=== PATIENT | female | born 1995 | race Caucasian/White ===

== ENCOUNTER 2018-10-31 14:40 | Outpatient (CLI) | payer BC, SELFPAY ==
[2018-10-31 14:18] VITALS: BMI 39.1
[2018-10-31 15:03] VITALS: BMI 39.8
--- NOTE | 2018-10-31 21:53 | OB.TRI.NOTE ---
- Problem List (1) Threatened labor Status: Acute History of Present Illness Date of Service: 10/31/18 Was patient seen by the physician?: Yes Reason For Visit: R/ PRE TERM LABOR Date of Service: 10/31/18 History of Present Illness: co ctx and small amount vb Allergies No Known Allergies Allergy (Verified 10/31/18 14:17) - Pertinent Past Medical History Surgical History: Past Surgical History (Last Reviewed 10/31/18 @ 14:18 by Sonia De La Rosa) History of appendectomy History of tonsillectomy NST - FHR Rate Baby A Baseline: 140 Variability:: Moderate Accelerations:: 15 x 15 Decelerations:: None NST Reactive:: Yes FHR Category:: Category I Uterine Activity:: q3-5 irritabiltiy Impression/Plan threatened PTL, no cervicla change dc home labor preacutions. has MFM ultrasound tomorrow
== END 2018-10-31 16:35 | disposition home or self-care (01) ==
LOC: WPOUT 14:44 → OBT 14:45
PROVIDERS: Referring Provider Obstetrics & Gynecology; Visit Provider Obstetrics & Gynecology
DX: O60.00 Preterm labor without delivery, unspecified trimester (principal); Z3A.00 Weeks of gestation of pregnancy not specified
CPT/HCPCS: 59025; 59050; 99218; G0378

== ENCOUNTER 2018-11-07 14:10 | Outpatient (CLI) | payer BC, SELFPAY ==
[2018-11-07 14:29] VITALS: BMI 39.3
[2018-11-07] MEDS: Betamethasone/Betamethasone 30 MG/5 ML Vial 12 MG IM (15:33)
--- NOTE | 2018-11-11 12:05 | OB.TRI.PN ---
Progress Notes Date of Service: 11/07/18 Progress Note: Patient at 28 weeks complaining of small amount of vaginal bleeding and irregular contractions. Patient examined in labor and delivery and noted to be still 1 cm no loss of fluid good movement, patient had ultrasound by maternal medicine that showed a normal exam and several days ago. heart tones 140s moderate variability 10 x 10 accelerations reactive gestational age appropriate no decelerations [place]: No regular contractions Assessment and plan 28-week vaginal bleeding no labor suspected but since this is the second evaluation within the last week recommend getting prophylactic steroids. First dose given today
--- NOTE | 2018-11-11 12:12 | OB.TRI.PN_ITS ---
Progress Notes Date of Service: 11/07/18 Progress Note: Patient at 28 weeks complaining of small amount of vaginal bleeding and irregular contractions. Patient examined in labor and delivery and noted to be still 1 cm no loss of fluid good movement, patient had ultrasound by maternal medicine that showed a normal exam and several days ago. heart tones 140s moderate variability 10 x 10 accelerations reactive gestational age appropriate no decelerations [place]: No regular contractions Assessment and plan 28-week vaginal bleeding no labor suspected but since this is the second evaluation within the last week recommend getting prophylactic steroids. First dose given today
--- NOTE | 2018-11-11 12:13 | OB.TRI.PN ---
Progress Notes Date of Service: 11/08/18 Progress Note: [place] shot
== END 2018-11-07 16:00 | disposition home or self-care (01) ==
LOC: WPOUT 14:12 → WP 15:34
PROVIDERS: Referring Provider Obstetrics & Gynecology; Visit Provider Obstetrics & Gynecology
DX: O46.93 Antepartum hemorrhage, unspecified, third trimester (principal); Z3A.28 28 weeks gestation of pregnancy
CPT/HCPCS: 59025; 59050; 96372; 99218; G0378; J0702

== ENCOUNTER 2018-11-08 15:05 | Outpatient (CLI) | payer BC, SELFPAY ==
[2018-11-08 13:49] VITALS: BMI 39.3
[2018-11-08 15:13] VITALS: BMI 39.8
[2018-11-08] MEDS: Betamethasone/Betamethasone 30 MG/5 ML Vial 12 MG IM (15:31)
[2018-11-08 16:15] LABS: Absolute Lymphocyte Count 1.19 X10^3/ul (0.83-4.51); Absolute Neutrophil Count 10.3 X10^3/uL (2.0-7.7); Basophil# 0.02 X10^3/uL; Basophil% 0.2 % (0-1); Eosinophil# 0.02 X10^3/uL; Eosinophils% 0.2 % (0-5); Hemoglobin 11.6 g/dl (12.0-15.0); Lymphocyte # 1.19 X10^3/ul (4.0); Lymphocyte % 9.7 % (19-41); Mean Corp Hgb Conc 34.1 g/gl (32-36); Mean Corpuscular Hgb 31.5 pg (27.0-32.0); Mean Corpuscular Volume 92.4 fL (81-99); Mean Platelet Vol. 9.9 fl (6.2-12.0); Monocyte# 0.57 X10^3/uL; Monocyte% 4.7 % (0-10); Neutrophil # 10.31 X10^3/uL (2.7-7.7); Neutrophil % 84.3 % (47-70); Platelet Count 202 K/mm3 (150-450); RBC Distribution Width CV 13.9 % (11.6-14.6); RBC Distribution Width SD 45.3 fl (35.1-43.9); Red Blood Count 3.68 M/mm3 (4.2-5.4); White Blood Count 12.2 K/mm3 (4.4-11.0)
[2018-11-08 16:16] LABS: POSITIVE COUNT NO; POSITIVE DIFFERENTIAL NO; POSITIVE MORPHOLOGY NO
[2018-11-08 16:35] LABS: Glucose Challenge Gest 1H 50g 142 mg/dL (70-140)
--- NOTE | 2018-11-16 04:12 | OB.TRI.PN_ITS ---
Progress Notes Date of Service: 11/08/18 Progress Note: [place] shot Laboratory Studies: Laboratory Tests 11/08/18 11/08/18 Range/Units 15:00 15:00 WBC 12.2 H (4.4-11.0) K/mm3 RBC 3.68 L (4.2-5.4) M/mm3 Hgb 11.6 L (12.0-15.0) g/dl Hct 34.0 L (37-47) % MCV 92.4 (81-99) fL MCH 31.5 (27.0-32.0) pg MCHC 34.1 (32-36) g/gl RDW 13.9 (11.6-14.6) % RDW Differential 45.3 H (35.1-43.9) fl Plt Count 202 (150-450) K/mm3 MPV 9.9 (6.2-12.0) fl Immature Gran % (Auto) 0.900 (0.0-0.9) % Neut % (Auto) 84.3 H (47-70) % Lymph % (Auto) 9.7 L (19-41) % Stokes % (Auto) 4.7 (0-10) % Eos % (Auto) 0.2 (0-5) % Baso % (Auto) 0.2 (0-1) % Absolute Neuts (auto) 10.3 H (2.0-7.7) X10^3/uL Absolute Lymphs (auto) 1.19 (0.83-4.51) X10^3/ul Total Counted Not Reportable Glucose 1 Hr 50 gm 142 H (70-140) mg/dL
== END 2018-11-08 15:45 | disposition home or self-care (01) ==
LOC: LAB 15:08 → WPOUT 15:09 → WP 15:10
PROVIDERS: Referring Provider Obstetrics & Gynecology; Visit Provider Obstetrics & Gynecology
DX: O60.00 Preterm labor without delivery, unspecified trimester (principal); Z3A.00 Weeks of gestation of pregnancy not specified
CPT/HCPCS: 36415; 82950; 85025; 96372; 99218; G0378; J0702

== ENCOUNTER → 2018-11-27 06:56 | Outpatient (CLI) | payer BC, SELFPAY ==
[2018-11-08 15:13] VITALS: BMI 39.8
[2018-11-23 13:18] VITALS: BMI 39.8
[2018-11-27 08:41] LABS: Glucose GTT-Gestational 1 Hr 141 mg/dL (<190)
[2018-11-27 08:46] LABS: Glucose GTT-Gestation. Fasting 78 mg/dL (<105)
[2018-11-27 10:35] LABS: Glucose GTT-Gestational 2 Hr 129 mg/dL (<165)
[2018-11-27 11:27] LABS: Glucose GTT-Gestational 3 Hr 95 L (<145)
== END ==
PROVIDERS: Family Provider Family Medicine; PCP Family Medicine; Referring Provider Obstetrics & Gynecology; Visit Provider Obstetrics & Gynecology
DX: R73.09 Other abnormal glucose (principal)
CPT/HCPCS: 36415; 82951; 82952

== ENCOUNTER → 2019-01-04 17:54 | Outpatient (CLI) | payer BC, SELFPAY ==
[2019-01-04 10:23] VITALS: BMI 39.8
== END ==
PROVIDERS: Family Provider Family Medicine; PCP Family Medicine; Referring Provider Obstetrics & Gynecology; Visit Provider Obstetrics & Gynecology
DX: Z34.83 Encounter for supervision of other normal pregnancy, third trimester (principal)
CPT/HCPCS: 87081

== ENCOUNTER 2019-01-15 16:50 | Inpatient (IN) | payer BC, SELFPAY ==
[2019-01-15 08:51] VITALS: BMI 39.8
[2019-01-15 17:57] LABS: Absolute Lymphocyte Count 1.54 X10^3/ul (0.83-4.51); Absolute Neutrophil Count 11.5 X10^3/uL (2.0-7.7); Basophil# 0.02 X10^3/uL; Basophil% 0.1 % (0-1); Eosinophil# 0.05 X10^3/uL; Eosinophils% 0.4 % (0-5); Hematocrit 32.8 % (37-47); Hemoglobin 11.3 g/dl (12.0-15.0); Lymphocyte # 1.54 X10^3/ul (4.0); Mean Corp Hgb Conc 34.5 g/gl (32-36); Mean Corpuscular Hgb 30.5 pg (27.0-32.0); Mean Corpuscular Volume 88.6 fL (81-99); Mean Platelet Vol. 9.9 fl (6.2-12.0); Monocyte# 0.88 X10^3/uL; Monocyte% 6.3 % (0-10); Neutrophil % 81.8 % (47-70); POSITIVE COUNT NO; POSITIVE DIFFERENTIAL NO; POSITIVE MORPHOLOGY NO; Platelet Count 175 K/mm3 (150-450); RBC Distribution Width CV 14.8 % (11.6-14.6); RBC Distribution Width SD 47.5 fl (35.1-43.9); White Blood Count 14.1 K/mm3 (4.4-11.0)
[2019-01-15 18:23] VITALS: BMI 40.4
--- NOTE | 2019-01-15 20:14 | HP.PCM_ITS ---
- Problem List (1) Active labor at term Status: Acute (2) Supervision of normal Status: Acute Qualifiers: Comment: PRR ANNABELLA 01/31/19 Boy. PC [place]. Ata (3) Status: Acute Qualifiers: Comment: nl NIPT. transvag cervical length - risk for labor was performed and appeared normal. NEEDS RPR AND RUBELLA (4) Infertility Status: Acute Comment: Conceived with letrozole and metformin (5) Rh negative status during Status: Acute Qualifiers: Comment: given at 28 weeks History Date of Admission: 01/15/19 Final ANNABELLA: 01/31/19 Gestational age: 37 Weeks and 5 Days History of this : This is a 23 year-old, at 37 weeks gestational age presents in active labor 6 cm dilated. Patient has been having contractions for the last several hours. Patient denies any loss of fluid but admits some bloody show. Patient has had a comp gated by contractions. Surgical History: Surgical History (Last Updated 01/15/19 @ 18:09 by Ness Ramirez) History of appendectomy (Acute) Z90.49 History of tonsillectomy (Acute) Z90.89 Allergies No Known Allergies Allergy (Verified 01/15/19 18:26) Home Medications: Home Medications vitamin#30 30 mg iron-10 mg iron-folic acid 1 mg-omg3 capsule 1 cap PO DAILY cap 09/14/18 Smoking Status: Never smoker Alcohol: None Number of Fetus(es): 1 Heart Tracins moderate variability reactive no decelerations category 1 tracing [place]: Q. 5 to 7 minutes History Past Pregnancies: Past Pregnancies Previous term vaginal delivery with labor contractions Labs: Mom's Labs & Results 01/15/19 01/15/19 17:30 17:30 WBC 14.1 H RBC 3.70 L Hgb 11.3 L Hct 32.8 L MCV 88.6 MCH 30.5 MCHC 34.5 RDW 14.8 H RDW Differential 47.5 H Plt Count 175 MPV 9.9 Immature Gran % (Auto) 0.400 Neut % (Auto) 81.8 H Lymph % (Auto) 11.0 L Door % (Auto) 6.3 Eos % (Auto) 0.4 Baso % (Auto) 0.1 Absolute Neuts (auto) 11.5 H Absolute Lymphs (auto) 1.54 Total Counted Not Reportable Blood Type A NEGATIVE Antibody Screen NEGATIVE Course Did the patient receive Yes care? Labs Blood Type: A RH: NEGATIVE HbSAg Negative Date Done: 08/16/18 Chlamydia Negative Gonorrhea Negative HIV/AIDS Non-Reactive Group B Strep: Negative Other Lab Procedures/Results/ did not see RPR and Rubella. Comments: Nichelle's notes state pt needs RPR and Rubella Current Obstetrical History Gestational Diabetes No Incompetent Cervix No Infertility No IUGR No Macrosomia No Hypertension/Pre-eclampsia No Placenta Previa/Abruption No PTL/PROM No Uterine anomaly No Oligohydramnios No Polyhydramnios No Multiple gestation No Past Medical History Asthma No Diabetes No Hypertension No Heart disease No Mitral valve prolapse No Neurologic/Seizure disorder/ No Migraines Kidney disease No Liver disease No Varicosities No Clotting disorders/Hx of DVT No Thyroid Dysfunction No Other medical diseases No Psychiatric disorders No Major trauma No Abnormal PAP smear No Sleep apnea No Mammogram in the last 2 years No Enter DETAILS of medical PCOS history Social History Marital Status: Alleged father ata Hx Smoking No Smoking Status Never smoker What date/time did you last never used above use any of the above? Expected Delivery Method: Spontaneous Vaginal Review of Systems Constitutional: Denies: Fever, Malaise Eyes: Denies: Blurred vision, Vision Change HEENT: Denies: Head Aches, Visual Changes Cardiovascular: Denies: Chest Pain, Palpitations Respiratory: Denies: Cough, Shortness of Breath, Wheezing Gastrointestinal: Denies: Abdominal Pain, Diarrhea, Nausea, Vomiting Genitourinary: Denies: Dysuria, Hematuria Musculoskeletal: Denies: Joint Pain, Muscle pain Skin: Denies: Lesions, Rash Neurological: Denies: Blurred vision, Focal weakness, Headaches Psychiatric: Denies: Anxiety, Depression Endocrine: Denies: Heat/ Cold Intolerance Hematologic/ Lymphatic: Denies: Easy Bruising, Easy Bleeding Physical Exam General: Alert, Cooperative, No apparent distress HEENT: Atraumatic, Normocephalic. Negative for: Thyromegaly, Lymphadenopathy Cardiovascular: Regular rate Lungs: Normal air movement Abdomen: Soft, Non Tender, Gravid Neurological: Deep Tendon Reflexes 2+/4 and Symmetrical, Neuro grossly intact. Negative for: Clonus SEWER AND CUTTER FINGER BUFF MATERIAL: Normal external genitalia. Negative for: Vulvar lesions Estimated gestational size: Appropriate for gestational size Presentation: Cephalic Cervix Dilation (cm): 6 Station: -1 Effacement (%): 70 Assessment/Plan All Active Problems (Last Reviewed 01/15/19 @ 08:05 by Corinna Prado) Supervision of normal (Acute) (Acute) Infertility (Acute) Rh negative status during (Acute) Active labor at term (Acute) History of appendectomy (Acute) History of tonsillectomy (Acute) Normal glucose level (Resolved) Threatened labor (Resolved) This is a 23 year-old, G 2P1, at 37 weeks gestational age presents IAL Patient presents IAL, plan expectant management for , pitocin/AROM PRN if needed. Pain management: Prefers minimal intervention. GBS negative. Management of any complications: None I have reviewed the [facility] and made any clinically relevant updates.
[2019-01-15] MEDS: Lactated Ringers 1,000 ML 50 ML IV ×2 (22:26→23:07)
[2019-01-15] MEDS: fentaNYL-bupivacaine (epidural) 100 ML BAG EPIDURAL (23:24)
[2019-01-16] MEDS: Oxytocin 30 units/NS 500 ml 30 UNITS/500 ML IV.SOLN 334 UNITS IV (01:48)
--- NOTE | 2019-01-16 01:59 | PCM.OPRPT ---
Problem List (1) Active labor at term Status: Acute (2) Supervision of normal Status: Acute Qualifiers: Comment: PRR ANNABELLA 01/31/19 Boy. PC [place]. Ata (3) Status: Acute Qualifiers: Comment: nl NIPT. transvag cervical length - risk for labor was performed and appeared normal. NEEDS RPR AND RUBELLA (4) Infertility Status: Acute Comment: Conceived with letrozole and metformin (5) Rh negative status during Status: Acute Qualifiers: Comment: given at 28 weeks Vaginal Delivery Maternal Presentation: Active Labor ial Amniotic Membrane Rupture Type: Artificial Amniotic Fluid Description: Clear Final ANNABELLA: 01/31/19 Gestational age: 37 Weeks and 6 Days Date of Procedure: 01/16/19 Pre-Operative Diagnosis: ial Post-Operative Diagnosis: same Surgery/ Procedure Performed: Spontaneous Vaginal Delivery Type of Anesthesia: Epidural Description of Procedure: Patient began pushing and delivered the head in the VAUGHN presentation. The head was delivered atraumatically . The anterior and posterior shoulders delivered without complication followed by the rest of the infant and the infant was placed on the maternal abdomen. Delayed cord clamping was employed for approximately 60 seconds. Cord was clamped and cut and gentle traction was applied to the cord and the placenta delivered spontaneously immediately following it was noted to be intact with three-vessel cord. The perineum and vagina were inspected and noted to have no laceration. EBL was 300 cc. Patient and infant tolerated delivery well. Presentation: VAUGHN Placental Delivery Description: Spontaneous Placenta Disposition: [facility] Cord Vessel Description: 3 Vessels Cord Entanglement: None Estimated Blood Loss: 300 A gender: Male Episiotomy Description: None Laceration: None Medications given after delivery: IV Pitocin Complications: None
[2019-01-16] MEDS: Oxytocin 30 units/NS 500 ml 30 UNITS/500 ML IV.SOLN 167 UNITS IV (02:18)
[2019-01-16 08:00] VITALS: BP 128/69; PULSE 94; RESP 15; TEMP 36.7
[2019-01-16 11:47] VITALS: BP 118/58; PULSE 101; RESP 14; TEMP 37
[2019-01-16 16:02] VITALS: BP 120/69; PULSE 99; RESP 16; TEMP 36.2; O2SAT 99
[2019-01-16 20:36] VITALS: BP 131/70; PULSE 93; RESP 18; TEMP 36.8
[2019-01-17] MEDS: Naproxen 250 MG Tablet 500 MG PO (02:57)
[2019-01-17 03:01] VITALS: BP 112/70; PULSE 81; RESP 18; TEMP 36.5
--- NOTE | 2019-01-17 07:35 | PCM.PN.OB ---
Patient Problems: Active and Suspected Problems (Last Reviewed 01/15/19 @ 08:05 by Corinna Prado) Active labor at term (Acute) Subjective: doing well no complaints pain controlled no CP SOB N V ambulating well tolerating po lochia moderate, going well - Physical Exam General: Alert, Oriented x3 Abdomen: Soft, Non Tender, Non-Distended, - - FF at U-bladder full. Minimal lochia Vital Signs Temp Pulse Resp BP Pulse Ox 97.7 F L 81 18 112/70 99 01/17/19 03:01 01/17/19 03:01 01/17/19 03:01 01/17/19 03:01 01/16/19 16:02 Oxygen Delivery Method Room Air Weight: 235 lb 10.786 oz Body Mass Index (BMI) 40.4 Intake and Output for Last 24 Hours 01/15/19 01/16/19 01/17/19 23:59 23:59 23:59 Intake Total 1890 / 1890 Output Total 500 / 500 Balance 1390 / 1390 Medical Necessity - Tobacco Use Smoking Status: Never smoker Assessment/Plan All Active Problems (Last Reviewed 01/15/19 @ 08:05 by Corinna Prado) Supervision of normal (Acute) (Acute) Infertility (Acute) Rh negative status during (Acute) Active labor at term (Acute) History of appendectomy (Acute) History of tonsillectomy (Acute) Normal glucose level (Resolved) Threatened labor (Resolved) s/p PPD # 1 1. routine post delivery care 2. breast feeding- support given 3. rh negative 4. rubella immune 5. home today
--- NOTE | 2019-01-17 07:37 | DCINST_ITS ---
Additional Instructions: If you experience any of the following, contact your healthcare provider. * Bleeding that soaks a pad every hour for 2 hours * Fever 100.4 or higher * Unrelieved incision or abdominal pain * Swelling, redness, discharge or bleeding from your incision or episiotomy site * Your incision begins to separate * Problems urinating (including inability to urinate or burning while urinating). * Visual changes * Severe headache * Flu-like symptoms * Pain or redness in one of both of your breasts * Pain, warmth, tenderness or swelling in your legs, especially the calf area * Frequent nausea and vomiting * Symptoms of depression or anxiety If you experience any of the following, call 911 or go to the nearest Emergency Room. * Chest pain * Problems breathing * Seizure activity * Partial or complete paralysis of a body part, slurred speech, weakness or drooping of the face, or a sudden inability to walk or hold your balance Allergies/Adverse Reactions: Allergies No Known Allergies Allergy (Verified 01/15/19 18:26) Medications to take at Discharge vitamin#30 30 mg iron-10 mg iron-folic acid 1 mg-omg3 capsule 1 cap PO DAILY cap 09/14/18 Primary Care Physician: Care Physician,No Primary [Primary Care Provider] - Test Results: Test results from this visit will be discussed in further detail at your follow- up appointment, if applicable.
--- NOTE | 2019-01-17 07:37 | PCM.DCVAG ---
Additional Instructions: If you experience any of the following, contact your healthcare provider. Bleeding that soaks a pad every hour for 2 hours Fever 100.4 or higher Unrelieved incision or abdominal pain Swelling, redness, discharge or bleeding from your incision or episiotomy site Your incision begins to separate Problems urinating (including inability to urinate or burning while urinating). Visual changes Severe headache Flu-like symptoms Pain or redness in one of both of your breasts Pain, warmth, tenderness or swelling in your legs, especially the calf area Frequent nausea and vomiting Symptoms of depression or anxiety If you experience any of the following, call 911 or go to the nearest Emergency Room. Chest pain Problems breathing Seizure activity Partial or complete paralysis of a body part, slurred speech, weakness or drooping of the face, or a sudden inability to walk or hold your balance Allergies/Adverse Reactions: Allergies No Known Allergies Allergy (Verified 01/15/19 18:26) Medications to take at Discharge vitamin#30 30 mg iron-10 mg iron-folic acid 1 mg-omg3 capsule 1 cap PO DAILY cap 09/14/18 Primary Care Physician: Care Physician,No Primary [Primary Care Provider] - Test Results: Test results from this visit will be discussed in further detail at your follow-up appointment, if applicable.
[2019-01-17 09:50] VITALS: BP 118/60; PULSE 85; RESP 20; TEMP 36.6; O2SAT 98
== END 2019-01-17 14:55 | disposition home or self-care (01) | DRG 807 ==
PROVIDERS: Admitting Provider Obstetrics & Gynecology; Referring Provider Obstetrics & Gynecology; Visit Provider Obstetrics & Gynecology
DX: O99.214 Obesity complicating childbirth (principal); E66.01 Morbid (severe) obesity due to excess calories; Z67.91 Unspecified blood type, Rh negative; Z3A.37 37 weeks gestation of pregnancy; Z37.0 Single live birth
CPT/HCPCS: 59025; 59050; 85025; 85461; 86850; 86900; 90384; 99218; J7120; G0378; J2790

== ENCOUNTER → 2019-11-28 09:29 | Outpatient (CLI) | payer BC, SELFPAY ==
[2019-09-09 14:39] VITALS: BMI 37.3
[2019-11-28 09:49] LABS: Absolute Lymphocyte Count 1.94 X10^3/uL (0.83-4.51); Absolute Neutrophil Count 4.1 X10^3/uL (2.0-7.7); Basophil# 0.08 X10^3/uL; Basophil% 1.2 % (0-1); Eosinophil# 0.13 X10^3/uL; Eosinophils% 1.9 % (0-5); Hematocrit 38.7 % (37-47); Hemoglobin 13.4 g/dL (12.0-15.0); Lymphocyte # 1.94 X10^3/ul (4.0); Mean Corp Hgb Conc 34.6 g/dL (32-36); Mean Corpuscular Hgb 30.9 pg (27.0-32.0); Mean Corpuscular Volume 89.4 fL (81-99); Mean Platelet Vol. 9.1 fl (6.2-12.0); Monocyte# 0.44 X10^3/uL; Monocyte% 6.6 % (0-10); NRBC Flagged by Analyzer 0 % (0-5); Neutrophil # 4.09 X10^3/uL (2.7-7.7); Neutrophil % 61.2 % (47-70); Platelet Count 252 K/mm3 (150-450); RBC Distribution Width CV 13.2 % (11.6-14.6); RBC Distribution Width SD 43.6 fl (35.1-43.9); Red Blood Count 4.33 M/mm3 (4.2-5.4); White Blood Count 6.7 K/mm3 (4.4-11.0)
[2019-11-28 10:19] LABS: hCG Titer Quant., Serum < 1 mIU/mL (1-3)
== END ==
PROVIDERS: PCP Family Medicine; Referring Provider Obstetrics & Gynecology; Visit Provider Obstetrics & Gynecology
DX: O20.0 Threatened abortion (principal); Z3A.00 Weeks of gestation of pregnancy not specified
CPT/HCPCS: 36415; 84702; 85025; 86850; 86900; 86901

== ENCOUNTER → 2020-05-12 | Outpatient (CLI) | payer BC, SELFPAY ==
[2020-05-12 09:36] VITALS: BMI 37.3
[2020-05-18 01:43] LABS: HPV Reflexed? NOT INDICATED
== END | disposition home or self-care (01) ==
LOC: LABSPEC 15:23
PROVIDERS: PCP Family Medicine; Referring Provider Nurse Practitioner Women's Health; Visit Provider Nurse Practitioner Women's Health
DX: Z12.4 Encounter for screening for malignant neoplasm of cervix (principal)
CPT/HCPCS: 88175; G0145

== ENCOUNTER → 2021-04-23 14:46 | Outpatient (CLI) | payer BC, SELFPAY | PROVIDERS: PCP Family Medicine; Referring Provider Obstetrics & Gynecology; Visit Provider Obstetrics & Gynecology | DX: Z32.01 Encounter for pregnancy test, result positive (principal) | CPT/HCPCS: 36415; 84702 ==

== ENCOUNTER → 2021-04-28 16:13 | Outpatient (CLI) | payer BC, SELFPAY ==
[2021-04-28 16:42] LABS: Absolute Lymphocyte Count 1.93 X10^3/uL (0.83-4.51); Absolute Neutrophil Count 6.1 X10^3/uL (2.0-7.7); Basophil# 0.05 X10^3/uL; Basophil% 0.6 % (0-1); Eosinophil# 0.08 X10^3/uL; Eosinophils% 0.9 % (0-5); Hemoglobin 13.1 g/dL (12.0-15.0); Lymphocyte # 1.93 X10^3/ul (0.83-4.51); Lymphocyte % 22.2 % (19-41); Mean Corp Hgb Conc 34.5 g/dL (32-36); Mean Corpuscular Hgb 29.9 pg (27.0-32.0); Mean Corpuscular Volume 86.8 fL (81-99); Mean Platelet Vol. 8.9 fl (6.2-12.0); Monocyte# 0.51 X10^3/uL; Monocyte% 5.9 % (0-10); NRBC Flagged by Analyzer 0 % (0-5); Neutrophil # 6.12 X10^3/uL (2.7-7.7); Neutrophil % 70.2 % (47-70); Platelet Count 250 K/mm3 (150-450); RBC Distribution Width CV 13.2 % (11.6-14.6); RBC Distribution Width SD 41.6 fl (35.1-43.9); Red Blood Count 4.38 M/mm3 (4.2-5.4); White Blood Count 8.7 K/mm3 (4.4-11.0)
[2021-04-29 11:31] LABS: HIV - WCH Non-Reactive (Nonreactive); Hepatitis B Surface Antigen Non-Reactive (Nonreactive); Hepatitis C Antibody Non-Reactive (Nonreactive); Rubella IgG Reactive (Nonreactive); Syphilis Antibodies Non-reactive
== END ==
PROVIDERS: Obstetrics & Gynecology; PCP Family Medicine; Visit Provider Obstetrics & Gynecology
DX: Z34.90 Encounter for supervision of normal pregnancy, unspecified, unspecified trimester (principal)
CPT/HCPCS: 36415; 84702; 85025; 86703; 86762; 86780; 86803; 86850; 86900; 86901; 87340

== ENCOUNTER → 2021-05-21 08:04 | Outpatient (CLI) | payer BC, SELFPAY ==
--- NOTE | 2021-05-21 08:12 | US_ITS ---
STUDY: FIRST TRIMESTER OBSTETRICAL ULTRASOUND REASON FOR EXAM: Female, 25 years old LMP: 02/02/2021 TECHNIQUE: Transabdominal and Transvaginal TECHNICAL QUALITY: Adequate. PRIOR ULTRASOUND: None. FINDINGS: There is visualization of a single gestational sac in a normal intrauterine position. The mean sac diameter (MSD) measures 5 cm, indicating an estimated gestational age (EGA) of 10 weeks, 4 days. The gestational sac shape is within normal limits. There is a visualized yolk sac. The yolk sac measures 5.3 mm. The placenta is non-visualized. There is visualization of a live embryo. The crown-rump length (CRL) measures 4.1 cm, indicating an estimated gestational age (EGA) of 10 weeks, 5 days. There is demonstrated cardiac activity with a heart rate of 157 bpm. The estimated gestation age (EGA) by LMP is 70 weeks, 3 days. The estimated date of delivery (ANNABELLA) by LMP is 10/26/2021. The estimated gestation age (EGA) by US is 10 weeks, 4 days. The estimated date of delivery (ANNABELLA) by US is 12/13/2021. The uterus measures 14.9 cm x 9.5 cm x 7.6 cm. There is no demonstrated uterine fibroid. The cervix is closed. The right ovary measures 3.3 cm x 3.5 cm x 1.8 cm. There is no right ovarian cyst. There is no visualized right adnexal mass or complex lesion. The left ovary measures 3.3 cm x 2.8 cm x 1.4 cm. There is no left ovarian cyst. There is no visualized left adnexal mass or complex lesion. There is no fluid in the cul de sac. US/Init OB < 14Wks US IMPRESSION: Single live intrauterine gestation with a mean gestational age of 10 weeks and 4 days. Electronically Signed: Chadwick Holder MD at 14:59 EDT , Service support ,
== END ==
PROVIDERS: PCP Family Medicine; Referring Provider Obstetrics & Gynecology; Visit Provider Obstetrics & Gynecology
DX: Z34.90 Encounter for supervision of normal pregnancy, unspecified, unspecified trimester (principal)
CPT/HCPCS: 76801

== ENCOUNTER → 2021-06-03 15:38 | Outpatient (CLI) | payer BC, SELFPAY ==
[2021-06-03 16:13] LABS: Absolute Lymphocyte Count 1.85 X10^3/uL (0.83-4.51); Absolute Neutrophil Count 4.8 X10^3/uL (2.0-7.7); Basophil# 0.04 X10^3/uL; Basophil% 0.6 % (0-1); Eosinophil# 0.12 X10^3/uL; Eosinophils% 1.7 % (0-5); Hematocrit 33.8 % (37-47); Hemoglobin 11.9 g/dL (12.0-15.0); Lymphocyte # 1.85 X10^3/ul (0.83-4.51); Lymphocyte % 25.4 % (19-41); Mean Corp Hgb Conc 35.2 g/dL (32-36); Mean Corpuscular Hgb 30.4 pg (27.0-32.0); Mean Corpuscular Volume 86.2 fL (81-99); Mean Platelet Vol. 9.2 fl (6.2-12.0); Monocyte# 0.42 X10^3/uL; Monocyte% 5.8 % (0-10); NRBC Flagged by Analyzer 0 % (0-5); Neutrophil # 4.81 X10^3/uL (2.7-7.7); Neutrophil % 66.1 % (47-70); Platelet Count 222 K/mm3 (150-450); RBC Distribution Width CV 13.7 % (11.6-14.6); RBC Distribution Width SD 42.1 fl (35.1-43.9); Red Blood Count 3.92 M/mm3 (4.2-5.4); White Blood Count 7.3 K/mm3 (4.4-11.0)
[2021-06-03 18:15] LABS: Amphetamine Urine VISTA NEGATIVE (<1000 ng/mL); Barbiturate Urine VISTA NEGATIVE (< 200 ng/mL); Benzodiazepine Urine VISTA NEGATIVE (< 200 ng/mL); Cocaine Urine VISTA NEGATIVE (< 300 ng/mL); Ecstacy Urine VISTA NEGATIVE (< 500 ng/mL); Methadone Urine VISTA NEGATIVE (< 300 ng/mL); PCP Urine VISTA NEGATIVE (< 25 ng/mL); THC Urine VISTA NEGATIVE (< 50 ng/mL); Vista UDS pH Range 5
[2021-06-04 08:11] LABS: HIV - WCH Non-Reactive (Nonreactive); Hepatitis B Surface Antigen Non-Reactive (Nonreactive); Hepatitis C Antibody Non-Reactive (Nonreactive); Rubella IgG Reactive (Nonreactive); Syphilis Antibodies Non-reactive
== END ==
PROVIDERS: PCP Family Medicine; Referring Provider Obstetrics & Gynecology; Visit Provider Obstetrics & Gynecology
DX: O09.219 Supervision of pregnancy with history of pre-term labor, unspecified trimester (principal); O36.0190 Maternal care for anti-D [Rh] antibodies, unspecified trimester, not applicable or unspecified; O99.280 Endocrine, nutritional and metabolic diseases complicating pregnancy, unspecified trimester; E28.2 Polycystic ovarian syndrome; Z3A.00 Weeks of gestation of pregnancy not specified
CPT/HCPCS: 36415; 80307; 85025; 86703; 86762; 86780; 86803; 86850; 86900; 86901; 87077; 87086; 87088; 87186; 87340; 87491; 87591

== ENCOUNTER → 2021-07-13 | Outpatient (CLI) | payer BC, SELFPAY | END | disposition home or self-care (01) | LOC: LABSPEC 14:43 | PROVIDERS: PCP Family Medicine; Visit Provider Obstetrics & Gynecology | DX: O26.899 Other specified pregnancy related conditions, unspecified trimester (principal); N89.8 Other specified noninflammatory disorders of vagina; Z3A.00 Weeks of gestation of pregnancy not specified | CPT/HCPCS: 87070; 87205 ==

== ENCOUNTER 2021-09-20 07:46 | Outpatient (CLI) | payer BC, SELFPAY ==
[2021-09-20 08:20] LABS: Absolute Lymphocyte Count 1.36 X10^3/uL (0.83-4.51); Absolute Neutrophil Count 7.8 X10^3/uL (2.0-7.7); Basophil# 0.04 X10^3/uL; Basophil% 0.4 % (0-1); Hematocrit 34.2 % (37-47); Hemoglobin 11.6 g/dL (12.0-15.0); Lymphocyte # 1.36 X10^3/ul (0.83-4.51); Lymphocyte % 13.8 % (19-41); Mean Corp Hgb Conc 33.9 g/dL (32-36); Mean Corpuscular Hgb 30.9 pg (27.0-32.0); Mean Corpuscular Volume 91.2 fL (81-99); Mean Platelet Vol. 9.5 fl (6.2-12.0); Monocyte# 0.44 X10^3/uL; Monocyte% 4.5 % (0-10); NRBC Flagged by Analyzer 0 % (0-5); Neutrophil # 7.83 X10^3/uL (2.7-7.7); Neutrophil % 79.7 % (47-70); Platelet Count 193 K/mm3 (150-450); RBC Distribution Width CV 14.1 % (11.6-14.6); RBC Distribution Width SD 46.9 fl (35.1-43.9); Red Blood Count 3.75 M/mm3 (4.2-5.4); White Blood Count 9.8 K/mm3 (4.4-11.0)
[2021-09-20 08:53] LABS: Glucose Challenge Gest 1H 50g 112 mg/dL (70-140)
== END 2021-09-20 23:59 | disposition short-term general hospital (02) ==
LOC: LAB 07:48
PROVIDERS: PCP Family Medicine; Referring Provider Nurse Practitioner Women's Health; Visit Provider Nurse Practitioner Women's Health
DX: Z34.83 Encounter for supervision of other normal pregnancy, third trimester (principal); Z3A.28 28 weeks gestation of pregnancy
CPT/HCPCS: 36415; 82950; 85025; 86850; 86900; 86901

== ENCOUNTER 2021-09-22 16:12 | Outpatient (CLI) | payer BC, SELFPAY | END 2021-09-22 23:59 | disposition short-term general hospital (02) | LOC: LABSPEC 16:12 | PROVIDERS: PCP Family Medicine; Visit Provider Obstetrics & Gynecology | DX: O26.899 Other specified pregnancy related conditions, unspecified trimester (principal); R10.2 Pelvic and perineal pain; Z3A.00 Weeks of gestation of pregnancy not specified | CPT/HCPCS: 87070; 87205 ==

== ENCOUNTER 2021-10-19 07:46 | Outpatient (CLI) | payer BC, SELFPAY ==
--- NOTE | 2021-10-19 07:48 | US_ITS ---
STUDY: SECOND AND THIRD TRIMESTER OBSTETRICAL ULTRASOUND REASON FOR EXAM: Female, 25 years old growth LMP: 03/08/2021. TECHNIQUE: Transabdominal TECHNICAL QUALITY: Adequate. PRIOR ULTRASOUND: Comparison is made with prior study dated 05/21/2021. FINDINGS: There is a single intrauterine fetus. The fetus is in a cephalic presentation. There is demonstrated cardiac activity with a heart rate of 129 bpm. There is a normal amniotic fluid volume. The largest amniotic fluid pocket measures 5.1 cm. The amniotic fluid index (JF) is 15.6 cm. The placenta is posterior in location and is not low lying. There are Grade 0 placental changes. The cervix measures 4.9 cm in length. The adnexal regions are not visualized. BIOMETRY: BPD: 8.33 cm: 33 weeks, 3 days HC: 30.8 cm: 34 weeks, 2 days AC: 30.3 cm: 34 weeks, 1 days FL: 6.3 cm: 32 weeks, 2 days CI: 81% FL/BPD: 75% FL/HC: FL/AC: 21% HC/AC: 1.01 age by current US: 33 weeks, 1 days. ANNABELLA by current US: 12/06/2021. Estimated weight: 2257 grams, +/- 339 grams, 85 %. age by prior US: 32 weeks, 1 days. ANNABELLA by prior US: 12/13/2021. Age by LMP: 32 weeks, 1 days. ANNABELLA by LMP: 12/13/2021. US/OB Limited With Biometrics IMPRESSION: Single live intrauterine gestation with a mean gestational age of 32 weeks and 1 day. The measurements obtained today fall within normal expected range. Electronically Signed: Chadwick Holder MD at 14:46 EST ,
== END 2021-10-19 23:59 | disposition home or self-care (01) ==
PROVIDERS: PCP Family Medicine; Referring Provider Nurse Practitioner Women's Health; Visit Provider Nurse Practitioner Women's Health
DX: O98.519 Other viral diseases complicating pregnancy, unspecified trimester (principal); U07.1 COVID-19
CPT/HCPCS: 76816

== ENCOUNTER 2021-11-15 08:02 | Outpatient (CLI) | payer BC, SELFPAY ==
--- NOTE | 2021-11-15 08:04 | US_ITS ---
STUDY: SECOND AND THIRD TRIMESTER OBSTETRICAL ULTRASOUND REASON FOR EXAM: Female, 25 years old growth LMP: 03/08/2021. TECHNIQUE: Transabdominal TECHNICAL QUALITY: Adequate. PRIOR ULTRASOUND: Comparison is made with prior study dated 10/19/2021. FINDINGS: There is a single intrauterine fetus. The fetus is in a cephalic presentation. There is demonstrated cardiac activity with a heart rate of 129 bpm. There is a normal amniotic fluid volume. The largest amniotic fluid pocket measures 5.1 cm. The amniotic fluid index (JF) is 12.1 cm. The placenta is posterior in location and is not low lying. There are Grade 2 placental changes. The precervical length was unable to be measured due to the head positioning. The adnexal regions are not visualized. BIOMETRY: BPD: 8.96 cm: 36 weeks, 1 days HC: 11.2 cm: 36 weeks, 3 days AC: 35.2 cm: 39 weeks, 0 days FL: 6.7 cm: 34 weeks, 3 days CI: 80% FL/BPD: 75% FL/HC: FL/AC: 19% HC/AC: 0.94 age by current US: 36 weeks, 5 days. ANNABELLA by current US: 12/08/2021. Estimated weight: 3257 grams, +/- 489 grams, 88 %. age by prior US: 37 weeks, 0 days. ANNABELLA by prior US: 12/07/2019. Age by LMP: 36 weeks, 0 days. ANNABELLA by LMP: 12/13/2021. US/OB Limited With Biometrics IMPRESSION: Single live uterine gestation with a mean gestational age of 37 weeks. The measurements obtained today fall within the normal expected range. Electronically Signed: Chadwick Holder MD at 8:22 EDT ,
== END 2021-11-15 23:59 | disposition home or self-care (01) ==
PROVIDERS: PCP Family Medicine; Referring Provider Nurse Practitioner Women's Health; Visit Provider Nurse Practitioner Women's Health
DX: O98.519 Other viral diseases complicating pregnancy, unspecified trimester (principal); U07.1 COVID-19
CPT/HCPCS: 76816

== ENCOUNTER 2021-11-16 23:00 | Observation (INO) | payer BC, SELFPAY ==
[2021-11-16 14:21] VITALS: BP 120/66; PULSE 115; TEMP 37.2
[2021-11-16 14:22] VITALS: PULSE 109; O2SAT 97
[2021-11-16 14:29] VITALS: BMI 42.3
--- NOTE | 2021-11-16 19:17 | OB.TRI.HP_ITS ---
HPI - General General Date of Admission: 11/16/21 HPI Narrative KRISTAN MCLEAN, is a 25 F who presents with painful contractions. She was found to b 4 cm dilated in the office and was found to be the same on arrival. She was admitted for observation. Maternal Data Information ANNABELLA Calculator Estimated Delivery Date Method Current WG Current Estimate 12/13/21 Ultrasound #1 36w 4d Other Estimates 11/25/21 LMP (Certain) 39w 1d PFSH PFS Medical History (Updated 11/19/21 @ 19:[address] Meliza Casillas, DO) Depression Infertility Home Medications multivitamin no.47-iron fum 27 mg-folate no.1 1 mg-dha 300 mg capsule 1 cap PO DAILY 05/28/21 [History Last Taken 11/16/21 07:30 1 tab] aspirin 81 mg tablet,delayed release 81 mg PO DAILY 08/23/21 [History Last Taken 11/16/21 07:30 1 tab] sertraline [Zoloft] 25 mg PO DAILY 11/16/21 [History Last Taken 11/16/21 07:30 25 mg] Allergy/AdvReac Type Severity Reaction Status Date / Time No Known Allergies Allergy Verified 11/16/21 23:06 Surgical History (Updated 11/16/21 @ 23:30 by Tamanna Montanez) History of appendectomy History of surgery Social History adopted: No household members: family housing: house number of children: 2 Smoking Status: Never smoker alcohol intake: never substance use type: does not use caffeine: Yes what type of physical activity do you participate in: walking seatbelt use: always do you feel safe at home: Yes additional 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 Date Name GA/Weeks Outcome Route Bth Weight Gen Labor Lgth Anesthesia Del Locatn Provider FOB 09/13/15 Parag 39 live - full term 8 pounds 3oz Mal e 10 hours epidural AOH Ashley Berumen 01/16/19 Thang 39 live - full term 7lbs 7oz Male 10 h ours epidural WC BRADLEY Ata Delivery Date: 09/13/15 No notes to display Delivery Date: 01/16/19 pre term labor at 26 weeks Mariya Lugo Visit Details Expected Delivery Route/Plan Labor Preferences- CB/BF classes: labor support person: Ata labor intervention preferences: [] pain management options preferred: epidural cut cord/dad catch: no : yes PP control planned: discussed-vasectomy planned discussed possible routes of delivery and associated risks: [] special requests: [] Plans Covid status: 1st moderna vaccine given 06/25/21 Flu vaccine: given Tdap vaccine: given Rhogam: given LARC form signed: yes movement and labor precautions reviewed. Problem list reviewed and updated with the most current plan of care details and appropriate orders placed. Relevant counseling for the gestational age provided. Continue routine care and follow up unless otherwise noted in visit notes/problem list details OB Flowsheet Initial Weight: 239 lb Date -?-?-?-?-?-?-?-?-?-?-?-?- EGA Weight BP Urine Prot -?-?-?-?-?-?-?-?-?-?-?-?- Glucose FHR FuHt Pres Dilation -?-?-?-?-?-?-?-?-?-?-?-?- Effaced St Visit Note 06/03/21 -?-?-?-?-?-?-?-?-?-?-?-?- 12w 3d 239 lb (+0 oz) 138/72 -?-?-?-?-?-?-?-?-?-?-?-?- 170 -?-?-?-?-?-?-?-?-?-?-?-?- SM- CRL cons wit h LMP SM- no vb cramping 07/02/21 -?-?-?-?-?-?-?-?-?-?-?-?- 16w 4d 239 lb (+0 oz) 138/88 Negative -?-?-?-?-?-?-?-?-?-?-?-?- Negative 148 -?-?-?-?-?-?-?-?-?-?-?-?- JV- pt complains of depression. starting zoloft. worried about baseline elevated bp and h/o early cervical dilation. will check 07/13/21 -?-?-?-?-?-?-?-?-?-?-?-?- 18w 1d 238 lb 6 oz (-10 oz) 134/86 Negative -?-?-?-?-?-?-?-?-?-?-?-?- Negative 150 -?-?-?-?-?-?-?-?-?-?-?-?- JV- still spotti ng. on exam there is a moderate amount of vaginal discharge (yellow/green) culture collected. treatment for yeast given. Ultrasound reassuring. 07/30/21 -?-?-?-?-?-?-?-?-?-?-?-?- 20w 4d 238 lb 2 oz (-14 oz) 122/64 Negative -?-?-?-?-?-?-?-?-?-?-?-?- Negative 158 -?-?-?-?-?-?-?-?-?-?-?-?- JV- no further s potting. zoloft 25 working great. normal anatomy scan. plan to rto in 1 month. 08/23/21 -?-?-?-?-?-?-?-?-?-?-?-?- 24w 0d 242 lb (+3 lb) 112/68 Negative -?-?-?-?-?-?-?-?-?-?-?-?- Negative 143 24 -?-?-?-?-?-?-?-?-?-?-?-?- MH-NO Vb, LOF. M ood stable with zoloft. Good FM. Had covid mid Dec/mild case. Start ASA and ordered growth US 32 and 34 wk 09/20/21 -?-?-?-?-?-?-?-?-?-?-?-?- 28w 0d 242 lb 4 oz (+3 lb 4 oz) 136/80 Negative -?-?-?-?-?-?-?-?-?-?-?-?- Negative 135 28 -?-?-?-?-?-?-?-?-?-?-?-?- SM- no vb lof go od fm no regular ctx tdap. discussed sterilization. cbc gct 09/22/21 -?-?-?-?-?-?-?-?-?-?-?-?- 28w 2d 241 lb 8 oz (+2 lb 8 oz) 130/78 Trace -?-?-?-?-?-?-?-?-?-?-?-?- Negative 141 0 -?-?-?-?-?-?-?-?-?-?-?-?- 0 -4 JV- pt pre sents with cramping and mucous discharge. She states that she feels crampy. pt has ketones and trace leukocytes in urine .vaginal culture collected. recommend increasing fluids and rest. 10/04/21 -?-?-?-?-?-?-?-?-?-?-?-?- 30w 0d 245 lb (+6 lb) 108/70 -?-?-?-?-?-?-?-?-?-?-?-?- 140 30 -?-?-?-?-?--?-?-?-?-?-?-?- SM- no vb lof go od fm no regular ctx 10/14/21 -?-?-?-?-?-?-?-?-?-?-?-?- 31w 3d 246 lb (+7 lb) 136/78 Negative -?-?-?-?-?-?-?-?-?-?-?-?- Negative 140 -?-?-?-?-?-?-?-?-?-?-?-?- MH-NST only due to dec FM:reactive 10/18/21 -?-?-?-?-?-?-?-?-?-?-?-?- 32w 0d 249 lb (+10 lb) 132/74 Negative -?-?-?-?-?-?-?-?-?-?-?-?- Negative 140 34 -?-?-?-?-?-?-?-?-?-?-?-?- SM- no vb lof go od fm no regular ctx 11/01/21 -?-?-?-?-?-?-?-?-?-?-?-?- 34w 0d 247 lb 8 oz (+8 lb 8 oz) 132/68 Negative -?-?-?-?-?-?-?-?-?-?-?-?- Negative 138 36 -?-?-?-?-?-?-?-?-?-?-?-?- -reviewed US marcella canales WNL. Has rpt scheduled. No VB,LOF. Good FM. 11/15/21 -?-?-?-?-?-?-?-?-?-?-?-?- 36w 0d 246 lb (+7 lb) 124/80 Negative -?-?-?-?-?-?-?-?-?-?-?-?- Negative 145 37 -?-?-?-?-?-?-?-?-?-?-?-?- SM- no vb lof go od fm irregular ctx 11/16/21 -?-?-?-?-?-?-?-?-?-?-?-?- 36w 1d 247 lb (+8 lb) 120/70 Negative -?-?-?-?-?-?-?-?-?-?-?-?- Negative 140 Cephalic 4 -?-?-?-?-?-?-?-?-?-?-?-?- 60 -1 JV- sendin g patient to L&D to rule out labor. 11/16/21 -?-?-?-?-?-?-?-?-?-?-?-?- 36w 2d 136/75 120/66 118/62 122/69 117/65 121/68 129/76 -?-?-?-?-?-?-?-?-?-?-?-?- -?-?-?-?-?-?-?-?-?-?-?-?- ROS Constitutional Constitutional: Reports systems reviewed and no addt'l complaints, except as documented Gastrointestinal Gastrointestinal: Denies bloating, constipation, cramping, diarrhea, nausea or vomiting Genitourinary Genitourinary: Reports other Details: Denies vaginal odor, vaginal bleeding, or vaginal discharge ; Denies difficulty urinating or flank pain Physical Exam HEENT normocephalic Resp normal respiratory effort and normal air movement no CVA tenderness Extremity normal to inspection General Extremity: edema bilateral (trace ) NST FHR Rate Baby A Baseline: 140 Variability:: Moderate Accelerations:: 15 x 15 Decelerations:: None NST Reactive:: Yes FHR Category:: Category I Assessment & Plan (1) False labor: COMMENT: prolonged monitoring 11/16 without change in cx PLAN: sending patient home with labor precautions. Charges/Coding Multi Select Codes Visit Charges Office Visit/Consults: 45626 OV L3 Est Urinary/Genital Urinary/Genital CPT Codes: 53029-63 non-stress test Interp
--- NOTE | 2021-11-16 19:17 | OB.TRI.NOTE ---
HPI - General General Date of Admission: 11/16/21 HPI Narrative KRISTAN MCLEAN, is a 25 F who presents with painful contractions. She was found to b 4 cm dilated in the office and was found to be the same on arrival. She was admitted for observation. Maternal Data Information ANNABELLA Calculator Estimated Delivery Date Method Current WG Current Estimate 12/13/21 Ultrasound #1 36w 4d Other Estimates 11/25/21 LMP (Certain) 39w 1d PFSH PFSH Medical History (Updated 11/19/21 @ 19:[address] Meliza Casillas, DO) Depression Infertility Home Medications multivitamin no.47-iron fum 27 mg-folate no.1 1 mg-dha 300 mg capsule 1 cap PO DAILY 05/28/21 [History Last Taken 11/16/21 07:30 1 tab] aspirin 81 mg tablet,delayed release 81 mg PO DAILY 08/23/21 [History Last Taken 11/16/21 07:30 1 tab] sertraline [Zoloft] 25 mg PO DAILY 11/16/21 [History Last Taken 11/16/21 07:30 25 mg] Allergy/AdvReac Type Severity Reaction Status Date / Time No Known Allergies Allergy Verified 11/16/21 23:06 Surgical History (Updated 11/16/21 @ 23:30 by Tamanna Montanez) History of appendectomy History of surgery Social History adopted: No household members: family housing: house number of children: 2 Smoking Status: Never smoker alcohol intake: never substance use type: does not use caffeine: Yes what type of physical activity do you participate in: walking seatbelt use: always do you feel safe at home: Yes additional social history: 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 Date Name GA/Weeks Outcome Route Bth Weight Gen Labor Lgth Anesthesia Del Locatn Provider FOB 09/13/15 Parag 39 live - full term 8 pounds 3oz Male 10 hours epidural AOH Ashley Berumen 01/16/19 Thang 39 live - full term 7lbs 7oz Male 10 hours epidural WC BRADLEY Ata Delivery Date: 09/13/15 No notes to display Delivery Date: 01/16/19 pre term labor at 26 weeks Mariya Lugo Visit Details Expected Delivery Route/Plan Labor Preferences- CB/BF classes: labor support person: Ata labor intervention preferences: [] pain management options preferred: epidural cut cord/dad catch: no : yes PP control planned: discussed-vasectomy planned discussed possible routes of delivery and associated risks: [] special requests: [] Plans Covid status: 1st moderna vaccine given 06/25/21 Flu vaccine: given Tdap vaccine: given Rhogam: given LARC form signed: yes movement and labor precautions reviewed. Problem list reviewed and updated with the most current plan of care details and appropriate orders placed. Relevant counseling for the gestational age provided. Continue routine care and follow up unless otherwise noted in visit notes/problem list details OB Flowsheet Initial Weight: 239 lb Date <del>?</del> EGA Weight BP Urine Prot <del>?</del> Glucose FHR FuHt Pres Dilation <del>?</del> Effaced St Visit Note 06/03/21 <del>?</del> 12w 3d 239 lb (+0 oz) 138/72 <del>?</del> 170 <del>?</del> SM- CRL cons with LMP SM- no vb cramping 07/02/21 <del>?</del> 16w 4d 239 lb (+0 oz) 138/88 Negative <del>?</del> Negative 148 <del>?</del> JV- pt complains of depression. starting zoloft. worried about baseline elevated bp and h/o early cervical dilation. will check 07/13/21 <del>?</del> 18w 1d 238 lb 6 oz (-10 oz) 134/86 Negative <del>?</del> Negative 150 <del>?</del> JV- still spotting. on exam there is a moderate amount of vaginal discharge (yellow/green) culture collected. treatment for yeast given. Ultrasound reassuring. 07/30/21 <del>?</del> 20w 4d 238 lb 2 oz (-14 oz) 122/64 Negative <del>?</del> Negative 158 <del>?</del> JV- no further spotting. zoloft 25 working great. normal anatomy scan. plan to rto in 1 month. 08/23/21 <del>?</del> 24w 0d 242 lb (+3 lb) 112/68 Negative <del>?</del> Negative 143 24 <del>?</del> MH-NO Vb, LOF. Mood stable with zoloft. Good FM. Had covid mid Dec/mild case. Start ASA and ordered growth US 32 and 34 wk 09/20/21 <del>?</del> 28w 0d 242 lb 4 oz (+3 lb 4 oz) 136/80 Negative <del>?</del> Negative 135 28 <del>?</del> SM- no vb lof good fm no regular ctx tdap. discussed sterilization. cbc gct 09/22/21 <del>?</del> 28w 2d 241 lb 8 oz (+2 lb 8 oz) 130/78 Trace <del>?</del> Negative 141 0 <del>?</del> 0 -4 JV- pt presents with cramping and mucous discharge. She states that she feels crampy. pt has ketones and trace leukocytes in urine .vaginal culture collected. recommend increasing fluids and rest. 10/04/21 <del>?</del> 30w 0d 245 lb (+6 lb) 108/70 <del>?</del> 140 30 <del>?</del> SM- no vb lof good fm no regular ctx 10/14/21 <del>?</del> 31w 3d 246 lb (+7 lb) 136/78 Negative <del>?</del> Negative 140 <del>?</del> MH-NST only due to dec FM:reactive 10/18/21 <del>?</del> 32w 0d 249 lb (+10 lb) 132/74 Negative <del>?</del> Negative 140 34 <del>?</del> SM- no vb lof good fm no regular ctx 11/01/21 <del>?</del> 34w 0d 247 lb 8 oz (+8 lb 8 oz) 132/68 Negative <del>?</del> Negative 138 36 <del>?</del> MH-reviewed US growth WNL. Has rpt scheduled. No VB,LOF. Good FM. 11/15/21 <del>?</del> 36w 0d 246 lb (+7 lb) 124/80 Negative <del>?</del> Negative 145 37 <del>?</del> SM- no vb lof good fm irregular ctx 11/16/21 <del>?</del> 36w 1d 247 lb (+8 lb) 120/70 Negative <del>?</del> Negative 140 Cephalic 4 <del>?</del> 60 -1 JV- sending patient to L&D to rule out labor. 11/16/21 <del>?</del> 36w 2d 136/75 120/66 118/62 122/69 117/65 121/68 129/76 <del>?</del> <del>?</del> ROS Constitutional Constitutional: Reports systems reviewed and no addt'l complaints, except as documented Gastrointestinal Gastrointestinal: Denies bloating, constipation, cramping, diarrhea, nausea or vomiting Genitourinary Genitourinary: Reports other Details: Denies vaginal odor, vaginal bleeding, or vaginal discharge ; Denies difficulty urinating or flank pain Physical Exam HEENT normocephalic Resp normal respiratory effort and normal air movement no CVA tenderness Extremity normal to inspection General Extremity: edema bilateral (trace ) NST FHR Rate Baby A Baseline: 140 Variability:: Moderate Accelerations:: 15 x 15 Decelerations:: None NST Reactive:: Yes FHR Category:: Category I Assessment & Plan (1) False labor: COMMENT: prolonged monitoring 11/16 without change in cx PLAN: sending patient home with labor precautions. Charges/Coding Multi Select Codes Visit Charges Office Visit/Consults: 71653 OV L3 Est Urinary/Genital Urinary/Genital CPT Codes: 62062-15 non-stress test Interp
[2021-11-16 22:50] VITALS: BP 136/75; PULSE 89; O2SAT 93
[2021-11-16] MEDS: Lactated Ringers 1,000 ML 50 ML IV (23:30)
[2021-11-16 23:53] LABS: Absolute Neutrophil Count 6.9 X10^3/uL (2.0-7.7); Basophil# 0.05 X10^3/uL; Basophil% 0.5 % (0-1); Hematocrit 32.9 % (37-47); Hemoglobin 11.6 g/dL (12.0-15.0); Mean Corp Hgb Conc 35.3 g/dL (32-36); Mean Corpuscular Hgb 31.5 pg (27.0-32.0); Mean Corpuscular Volume 89.4 fL (81-99); Mean Platelet Vol. 9.9 fl (6.2-12.0); Monocyte# 0.77 X10^3/uL; Monocyte% 7.7 % (0-10); NRBC Flagged by Analyzer 0 % (0-5); Neutrophil # 6.89 X10^3/uL (2.7-7.7); Platelet Count 177 K/mm3 (150-450); RBC Distribution Width CV 14.1 % (11.6-14.6); RBC Distribution Width SD 45.4 fl (35.1-43.9); Red Blood Count 3.68 M/mm3 (4.2-5.4)
[2021-11-17] VITALS (11 sets, daily range): BP systolic 117–129; BP diastolic 62–76; PULSE 70–95; TEMP 36.2–36.7; O2SAT 98–100
[2021-11-17] MEDS: Penicillin G 3,000,000 Units 50 ML 100 UNITS IV (03:32)
== END 2021-11-17 05:40 | disposition home or self-care (01) ==
LOC: WPOUT 23:02 → WP 11-17 05:32
PROVIDERS: Admitting Provider Obstetrics & Gynecology; PCP Family Medicine; Referring Provider Obstetrics & Gynecology; Visit Provider Obstetrics & Gynecology
DX: O47.9 False labor, unspecified (principal); Z79.82 Long term (current) use of aspirin; O99.343 Other mental disorders complicating pregnancy, third trimester; Z3A.36 36 weeks gestation of pregnancy; F32.A Depression, unspecified; Z79.899 Other long term (current) drug therapy
CPT/HCPCS: 96365; 96366; 59025; 59050; 85025; 86850; 86900; 86901; 87426; 99218; J7120; G0378

== ENCOUNTER 2021-12-10 07:03 | Inpatient (IN) | payer BC, SELFPAY ==
[2021-12-10] VITALS (18 sets, daily range): BP systolic 109–132; BP diastolic 58–76; PULSE 63–86; RESP 16; TEMP 36.4–37; O2SAT 82–100; BMI 43.9
--- NOTE | 2021-12-10 07:25 | HP.PCM.OB_ITS ---
HPI - General General Date of Admission: 12/10/21 HPI Narrative KRISTAN MCLEAN, is a 26 y/o @ 39 weeks 4 days who presents for elective induction of labor due to advanced cervical dilation. She is GBS positive the plan is to start Pitocin after she has completed her course of antibiotics. Patient is also requesting a tubal ligation we discussed that this may or may not be possible based on current staffing issues. Maternal Data Information ANNABELLA Calculator Estimated Delivery Date Method Current WG Current Estimate 12/13/21 Ultrasound #1 39w 4d Other Estimates 11/25/21 LMP (Certain) 42w 1d PFSH PFS Medical History Depression Infertility Home Medications multivitamin no.47-iron fum 27 mg-folate no.1 1 mg-dha 300 mg capsule 1 cap PO DAILY 05/28/21 [History Last Taken 11/16/21 07:30 1 tab] aspirin 81 mg tablet,delayed release 81 mg PO DAILY 08/23/21 [History Last Taken 11/16/21 07:30 1 tab] sertraline [Zoloft] 25 mg PO DAILY 11/16/21 [History Last Taken 11/16/21 07:30 25 mg] Allergy/AdvReac Type Severity Reaction Status Date / Time No Known Allergies Allergy Verified 12/08/21 15:43 Surgical History History of appendectomy History of surgery Social History adopted: No household members: family housing: house number of children: 2 Smoking Status: Never smoker alcohol intake: never substance use type: does not use caffeine: Yes what type of physical activity do you participate in: walking seatbelt use: always do you feel safe at home: Yes additional social history: 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 Date Name GA/Weeks Outcome Route Bth Weight Infant Gen Labor Lgth Anesthesia Del Locatn Provider FOB 09/13/15 [place] 39 live - full term 8 pounds 3oz Mal e 10 hours epidural [facility] Ashley Gotti Ata 01/16/19 Thang 39 live - full term 7lbs 7oz Male 10 h ours epidural [facility] Ata Delivery Date: 09/13/15 No notes to display Delivery Date: 01/16/19 pre term labor at 26 weeks Parish,Mariya Visit Details Expected Delivery Route/Plan Labor Preferences- CB/BF classes: labor support person: Ata labor intervention preferences: [] pain management options preferred: epidural cut cord/dad catch: no : yes PP control planned: discussed-vasectomy planned discussed possible routes of delivery and associated risks: [] special requests: [] Plans Covid status: 1st moderna vaccine given 06/25/21 Flu vaccine: given Tdap vaccine: given Rhogam: given LARC form signed: yes movement and labor precautions reviewed. Problem list reviewed and updated with the most current plan of care details and appropriate orders placed. Relevant counseling for the gestational age provided. Continue routine care and follow up unless otherwise noted in visit not es/problem list details OB Flowsheet Initial Weight: 239 lb Date -?-?-?-?-?-?-?-?-?-?-?-?- EGA Weight BP Urine Prot -?-?-?-?-?-?-?-?-?-?-?-?- Glucose FHR FuHt Pres Dilation -?-?-?-?-?-?-?-?-?-?-?-?- Effaced St Visit Note 06/03/21 -?-?-?-?-?-?-?-?-?-?-?-?- 12w 3d 239 lb (+0 oz) 138/72 -?-?-?-?-?--?-?-?-?-?-?-?- 170 -?-?-?-?-?-?-?-?-?-?-?-?- SM- CRL cons wit h LMP SM- no vb cramping 07/02/21 -?-?-?-?-?-?-?-?-?-?-?-?- 16w 4d 239 lb (+0 oz) 138/88 Negative -?-?-?-?-?-?-?-?-?-?-?-?- Negative 148 -?-?-?-?-?-?-?-?-?-?-?-?- JV- pt complains of depression. starting zoloft. worried about baseline elevated bp and h/o early cervical dilation. will check 07/13/21 -?-?-?-?-?-?-?-?-?-?-?-?- 18w 1d 238 lb 6 oz (-10 oz) 134/86 Negative -?-?-?-?-?-?-?-?-?-?-?-?- Negative 150 -?-?-?-?-?-?-?-?-?-?-?-?- JV- still spotti ng. on exam there is a moderate amount of vaginal discharge (yellow/green) culture collected. treatment for yeast given. Ultrasound reassuring. 07/30/21 -?-?-?-?-?-?-?-?-?-?-?-?- 20w 4d 238 lb 2 oz (-14 oz) 122/64 Negative -?-?-?-?-?-?-?-?-?-?-?-?- Negative 158 -?-?-?-?-?-?-?-?-?-?-?-?- JV- no further s potting. zoloft 25 working great. normal anatomy scan. plan to rto in 1 month. 08/23/21 -?-?-?-?-?-?-?-?-?-?-?-?- 24w 0d 242 lb (+3 lb) 112/68 Negative -?-?-?-?-?-?-?-?-?-?-?-?- Negative 143 24 -?-?-?-?-?-?-?-?-?-?-?-?- MH-NO Vb, LOF. M ood stable with zoloft. Good FM. Had covid mid Dec/mild case. Start ASA and ordered growth US 32 and 34 wk 09/20/21 -?-?-?-?-?-?-?-?-?-?-?-?- 28w 0d 242 lb 4 oz (+3 lb 4 oz) 136/80 Negative -?-?-?-?-?-?-?-?-?-?-?-?- Negative 135 28 -?-?-?-?-?-?-?-?-?-?-?-?- SM- no vb lof go od fm no regular ctx tdap. discussed sterilization. cbc gct 09/22/21 -?-?-?-?-?-?-?-?-?-?-?-?- 28w 2d 241 lb 8 oz (+2 lb 8 oz) 130/78 Trace -?-?-?-?-?-?-?-?-?-?-?-?- Negative 141 0 -?-?-?-?-?-?-?-?-?-?-?-?- 0 -4 JV- pt pre sents with cramping and mucous discharge. She states that she feels crampy. pt has ketones and trace leukocytes in urine .vaginal culture collected. recommend increasing fluids and rest. 10/04/21 -?-?-?-?-?-?-?-?-?-?-?-?- 30w 0d 245 lb (+6 lb) 108/70 -?-?-?-?-?-?-?-?-?-?-?-?- 140 30 -?-?-?-?-?-?-?-?-?-?-?-?- SM- no vb lof go od fm no regular ctx 10/14/21 -?-?-?-?-?-?-?-?-?-?-?-?- 31w 3d 246 lb (+7 lb) 136/78 Negative -?-?-?-?-?-?-?-?-?-?-?-?- Negative 140 -?-?-?-?-?-?-?-?-?-?-?-?- MH-NST only due to dec FM:reactive 10/18/21 -?-?-?-?-?-?-?-?-?-?-?-?- 32w 0d 249 lb (+10 lb) 132/74 Negative -?-?-?-?-?-?-?-?-?-?-?-?- Negative 140 34 -?-?-?-?-?-?-?-?-?-?-?-?- SM- no vb lof go od fm no regular ctx 11/01/21 -?-?-?-?-?-?-?-?-?-?-?-?- 34w 0d 247 lb 8 oz (+8 lb 8 oz) 132/68 Negative -?-?-?-?-?-?-?-?-?-?-?-?- Negative 138 36 -?-?-?-?-?-?-?-?-?-?-?-?- -reviewed US marcella canales WNL. Has rpt scheduled. No VB,LOF. Good FM. 11/15/21 -?-?-?-?-?-?-?-?-?-?-?-?- 36w 0d 246 lb (+7 lb) 124/80 Negative -?-?-?-?-?-?-?-?-?-?-?-?- Negative 145 37 -?-?-?-?-?-?-?-?-?-?-?-?- SM- no vb lof go od fm irregular ctx 11/16/21 -?-?-?-?-?-?-?-?-?-?-?-?- 36w 1d 247 lb (+8 lb) 120/70 Negative -?-?-?-?-?-?-?-?-?-?-?-?- Negative 140 Cephalic 4 -?-?-?-?-?-?-?-?-?-?-?-?- 60 -1 JV- sendin g patient to L&D to rule out labor. 11/16/21 -?-?-?-?-?-?-?-?-?-?-?-?- 36w 2d 136/75 120/66 118/62 122/69 117/65 121/68 129/76 -?-?-?-?-?-?-?-?-?-?-?-?- -?-?-?-?-?-?-?-?-?-?-?-?- 11/22/21 -?-?-?-?-?-?-?-?-?-?-?-?- 37w 0d 249 lb (+10 lb) 120/82 -?-?-?-?-?-?-?-?-?-?-?-?- 140 38 Cephalic 4 -?-?-?-?-?-?-?-?-?-?-?-?- 0 -2 SM- no vb lof good fm no regular ctx cervix posterior 12/01/21 -?-?-?-?-?-?-?-?-?-?-?-?- 38w 2d 252 lb 6 oz (+13 lb 6 oz) 118/80 Negative -?-?-?-?-?-?-?-?-?-?-?-?- Negative 145 38 Cephalic 4 -?-?-?-?-?-?-?-?-?-?-?-?- 70 -2 JV- pt sti ll 4-5 cm.labor precautions discussed. GBS in urine 12/08/21 -?-?-?-?-?-?-?-?-?-?-?-?- 39w 2d 250 lb (+11 lb) 128/82 Negative -?-?-?-?-?-?-?-?-?-?-?-?- Negative 160 39 Cephalic 5 -?-?-?-?-?-?-?-?-?-?-?-?- 80 -1 JV- iol to salmon at 7 am. no complaints. 12/10/21 -?-?-?-?-?-?-?-?-?-?-?-?- 39w 4d -?-?-?-?-?-?-?-?-?-?-?-?- -?-?-?-?-?-?-?-?-?-?-?-?- ROS Constitutional Constitutional: Denies change in weight, fatigue, fever(s), headache(s), poor appetite or weakness Eyes Eyes: Denies blurry vision, change in vision, seeing flashes or spots in vision ENT HEENT: Denies dizziness, headache(s), loss taste/smell or sore throat Cardiovascular Cardiovascular: Denies chest pain, dizziness, dyspnea, irregular heart rhythm, leg edema, palpitations, rapid heart rate or vomiting Respiratory/Chest Respiratory/Chest: Denies chest tightness, cough, dyspnea or breast pain Gastrointestinal Gastrointestinal: Denies abdominal pain, anorexia, constipation, cramping, diarrhea, hemorrhoids, vomiting or weight changes Genitourinary Genitourinary: Denies dysuria, flank pain, genital lesions, genital pain, urinary frequency or urinary urgency Musculoskeletal Musculoskeletal: Denies back pain, difficulty walking, joint pain, limited range of motion, muscle cramps or numbness Integumentary Integumentary: Denies lesions or unusual bruising Neurologic Neurologic: Denies abnormal movements, abnormal speech, dizziness, numbness, seizure-like activity or syncope Psychiatric Psychiatric: Denies anxiety, behavioral changes, change in appetite, change in libido, cognitive impairment, confusion, depression, difficulty concentrating, hallucinations or suicidal thoughts Endocrine Endocrinology: Denies excessive sweating, polydipsia or polyuria Hematologic/Lymphatic Hematologic/Lymphatic: Denies easy bleeding, easy bruising or lymphadenopathy Allergic/Immunologic Allergic/Immunologic: Denies itchy eyes, lip swelling, seasonal rhinorrhea, rhinitis, throat swelling, tongue swelling, eczemia, wheezing or asthma Physical Exam Const alert, oriented x3, no apparent distress and healthy appearing General Appearance: cooperative; Negative for anxious HEENT normocephalic Face and Sinus: normal facial exam Eyes EOMs intact bilaterally and no scleral icterus General Eye: normal appearance of both eyes Neck full ROM and supple Lymph Lymphatic: no lymphadenopathy noted Chest Chest: abnormal inspection of the chest Resp normal respiratory effort Effort and Inspection: able to speak in complete sentences Cardio regular rate GI soft to palpation and non-tender Inspection: gravid Palpation: soft; Negative for tender external exam normal Back/Spine no CVA tenderness Extremity normal to inspection, full ROM and no clubbing, cyanosis or edema General Extremity: Negative for calf tenderness or edema Skin Lesions: no lesions Rashes: no rashes Psych mental status grossly normal Labs Labs Labs: Blood Type A NEGATIVE Antibody Screen NEGATIVE Hct 32.9 % (37-47) L Hgb 11.6 g/dL (12.0-15.0) L Pap Smear Negative Obstetrics US Syphilis Total Ab Non-reactive Rubella IgG Antibody Reactive (Nonreactive) Hep Bs Antigen Non-Reactive (Nonreactive) Chlamydia DNA (DEB) Neisseria gonorrhoeae DNA (DEB) Not Reportable HIV 1&2 Antibody Non-Reactive (Nonreactive) Glucose 1 Hr 50 gm 112 mg/dL (70-140) Rhogam given: Yes Assessment & Plan (1) False labor: COMMENT: prolonged monitoring 11/16 without change in cx (2) Rh negative status during : QUALIFIERS: Trimester: third trimester Qualified Code(s): O26.893 - Other specified related conditions, third trimester; Z67.91 - Unspecified blood type, Rh negative COMMENT: Rhogam PRN & 28 weeks (3) Supervision of other normal : COMMENT: PRR ANNABELLA: 12/13/21 boy PC: Thang Tuttle Spouse: Ata (4) : QUALIFIERS: Weeks of gestation: 39 weeks Qualified Code(s): Z3A.39 - 39 weeks gestation of COMMENT: declines genetic, afp, and carrier; NL anatomy (5) Obesity affecting : QUALIFIERS: Trimester: third trimester Qualified Code(s): O99.213 - Obesity complicating , third trimester COMMENT: 1 tm GCT, encouraged healthy weight gain (6) GBS (group B streptococcus) UTI complicating : COMMENT: tx w/Macrobid; tx with PCN in labor (7) COVID-19 affecting , antepartum: COMMENT: start baby ASA, growth US at 32 and 36 wk, 10/19 nl growth per MH 11/16 adequate growth (8) Sterilization: COMMENT: plan PP if able PLAN: Patient presents IOL, plan management for with pitocin/AROM. Pain management: plans epidural. GBS positive- start pcn now . Management of any complications: none I have reviewed the [facility] and made any clinically relevant updates.
[2021-12-10] MEDS: Lactated Ringers 1,000 ML 50 ML IV (07:40)
[2021-12-10 07:58] LABS: Absolute Lymphocyte Count 1.71 X10^3/uL (0.83-4.51); Absolute Neutrophil Count 6.3 X10^3/uL (2.0-7.7); Basophil# 0.03 X10^3/uL; Basophil% 0.3 % (0-1); Eosinophil# 0.07 X10^3/uL; Eosinophils% 0.8 % (0-5); Hematocrit 34.7 % (37-47); Hemoglobin 12.1 g/dL (12.0-15.0); Lymphocyte # 1.71 X10^3/ul (0.83-4.51); Lymphocyte % 19.7 % (19-41); Mean Corp Hgb Conc 34.9 g/dL (32-36); Mean Corpuscular Hgb 31.2 pg (27.0-32.0); Mean Corpuscular Volume 89.4 fL (81-99); Mean Platelet Vol. 10.8 fl (6.2-12.0); Monocyte# 0.52 X10^3/uL; NRBC Flagged by Analyzer 0 % (0-5); Neutrophil # 6.28 X10^3/uL (2.7-7.7); Neutrophil % 72.4 % (47-70); Platelet Count 174 K/mm3 (150-450); RBC Distribution Width CV 14.5 % (11.6-14.6); RBC Distribution Width SD 46.1 fl (35.1-43.9); Red Blood Count 3.88 M/mm3 (4.2-5.4); White Blood Count 8.7 K/mm3 (4.4-11.0)
[2021-12-10] MEDS: Oxytocin 30 units/NS 500 ml 30 UNITS/500 ML IV.SOLN IV (11:34)
[2021-12-10] MEDS: Penicillin G 3,000,000 Units 50 ML 100 UNITS IV (12:31)
[2021-12-10] MEDS: Lactated Ringers 500 ML 999 ML IV (14:37)
[2021-12-10] MEDS: Oxytocin 30 units/NS 500 ml 30 UNITS/500 ML IV.SOLN 334 UNITS IV (15:05)
[2021-12-10] MEDS: Methylergonovine 0.2 MG/ML Ampul IM (15:07)
[2021-12-10] MEDS: Acetaminophen 500 MG Tablet PO (16:36)
--- NOTE | 2021-12-10 17:13 | EX.PCM.OBRPT ---
Maternal Data Information ANNABELLA Calculator Estimated Delivery Date Method Current Current Estimate 12/13/21 Ultrasound #1 39w 4d Other Estimates 11/25/21 LMP (Certain) 42w 1d Vaginal Delivery Maternal Presentation Maternal Presentation: Elective Induction Type of Induction: Pitocin and Amniotomy Operative Information Date of Procedure: 12/10/21 Pre-Operative Diagnosis: 39 weeks, advanced cervical dilation, GBS positive Post-Operative Diagnosis: 39 weeks, advanced cervical dilation, GBS positive Surgery / Procedure Performed: Spontaneous Vaginal Delivery Type of Anesthesia: None Estimated Blood Loss: 400cc Findings Description of Procedure: Patient began pushing and delivered the head in the VAUGHN presentation. The head was delivered atraumatically and a loose nuchal cord ?1 was identified and easily reduced over the infant's head, however after it was released over the baby's head it snaped spontaneously as the baby was delivering. The anterior and posterior shoulders delivered without complication followed by the rest of the and the was placed on the maternal abdomen. The rest of the cord was clamped and cut and gentle traction was applied to the cord and the placenta delivered spontaneously immediately following it was noted to be intact with three-vessel cord. The perineum and vagina were inspected and noted to have no laceration. EBL was 400cc. Patient and infant tolerated delivery well. Presentation: Vertex and VAUGHN Amniotic Fluid Description: Clear (with slight tinge of blood ) Placental Delivery Description: Spontaneous Placenta Disposition: [facility] Cord Vessel Description: 3 Vessels Cord Entanglement: Around neck x 1, loose Nuchal Cord Compression: Without compression A Gender: Female (1 minute): 8 (5 minute): 9 Delayed Cord Clamping: No Post Vaginal Delivery Medications Given After Delivery: IV Pitocin and IM Methergin Episiotomy Description: None Laceration: None Complication Complications: None Multi Select Codes Urinary/Genital Urinary/Genital CPT Codes: 23649 [facility]
[2021-12-10] MEDS: Ibuprofen 600 MG Tablet PO (20:23)
[2021-12-11] VITALS (7 sets, daily range): BP systolic 117–122; BP diastolic 57–72; PULSE 79–83; RESP 14–16; TEMP 36.2–36.8
[2021-12-11] MEDS: Ibuprofen 600 MG Tablet PO ×2 (08:08→15:58)
--- NOTE | 2021-12-11 09:16 | PCM.PN.OB ---
Subjective Subjective Patient doing well without complaints. Tolerating PO. Ambulating and voiding without difficulty. Feeding well. Denies chest pain, shortness of breath, calf pain/swelling, fevers, chills, lightheadedness. Objective Data Objective Data Vital Signs: Vital Signs Temp Pulse Resp BP Pulse Ox 97.1 F L 82 14 117/62 82 12/11/21 08:03 12/11/21 08:03 12/11/21 08:03 12/11/21 08:03 12/10/21 14:53 Oxygen Delivery Method Room Air Weight: 248 lb Body Mass Index (BMI) 43.9 Intake & Output: Intake and Output for Last 24 Hours 12/09/21 12/10/21 12/11/21 23:59 23:59 23:59 Intake Total 1325.23 / 1325.23 Output Total 300 / 300 Balance 1025.23 / 1025.23 Lab / Micro Data Result Diagrams: 12/10/21 07:40 Labs: Laboratory Results - last 24 hr 12/10/21 19:34: Screen NEGATIVE, Baby's Blood Type A POSITIVE, Baby's TOMMIE NEGATIVE Micro: Microbiology 12/10/21 08:10 Nasal Secretion SARS-CoV-2 Antigen (Rapid) - Final ROS Constitutional Constitutional: Denies chills, fatigue, fever(s), poor appetite or weakness Eyes Eyes: Denies blurry vision, change in vision, seeing flashes or spots in vision ENT HEENT: Denies dizziness, headache(s), loss taste/smell or sore throat Cardiovascular Cardiovascular: Denies chest pain, dizziness, dyspnea, irregular heart rhythm, palpitations or rapid heart rate Respiratory/Chest Respiratory/Chest: Denies chest tightness, cough, dyspnea or breast pain Gastrointestinal Gastrointestinal: Denies abdominal pain, constipation or vomiting Genitourinary Genitourinary: Denies dysuria or flank pain Musculoskeletal Musculoskeletal: Denies difficulty walking, joint pain, limited range of motion or numbness Neurologic Neurologic: Denies abnormal movements, abnormal speech, dizziness, numbness, seizure-like activity or syncope Psychiatric Psychiatric: Denies anxiety, behavioral changes, change in appetite, confusion, depression or suicidal thoughts Physical Exam Const alert, oriented x3 and no apparent distress General Appearance: cooperative and comfortable Resp normal respiratory effort Cardio regular rate GI normal to inspection, nondistended, normoactive bowel sounds GI Narrative: uterus is firm below umbilicus Palpation: soft Back/Spine no CVA tenderness and thoraco-lumbar ROM normal Extremity normal to inspection, no clubbing, cyanosis or edema, no calf tenderness and no pedal edema Psych mental status grossly normal, thought process normal, cooperative, affect normal, speech normal, activity/motor behavior normal, denies homicidal ideation and denies suicidal ideation Assessment & Plan (1) Vaginal delivery: COMMENT: baby sheila Motne 12/10/21- JV PLAN: s/p PPD # 1 1. routine post delivery care 2. breast feeding- support given 3. rh positive 4. rubella immune 5. plan for dc to home today
--- NOTE | 2021-12-11 09:18 | PCM.DC ---
Discharge Instructions Diet Discharge Diet: No restrictions Activity Discharge Activity: Return to Normal Activity, May Not Drive (while taking narcotic pain medications.) and May Shower May resume sexual activity in: 4-6 weeks Dressing / Incision Call your doctor if your incision/area has: Continuous Slow Oozing, Sudden Increased Bleeding, Increased Pain/ Swelling, Increased Redness and Foul Smelling Discharge Follow Up Care Please Follow Up With: Meliza Casillas DO When: Call [phone] to make an appointment with your doctor in 6 weeks. If you had elevated blood pressure or 4th degree laceration, you will need to be seen in 2 weeks. Test Results: Test results from this visit will be discussed in further detail at your follow-up appointment, if applicable. Discharge Plan Admission Admit Date/Time: 12/10/21 07:03 Primary Reason for Your Visit: vaginal delivery Attending Provider: Meliza Casillas Primary Care Provider: Isidro Siddiqui Discharge Orders/Prescriptions Prescriptions: New ibuprofen 600 mg tablet 600 mg PO Q6H PRN (Reason: pain) 7 Days Qty: 30 RF: 0 Continued PNV-DHA 27 mg iron-1 mg -300 mg capsule 1 cap PO DAILY RF: 0 sertraline [Zoloft] 25 mg tablet 25 mg PO DAILY RF: 0 Discontinued aspirin [Adult Aspirin Regimen] 81 mg tablet,delayed release (DR/EC) 81 mg PO DAILY RF: 0 Referrals / Follow Up: Isidro Siddiqui MD [Primary Care Provider] - Disposition Disposition (needs filled in before D/C Order can be placed): Home, Self Care
[2021-12-11] MEDS: Sertraline 50 MG Tablet 25 MG PO (11:41)
--- NOTE | 2021-12-11 15:32 | CASEMGMT ---
Social Work Brief Assessment - OB Post Patient Address:[address] [place] [address] Phone number:[phone] Date and Time of Referral: 12/11/21 at 14:00 Referred By: RN Date and time of intervention:12/11/21 at 14:30 Reason for Referral: History of Anxiety and Depression Informant: Medical record and mother of baby (MOB) SW met with patient, nb and fob in the WP room. NB was in bassinet and father held the nb briefly but then mother held the nb. Both parents appeared to be appropriately interacting and bonding with the nb. Patient gave this music writer written consent to speak to patient in the presence of the FOB. 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 MOB's other children: 6 year old boy and 2 year old boy MOB reports access to transportation MOB reports she has all the nb supplies including Carseat, bassinet, crib, diapers and clothing MOB's supports: . Patient said that she has people who will be a support but just doesn't like people in my house. FOB said that [facility] [address] and the mob's family reside in [place]. FOB said we have about 20 people that would help. Education Level: Patient graduated high school and had 1 year of college for her [employer]IVE [employer] degree. 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 No learning issues. Employment: Patient works at [employer] office in [place]. Patient said that she loves it when asked about her job. She has been at her current job for 1 year. Patient plans to take 12 weeks off. Agency Involvement: No JFS, WIC, HMG, Legal or CSB issues. Patient said that she and the FOB went for marriage counseling at [facility] approximately 1 year ago and both MOB and FOB indicated it was helpful for them to participate in counseling. FOB: Ata Time Together : 11 years in 2017 Employment: [employer] Patient is FOB is father to patient's 2 other children. FOB's MH/ AOD/ Domestic Violence: Denied Maternal MH Issues: Mother reports that anxiety and depression have never been an issue however after her youngest son, age 2, she had some Post Depression but it was never formally diagnosed. Patient said that when spring came she had felt better. Patient said that she had felt miserable during this and spoke to her MD about medication and began to take Zoloft 25mg. Patient said that she plans to continue to the medication as it is helpful. Patient denied any SI/HI. Patient reports she had previously been to marriage counseling with Yudelka at [facility] and found counseling helpful and would reengage with therapy if needed. FOB talked about how they thought they were ready to have another child and then did not have another child and then it was a surprise when they were with the nb but had somewhat accepted that there would be no more children and then there was. Patient reports no AOD use while . Patient reports that she drinks rarely when not . SW provided patient with PPD resources offering on line and phone support. Plan: Home with nb No further needs requested or indicated Gloria STRONG
--- NOTE | 2021-12-15 14:48 | NURSING ---
no answer on follow up phone call, left voice mail.
== END 2021-12-11 17:00 | disposition home or self-care (01) | DRG 807 ==
PROVIDERS: Admitting Provider Obstetrics & Gynecology; PCP Family Medicine; Visit Provider Obstetrics & Gynecology
DX: O69.81X0 Labor and delivery complicated by cord around neck, without compression, not applicable or unspecified (principal); Z37.0 Single live birth; O99.344 Other mental disorders complicating childbirth; F32.A Depression, unspecified; O99.824 Streptococcus B carrier state complicating childbirth; O99.213 Obesity complicating pregnancy, third trimester; Z79.82 Long term (current) use of aspirin; Z3A.39 39 weeks gestation of pregnancy; O26.893 Other specified pregnancy related conditions, third trimester; Z67.11 Type A blood, Rh negative; Z87.59 Personal history of other complications of pregnancy, childbirth and the puerperium; Z86.16 Personal history of COVID-19
CPT/HCPCS: 36415; 59025; 59050; 85025; 85461; 86850; 86900; 86901; 87426; 90384; 99218; J7120; G0378; J2790

== ENCOUNTER 2022-02-01 10:43 | Day surgery (SDC) | payer BC, SELFPAY ==
[2022-02-01] VITALS (7 sets, daily range): BP systolic 118–135; BP diastolic 74–85; PULSE 53–89; RESP 16; TEMP 36.3–36.7; O2SAT 96–100; BMI 38.4
--- NOTE | 2022-02-01 07:24 | HP.PCM_ITS ---
History and Physical Date of Admission: 02/01/22 MR#:[id number]:[id number]: KRISTAN MCLEAN #:[id number]:1995 Provider:Dr. Meliza Casillas, DOAge/Sex: 26/F [facility] Intake Vital Signs 01/18/22 09:46 Height 5 ft 3 in Weight: 226 lb 4 oz BMI 40.1 BP 118/90 H Intake Visit Reasons: 6 wk PP Long Term Care Administrator Required: No Is patient in pain?: No Allergies No Known Allergies Allergy (Verified 01/18/22 09:45) Medications multivitamin no.47-iron fum 27 mg-folate no.1 1 mg-dha 300 mg capsule 1 cap PO DAILY 05/28/21 [History Confirmed 01/18/22] sertraline [Zoloft] 25 mg PO DAILY 11/16/21 [History Confirmed 01/18/22] : Yes PFSH Medical History Depression Infertility Surgical History History of appendectomy History of surgery Social History (Updated 01/18/22 @ 09:46 by Corinna Prado) adopted: No household members: family housing: house number of children: 3 Smoking Status: Never smoker alcohol intake: never substance use type: does not use caffeine: Yes what type of physical activity do you participate in: walking seatbelt use: always do you feel safe at home: Yes additional social history: Ata- Speech And Drama Teacher 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 Date Name GA/Weeks Outcome Route Bth Weight Gen Labor Lgth Anesthesia Del Locatn Provider FOB 09/13/15 Parag 39 live - full term 8 pounds 3oz Male 10 hours epidural [facility] Ashley Berumen 01/16/19 Thang 39 live - full term 7lbs 7oz Male 10 hours epidural [facility] BRADLEY Berumen 12/10/21 39 live - full term Male [facility] Frederick Delivery Date: 09/13/15 No notes to display Delivery Date: 01/16/19 pre term labor at 26 weeks Mariya Lugo Delivery Date: 12/10/21 Corinna Anton Post HPI 6 wk PP: Details: KRISTAN MCLEAN is a 26 year old who presents for her post visit and pre-op bilateral salpingectomy scheduled for 02/01/22 Details: KRISTAN MCLEAN is a 26 year old who presents for her post visit. ROS Const Reports system reviewed and no additional complaints, except as documented GI Reports system reviewed and no additional complaints, except as documented, Denies bloating, Denies constipation, Denies nausea and Denies vomiting Reports system reviewed and no additional complaints, except as documented, Denies abnormal vaginal bleeding, Denies pelvic pain, Denies sexual dysfunction, Denies urinary incontinence, Denies urinary hesitancy, Denies urinary urgency and Denies vaginal discharge Skin/Breast Reports system reviewed and no additional complaints, except as documented and Reports as per HPI Psych Reports as per HPI Exam Const General: cooperative, healthy appearing, comfortable and no acute distress HENMT Head: normal to inspection Neck Neck: normal visual inspection and no lymphadenopathy Thyroid: thyroid normal Chest Breast inspection: normal inspection of the breasts and normal inspection of the axillae Breast palpation: normal palpation of the breasts and normal palpation of the axillae Resp Effort & Inspection: normal respiratory effort GI Inspection: normal to inspection Palpation: soft, no hepatosplenomegaly and nontender General: bladder normal to palpation External Female Exam: normal external appearance and normal appearance of the urethra Urethra: normal appearance of the urethra Speculum Exam - Vagina: normal appearance of the vagina and normal vaginal discharge Speculum Exam - Cervix: normal appearance of the cervix Bimanual Exam- Vagina & Uterus: normal bimanual exam, uterine size normal, bladder normal to palpation, uterine shape normal and non-tender Bimanual Exam- Adnexa, other: normal adnexae and normal Pelvic Support: normal Skin General: no rashes or lesions noted Coding Level of Care Code No Charge Diagnoses Vaginal delivery O80 Assessment and Plan Assessment and Plan (1) Vaginal delivery: Status: Acute Comment: baby boy Monte 12/10/21- JV Plan - Dr. Meliza Casillas, DO: After discussing the patient's diagnosis and treatment plan options, patient w ishes to proceed with surgical management. I have discussed with the patient the risks, benefits, and alternatives of the procedure which include but are not limited to risks of anesthesia, bleeding, infection, possible damage to bowel, bladder, or surrounding vasculature which could lead to additional surgery to evaluate any complications. Patient agrees to procedure and wishes to proceed. ACOG/uptodate references given for additional information regarding procedure. UPDATE- I have seen the patient and performed any clinically relevant updates to the history and physical exam. Meliza Casillas DO
[2022-02-01 11:18] LABS: Internal QC Validated? YES +Cl - CLEAR BKGD; Pregnancy, Urine Negative Negative
[2022-02-01] MEDS: Lactated Ringers 1,000 ML 15 ML IV (11:42)
[2022-02-01 11:51] LABS: Hematocrit 37.2 % (37-47); Hemoglobin 12.8 g/dL (12.0-15.0); Mean Corp Hgb Conc 34.4 g/dL (32-36); Mean Corpuscular Volume 87.1 fL (81-99); Mean Platelet Vol. 9.1 fl (6.2-12.0); Platelet Count 241 K/mm3 (150-450); RBC Distribution Width CV 12.9 % (11.6-14.6); RBC Distribution Width SD 40.7 fl (35.1-43.9); Red Blood Count 4.27 M/mm3 (4.2-5.4); White Blood Count 5.9 K/mm3 (4.4-11.0)
[2022-02-01] MEDS: Bupivacaine Mpf 0.5% 30 ML VIAL (11:55)
--- NOTE | 2022-02-01 12:12 | PCM.DC ---
Discharge Instructions Diet Discharge Diet: No restrictions Activity Discharge Activity: Return to Normal Activity, May Not Drive (for two weeks or while taking narcotic pain medications.), May Shower and May Take a Tub Bath (in 7 days) May resume sexual activity in: 1 week Weight Bearing Status: Full weight bearing Dressing / Incision Call your doctor if you observe: Using more than 1 pad per hour, Shortness of breath, Chest pain and Uncontrolled pain Suture Line Care: Avoid Pulling/Pushing and Avoid Pinching/Bending Remove Dressing in: 1 week (if present) Cleanse incision/area with: Soap & Water and Keep Dressing Clean & Dry Follow Up Care Please Follow Up With: Meliza Casillas DO When: Call to make an appointment with your doctor for a follow up incision check in 1-2 weeks. Test Results: Test results from this visit will be discussed in further detail at your follow-up appointment, if applicable. Discharge Plan Admission Primary Reason for Your Visit: laparoscopic bilateral salpingectomy Attending Provider: Meliza Casillas Primary Care Provider: Isidro Siddiqui Discharge Orders/Prescriptions Prescriptions: New ibuprofen 800 mg tablet 800 mg PO Q8H PRN (Reason: pain) 7 Days Qty: 30 RF: 0 oxycodone-acetaminophen [Percocet] 5-325 mg tablet 1 tab PO Q4H PRN (Reason: pain) 7 Days Qty: 20 RF: 0 Continued PNV-DHA 27 mg iron-1 mg -300 mg capsule 1 cap PO DAILY RF: 0 sertraline [Zoloft] 25 mg tablet 25 mg PO DAILY RF: 0 Referrals / Follow Up: Isidro Siddiqui MD [Primary Care Provider] - Disposition Disposition (needs filled in before D/C Order can be placed): Home, Self Care
--- NOTE | 2022-02-01 12:16 | PCM.OPRPT ---
Report of Operation Date of Procedure: 12/24/21 Pre-Operative Diagnosis: desires permanent sterilization Post-Operative Diagnosis: desires permanent sterilization Surgery/Procedure Performed:: laparoscopic bilateral salpingectomy Description of Surgical Findings:: normal uterus, fallopian tubes, and ovaries Surgeon: Meliza Casillas housing counselor: None (technical developer) Type of Anesthesia: General Anesthesiologist: Jovan Esteban Specimen's removed: bilateral fallopian tubes Drains: none Estimated Blood Loss (mL): 5cc Fluids Replaced: 500cc Description of Procedure: Patient was taken in the operating room and was placed under general anesthesia was prepped and draped in normal sterile fashion in the dorsal lithotomy position. Bladder was drained of clear urine and SCDs were on preoperatively. Uterus was sounded and a uterine manipulator was placed after dilating. Attention was then paid to the abdominal portion of the procedure. An umbilical incision was made with the scalpel after 0.5% sensorcaine was injected. A 5 mm laparoscope was inserted in the abdomen with a Visiport trocar. The Abdomen was insufflated with CO2 gas. A left lower quadrant 5 mm port and a minigrasper port suprapubically were placed under direct visualization. Uterus was well visualized and bilateral fallopian tubes identified and bilateral tubes were elevated and transecting across the mesosalpinx and the attachment to the uterine corpus bilaterally the tubes were removed without complication. Excellent hemostasis was noted. Fallopian tubes were removed through the lower port sites without complication. Liver and upper abdomen were visualized notably within normal limits and no other gross abnormalities were seen in the abdomen. All instruments removed from the abdomen after gas was desufflated. Port sites were closed with 3-0 Monocryl Steri's and op sites were applied. All instruments removed from the vagina and patient was awoken and taken recovery in stable condition. Complications none Admit VTE Documentation VTE Present on Admission: Yes VTE Mechan Device Prophylaxis: SCD's VTE Pharm Prophylaxis ordered?: No Reason prophylaxis not ordered:: Treatment Not Indicated Multi Select Codes Urinary/Genital Urinary/Genital CPT Codes: 31967 Laproscopic BS/O
--- NOTE | 2022-02-01 12:20 | FALS_PTH ---
PATIENT: KRISTAN MCLEAN LOC: [facility] [place] U#:[id number] AGE/SX: 26/F ROOM: RE02/01/[address]: Dr. Meliza Casillas DO : 1995 BED: DIS: 02/01/2022 SPEC #: [id number] RECD: 02/01/22 15:54 STATUS: MATT REGillian #: [id number] TAMARA: 02/01/22 12:[address]: Meliza Casillas DEPT: SURGICAL PATHOLOGY RECD BY: Ellie Hercules ENTERED: 02/02/22 11:24 SP TYPE: FALL TUBES OTHR DR: Dr. Isidro Siddiqui MD Tissues: Fallopian tube Procedures: Surgery Specimen Level II HEADER OPERATION: Bilateral laparoscopic salpingectomy PRE-OP DIAGNOSIS: Sterilization TISSUE SUBMITTED: Bilateral fallopian tubes MICROSCOPIC DIAGNOSIS Bilateral fallopian tubes, salpingectomy: Bilateral fallopian tubes, no pathologic diagnosis. SJ:luci 02/03/2022 MICROSCOPIC DESCRIPTION Slides are reviewed. GROSS DESCRIPTION Received in fixative is one container labeled with the patient's name and designated bilateral fallopian tubes. The specimen consists of two fallopian tubes with an average length of 4.5 cm and has an average diameter of 0.7 cm. Both fallopian tubes have normal fimbriated ends. No mass lesions are identified. One fallopian tube is inked in black ink. High Density Talc Coater Operator sections are submitted in one cassette. / AM:luci 02/02/2022 TC:4 CPT: 22673 x2
--- NOTE | 2022-02-01 13:37 | EKG12_ITS ---
Test Reason : CP Blood Pressure : / mmHG Vent. Rate : 050 BPM Atrial Rate : 050 BPM P-R Int : 136 ms QRS Dur : 094 ms QT Int : 496 ms P-R-T Axes : 040 033 037 degrees QTc Int : 452 ms Sinus bradycardia Otherwise normal ECG No previous ECGs available Confirmed by JEAN MARIE MOTA, RENU ([id number]), film and video editor MICHAEL SYED ([id number]) on 02/03/2022 12:52:23 PM Referred By: Meliza Casillas Confirmed By:RENU AJ MD
== END 2022-02-01 14:27 | disposition home or self-care (01) ==
LOC: SDC 10:44 → AC 10:45
PROVIDERS: PCP Family Medicine; Referring Provider Obstetrics & Gynecology; Visit Provider Obstetrics & Gynecology
PROC: (CPT 58661; principal; 2022-02-01 12:05)
DX: Z30.2 Encounter for sterilization (principal); F32.A Depression, unspecified; Z79.899 Other long term (current) drug therapy
CPT/HCPCS: 58661; 00840; 81025; 85027; 86850; 86870; 86900; 86901; 88302; 93005; J7120; J2405

== ENCOUNTER → 2022-10-25 | Outpatient (CLI) | payer BC, SELFPAY ==
--- NOTE | 2022-10-25 18:33 | US_ITS ---
EXAM: US PELVIS TRANSABDOMINAL AND TRANSVAGINAL, COMPLETE CLINICAL INDICATION: AUB TECHNIQUE: Transabdominal and transvaginal pelvic ultrasound was performed with grayscale and color Doppler imaging. Transvaginal imaging was used for better evaluation of the endometrium and adnexa. This report was created using [employer] report [employer] technology. COMPARISON: None. FINDINGS: UTERUS/CERVIX: Arcuate configuration. 11.2 cm x 5.1 cm x 5.4 cm. Multiple nabothian small cervical cysts. Anteverted. There is no uterine mass. Normal endometrial stripe thickness, 1.1 cm, it is mildly echogenic. 3 mm peripheral junction zone cyst near the lower uterine segment endometrium. RIGHT OVARY: Unremarkable. 3.6 cm x 2.8 cm x 1.6 cm. Non-enlarged, normal echogenicity. Blood flow is present in the right ovary. LEFT OVARY: Unremarkable. 3.4 cm x 2.3 cm x 2.5 cm. Non-enlarged, normal echogenicity. Blood flow is present in the left ovary. FREE FLUID: None. BLADDER: Unremarkable as visualized. Wall is normal thickness for degree of distention. US/Pelvic w/ Transvaginal IMPRESSION: Arcuate uterus. Small nabothian cysts and small junction zone myometrial cysts. No free fluid or suspicious adnexal findings. Electronically Signed: Chasity Booker MD at 11:14 EST ,
== END | disposition home or self-care (01) ==
LOC: US 18:33
PROVIDERS: PCP Family Medicine; Visit Provider Obstetrics & Gynecology
DX: N93.9 Abnormal uterine and vaginal bleeding, unspecified (principal)
CPT/HCPCS: 76830; 76856

== ENCOUNTER → 2022-11-16 | Outpatient (CLI) | payer BC, SELFPAY ==
--- NOTE | 2022-11-16 16:00 | EMB_PTH ---
PATIENT: KRISTAN MCLEAN LOC: [facility] U#:[id number] AGE/SX: 26/F ROOM: RE11/16/[address]: Dr. Meliza Casillas DO : 1995 BED: DIS: 11/16/2022 SPEC #: [id number] RECD: 11/16/22 18:15 STATUS: MATT DAWSON #: [id number] TAMARA: 11/16/22 16:[address]: Meliza Casillas DEPT: SURGICAL PATHOLOGY RECD BY: Ellie Hercules ENTERED: 11/17/22 10:43 SP TYPE: ENDOM BX/C BRADLY DR: Dr. Isidro Siddiqui MD Tissues: Endometrium, NOS Procedures: Surgery Specimen Level IV HEADER OPERATION: Endometrial biopsy PRE-OP DIAGNOSIS: Abnormal uterine bleeding TISSUE SUBMITTED: Endometrial lining MICROSCOPIC DIAGNOSIS Endometrial biopsy: Consistent with exogenous hormone effects. See comment. HERNANDEZ:luci 11/18/2022 COMMENT Clinical correlation and appropriate follow up are necessary. MICROSCOPIC DESCRIPTION Slides are reviewed. GROSS DESCRIPTION Received is one container labeled with the patient's name and not further designated. The specimen consists of multiple irregular fragments of weiss tissue that in aggregate measure 1.5 x 1.5 x 0.1 cm. The specimen is totally submitted in one cassette. / AM:luci 11/17/2022 TC:5 CPT: 54055
== END | disposition home or self-care (01) ==
PROVIDERS: PCP Family Medicine; Visit Provider Obstetrics & Gynecology
DX: N93.9 Abnormal uterine and vaginal bleeding, unspecified (principal)
CPT/HCPCS: 88305

== ENCOUNTER 2023-01-17 05:55 | Day surgery (SDC) | payer BC, SELFPAY ==
[2023-01-07 11:02] LABS: Magnesium 1.9 mg/dL (1.6-2.6)
[2023-01-07 11:14] LABS: Hematocrit 37.4 % (37-47); Hemoglobin 12.8 g/dL (12.0-15.0); Mean Corp Hgb Conc 34.2 g/dL (32-36); Mean Corpuscular Hgb 30.7 pg (27.0-32.0); Mean Corpuscular Volume 89.7 fL (81-99); Mean Platelet Vol. 9.4 fl (6.2-12.0); Platelet Count 274 K/mm3 (150-450); RBC Distribution Width CV 12.7 % (11.6-14.6); RBC Distribution Width SD 41.4 fl (35.1-43.9); Red Blood Count 4.17 M/mm3 (4.2-5.4); White Blood Count 6.6 K/mm3 (4.4-11.0)
[2023-01-17] VITALS (11 sets, daily range): BP systolic 96–117; BP diastolic 51–73; PULSE 84–96; RESP 16–18; TEMP 36.3–37.1; O2SAT 93–100; BMI 40.7
[2023-01-17 06:57] LABS: Bedside Glucose 68 mg/dL (74-106)
[2023-01-17] MEDS: Magnesium 2 GM for ERAS IV (07:05)
[2023-01-17] MEDS: Lactated Ringers 1,000 ML 40 ML IV (07:05)
[2023-01-17] MEDS: Phenazopyridine 95 MG Tablet 190 MG PO (07:27)
[2023-01-17] MEDS: Celecoxib 200 MG Capsule 400 MG PO (07:28)
[2023-01-17] MEDS: Gabapentin 600 MG Tablet PO (07:28)
[2023-01-17] MEDS: Acetaminophen 500 MG Tablet 1000 MG PO (07:28)
[2023-01-17] MEDS: dexAMETHasone 4 MG/ML Vial 8 MG IV (07:30)
--- NOTE | 2023-01-17 08:00 | HYST_PTH ---
PATIENT: KRISTAN MCLEAN [place]: [facility] [place] U#:[id number] AGE/SX: 27/F ROOM: RE01/17/[address]: Dr. Meliza Casillas DO : 1995 BED: DIS: 01/17/2023 SPEC #: [id number] RECD: 01/17/23 12:57 STATUS: MATT REGillian #: [id number] TAMARA: 01/17/23 08:[address]: Meliza Casillas DEPT: SURGICAL PATHOLOGY RECD BY: Ellie Hercules ENTERED: 01/17/23 13:09 SP TYPE: HYSTERECT OTHR DR: Dr. Isidro Siddiqui MD Tissues: Uterus, NOS Procedures: Surgery Specimen Level V HEADER OPERATION: ERAS, lap robotic hysterectomy, cysto PRE-OP DIAGNOSIS: Abnormal uterine bleeding TISSUE SUBMITTED: Uterus MICROSCOPIC DIAGNOSIS Uterus, hysterectomy: Cervix ? acute and chronic inflammation. Endometrium ? secretory endometrium. Myometrium ? a subserosal leiomyoma (0.3 cm in greatest dimension). SJ:rg 01/18/2023 COMMENT Please make reference to previous specimen ([id number]) endometrial biopsy with diagnosis of ?consistent with exogenous hormone effects.? MICROSCOPIC DESCRIPTION Slides are reviewed. GROSS DESCRIPTION Received in fixative is one container labeled with the patient's name and designated uterus. The specimen consists of a hysterectomy specimen consisting of uterus with cervix weighing 172 gm and measuring 12.0 x 8.0 x 5.5 cm. The serosal surface is weiss, glistening. The ectocervical mucosa is unremarkable. The external os is oval in contour. The endocervical canal measures 3.5 cm in length and the endocervical mucosa is weiss, glistening and unremarkable. The triangular endometrial cavity measures 5.5 cm in length and up to 3.0 cm in width. The endometrium is weiss, glistening without any mass lesion and measures 0.2 cm in thickness. Sections of the uterine wall reveal a small subserosal nodule measuring 0.3 cm in greatest dimension. The uterine wall measures up to 3.0 cm in width. Body Coverer sections are submitted in seven cassettes as follows: 1 - anterior cervix, 2 - posterior cervix, 3 & 4 - anterior uterine wall, 5 & 6 - posterior uterine wall, 7 - small subserosal nodule. / SJ:luci 01/17/2023 TC:1 CPT: 80375
--- NOTE | 2023-01-17 08:06 | PCM.HP.BLA ---
History and Physical Date of Admission: 01/17/23 Intake Vital Signs ? 11/16/2314:20 11/16/2314:23 Height 5 ft 4 in 5 ft 4 in Weight: ? 228 lb 4 oz BMI ? 39.2 BP ? 122/75 H Intake Visit Reasons:?FU enlarged uterus Manager Strategy & Account Required: No Is patient in pain?: No Allergies No Known Allergies Allergy (Verified 11/16/22 15:24) Medications multivitamin no.47-iron fum 27 mg-folate no.1? 1 mg-dha 300 mg capsule (PNV-DHA) 1 cap PO DAILY 05/28/21 [History Confirmed 11/16/22] sertraline 50 mg tablet 50 mg PO DAILY #90 tabs 10/10/22 [Rx Confirmed 11/16/22] mecobalamin (vitamin B12) 1,000 mcg chewable tablet 1,000 mcg PO DAILY 11/16/22 [History Confirmed 11/16/22] Post menopausal: No Patient : No : No PFSH Medical History? Alcohol use Depression Infertility Non-smoker Sterilization Vaginal delivery Surgical History? History of appendectomy History of surgery Status post laparoscopic procedure Social History? adopted:? No household members:? family housing:? house number of children:? 3 Smoking Status:? Never smoker alcohol intake:? never substance use type:? does not use caffeine:? Yes what type of physical activity do you participate in:? walking seatbelt use:? always do you feel safe at home:? Yes additional social history:? 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 ultrasound showed an 11 cm uterus, arcuate shape. We have gone over the risks, benefits, and alternatives to the procedure. She has tried other options without success. EMB was benign History ? ? ? 3 ? Elective abortions ? Hx Para ? ? ? 3 ? Spontaneous abortions ? Hx # Term Pregnancies ? Ectopic pregnancies ? Hx # Pregnancies ? Multiple births ? # of living children ? ? ? 3 Past Pregnancies Del. Date Name GA/Weeks Outcome Route Bth Weight Infant Gen Labor Lgth Anesthesia Del Locatn Provider FOB 09/13/15 [place] 39 live - full term 8 pounds 3oz Male 10 hours epidural [facility] Ashley Gotti Ata 01/16/19 Thang 39 live - full term 7lbs 7oz Male 10 hours epidural [facility] BRADLEY Ata 12/10/21 Monte 39 live - full term 8lbs 9oz Male ? ? [facility] Dr. Frederick Delivery Date: 01/16/19? Last Updated by: Mariya Lugo ? ? ? pre term labor at 26 weeks Delivery Date: 12/10/21? Last Updated by: Corinna Prado ? ? ? COVID ROS Const ROS Unobtainable: All systems reviewed & are unremarkable except as noted in H Resp Resp: Reports system reviewed and no additional complaints, except as documented; Denies cough GI GI: Reports as per HPI Psych Psych: Reports system reviewed and no additional complaints, except as documented Exam Const General: cooperative, healthy appearing, comfortable and no acute distress Resp Effort & Inspection: normal respiratory effort General: bimanual renal exam normal bilaterally External Female Exam: normal appearance of the urethra Urethra: normal appearance of the urethra Speculum Exam - Vagina: normal appearance of the vagina Speculum Exam - Cervix: normal appearance of the cervix Bimanual Exam- Adnexa, other: normal adnexae and normal Pelvic Support: normal Skin General: no rashes or lesions noted Psych Appearance: grossly normal Speech and Movement: speech and movement normal Office Procedures Endometrial Biopsy Endometrial Biopsy Test: Yes Negative and Yes declined Time out checklist: patient tenaculum used: Yes dilator used: No Details: Cervix prepped with betadine and pipelle inserted into uterus without complication. Specimen obtained and sent to lab for analysis. All instruments removed from vagina without complications. Excellent hemostasis noted. Coding Level of Care Code Off vis,est,level 4 Diagnoses Abnormal uterine bleeding? N93.9 CPT Codes Endometrial Biopsy (52643) Assessment and Plan Assessment and Plan (1) Abnormal uterine bleeding: ?Status:?Acute ?Comment: pelvic US ? ? ? Orders: Orders Endometrial Biopsy Today N93.9 - Abnormal uterine and vaginal bleeding, unspecified ? Plan will call with results and start low dose progesterone in the meantime. we discussed surgical options vs medication options including continuing progesterone vs TXA. She had scant blood on exam today and reports that there are days of the month she has spotting and days of the month she has gushes of blood. After discussing the patient's diagnosis and treatment plan options, patient wishes to proceed with surgical management. I have discussed with the patient the risks, benefits, and alternatives of the procedure which include but are not limited to risks of anesthesia, bleeding, infection, possible damage to bowel, bladder, or surrounding vasculature which could lead to additional surgery to evaluate any complications. Patient agrees to procedure and wishes to proceed. ACOG/uptodate references given for additional information regarding procedure. Plan for total robotic hysterectomy, bilateral salpingectomy, and cystoscopy
[2023-01-17] MEDS: Cefazolin 2 GM in 0.9% Normal Saline 100 ML IV (08:11)
[2023-01-17] MEDS: Ondansetron 4 MG/2 ML Vial IV (09:22)
[2023-01-17] MEDS: Bupivacaine 0.25% 30 ML Vial (09:45)
--- NOTE | 2023-01-17 09:56 | OP.PCM_ITS ---
Problems Associated Problem List Diagnoses (1) Abnormal uterine bleeding: Report of Operation Date of Procedure: 01/17/23 Pre-Operative Diagnosis: menorrhagia, enlarged uterus Post-Operative Diagnosis: menorrhagia, enlarged uterus Surgery/Procedure Performed:: total robotic hysterectomy, cystoscopy Description of Surgical Findings:: Anesthesia: General endotracheal intubation Estimated blood loss: 20cc Urine output:700cc Drains: None Implanted material: None Complications: None Findings: 12 cm size uterus, normal appearing ovaries and tubes. On exploration of the abdominal cavity the uterus, adnexa, bowel, and liver were found to be normal. Cystoscopy showed no evidence of leaking at approximately 250 cc of normal saline, positive ureteral orifices and jet flow are seen and no suture material was appreciated in the bladder. Specimens removed: Uterus and cervix Reason for surgery: This is a 27-year-old G4, P4 who presented to my office with history of heavy bleeding, failed hormonal treatment, and status post tubal ligation. She requested hysterectomy for definitive treatment for heavy bleeding. The planned procedure is for a robotic hysterectomy the risks julien efits and alternatives were discussed with the patient the patient had a clear understanding of the procedure and a consent form was signed. Surgeon: Meliza Casillas supervisor taping: Deepa Delacruz Type of Anesthesia: General Specimen's removed: uterus and cervix Estimated Blood Loss (mL): 20cc Description of Procedure: Procedure: The patient was placed in the dorsal low lithotomy position and prepped and draped in the normal sterile fashion both abdominally and in the perineum. Her legs were placed in stirrups a Ty catheter was inserted into the urethra without difficulty. A weighted speculum was placed in the vagina and a single- tooth tenaculum was used to grasp the anterior lip of the cervix. An advincula uterine manipulator was inserted through the cervix without complication. It was then tied into place at the 2 and 10:00 locations on the cervix. Gloves were changed and attention was turned towards the abdomen. Approximately 23 cm above the pubic symphysis in the midline, and after Marcaine injection, a 8 mm incision was made. An 8 mm trocar was inserted through the laparoscope, then inserted into the abdomen under direct visualization using the laparoscope. Good abdominal placement was noted and no complications were appreciated. An air seal device was utilized to create pneumoperitoneum. At 12 cm lateral to the midline on the left and right sides 8 mm accessory ports were placed. Next a left upper quadrant 8 mm assistant clinical nurse manager port site was placed. The patient was placed in steep Trendelenburg position. The robot was docked. The hysterectomy was initiated first by taking down the round ligament on each side using the vessel sealer device. The broad ligament was then and taken down using the vessel sealer device. Next the bladder flap was taken down without complication. This was done using monopolar cautery to the level of the cervical vaginal junction. After the bladder flap was created, uterine vessels were then isolated and cauterized using the vessel sealer device and EndoShears. At this point the uterine vessels were taken down further starting from the ascending branch, dissecting along the edges of the cervix to the level of the cervical vaginal junction with hemostasis appreciated. The cervical vaginal junction was then using monopolar cautery in a circumferential pattern across the superior aspect of the cervix. The specimen was delivered through the vagina and sent to pathology. The remaining vaginal cuff was then closed using a V lock suture. This was performed in a running technique. Excellent hemostasis was obtained and good closure was noted. Irrigation was then performed. All operative sites were noted to be hemostatic. A cystoscopy was performed with a 70 degree cystoscope through the urethra into the bladder without complication. The bladder was instilled with approximately 250 cc of normal saline. Intraoperative images were made. Ureteral orifices and jets were identified. No suture material was appreciated in the bladder. The bladder was then drained and cystoscope was removed. The abdominal cavity was again examined using the laparoscope after the robot was undocked. All operative sites were noted to be hemostatic. The trochars were removed under direct visualization without complication and pneumoperitoneum was reduced. At this point the skin was then closed using 4-0 Monocryl subcuticular stitch and sealed with surgical glue. The patient tolerated the procedure well sponge lap and needle counts were correct x2 the patient was taken to the recovery room in stable condition. Grafts/Implants Used: none Complications none Admit VTE Documentation VTE Present on Admission: No VTE Mechan Device Prophylaxis: SCD's VTE Pharm Prophylaxis ordered?: No Multi Select Codes Urinary/Genital Urinary/Genital CPT Codes: 19889 Cystoscopy and 93512 TLH >250gr uterus
[2023-01-17] MEDS: Lactated Ringers @ 70 MLS/HR 70 ML IV (10:01)
--- NOTE | 2023-01-17 10:01 | DCINST_ITS ---
Discharge Instructions Diet Discharge Diet: No restrictions Activity May resume sexual activity in: 6 weeks Weight Bearing Status: Full weight bearing Dressing / Incision Call your doctor if your incision/area has: Continuous Slow Oozing, Sudden Increased Bleeding, Increased Pain/ Swelling, Increased Redness and Foul Smelling Discharge Call your doctor if you observe: Fever of 101 or Higher, Using more than 1 pad per hour, Shortness of breath, Chest pain and Uncontrolled pain Suture Line Care: Avoid Pulling/Pushing and Avoid Pinching/Bending Remove Dressing in: 1 week (if present) Cleanse incision/area with: Soap & Water and Keep Dressing Clean & Dry Follow Up Care Please Follow Up With: Meliza Casillas DO When: Call to make an appointment with your doctor for a postop visit in 2 and 6 weeks Test Results: Test results from this visit will be discussed in further detail at your follow- up appointment, if applicable. Discharge Plan Admission Primary Reason for Your Visit: hysterectomy Attending Provider: Meliza Casillas Primary Care Provider: Isidro Siddiqui Discharge Orders/Prescriptions Prescriptions: New oxycodone-acetaminophen [Percocet] 5-325 mg tablet 1 tab PO Q4H PRN (Reason: pain) 7 Days Qty: 30 0RF Rx Instructions: 1-2 tabs q 4 hrs as needed for pain ibuprofen 800 mg tablet 800 mg PO Q8H PRN (Reason: pain) Qty: 30 0RF Continued PNV-DHA 27 mg iron-1 mg -300 mg capsule 1 cap PO DAILY sertraline 50 mg tablet 50 mg PO DAILY Qty: 90 1RF Discontinued norethindrone (contraceptive) [Ortho Micronor] 0.35 mg tablet 0.35 mg PO DAILY 90 Days Qty: 90 4RF medroxyprogesterone [Provera] 10 mg tablet 10 mg PO .COMPLEX Qty: 45 9RF Rx Instructions: 10 mg PO TID x 3 days then BID x 3 days then once daily for remainder Referrals / Follow Up: Isidro Siddiqui MD [Primary Care Provider] - Disposition Disposition (needs filled in before D/C Order can be placed): Home, Self Care
[2023-01-17] MEDS: Lactated Ringers 1,000 ML 100 ML IV (12:00)
== END 2023-01-17 15:20 | disposition home or self-care (01) ==
LOC: SDC 06:00 → AC 06:02
PROVIDERS: Anesthesiology; PCP Family Medicine; Referring Provider Obstetrics & Gynecology; Visit Provider Obstetrics & Gynecology
PROC: 0UT94ZZ Resection of Uterus, Percutaneous Endoscopic Approach (ICD-10-PCS; CPT 58570; principal; 2023-01-17 07:40)
DX: N93.9 Abnormal uterine and vaginal bleeding, unspecified (principal); D25.2 Subserosal leiomyoma of uterus; N85.2 Hypertrophy of uterus; F32.A Depression, unspecified; Z79.899 Other long term (current) drug therapy; Z86.16 Personal history of COVID-19
CPT/HCPCS: 58570; S2900; 00840; 82962; 83735; 85027; 86850; 86900; 86901; 88307; J7120; J2405

== ENCOUNTER 2023-01-23 16:02 | Emergency (ER) | payer BC, SELFPAY ==
[2023-01-23 16:03] VITALS: BP 137/95; PULSE 103; RESP 20; TEMP 37.2; O2SAT 98; BMI 40.4
[2023-01-23 16:27] LABS: Absolute Neutrophil Count 6.6 X10^3/uL (2.0-7.7); Basophil# 0.05 X10^3/uL; Basophil% 0.5 % (0-1); Eosinophil# 0.19 X10^3/uL; Eosinophils% 2.1 % (0-5); Hematocrit 38.7 % (37-47); Hemoglobin 13.5 g/dL (12.0-15.0); Lymphocyte % 18.5 % (19-41); Mean Corp Hgb Conc 34.9 g/dL (32-36); Mean Platelet Vol. 8.9 fl (6.2-12.0); Monocyte# 0.64 X10^3/uL; NRBC Flagged by Analyzer 0 % (0-5); Neutrophil # 6.58 X10^3/uL (2.7-7.7); Neutrophil % 71.6 % (47-70); Platelet Count 256 K/mm3 (150-450); Red Blood Count 4.35 M/mm3 (4.2-5.4); White Blood Count 9.2 K/mm3 (4.4-11.0)
--- NOTE | 2023-01-23 16:27 | EX.ED.DYSGE1 ---
HPI History of Present Illness Chief Complaint: Fever Informant: patient Narrative Narrative: Patient presents with fever about 1 week post hysterectomy. Patient states she had a hysterectomy on the . Went home same day. She has been taking 1 Percocet at night and then she will take Motrin during the day. She states the pain has more changed. It feels like there is a bowling ball stuck in her lower pelvis area. No contents visible. No notable discharge. No problems urinating at all. No pain or trouble starting or stopping urination. No issues with bowel habits. She has been a little tired and her appetite is down but she is able to eat and drink. Last night she had a temperature 100.3. Today it was 100.5. She called the office and they referred her into the emergency department. She has no other complaints of congestion cough or symptoms that would be likely to cause a fever. [facility] Medical History Alcohol use Depression History of steroid therapy Infertility Non-smoker Sterilization Vaginal delivery Wears glasses Home Medications multivitamin no.47-iron fum 27 mg-folate no.1 1 mg-dha 300 mg capsule (PNV-DHA) 1 cap PO DAILY 05/28/21 [History Last Taken 12/09/21] sertraline 50 mg tablet 50 mg PO DAILY #90 tabs 10/10/22 [Rx Last Taken 01/17/23] ibuprofen 800 mg tablet 800 mg PO Q8H PRN pain #30 tabs 01/17/23 [Rx Last Taken Unknown] oxycodone-acetaminophen 5 mg-325 mg tablet (Percocet) 1 tab PO Q4H PRN pain 7 days #30 tabs 01/17/23 [Rx Last Taken Unknown] norethindrone (contraceptive) 0.35 mg tablet (Jencycla) 0.35 mg PO DAILY 01/23/23 [History Last Taken Unknown] Allergy/AdvReac Type Severity Reaction Status Date / Time No Known Allergies Allergy Verified 01/23/23 16:03 Surgical History History of appendectomy (~06/2022) History of repair of ACL History of surgery Status post laparoscopic procedure Social History adopted: No household members: family housing: house number of children: 3 Smoking Status: Never smoker alcohol intake: never substance use type: does not use caffeine: Yes what type of physical activity do you participate in: walking seatbelt use: always do you feel safe at home: Yes additional social history: [employer]- [employer]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 Some specific details below. Constitutional: Fevers as in history of present illness but no chills. No real malaise. ENT: No difficulty swallowing. No swelling. No pain. No congestion or sore throat. CV: No chest pain or palpitations. Respiratory: No dyspnea. No hemoptysis. No difficulty taking breaths. GI: Mild decreased appetite but no nausea vomiting diarrhea or constipation. She is taking a stool softener. : No frequency dysuria or hematuria. See history of present illness also. Musculoskeletal: No recent trauma. No pains. Skin: No rash. Nondiaphoretic. Neuro: No weakness or numbness. Endocrine: No polyuria or polydipsia. EXAM Physical Exam Narrative Exam Narrative: CONSTITUTIONAL: Patient is nontoxic in appearance. The patient looks comfortable. HEENT: No notable trauma. Mucous membranes moist. EYES: No conjunctival injection. No proptosis. CARDIOVASCULAR: Regular rate. Regular rhythm. RESPIRATORY: No respiratory distress. Breathing is unlabored. No wheezes. GASTROINTESTINAL: Not distended. Bowel sounds are normal. No tenderness. No guarding. No rebound. No palpable mass. No bruit. All 4 of her port sites are healing well and are nontender and noninflamed. There is mild suprapubic pressure but no mass felt. GENITOURINARY: Mild tenderness over the region of the bladder. No CVA tenderness. MUSCULOSKELETAL: Atraumatic. No peripheral edema. No cord. No tenderness along the deep venous system. No asymmetry. NEUROLOGICAL: Patient is alert and appropriate. No focal deficit noted. SKIN: No noted rashes. No diaphoresis. PSYCHIATRIC: Patient is calm. Mood is appropriate. Const Vital Signs: 01/23/23 16:03 01/23/23 16:25 Temperature 99 F Temperature Source Temporal Pulse Rate 103 H Respiratory Rate 20 H Respiratory Effort Normal Respiratory Pattern Normal Blood Pressure 137/95 H Blood Pressure Mean 109 Pulse Ox 98 Oxygen Delivery Method Room Air MDM MDM MDM Narrative Medical decision making narrative: Independent interpretation the patient's CT of the abdomen of IV contrast shows no abnormalities. I see no fluid collection or abscess or significant stranding. Final reading shows no acute findings in the abdomen or pelvis. CBC is normal including white count. Electrolytes are normal. Urine is slightly cloudy. There are 5-10 white cells but negative nitrites. We will send this for culture but since she is not having dysuria we will not treat this acutely. I discussed the case with Dr. Steward who is on-call for the patient's surgeon. They will follow her up in the office. Lab Data Labs: Laboratory Results - last 24 hr 01/23/23 01/23/23 01/23/23 16:20 16:20 16:30 WBC 9.2 RBC 4.35 Hgb 13.5 Hct 38.7 MCV 89.0 MCH 31.0 MCHC 34.9 RDW Std Deviation 42.0 RDW Coeff of Leanna 13.0 Plt Count 256 MPV 8.9 Immature Gran % (Auto) 0.300 Neut % (Auto) 71.6 H Lymph % (Auto) 18.5 L [place] % (Auto) 7.0 Eos % (Auto) 2.1 Baso % (Auto) 0.5 Absolute Neuts (auto) 6.6 Absolute Lymphs (auto) 1.70 Nucleated RBC % 0 Sodium 140 Potassium 3.5 Chloride 107 Carbon Dioxide 26.0 Anion Gap 7 BUN 9 Creatinine 0.72 Estim Creat Clear Calc 100.45 Est GFR (MDRD) Af Amer 125 Est GFR (MDRD) Non-Af 103 BUN/Creatinine Ratio 12.6 Glucose 105 Calcium 9.1 Urine Color Yellow Urine Clarity Sl. Cloudy Urine pH 7.0 Ur Specific [place] 1.010 Urine Protein Negative Urine Glucose (UA) Normal Urine Ketones Negative Urine Occult Blood 50 H Urine Nitrite Negative Urine Bilirubin Negative Urine Urobilinogen Normal Ur Leukocyte Esterase 500 H Urine RBC 0 SEEN Urine WBC 5-10 SEEN Ur Squamous Epith Cells 0-5 SEEN Amorphous Sediment 1+ Urine Bacteria 1+ Urine Mucus 0 SEEN Radiography Diagnostic Testing: Clinical Impression(s) from Imaging Studies Abdomen/Pelvis CT 01/23/23 16:32 IMPRESSION: No acute findings in the abdomen or pelvis. Electronically Signed: Fred Rosenberg MD at 16:54 EDT , Management Discussion w/another healthcare provider: PCP Discharge Plan Triage Chief Complaint: Fever ED Provider: Vamsi Reyes Dx/Rx/DC Orders Clinical Impression: Status post hysterectomy, History of fever Instructions: ED FUO Adult Prescriptions: No Action PNV-DHA 27 mg iron-1 mg -300 mg capsule 1 cap PO DAILY oxycodone-acetaminophen [Percocet] 5-325 mg tablet 1 tab PO Q4H PRN (Reason: pain) 7 Days Qty: 30 0RF Rx Instructions: 1-2 tabs q 4 hrs as needed for pain ibuprofen 800 mg tablet 800 mg PO Q8H PRN (Reason: pain) Qty: 30 0RF norethindrone (contraceptive) [Jencycla] 0.35 mg tablet 0.35 mg PO DAILY Label Comments: take 1 tablet by mouth once daily sertraline 50 mg tablet 50 mg PO DAILY Qty: 90 1RF Primary Care Provider: Isidro Siddiqui Referrals: Isidro Siddiqui MD [Primary Care Provider] - Meliza Casillas DO [Med Staff - Active Staff] - Keep Elsa appointment Disposition Disposition: Home, Self Care
--- NOTE | 2023-01-23 16:32 | CT_ITS ---
EXAM: CT ABDOMEN AND PELVIS WITH INTRAVENOUS CONTRAST CLINICAL INDICATION: Postoperative pain-hysterectomy 1 week TECHNIQUE: Helically acquired images were obtained of the abdomen and pelvis with intravenous contrast. This CT exam was performed using one or more of the following dose reduction techniques: automated exposure control, adjustment of the mA and/or kV according to patient size, and/or use of iterative reconstruction technique. CONTRAST: IV 100mL [id number] COMPARISON: No relevant prior studies available. FINDINGS: LOWER THORAX: Unremarkable. Lung bases are clear. No cardiomegaly. No significant pericardial effusion. ABDOMEN: LIVER: Unremarkable. Homogeneous. No focal mass. GALLBLADDER AND BILE DUCTS: Unremarkable. No calcified gallstones. No gallbladder distention or wall edema. No intra- or extrahepatic biliary ductal dilation. PANCREAS: Unremarkable. No focal cystic or solid mass. SPLEEN: Unremarkable. Normal size without focal cystic or solid mass. ADRENALS: Unremarkable. No nodules. KIDNEYS AND URETERS: Unremarkable. Normal renal size and position. No hydronephrosis. STOMACH AND BOWEL: Unremarkable. No stomach or bowel distention. No focal inflammatory change. PELVIS: APPENDIX: No evidence of acute appendicitis. BLADDER: Unremarkable. REPRODUCTIVE: Patient status post hysterectomy. ABDOMEN and PELVIS: INTRAPERITONEAL SPACE: Unremarkable. No ascites or other fluid collection. No free air. BONES/JOINTS: Unremarkable. No suspicious lytic or blastic abnormality. SOFT TISSUES: Unremarkable. No discrete abdominal or pelvic wall hernia. VASCULATURE: Unremarkable. Abdominal aorta is non-dilated. LYMPH NODES: Unremarkable. No enlarged lymph nodes. CT/Abdomen/Pelvis W IV Cont ONLY IMPRESSION: No acute findings in the abdomen or pelvis. Electronically Signed: Fred Rosenberg MD at 16:54 EDT ,
[2023-01-23 16:36] LABS: Mucous, Urine 0 SEEN /hpf (<or=2+); Red Blood Cells-Urine 0 SEEN /hpf (0-5)
[2023-01-23 16:39] LABS: Anion Gap 7 (5-15); BUN 9 mg/dL (7-18); BUN/Creat Ratio 12.6 RATIO (10-20); Calcium,Total 9.1 mg/dL (8.5-10.1); Chloride 107 mmol/L (98-107); Creatinine, Serum 0.72 mg/dL (0.55-1.02); EST Glomerular Filtration Rate 103 mL/min (>60); Est Glom Filt Rate - Afr Amer 125 mL/min (>60); Estimated Creatinine Clearance 100.45 ml/min; Glucose 105 mg/dL (74-106); Potassium 3.5 mmol/L (3.5-5.1); Sodium Level 140 mmol/L (136-145)
[2023-01-23 16:50] LABS: Color, Urine Yellow (Yellow); Glucose, Dipstick Normal (Normal); Ketone-Dipstick Negative (Negative); Leukocyte Esterase-Dipstick 500 /ul (Negative); Nitrite-Dipstick Negative (Negative); Occult Blood-Urine 50 /ul (Negative); Protein-Dipstick Negative (Negative); Urine Bilirubin Dipstick Negative (Negative); Urine Clarity Sl. Cloudy (Clear); Urine Urobilinogen Normal (Normal)
[2023-01-23 17:12] LABS: Amorphous Sediment 1+; Bacteria 1+ /hpf (None Seen); Squamous Epithelial Cells - UA 0-5 SEEN /hpf (5-10); White Blood Cells 5-10 SEEN /hpf (0-5)
== END 2023-01-23 18:06 | disposition home or self-care (01) ==
PROVIDERS: Emergency Provider Emergency Medicine; PCP Family Medicine; Visit Provider Emergency Medicine
DX: R50.9 Fever, unspecified (principal); R82.89 Other abnormal findings on cytological and histological examination of urine; Z90.710 Acquired absence of both cervix and uterus
CPT/HCPCS: 74177; 80048; 81001; 85025; 87086; 87088; 96360; 99282; J7030; Q9967; A4216

== ENCOUNTER → 2024-12-27 | Outpatient (CLI) | payer BC, SELFPAY ==
[2024-12-27 12:10] LABS: Absolute Lymphocyte Count 2.13 X10^3/uL (0.83-4.51); Basophil# 0.07 X10^3/uL; Eosinophil# 0.16 X10^3/uL; Eosinophils% 2.4 % (0-5); Hematocrit 40.1 % (37-47); Lymphocyte # 2.13 X10^3/ul (0.83-4.51); Lymphocyte % 31.6 % (19-41); Mean Corp Hgb Conc 34.9 g/dL (32-36); Mean Corpuscular Volume 88.9 fL (81-99); Mean Platelet Vol. 9.4 fl (6.2-12.0); Monocyte# 0.37 X10^3/uL; Monocyte% 5.5 % (0-10); NRBC Flagged by Analyzer 0 % (0-5); Neutrophil # 3.99 X10^3/uL (2.7-7.7); Neutrophil % 59.4 % (47-70); Platelet Count 282 K/mm3 (150-450); RBC Distribution Width CV 12.4 % (11.6-14.6); RBC Distribution Width SD 40.2 fl (35.1-43.9); Red Blood Count 4.51 M/mm3 (4.2-5.4); White Blood Count 6.7 K/mm3 (4.4-11.0)
[2024-12-27 13:21] LABS: ALB/GLOB Ratio 1.4 RATIO (0.9-2.4); AST(SGOT) 23 U/L (<=31); Alanine Aminotransfer ALT/SGPT 24 U/L (<=34); Albumin, Serum 4.2 g/dL (3.5-5.0); Alkaline Phosphatase 90 U/L (35-104); Anion Gap 11 (5-15); BUN 11 mg/dL (4-19); BUN/Creat Ratio 14.8 RATIO (10-20); Calcium,Total 9.1 mg/dL (7.6-11.0); Carbon Dioxide 23.7 mmol/L (21.0-32.0); Chloride 104 mmol/L (98-108); Creatinine, Serum 0.74 mg/dL (0.70-1.20); EST Glomerular Filtration Rate 112 (>60); Globulin 3.1 g/dL (2.2-4.2); Glucose 92 mg/dL (70-99); Potassium 4.1 mmol/L (3.3-5.1); Protein, Total 7.3 g/dL (5.9-8.4); Sodium Level 138 mmol/L (133-145); Total Bilirubin 0.61 mg/dL (0.00-1.30); Vitamin D,25 Hydroxy 28.1 ng/mL (30-100)
[2024-12-30 14:24] LABS: Cholesterol 200 mg/dL (<=200); High Density Lipoprotein 41 mg/dL; Low Density Lipoprotein Calc. 141 mg/dL; Triglycerides 88 mg/dL; Very Low Density Lipoprotein 18 mg/dL (5-40); cholesterol:hdl ratio screen 4.87
[2024-12-31 12:08] LABS: PROLACTIN 6.2 ng/mL (4.8-33.4); Testosterone Free 1.5 pg/mL (0.0-4.2)
== END | disposition home or self-care (01) ==
PROVIDERS: Nurse Practitioner Family; PCP Family Medicine; Referring Provider Advanced Practice Midwife; Visit Provider Advanced Practice Midwife
DX: E28.2 Polycystic ovarian syndrome (principal); Z13.29 Encounter for screening for other suspected endocrine disorder
CPT/HCPCS: 36415; 80053; 80061; 82306; 82627; 84146; 84402; 84439; 84443; 85025; 82626

== ENCOUNTER → 2025-02-26 | Outpatient (CLI) | payer BC, SELFPAY ==
[2025-02-26 13:21] LABS: Cholesterol 192 mg/dL (<=200); Low Density Lipoprotein Calc. 117 mg/dL; Triglycerides 177 mg/dL; Very Low Density Lipoprotein 35 mg/dL (5-40); cholesterol:hdl ratio screen 4.81
[2025-02-26 13:22] LABS: AST(SGOT) 28 U/L (<=31); Alanine Aminotransfer ALT/SGPT 23 U/L (<=34); Albumin, Serum 4.1 g/dL (3.5-5.0); Alkaline Phosphatase 81 U/L (35-104); Anion Gap 10 (5-15); BUN 12 mg/dL (4-19); BUN/Creat Ratio 17.6 RATIO (10-20); Calcium,Total 9.0 mg/dL (7.6-11.0); Carbon Dioxide 23.8 mmol/L (21.0-32.0); Chloride 104 mmol/L (98-108); Globulin 3.0 g/dL (2.2-4.2); Glucose 98 mg/dL (70-99); Potassium 4.3 mmol/L (3.3-5.1)
== END | disposition home or self-care (01) ==
PROVIDERS: PCP Family Medicine; Referring Provider Nurse Practitioner Family; Visit Provider Nurse Practitioner Family
DX: Z01.419 Encounter for gynecological examination (general) (routine) without abnormal findings (principal); E28.2 Polycystic ovarian syndrome
CPT/HCPCS: 36415; 80053; 80061

== ENCOUNTER → 2025-05-07 | Outpatient (CLI) | payer BC, SELFPAY ==
[2025-05-07 16:40] LABS: Hematocrit 36.9 % (37-47); Hemoglobin 13.0 g/dL (12.0-15.0); Immature Granulocytes Count 0.020 X10^3/uL (0.0-0.0); Mean Corp Hgb Conc 35.2 g/dL (32-36); Mean Corpuscular Volume 87.4 fL (81-99); Mean Platelet Vol. 9.2 fl (6.2-12.0); NRBC Flagged by Analyzer 0 % (0-5); Platelet Count 291 K/mm3 (150-450); RBC Distribution Width CV 12.6 % (11.6-14.6); RBC Distribution Width SD 40.0 fl (35.1-43.9); Red Blood Count 4.22 M/mm3 (4.2-5.4); White Blood Count 9.5 K/mm3 (4.4-11.0)
[2025-05-07 17:13] LABS: AST(SGOT) 24 U/L (<=31); Alanine Aminotransfer ALT/SGPT 24 U/L (<=34); Albumin, Serum 4.2 g/dL (3.5-5.0); Alkaline Phosphatase 84 U/L (35-104); Anion Gap 12 (5-15); BUN 9 mg/dL (4-19); BUN/Creat Ratio 12.4 RATIO (10-20); Calcium,Total 9.6 mg/dL (7.6-11.0); Carbon Dioxide 24.4 mmol/L (21.0-32.0); Chloride 102 mmol/L (98-108); Globulin 2.8 g/dL (2.2-4.2); Glucose 95 mg/dL (70-99); Potassium 3.8 mmol/L (3.3-5.1)
== END | disposition home or self-care (01) ==
PROVIDERS: PCP Family Medicine; Referring Provider Obstetrics & Gynecology; Visit Provider Obstetrics & Gynecology
DX: E28.2 Polycystic ovarian syndrome (principal)
CPT/HCPCS: 36415; 80053; 85025

== ENCOUNTER → 2025-06-06 | Outpatient (CLI) | payer BC, SELFPAY ==
--- NOTE | 2025-06-06 09:06 | EKG12_ITS ---
Test Reason : PALP Blood Pressure : */* mmHG Vent. Rate : 71 BPM Atrial Rate : 71 BPM P-R Int : 138 ms QRS Dur : 86 ms QT Int : 386 ms P-R-T Axes : 41 32 28 degrees QTcB Int : 419 ms Normal sinus rhythm Normal ECG Confirmed by JEAN MARIE MOTA, RENU ([id number]), advertising editor JOSH CRUZ ([id number]) on 06/09/2025 6:58:20 AM Referred By: Alla Gordillo Confirmed By: RENU AJ MD
--- OUTSIDE RECORDS SUMMARY | 2025-06-06 09:26 | XMS RPT_ITS | CCD ---
Author Organization [facility] Team Providers Care Assembly Line Driver Name Role Phone Roro Sandoval Unavailable Unavailable Lyndon Webb MD Unavailable Unavailable Jeronimo Field Unavailable Unavailable Isidro Grimes Unavailable Unavailable Isidro Grimes Unavailable Unavailable TRUDY WARE Attending UnavailTRUDY Machuca Referring Unavailabl e NO PRIMARY CARE, Primary Care Unavailable BERTHA DENNEY Attending Unavailable TRUDY WARE Referring Unavailabl e NO PRIMARY CARE, Primary Care Unavailable Dr. Isidro Grimes Primary Care Provider Cornelio, Dr. Felix Referring Provider [phone] Meliza Casillas Attending Provider [phone] Viki MECHANIC FOREMANRADHA Attending Provider Dr. Trudy Ware Attending Provider [phone] Dr. Isidro Grimes Primary Care Provider Cornelio, Dr. Felix Referring Provider [phone] Meliza Casillas Attending Provider [phone] Dr. Meliza Casillas Admit Provider Dr. Meliza Casillas Other Provider Cornelio, Dr. Felix Primary Care Provider [phone] Cornelio, Dr. Felix Referring Provider [phone] Trudy Ware Attending Provider Viki MECHANIC FOREMAN, RAEGAN-C Nancy Attending Provider [phone] Dr. Meliza Casillas Attending Provider [phone] DR ISIDRO GRIMES MD Primary Care Physician ALYSSA CAMARA Attending Unavailable CORNELIO MOTA., DR. FELIX Primary Care Unavailable YOSVANY BENAVIDES MD Attending Unavailable CORNELIO MOTA., DR. FELIX Primary Care Unavailable Cornelio MOTA, Isidro Primary Care Provider ISIDRO GRIMES Primary Care Unavailable Cornelio, Dr. Felix Primary Care Provider [phone] Cornelio, Dr. Felix Referring Provider Dr. Meliza Casillas Attending Provider Brian Luque, Dr. Haider Referring Provider Brian Luque, Dr. Haider Other Provider Cornelio MOTA, Dr. Felix Primary Care Provider Dr. Isidro Grimes MD Referring Provider Alla Meeks Attending Provider Dede Domingo CNM Attending Provider Dede Domingo CNM Referring Provider Alla Meeks Referring Provider Dr. Lyndon Gruber DO Attending Provider Dr. Antwon Mayfield MD Attending Provider Dr. Isidro Grimes MD Primary Care Physician Dr. Isidro Grimes MD Referring Provider Alla Meeks Attending Physician [phone] Lyndon Gruber DO Attending Physician Dr. Antwon Mayfield MD Attending Physician Dr. Trudy Ware MD Attending Physician Dr. Trudy Ware MD Referring Provider Isidro Grimes Primary Care Unavailable Alla Gordillo Attending Unavailable Alla Gordillo Referring Unavailable Antwon Mayfield Attending Unavailable Cornelio, Isidro Primary Care Unavailable Grimes, Isidro Primary Care Unavailable Alla Gordillo Attending Unavailable Grimes, Isidro Referring Unavailable Grimes, Isidro Referring Unavailable Alla Gordillo Attending Unavailable Grimes, Isidro Primary Care Unavailable Grimes, Isidro Referring Unavailable Alla Gordillo Attending Unavailable Grimes, Isidro Primary Care Unavailable Lyndon Gruber Attending Unavailable Grimes, Isidro Primary Care Unavailable Grimes, Isidro Referring Unavailable Trudy Ware Referring Unavailable Grimes, Isidro Primary Care Unavailable Trudy Ware Attending Unavailable Dede Domingo Attending Unavailable Dede Domingo Referring Unavailable Grimes, Isidro Primary Care Unavailable Grimes, Isidro Primary Care Unavailable Alla Gordillo Attending Unavailable Alla Gordillo Referring Unavailable Allergies Allergy Classification Reported Allergen(s) Allergy Type Date of Onset Reaction(s) Facility (1 source) Radha extract; Translations: [radha] Drug Allergy Rash [facility] (1 source) Molasses (non-codified) Food allergy Rash [facility] (4 sources) molasses Propensity to adverse reactions 5 Other [facility] (1 source) molasses Drug allergy (disorder) 5 [facility] Repository Medications Current Medications Medication Drug Class(es) Dates Sig (Normalized) Sig (Original) amoxicillin 875 mg oral tablet (1 source) Penicillin-class Antibacterial Start: 06-14-2022 End: 06-21-2022 take 1 tablet by mouth twice daily amoxicillin (AMOXIL) 875 mg tablet Take 1 tablet by mouth twice daily for 7 days. 14 tablet 0 06/14/2022 06/21/2022 Active Comment on above: Take 1 tablet by shahriar twice daily for 7 days. cholecalciferol 0.05 mg oral capsule (6 sources) Vitamin D Start: 02-26-2025 take 1 capsule by mouth once daily Cholecalciferol (Vitamin D3) 50 mcg (2,000 unit) capsule Active 50 ug PO daily February 26, 2025 12:00am Complies with drug therapy docusate sodium 100 mg oral capsule (1 source) Start: 09-14-2015 Colace 100 mg oral capsule Dose : 100 mg = 1 cap(s), Oral, BID, 0 Refill(s) Start Date: 09/14/15 Status: Ordered Lansinoh for Breast Feeding Mothers (1 source) Start: 09-14-2015 Lansinoh for Breast Feeding Mothers 7 = g Apply 1 EA, Topical, AsDirected, PRN Other (see order comments), 0 Refill(s), Ointment Start Date: 09/14/15 Status: Ordered mecobalamin 1 mg chewable tablet (1 source) Start: 11-16-2022 take 1000 ug by mouth once daily Mecobalamin (Vitamin B12) Active 1000 MCG PO DAILY November 16, 2022 12:00am Multivit 48-Pgco-Nftnbu 1-Dha (Pnv-Dha) 27 mg iron-1 mg -300 mg capsule (14 sources) Start: 05-28-2021 take 1 capsule by mouth once daily Multivit 48-Mjti-Wnicvj 1-Dha (Pnv-Dha) 27 mg iron-1 mg -300 mg capsule Active 1 CAP PO DAILY May 28, 2021 1:50pm Start: 05-28-2021 End: 02-22-2023 Multivit 23-Mfin-Qmzoas 1-Dh a (Pnv-Dha) 27 mg iron-1 mg -300 mg capsule Discontinued 1 NMA PO DAILY May 28, 2021 12:00am February 22, 2023 11:48am Start: 05-28-2021 End: 02-22-2023 Multivit 83-Mvxf-Vlmgok 1-Dh a (Pnv-Dha) 27 mg iron-1 mg -300 mg capsule Discontinued 1 NMA PO DAILY May 28, 2021 12:00am February 22, 2023 11:48am Start: 05-28-2021 take 1 capsule by [facility] once daily Multivit 07-Nbmv-Rzggwu 1-Dha (Pnv-Dha) 27 mg iron-1 mg -300 mg capsule Active 1 CAP PO DAILY May 28, 2021 12:00am [place] (Nk) (1 source) Start: 12-19-2024 [place] (Nk) A ctive December 19, 2024 12:00am Completed/Discontinued Medications Medication Drug Class(es) Dates Sig (Normalized) Sig (Original) acetaminophen 325 mg / oxyCODONE hydrochloride 5 mg oral tablet (20 sources) Opioid Agonist Start: 01-17-2023 End: 02-02-2023 take 1-2 tablets by mouth every four hours as needed for pain Oxycodone-Acetamino phen (Percocet) 5-325 mg tablet Discontinued 1 {tbl} PO Q4H as needed for pain 30 7 0 January 17, 2023 February 02, 2023 12:11pm Status post hysterectomy Acquired absence of both cervix and uterus 1-2 tabs q 4 hrs as needed for pain Start: 02-01-2022 End: 02-17-2022 Oxycodone-Acetaminophen (Per cocet) 5-325 mg tablet Discontinued 1 {tbl} PO Q4H as needed for pain 20 7 0 February 01, 2022 February 17, 2022 2:49pm Status post laparoscopy Other specified postprocedural states aspirin 81 mg delayed release oral tablet (14 sources) Platelet Aggregation Inhibitor, Nonsteroidal Anti-inflammatory Drug Start: 08-23-2021 End: 12-11-2021 take 1 tablet by mouth once daily Aspirin (Adult Aspirin Regimen) 81 mg tablet,delayed release (DR/EC) Discontinued 81 mg PO DAILY August 23, 2021 1:00am December 11, 2021 9:18am - hx. covid 21 day ethinyl estradiol 0.677938 mg/hr / etonogestrel 0.005 mg/hr vaginal system (14 sources) Progestin, Estrogen Start: 05-12-2020 End: 05-28-2021 Etonogestrel-Ethiny l Estradiol (Nuvaring) 0.12-0.015 mg/24 hr ring Discontinued 1 NMA VAGINAL every 4 weeks 3 May 12, 2020 12:00am May 28, 2021 1:39pm Start: 05-12-2020 End: 05-28-2021 Etonogestrel-Ethinyl Estradi ol (Nuvaring) 0.12-0.015 mg/24 hr ring Discontinued 1 VAG RING VAGINAL every 4 weeks May 12, 2020 12:00am May 28, 2021 1:39pm Norgestimate-Ethinyl Estradiol (14 sources) Progestin, Estrogen Start: 01-07-2020 End: 04-07-2020 take 1 tablet by mouth once daily Norgestimate-Ethinyl Estradiol (Sprintec (28)) 0.25-35 mg-mcg tablet Discontinued 1 TABLET PO daily January 07, 2020 12:53pm April 07, 2020 8:10am Start: 01-07-2020 End: 04-07-2020 Norgestimate-Ethinyl Estradi ol (Sprintec (28)) 0.25-35 mg-mcg tablet Discontinued 1 {tbl} PO daily 84 January 07, 2020 12:00am April 07, 2020 8:10am Start: 01-07-2020 End: 04-07-2020 Norgestimate-Ethinyl Estradi ol (Sprintec (28)) 0.25-35 mg-mcg tablet Discontinued 1 {tbl} PO daily January 07, 2020 12:00am April 07, 2020 8:10am Start: 01-07-2020 End: 04-07-2020 take 1 tablet by mouth once daily Norgestimate-Ethinyl Estradiol (Sprintec (28)) 0.25-35 mg-mcg tablet Discontinued 1 TABLET PO daily January 07, 2020 12:00am April 07, 2020 8:10am Flucelvax Quad (flu vac qs (6 ms up) CD) 60 mcg (15 mcg x (4 sources) Start: 06-03-2021 End: 06-03-2021 inject 15 ug by intramuscular injection once Flucelvax Quad (flu vac qs (6 ms up) CD) 60 mcg (15 mcg x Discontinued 60 MCG IM ONCE 0.5 June 03, 2021 1:49pm June 03, 2021 2:46pm fluconazole 150 mg oral tablet (14 sources) Azole Antifungal Start: 03-17-2021 End: 05-28-2021 Fluconazole 150 mg tablet Discontinued 150 mg PO .COMPLEX 2 0 March 17, 2021 12:00am May 28, 2021 1:39pm 150 mg PO take one po now and repeat in 3 days hydrocortisone acetate 10 mg/ml / pramoxine hydrochloride 10 mg/ml topical foam (1 source) Corticosteroid Start: 09-14-2015 Epifoam 1%-1% rectal foam Dose = 1 mary, Perineum, q1h, PRN hemorrhoidal or perineal discomfort, 0 Refill(s) Start Date: 09/14/15 Status: Ordered ibuprofen 800 mg oral tablet (20 sources) Nonsteroidal Anti-inflammatory Drug Start: 01-17-2023 End: 02-22-2023 take 1 tablet by mouth every eight hours as needed for pain Ibuprofen 800 mg tablet Discontinued 800 mg PO Q8H as needed for pain 30 0 January 17, 2023 12:00am February 22, 2023 11:48am Start: 02-01-2022 End: 02-17-2022 take 1 tablet by mouth every eight hours as needed for pain Ibuprofen 800 mg tablet Discontinued 800 mg PO Q8H as needed for pain 30 7 0 February 01, 2022 12:00am February 17, 2022 2:49pm Start: 09-14-2015 End: 01-18-2022 take 1 tablet by mouth every six hours as needed for pain Ibuprofen 600 mg tablet Discontinued 600 mg PO EVERY 6 HOURS as needed for pain 30 7 0 December 11, 2021 12:00am January 18, 2022 9:45am letrozole 2.5 mg oral tablet (20 sources) Aromatase Inhibitor Start: 04-07-2020 End: 05-12-2020 Letrozole Discontinued 5 MG PO daily April 07, 2020 8:11am May 12, 2020 9:36am take one daily cycle day 3-7 Start: 02-10-2020 End: 05-12-2020 Letrozole 2.5 mg tablet Disc ontinued 5 mg PO daily 10 April 07, 2020 8:11am May 12, 2020 9:36am take one daily cycle day 3-7 levonorgestrel 0.317722 mg/hr intrauterine system (4 sources) Progestin, Progestin-containing Intrauterine Device Start: 04-11-2019 End: 04-11-2019 levonorgestrel 20 mcg/24 hours (6 yrs) 52 mg intrauterine device Discontinued 1 INSERT INTRA-UTER ONCE April 11, 2019 1:50pm April 11, 2019 2:18pm medroxyPROGESTERone acetate 10 mg oral tablet (9 sources) Progestin Start: 01-02-2023 End: 01-17-2023 Medroxyprogesterone (Provera) 10 mg tablet Discontinued 10 mg PO .COMPLEX 45 January 02, 2023 12:00am January 17, 2023 10:02am 10 mg PO TID x 3 days then BID x 3 days then once daily for remainder megestrol acetate 40 mg oral tablet (20 sources) Progestin Start: 10-24-2022 End: 11-16-2022 take 1 tablet by mouth twice daily Megestrol 40 mg tablet Discontinued 40 mg PO TWICE A DAY 20 October 24, 2022 10:37am November 16, 2022 3:26pm Start: 10-20-2022 End: 10-24-2022 take 1 tablet by mouth once daily Megestrol 40 mg tablet Discontinued 40 mg PO DAILY 10 October 20, 2022 1:00am October 24, 2022 10:38am metroNIDAZOLE 500 mg oral tablet (10 sources) Nitroimidazole Antimicrobial Start: 05-23-2022 End: 05-30-2022 take 1 tablet by mouth twice daily Metronidazole 500 mg tablet Discontinued 500 mg PO TWICE A DAY 14 7 0 May 23, 2022 12:00am May 29, 2022 12:00am May 30, 2022 12:03am Miconazole Nitrate (14 sources) Azole Antifungal Start: 07-13-2021 End: 07-16-2021 Miconazole Nitrate (Miconazole-3) 4 % (200 mg)- 2 % (9 gram) comb pack,prefill appl, cream Discontinued 1 APPFUL VAGINAL DAILY 3 3 July 13, 2021 12:59pm July 16, 2021 1:01am as vaginal cream Start: 07-13-2021 End: 07-16-2021 Miconazole Nitrate (Miconazo le-3) 4 % (200 mg)- 2 % (9 gram) comb pack,prefill appl, cream Discontinued 1 NMA VAGINAL DAILY 3 3 0 July 13, 2021 1:00am July 15, 2021 1:00am July 16, 2021 1:01am as vaginal cream Start: 07-13-2021 End: 07-16-2021 Miconazole Nitrate (Miconazo le-3) 4 % (200 mg)- 2 % (9 gram) comb pack,prefill appl, cream Discontinued 1 NMA VAGINAL DAILY 3 3 July 13, 2021 1:00am July 15, 2021 1:00am July 16, 2021 1:01am as vaginal cream Start: 07-13-2021 End: 07-16-2021 Miconazole Nitrate (Miconazo le-3) 4 % (200 mg)- 2 % (9 gram) comb pack,prefill appl, cream Discontinued 1 APPFUL VAGINAL DAILY 3 3 July 13, 2021 1:00am July 16, 2021 1:01am as vaginal cream naproxen 500 mg oral tablet (14 sources) Nonsteroidal Anti-inflammatory Drug Start: 01-24-2019 End: 03-26-2019 take 1 tablet by mouth every twelve hours at mealtime Naproxen 500 mg tablet Discontinued 500 mg PO Q12H 30 2 January 24, 2019 12:00am March 26, 2019 2:48pm administer with food or milk nitrofurantoin, macrocrystals 25 mg / nitrofurantoin, monohydrate 75 mg oral capsule (14 sources) Nitrofuran Antibacterial Start: 06-07-2021 End: 06-14-2021 take 1 capsule by mouth every twelve hours at mealtime Nitrofurantoin Monohyd/M-Cryst (Macrobid) 100 mg capsule Discontinued 100 mg PO Q12H 14 7 0 June 07, 2021 12:00am June 13, 2021 12:00am June 14, 2021 12:01am must administer with a meal/food norethindrone 0.35 mg oral tablet (20 sources) Start: 01-23-2023 End: 02-22-2023 take 1 tablet by mouth once daily Norethindrone (Contraceptive) (Jencycla) 0.35 mg tablet Discontinued 0.35 mg PO DAILY January 23, 2023 12:00am February 22, 2023 11:51am Start: 11-16-2022 End: 01-17-2023 take 1 tablet by mouth once daily Norethindrone (Contraceptive) (Ortho Micronor) 0.35 mg tablet Discontinued 0.35 mg PO DAILY 90 90 4 November 16, 2022 12:00am January 17, 2023 10:02am Start: 06-17-2019 End: 09-09-2019 take 1 tablet by mouth once daily Norethindrone (Contraceptive) (Yelitza) 0.35 mg tablet Discontinued 0.35 mg PO daily 84 4 June 17, 2019 12:00am September 09, 2019 3:38pm Pnv #21-Zjes-Woghg Acid-Omeg a3 30 mg iron-10 mg iron-1 mg capsule (5 sources) Start: 09-14-2018 End: 05-12-2020 Pnv #02-Bssc-Pafpb Acid-Omeg a3 30 mg iron-10 mg iron-1 mg capsule Discontinued 1 NMA PO DAILY 0 September 14, 2018 1:00am May 12, 2020 9:36am Start: 09-14-2018 End: 05-12-2020 Pnv #78-Zalm-Nvovv Acid-Omeg a3 30 mg iron-10 mg iron-1 mg capsule Discontinued 1 NMA PO DAILY September 14, 2018 1:00am May 12, 2020 9:36am Pnv 22-Igsd-Ufrwy Rrcu-Nbsvm-8 30 mg iron-10 mg iron-1 mg capsule (2 sources) Start: 09-14-2018 End: 05-12-2020 Pnv 34-Fgoz-Rwlsy Vihj-Wlgks-0 30 mg iron-10 mg iron-1 mg capsule Discontinued 1 NMA PO DAILY 0 September 14, 2018 1:00am May 12, 2020 9:36am multivitamin (ISACC ) 28 mg iron- 800 mcg tab (1 source) take 1 tablet by mouth once daily multivitamin (ISACC ) 28 mg iron- 800 mcg tab Take 1 tablet by mouth once daily. 0 Active Comment on above: Take 1 tablet by shahriar th once daily. vitamin#30 30 mg iron-10 mg iron-folic acid 1 mg-omg3 capsule (7 sources) Start: 09-14-2018 End: 05-12-2020 take 1 capsule by mouth once daily vitamin#30 30 mg iron-10 mg iron-folic acid 1 mg-omg3 capsule Discontinued 1 CAP PO DAILY September 14, 2018 2:36pm May 12, 2020 9:36am Start: 09-14-2018 End: 05-12-2020 take 1 capsule by mouth once daily vitamin#30 30 mg iron-10 mg iron-folic acid 1 mg-omg3 capsule Discontinued 1 CAP PO DAILY September 14, 2018 1:00am May 12, 2020 9:36am rho(d) immune globulin, human 1500 unt prefilled syringe (8 sources) Human Immunoglobulin G Start: 09-20-2021 End: 09-20-2021 inject 1500 [IU] by intramuscular injection once RhoGAM Ultra-Filtered PLUS (rho(D) immune globulin) 1,500 unit (300 mcg) Discontinued 1500 UNIT IM ONCE September 20, 2021 4:41pm September 20, 2021 5:26pm Start: 11-08-2018 End: 11-08-2018 inject 1500 [IU] by intramuscular injection once RhoGAM Ultra-Filtered PLUS (rho(D) immune globulin) 1,500 unit (300 mcg) Discontinued 1500 UNIT IM ONCE 1 November 08, 2018 1:46pm November 08, 2018 2:15pm sertraline 50 mg oral tablet (20 sources) Serotonin Reuptake Inhibitor Start: 10-10-2022 End: 12-19-2024 take 1 tablet by mouth once daily Sertraline 50 mg tablet Discontinued 50 mg PO DAILY 90 3 May 30, 2023 10:38am December 19, 2024 3:38pm Start: 07-02-2021 End: 10-10-2022 take 1 tablet by mouth once daily Sertraline (Zoloft) 25 mg tablet Discontinued 25 mg PO DAILY November 16, 2021 2:31pm October 10, 2022 1:41pm depression spironolactone 50 mg oral tablet (12 sources) Aldosterone Antagonist Start: 01-02-2025 End: 05-08-2025 take 1 tablet by mouth once daily Spironolactone (Aldactone) 50 mg tablet Discontinued 50 mg PO daily 30 30 February 26, 2025 10:18am May 08, 2025 2:08pm sunflower oil-parsley seed oil capsule (7 sources) Start: 03-26-2019 End: 05-12-2020 sunflower oil-parsley seed oil capsule Discontinued CAP PO March 26, 2019 2:48pm May 12, 2020 9:36am Start: 03-26-2019 End: 05-12-2020 sunflower oil-parsley seed o il capsule Discontinued CAP PO March 26, 2019 12:00am May 12, 2020 9:36am [place] Oil-Parsley Seed O il capsule (7 sources) Start: 03-26-2019 End: 05-12-2020 [place] Oil-Parsley Seed O il capsule Discontinued NMA PO 0 March 26, 2019 12:00am May 12, 2020 9:36am Start: 03-26-2019 End: 05-12-2020 [place] Oil-Parsley Seed O il capsule Discontinued NMA PO March 26, 2019 12:00am May 12, 2020 9:36am Problems Active Problems Problem Classification Problem Date Documented Date Episodic/Chronic Cardiac dysrhythmias (5 sources) Palpitations; Translations: [Palpitations] Onset: 06-02-2025 05-08-2025 Episodic Contraceptive and procreative management (20 sources) Encounter for fertility testing; Translations: [Patient encounter status] Onset: 05-02-2018 Episodic Comment on above: plan PP if able Early or threatened labor (20 sources) Threatened premature labor - not delivered ; Translations: [False labor before 37 completed weeks of gestation, unspecified trimester] Episodic Comment on above: prolonged monitoring 11/16 without change in cx Joint disorders and dislocations; trauma-related (7 sources) Chondromalacia of right patella; Translations: [Chondromalacia patellae, right knee] Onset: 03-19-2025 03-19-2025 Chronic Other complications of (14 sources) Maternal obesity complicating , childbirth and the puerperium, antepartum; Translations: [Obesity complicating , unspecified trimester] 12-16-2021 Chronic Comment on above: 1 tm GCT, encouraged healthy weight gain Other complications of (20 sources) Obesity complicating , unspecified trimester; Translations: [Obesity complicating , childbirth, or the puerperium, unspecified as to episode of care or not applicable] Chronic Other complications of (14 sources) Disease caused by 2019-nCoV; Translations: [Other viral diseases complicating , unspecified trimester] 12-16-2021 Episodic Comment on above: start baby ASA, grow th US at 32 and 36 wk, 10/19 nl growthper MH 11/16 adequate growth Other complications of (14 sources) Urinary tract infection in ; Translations: [Unspecified infection of urinary tract in , unspecified trimester] 12-16-2021 Episodic Comment on above: tx w/Macrobid; tx wi th PCN in labor Other complications of (14 sources) RhD negative; Translations: [Other specified related conditions, unspecified trimester] 12-16-2021 Episodic Comment on above: Rhogam PRN & 28 week s Other complications of (14 sources) History of premature labor; Translations: [Supervision of with history of pre-term labor, unspecified trimester] 06-03-2021 Episodic Other complications of (20 sources) Unspecified infection of urinary tract in , unspecified trimester; Translations: [Infections of genitourinary tract in , unspecified as to episode of care or not applicable] Episodic Other complications of (20 sources) Other specified related conditions, unspecified trimester; Translations: [Other specified complications of , antepartum condition or complication] Episodic Other complications of (20 sources) Other viral diseases complicating , unspecified trimester; Translations: [Other viral diseases in the mother, antepartum condition or complication] Episodic Other endocrine disorders (20 sources) Polycystic ovary syndrome; Translations: [Polycystic ovarian syndrome] 06-03-2021 Chronic Comment on above: hair growth to chin/ coarse. Other endocrine disorders (1 source) Polycystic ovarian syndrome; Translations: [Polycystic ovarian syndrome] Onset: 05-17-2025 Chronic Other female genital disorders (10 sources) Abnormal uterine bleeding; Translations: [Abnormal uterine and vaginal bleeding, unspecified] 10-20-2022 Chronic Comment on above: pelvic US Other female genital disorders (5 sources) Abnormal uterine and vaginal bleeding, unspecified; Translations: [Unspecified disorders of menstruation and other abnormal bleeding from female genital tract] 11-16-2022 Chronic Other non-traumatic joint disorders (1 source) Pain in right knee; Translations: [Pain in right knee] Onset: 03-19-2025 Episodic Other and delivery including normal (20 sources) Supervision of other normal ; Translations: [] Episodic Comment on above: baby boy Monte - JV PRR ANNABELLA: 2 boy PC: Thang Tuttle Spouse: Dilan santiago brijesh, af p, and carrier; NL anatomy Otitis media and related conditions (1 source) Acute left otitis media; Translations: [Otitis media, unspecified, left ear] Episodic Residual codes; unclassified (11 sources) History of laparoscopy; Translations: [Other specified postprocedural states] 02-02-2022 Episodic Comment on above: Tubal Ligation Residual codes; unclassified (8 sources) History of clinical finding in subject; Translations: [Personal history of other specified conditions] 01-23-2023 Episodic Residual codes; unclassified (7 sources) Infertile 06-03-2021 Episodic Residual codes; unclassified (7 sources) Past history of procedure; Translations: [Other specified postprocedural states] 02-09-2023 Episodic Unclassified (1 source) Unknown / UNK(Unknown) Onset: 06-08-2017 Viral infection (1 source) Viral disease; Translations: [Viral infection, unspecified] Episodic Past or Other Problems Problem Classification Problem Date Documented Da te Episodic/Chronic Unclassified (1 source) B/L EARACHE,COUGH,ST UFFY NOSE Onset: 06-08-2017 Unclassified (7 sources) Infertile; Translations: [Infertility] 06-03-2021 Unclassified (14 sources) Normal glucose level; Translations: [Normal glucose level] 01-16-2019 Results Test Name Value Interpretation Reference Range Facility Client Service Executive Office Visit Reporton 05-08-2025 Client Service Executive Office Visit Report [facility] [address], [address] [place] [address] OFFICE VISIT Date of Service: 05/08/25 MR#: [id number] Acct: [id number] Name: KRISTAN MCLEAN Rep #: [id number] : 1995 Provider: RADHA Gupta Age/Sex: 29/F Location: [facility] [place] Status: Signed Intake Vital Signs 03/19/25 08:09 05/08/25 14:06 Height 5 ft 4 in 5 ft 4 in Weight: 252 lb 2 oz 257 lb BMI 43.2 44.1 BP 131/82 H Intake Visit Reasons: Swelling on Spironolactone Preservationist Required: No Is patient in pain?: No Allergies molasses Adverse Reaction (Verified 05/08/25 14:08) Other Medications ???Medication ???Instructions ???Recorded ???Confirmed ???Type cholecalciferol (vitamin D3) 50 50 mcg PO QDAY 02/26/25 05/08/25 H istory mcg (2,000 unit) capsule Post menopausal: No Patient : No : No PFSH Medical History Wears glasses History of steroid therapy Alcohol use Non-smoker Vaginal delivery Depression Sterilization Infertility Surgical History H/O cystoscopy History of repair of ACL Status post laparoscopic procedure History of surgery History of appendectomy ( 06/2022) Family History Grandmother Breast cancer Social History adopted: No household members: family housing: house number of children: 3 Smoking Status: Never smoker alcohol intake: never substance use type: does not use caffeine: Yes what type of physical activity do you participate in: walking seatbelt use: always do you feel safe at home: Yes additional social history: 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 She steven her heart was racing, short of breath and experienced back pain. The heart palpitations were intermittent with the last time feeling them was on Monday. She stopped her spirolactone on Monday in case there was relation this this. Called in and had labs ordered as well. Reports she has not experienced heart palpitations since stopping medications; the swelling has improved and her back pain has nearly resolved. Denies currently symptoms of heart palpitation, chest pain, swelling, back pain. Labwork reviewed--CBC stable; kidney function and electrolytes stable. She has been trying to drink more water for hydration. History 3 Elective abortions Hx Para 3 Spontaneous abortions Hx # Term Pregnancies Ectopic pregnancies Hx # Pregnancies Multiple births # of living children 3 Past Pregnancies Del. Date Name GA/Weeks Outcome Route Bth Weight Gen Labor Lgth Anesthesia Del Locatn Provider FOB 09/13/15 Parag 39 live - full term 8 pounds 3oz Male 10 hours epidur al [facility] Ashley Berumen 01/16/19 Thang 39 live - full term 7lbs 7oz Male 10 hours epidural [facility] Berumen 12/10/21 Lavell 39 live - full term 8lbs 9oz Male [facility] Dr. Frederick Delivery Date: 01/16/19 Last Updated by: Mariya Lugo pre term labor at 26 weeks Delivery Date: 12/10/21 Last Updated by: Corinna EARL ROS Const Constitutional: Reports system reviewed and no additional complaints, except as documented; Denies body ache, fatigue or fever(s) Eyes Eyes: Reports system reviewed and no additional complaints, except as documented Cardio Card: Denies chest pain, chest pain at rest, leg edema or palpitations Resp Resp: Denies cough or dyspnea GI GI: Denies abdominal pain : Denies difficulty voiding, dysuria, hematuria, pelvic pain, vaginal discharge, vaginal dryness, vaginal odor or vaginal pruritus Musc Musc: Denies numbness Neuro Neuro: Denies numbness, sensory deficit or weakness Exam Const General: cooperative, healthy appearing, comfortable, no acute distress and well developed Nutritional Appearance: well nourished Resp Effort Inspection: normal respiratory effort, able to speak in complete sentences and symmetric chest movement Auscultation: clear to auscultation bilaterally Cardio Rate: regular rate Rhythm: regular rhythm Heart Sounds: S1 normal and S2 normal Skin General: no rashes or lesions noted Neuro General: patient alert, patient awake, patient oriented x3, gait normal, moves all extremities and no focal motor deficits Cognition: normal cognition Extrem General: normal to inspection, no pedal edema and no calf tenderness Psych Appearance: grossly normal Mood: c (more content not included)... Normal [facility] Absolute lymphocyte countOrd ered By: Trudy Ware on 05-07-2025 Lymphocytes Auto (Unsp spec) [#/Vol] 2.45 10*3/uL 0.83-4.51 [facility] Absolute neutrophil countOrd ered By: Trudy Ware on 05-07-2025 Neutrophils (Bld) [#/Vol] 6.3 10*3/uL 2.0-7.7 [facility] Anion gap in Serum or Plasma Ordered By: Trudy Ware on 05-07-2025 Anion gap [Moles/Vol] 12 mmol/L 5-15 [facility] Automated lymphocyte count a s percentage of total leukocytesOrdered By: Trudy Ware on 05-07-2025 Lymphocytes/100 WBC Auto (Unsp spec) 25.8 % 19-41 [facility] BUN/creatinine ratioOrdered By: Trudy Ware on 05-07-2025 Urea nitrogen/Creatinine [Mass ratio] 12.4 mg/mg 10-20 [facility] Basophil percentageOrdered B y: Trudy Ware on 05-07-2025 Basophils/100 WBC (Bld) 0.7 % 0-1 [facility] Bilirubin, totalOrdered By: Trudy Ware on 05-07-2025 Bilirubin [Mass/Vol] 0.72 mg/dL 0.00-1.30 [facility] CBC W/Diff, Automatedon 04-21 Absolute Lymph 2.45 X10 3/uL Normal 0.83-4.51 [facility] Comment on above: Performed By: #### L 500.4050, L100.0100 #### [facility] [address] [place], [address] Absolute Neut 6.3 X10 3/uL Normal 2.0-7.7 [facility] Comment on above: Performed By: #### L 500.4050, L100.0100 #### [facility] [address] [place], [address] Basophils/100 WBC (Bld) 0.7 % Normal 0-1 [facility] Comment on above: Performed By: #### L 500.4050, L100.0100 #### [facility] [address] [place], [address] Eosinophils/100 WBC (Bld) 2.0 % Normal 0-5 [facility] Comment on above: Performed By: #### L 500.4050, L100.0100 #### [facility] [address] [place], [address] Erythrocyte distribution width (RBC) [Ratio] 12.6 % Normal 11.6-14.6 [facility] Comment on above: Performed By: #### L 500.4050, L100.0100 #### [facility] [address] [place], [address] Hematocrit (Bld) [Volume fraction] 36.9 % Low 37-47 [facility] Comment on above: Performed By: #### L 500.4050, L100.0100 #### [facility] [address] [place], [address] Hemoglobin (Bld) [Mass/Vol] 13.0 g/dL Normal 12.0-15.0 [facility] Comment on above: Performed By: #### L 500.4050, L100.0100 #### [facility] [address] [place], [address] IG% 0.200 Normal 0.0-0.9 [facility] Comment on above: Result Comment: IG% - Immature Granulocytes (promyelocytes, myelocytes and metamyelocytes) > 1% indicates that a LEFT SHIFT is Present. Performed By: #### L 500.4050, L100.0100 #### [facility] [address] [place], [address] Lymphocytes/100 WBC (Bld) 25.8 % Normal 19-41 [facility] Comment on above: Performed By: #### L 500.4050, L100.0100 #### [facility] [address] [place], [address] MCH (RBC) [Entitic mass] 30.8 pg Normal 27.0-32.0 [facility] Comment on above: Performed By: #### L 500.4050, L100.0100 #### [facility] [address] [place], [address] MCHC (RBC) [Mass/Vol] 35.2 g/dL Normal 32-36 [facility] Comment on above: Performed By: #### L 500.4050, L100.0100 #### [facility] [address] [place], [address] MCV (RBC) [Entitic vol] 87.4 fL Normal 81-99 [facility] Comment on above: Performed By: #### L 500.4050, L100.0100 #### [facility] [address] [place], [address] Monocytes/100 WBC (Bld) 5.3 % Normal 0-10 [facility] Comment on above: Performed By: #### L 500.4050, L100.0100 #### [facility] [address] [place], [address] Neutrophils/100 WBC (Bld) 66.0 % Normal 47-70 [facility] Comment on above: Performed By: #### L 500.4050, L100.0100 #### [facility] [address] [place], [address] Nucleated RBC (Bld) [#/Vol] 0 10*3/uL Normal 0-5 [facility] Comment on above: Performed By: #### L 500.4050, L100.0100 #### [facility] [address] [place], [address] Platelet mean volume (Bld) [Entitic vol] 9.2 fL Normal 6.2-12.0 [facility] Comment on above: Performed By: #### L 500.4050, L100.0100 #### [facility] [address] [place], [address] Platelets (Bld) [#/Vol] 291 10*3/uL Normal 150-450 [facility] Comment on above: Performed By: #### L 500.4050, L100.0100 #### [facility] [address] [place], [address] RBC (Bld) [#/Vol] 4.22 10*6/uL Normal 4.2-5.4 [facility] Comment on above: Performed By: #### L 500.4050, L100.0100 #### [facility] [address] [place], [address] RDW SD 40.0 fl Normal 35.1-43.9 [facility] Comment on above: Performed By: #### L 500.4050, L100.0100 #### [facility] [address] [place], [address] WBC (Bld) [#/Vol] 9.5 10*3/uL Normal 4.4-11.0 [facility] Comment on above: Performed By: #### L 500.4050, L100.0100 #### [facility] [address] [place], [address] Carbon dioxide, total [Moles /volume] in Central venous bloodOrdered By: Trudy Ware on 05-07-2025 CO2 [Moles/Vol] 24.4 mmol/L 21.0-32.0 [facility] Chloride assayOrdered By: Victor Hugo Ware on 05-07-2025 Chloride [Moles/Vol] 102 mmol/L 98-108 [facility] Comprehensive Metabolic Prof ilon 05-07-2025 Albumin [Mass/Vol] 4.2 g/dL Normal 3.5-5.0 [facility] Comment on above: Performed By: #### L 500.4050, L100.0100 #### [facility] [address] [place], [address] Albumin/Globulin [Mass ratio] 1.5 {ratio} Normal 0.9-2.4 [facility] Comment on above: Performed By: #### L 500.4050, L100.0100 #### [facility] [address] [place], [address] ALK PHOS 84 U/L Normal 35-104 [facility] Comment on above: Performed By: #### L 500.4050, L100.0100 #### [facility] [address] [place], [address] ALT [Catalytic activity/Vol] 24 U/L Normal <=34 [facility] Comment on above: Performed By: #### L 500.4050, L100.0100 #### [facility] [address] [place], [address] AST [Catalytic activity/Vol] 24 U/L Normal <=31 [facility] Comment on above: Performed By: #### L 500.4050, L100.0100 #### [facility] [address] [place], [address] Bilirubin [Mass/Vol] 0.72 mg/dL Normal 0.00-1.30 [facility] Comment on above: Performed By: #### L 500.4050, L100.0100 #### [facility] [address] [place], [address] BUN/CRE 12.4 RATIO Normal 10-20 [facility] Comment on above: Performed By: #### L 500.4050, L100.0100 #### [facility] [address] [place], [address] Calcium [Mass/Vol] 9.6 mg/dL Normal 7.6-11.0 [facility] Comment on above: Performed By: #### L 500.4050, L100.0100 #### [facility] [address] [place], [address] Chloride [Moles/Vol] 102 mmol/L Normal 98-108 [facility] Comment on above: Performed By: #### L 500.4050, L100.0100 #### [facility] [address] [place], [address] CO2 [Moles/Vol] 24.4 mmol/L Normal 21.0-32.0 [facility] Comment on above: Performed By: #### L 500.4050, L100.0100 #### [facility] [address] [place], [address] Creatinine [Mass/Vol] 0.74 mg/dL Normal 0.70-1.20 [facility] Comment on above: Performed By: #### L 500.4050, L100.0100 #### [facility] [address] [place], [address] GAP 12 Normal 5-15 [facility] Comment on above: Performed By: #### L 500.4050, L100.0100 #### [facility] [address] [place], [address] GFR/1.73 sq M.predicted among non-blacks MDRD (S/P/Bld) [Vol rate/Area] 112 mL/min/{1.73_m2} Normal >60 [facility] Comment on above: Result Comment: mL/m in/1.73m2 CKD-EPI Creatinine Equation (2020) Performed By: #### L 500.4050, L100.0100 #### [facility] [address] [place], [address] Globulin (S) [Mass/Vol] 2.8 g/dL Normal 2.2-4.2 [facility] Comment on above: Performed By: #### L 500.4050, L100.0100 #### [facility] [address] [place], [address] Glucose [Mass/Vol] 95 mg/dL Normal 70-99 [facility] Comment on above: Performed By: #### L 500.4050, L100.0100 #### [facility] [address] [place], [address] Potassium [Moles/Vol] 3.8 mmol/L Normal 3.3-5.1 [facility] Comment on above: Performed By: #### L 500.4050, L100.0100 #### [facility] [address] [place], [address] Sodium [Moles/Vol] 138 mmol/L Normal 133-145 [facility] Comment on above: Performed By: #### L 500.4050, L100.0100 #### [facility] [address] [place], [address] T PROT 7.0 g/dL Normal 5.9-8.4 [facility] Comment on above: Performed By: #### L 500.4050, L100.0100 #### [facility] [address] [place], [address] Urea nitrogen [Mass/Vol] 9 mg/dL Normal 4-19 [facility] Comment on above: Performed By: #### L 500.4050, L100.0100 #### [facility] [address] [place], [address] Eosinophil percentageOrdered By: Trudy Ware on 05-07-2025 Eosinophils/100 WBC (Bld) 2.0 % 0-5 [facility] Erythrocyte distribution wid th ratioOrdered By: Trudy Ware on 05-07-2025 Erythrocyte distribution width (RBC) [Ratio] 12.6 % 11.6-14.6 [facility] Erythrocyte distribution wid th standard deviationOrdered By: Trudy Ware on 05-07-2025 Erythrocyte distribution width (RBC) [Ratio] 40.0 fl 35.1-43.9 [facility] Glomerular filtration rate ( GFR) estimation/1.73 sq m using serum, plasma, or whole bOrdered By: Trudy Ware on 05-07-2025 GFR/1.73 sq M.predicted among non-blacks MDRD (S/P/Bld) [Vol rate/Area] 112 mL/min/{1.73_m2} >60 [facility] Comment on above: mL/min/1.73m2 CKD-EP I Creatinine Equation (2020) Hematocrit Auto (Bld) [Volum e fraction]Ordered By: Trudy Ware on 05-07-2025 Hematocrit (Bld) [Volume fraction] 36.9 % Low 37-47 [facility] Hemoglobin measurementOrdere d By: Trudy Ware on 05-07-2025 Hemoglobin (Bld) [Mass/Vol] 13.0 g/dL 12.0-15.0 [facility] Immature granulocytes/100 WB C Auto (Bld)Ordered By: Trudy Ware on 05-07-2025 Immature granulocytes/100 WBC (Bld) 0.200 % 0.0-0.9 [facility] Comment on above: IG% - Immature Granu locytes (promyelocytes, myelocytes and metamyelocytes) > 1% indicates that a LEFT SHIFT is Present. Laboratory - Chemistry and C hemistry - challengeOrdered By: Trudy Ware on 05-07-2025 AST [Catalytic activity/Vol] 24 U/L <32 [facility] MCV (mean corpuscular volume ) determinationOrdered By: Trudy Ware on 05-07-2025 MCV (RBC) [Entitic vol] 87.4 fL 81-99 [facility] Mean corpuscular hemoglobin (MCH) determinationOrdered By: Trudy Ware on 05-07-2025 MCH (RBC) [Entitic mass] 30.8 pg 27.0-32.0 [facility] Mean corpuscular hemoglobin concentration (MCHC) determinationOrdered By: Trudy Ware on 05-07-2025 MCHC (RBC) [Mass/Vol] 35.2 g/dL 32-36 [facility] Mean platelet volume determi nationOrdered By: Trudy Ware on 05-07-2025 Platelet mean volume (Bld) [Entitic vol] 9.2 fL 6.2-12.0 [facility] Monocyte percentageOrdered B y: Trudy Ware on 05-07-2025 Monocytes/100 WBC (Bld) 5.3 % 0-10 [facility] Neutrophil percentageOrdered By: Trudy Ware on 05-07-2025 Neutrophils/100 WBC (Bld) 66.0 % 47-70 [facility] Nucleated red blood cell per centageOrdered By: Trudy Ware on 05-07-2025 Nucleated RBC/100 WBC (Bld) [Ratio] 0 % 0-5 [facility] Platelet countOrdered By: Victor Hugo Ware on 05-07-2025 Platelets (Bld) [#/Vol] 291 10*3/uL 150-450 [facility] Potassium measurement (mass/ volume)Ordered By: Trudy Ware on 05-07-2025 Potassium (Unsp spec) [Mass/Vol] 3.8 mmol/L 3.3-5.1 [facility] RBC Auto (Bld) [#/Vol]Ordere d By: Trudy Ware on 05-07-2025 RBC (Bld) [#/Vol] 4.22 10*6/uL 4.2-5.4 [facility] Serum creatinine measurement (mass/volume)Ordered By: Trudy Ware on 05-07-2025 Creatinine [Mass/Vol] 0.74 mg/dL 0.70-1.20 [facility] Serum globulin measurementOr dered By: Trudy Ware on 05-07-2025 Globulin (S) [Mass/Vol] 2.8 g/dL 2.2-4.2 [facility] Serum glucose measurement (m ass/volume)Ordered By: Trudy Ware on 05-07-2025 Glucose [Mass/Vol] 95 mg/dL 70-99 [facility] Serum or plasma alanine moy otransferase (ALT) measurementOrdered By: Trudy Ware on 05-07-2025 ALT [Catalytic activity/Vol] 24 U/L <35 [facility] Serum or plasma albumin magno urement (mass/volume)Ordered By: Trudy Ware on 05-07-2025 Albumin [Mass/Vol] 4.2 g/dL 3.5-5.0 [facility] Serum or plasma albumin/glob ulin mass ratioOrdered By: Trudy Ware on 05-07-2025 Albumin/Globulin [Mass ratio] 1.5 {ratio} 0.9-2.4 [facility] Serum or plasma alkaline manuel sphatase measurementOrdered By: Trudy Ware on 05-07-2025 ALP [Catalytic activity/Vol] 84 U/L 35-104 [facility] Serum or plasma calcium magno urement (mass/volume)Ordered By: Trudy Ware on 05-07-2025 Calcium [Mass/Vol] 9.6 mg/dL 7.6-11.0 [facility] Serum or plasma urea nitroge n measurement (mass/volume)Ordered By: Trudy Ware on 05-07-2025 Urea nitrogen [Mass/Vol] 9 mg/dL 4-19 [facility] Sodium levelOrdered By: Russell Ware on 05-07-2025 Sodium [Moles/Vol] 138 mmol/L 133-145 [facility] Total proteinOrdered By: Steven Ware on 05-07-2025 Protein [Mass/Vol] 7.0 g/dL 5.9-8.4 [facility] White blood cell (WBC) count Ordered By: Trudy Ware on 05-07-2025 WBC (Bld) [#/Vol] 9.5 10*3/uL 4.4-11.0 [facility] Knee 4 or More Viewson 03-19 Knee 4 or More Views [facility] [address] [place], [place] [id number] Knee 4 or More Views MR#: [id number] Acct: [id number] Name: KRISTAN MCLEAN Rep #: [id number] : 1995 F 29 From: Sheldon Rosas PCP: ISIDRO GRIMES Status: DEP AMB Study: Knee 4 or More Views Date of Exam: 03/19/25 Exam# [id number] Ordering Dr: Lyndon Gruber DO PROCEDURE: KNEE 4 OR MORE VIEWS 03/19/2025 REASON FOR EXAM: PAIN TECHNIQUE: KNEE 4 OR MORE VIEWS COMPARISON: None. RAD/Knee 4 or More Views IMPRESSION: No right knee joint effusion is seen. No significant arthritic process or joint narrowing is noted. Satisfactory alignment is seen. No fracture site is evident. If clinical concern persists, short-term follow-up imaging may be obtained to rule out a currently occult fracture. Reading Location: [place] [address] CC: ISIDRO GRIMES; Dr. Lyndon Gruber DO On Air Announcer: Signed Normal [facility] Orthopedic Visit Reporton Orthopedic Visit Report [facility] [address] [place] [address] [address] [place] [address] OFFICE VISIT Date of Service: 03/19/25 MR#: [id number] Acct: [id number] Name: KRISTAN MCLEAN Rep #: [id number] : 1995 Provider: Dr. Lyndon sanders DO Age/Sex: 29/F Location: [facility] Status: Signed Intake Vital Signs 02/26/25 09:52 03/19/25 08:09 Height 5 ft 4 in 5 ft 4 in Weight: 255 lb 2 oz 252 lb 2 oz BMI 43.7 43.2 BP 127/79 H Intake Visit Reasons: RIGHT KNEE Chief Complaint: Right Knee Pain Accompanied by: Self Is patient in pain?: Yes Pain scale (1-10): 3 Allergies molasses Adverse Reaction (Verified 03/19/25 08:10) Other Medications ???Medication ???Instructions ???Recorded ???Confirmed ???Type cholecalciferol (vitamin D3) 50 50 mcg PO QDAY 02/26/25 03/19/25 H istory mcg (2,000 unit) capsule spironolactone 50 mg tablet 50 mg PO QDAY 30 days #30 tabs 05/1503/19/25 Rx (Aldactone) PFSH Medical History Wears glasses History of steroid therapy Alcohol use Non-smoker Vaginal delivery Depression Sterilization Infertility Surgical History H/O cystoscopy History of repair of ACL Status post laparoscopic procedure History of surgery History of appendectomy ( 06/2022) Family History Grandmother Breast cancer Social History adopted: No household members: family housing: house number of children: 3 Smoking Status: Never smoker alcohol intake: never substance use type: does not use caffeine: Yes what type of physical activity do you participate in: walking seatbelt use: always do you feel safe at home: Yes additional social history: 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 Lyndon Gruber, 03/19/25 0741. Part of today???s visit was documented by Laina Boogie ATC, acting as scribe. KRISTAN MCLEAN is a 29 year old obese F (BMI 43.2) here today for right knee pain. Patient states the knee has been bothering her for over a year. She states when it first started it was her first year back playing softball after she tore her ACL on the left knee. She had her left ACL fixed in June 2022 and she went back to playing softball about 1.5 years later. There was no injury to the right knee. She states a year ago she went to [facility] because she wasn't happy with the surgeon who did her surgery and did not want to go back. She was told she had a strained patellar tendon and did physical therapy and it did not make it worse or any better. She describes the pain over the anterior aspect of the knee. She does admit to clicking and popping but is not painful . It does not give way. She denies any recent injections or physical therapy. She denies any surgery on the knee. She states she was taking pain medication last week as tylenol/ibuprofen was not helping. Ortho Exam General General: Yes no acute distress and Yes well groomed Neurologic: Yes alert and Yes oriented x3 Psychologic: Yes reasonable and appropriate Right Knee Skin/Wound: Yes CDI, No erythema, No ecchymosis and No swelling Knee ROM: Yes ROM-Extension -20 to 0 and Yes ROM-Flexion 0-140 (112) Examination: No Med jt line tenderness, Yes Lat jt line tenderness, Yes Crepitus, No Pain with flexion, No Pain with extention, No Trevin's Test, Yes Herring's, No TTP Pes Anserine and No Illiotibial band tenderness Stability: NML: Anterior Drawer, NML: Posterior Drawer, NML: Valgus 0, NML: Valgus 30, NML: Varus 0 and NML: Varus 30 Patella Translation: 1 Apprehension with Lateral Translation: No Patella Grind: Yes KNEE: no joint effusion mild crepitation with patellar grind Left Knee Patella Translation: 1 Supplemental Info 2024 x-ray right knee: Preserved joint space there is faint spurring of the medial trochlea Coding Level of Care Code Off vis,new,level 3 Diagnoses 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 X-rays do demonstrate some mild spurring of her trochlea. Clinical exam does not show any meniscal signs cruciate or collateral ligament instability, but does show patellofemoral crepitation and discomfort with stress. Her clinical history is significant with chondromalacia patella. her options at this (more content not included)... Normal [facility] Anion gap in Serum or Plasma Ordered By: Alla Gordillo on 02-26-2025 Anion gap [Moles/Vol] 10 mmol/L 5-15 [facility] BUN/creatinine ratioOrdered By: Alla Gordillo on 02-26-2025 Urea nitrogen/Creatinine [Mass ratio] 17.6 mg/mg 10-20 [facility] Bilirubin, totalOrdered By: Alla Gordillo on 02-26-2025 Bilirubin [Mass/Vol] 0.72 mg/dL 0.00-1.30 [facility] Calculated very low density lipoprotein (VLDL) cholesterol measurementOrdered By: Alla Gordillo on 02-26-2025 Calculated very low density lipoprotein (VLDL) cholesterol measurement 35 mg/dL 5-40 [facility] Carbon dioxide, total [Moles /volume] in Central venous bloodOrdered By: Alla Gordillo on 02-26-2025 CO2 [Moles/Vol] 23.8 mmol/L 21.0-32.0 [facility] Chloride assayOrdered By: Emelia Gordillo on 02-26-2025 Chloride [Moles/Vol] 104 mmol/L 98-108 [facility] Comprehensive Metabolic Prof ilon 02-26-2025 Albumin [Mass/Vol] 4.1 g/dL Normal 3.5-5.0 [facility] Comment on above: Order Comment: PT IS FASTING Performed By: #### L 500.4928, L500.1614 ####[facility] [address] [place], [place], [id number] Albumin/Globulin [Mass ratio] 1.4 {ratio} Normal 0.9-2.4 [facility] Comment on above: Order Comment: PT IS FASTING Performed By: #### L 500.4050, L500.4100 ####[facility] [address] [place], [address] ALK PHOS 81 U/L Normal 35-104 [facility] Comment on above: Order Comment: PT IS FASTING Performed By: #### L 500.4050, L500.4100 ####[facility] [address] [place], [address] ALT [Catalytic activity/Vol] 23 U/L Normal <=34 [facility] Comment on above: Order Comment: PT IS FASTING Performed By: #### L 500.4050, L500.4100 ####[facility] [address] [place], [address] AST [Catalytic activity/Vol] 28 U/L Normal <=31 [facility] Comment on above: Order Comment: PT IS FASTING Result Comment: Hemo lysis present, Results??could be affected. ?? Performed By: #### L 500.4050, L500.4100 ####[facility] [address] [place], [address] Bilirubin [Mass/Vol] 0.72 mg/dL Normal 0.00-1.30 [facility] Comment on above: Order Comment: PT IS FASTING Performed By: #### L 500.4050, L500.4100 ####[facility] [address] [place], [address] BUN/CRE 17.6 RATIO Normal 10-20 [facility] Comment on above: Order Comment: PT IS FASTING Performed By: #### L 500.4050, L500.4100 ####[facility] [address] [place], [address] Calcium [Mass/Vol] 9.0 mg/dL Normal 7.6-11.0 [facility] Comment on above: Order Comment: PT IS FASTING Performed By: #### L 500.4050, L500.4100 ####[facility] [address] [place], [address] Chloride [Moles/Vol] 104 mmol/L Normal 98-108 [facility] Comment on above: Order Comment: PT IS FASTING Performed By: #### L 500.4050, L500.4100 ####[facility] [address] [place], [address] CO2 [Moles/Vol] 23.8 mmol/L Normal 21.0-32.0 [facility] Comment on above: Order Comment: PT IS FASTING Performed By: #### L 500.4050, L500.4100 ####[facility] [address] [place], [address] Creatinine [Mass/Vol] 0.68 mg/dL Low 0.70-1.20 [facility] Comment on above: Order Comment: PT IS FASTING Performed By: #### L 500.4050, L500.4100 ####[facility] [address] [place], [address] GAP 10 Normal 5-15 [facility] Comment on above: Order Comment: PT IS FASTING Performed By: #### L 500.4050, L500.4100 ####[facility] [address] [place], [address] GFR/1.73 sq M.predicted among non-blacks MDRD (S/P/Bld) [Vol rate/Area] 120 mL/min/{1.73_m2} Normal >60 [facility] Comment on above: Order Comment: PT IS FASTING Result Comment: mL/m in/1.73m2 CKD-EPI Creatinine Equation (2020) Performed By: #### L 500.4050, L500.4100 ####[facility] [address] [place], [address] Globulin (S) [Mass/Vol] 3.0 g/dL Normal 2.2-4.2 [facility] Comment on above: Order Comment: PT IS FASTING Performed By: #### L 500.4050, L500.4100 ####[facility] [address] [place], [address] Glucose [Mass/Vol] 98 mg/dL Normal 70-99 [facility] Comment on above: Order Comment: PT IS FASTING Performed By: #### L 500.4050, L500.4100 ####[facility] [address] [place], [address] Potassium [Moles/Vol] 4.3 mmol/L Normal 3.3-5.1 [facility] Comment on above: Order Comment: PT IS FASTING Result Comment: Hemo lysis present, Results??could be affected. ?? Performed By: #### L 500.4050, L500.4100 ####[facility] [address] [place], [address] Sodium [Moles/Vol] 138 mmol/L Normal 133-145 [facility] Comment on above: Order Comment: PT IS FASTING Performed By: #### L 500.4050, L500.4100 ####[facility] [address] [place], [address] T PROT 7.0 g/dL Normal 5.9-8.4 [facility] Comment on above: Order Comment: PT IS FASTING Performed By: #### L 500.4050, L500.4100 ####[facility] [address] [place], [address] Urea nitrogen [Mass/Vol] 12 mg/dL Normal 4-19 [facility] Comment on above: Order Comment: PT IS FASTING Performed By: #### L 500.4050, L500.4100 ####[facility] [address] [place], [address] Glomerular filtration rate ( GFR) estimation/1.73 sq m using serum, plasma, or whole bOrdered By: Alla Gordillo on 02-26-2025 GFR/1.73 sq M.predicted among non-blacks MDRD (S/P/Bld) [Vol rate/Area] 120 mL/min/{1.73_m2} >60 [facility] Comment on above: mL/min/1.73m2 CKD-EP I Creatinine Equation (2020) LDL calc ser/plasOrdered By: Alla Gordillo on 02-26-2025 Cholesterol in LDL [Mass/Vol] 117 mg/dL [facility] Comment on above: Pwpmhkxzcn=817-048 m g/dL & Higher Ibwz=866 mg/dL or greater Laboratory - Chemistry and C hemistry - challengeOrdered By: Alla Gordillo on 02-26-2025 AST [Catalytic activity/Vol] 28 U/L <32 [facility] Comment on above: Hemolysis present, R esults could be affected. Lipid Profileon 02-26-2025 CHOL:HDL 4.81 Normal [facility] Comment on above: Order Comment: PT IS FASTING Performed By: #### L 500.4050, L500.4100 ####[facility] [address] [place], [place], [phone] Cholesterol [Mass/Vol] 192 mg/dL Normal <=200 [facility] Comment on above: Order Comment: PT IS FASTING Result Comment: Chol esterol level, Desirable <200 mg/dL Borderline high cholesterol 200-239 mg/dL High cholesterol >=240 mg/dL Recommendations of the NCEP Adult Treatment Panel for the following risk-cutoff thresholds for the [place] population. Performed By: #### L 500.4050, L500.4100 ####[facility] [address] [place], [place], [phone] Cholesterol in HDL [Mass/Vol] 40 mg/dL Normal [facility] Comment on above: Order Comment: PT IS FASTING Result Comment: Marielena onal Cholesterol Education Program (NCEP) guidelines: <40 mg/dL: Low HDL-cholesterol (major risk factor for CHD) >= 60 mg/dL: High HDL-cholesterol (negative risk factor for CHD) HDL-cholesterol is affected by a number of factors, e.g. smoking, exercise, hormones, sex and age. Performed By: #### L 500.4050, L500.4100 ####[facility] [address] [place], [address] Cholesterol in LDL [Mass/Vol] 117 mg/dL Normal [facility] Comment on above: Order Comment: PT IS FASTING Result Comment: Bord vlsszn=942-402 mg/dL Higher Zjqs=766 mg/dL or greater Performed By: #### L 500.4050, L500.4100 ####[facility] [address] [place], [address] Cholesterol in VLDL [Mass/Vol] 35 mg/dL Normal 5-40 [facility] Comment on above: Order Comment: PT IS FASTING Performed By: #### L 500.4050, L500.4100 ####[facility] [address] [place], [address] Triglyceride [Mass/Vol] 177 mg/dL Normal [facility] Comment on above: Order Comment: PT IS FASTING Result Comment: The drugs N-Acetylcysteine and Metamizole may falsely depress this assay. Normal range: <150 mg/dL Borderline High: 150-199 mg/dL High: 200-499 mg/dL Very High: >500 mg/dL Performed By: #### L 500.4050, L500.4100 ####[facility] [address] [place], [address] Client Service Executive Office Visit Reporton 02-26-2025 Client Service Executive Office Visit Report [facility] [address], [address] [place] [address] OFFICE VISIT Date of Service: 02/26/25 MR#: [id number] Acct: [id number] Name: KRISTAN MCLEAN Rep #: [id number] : 1995 Provider: RADHA Gupta Age/Sex: 29/F Location: [facility] [place] Status: Signed Intake Vital Signs 12/19/24 15:35 02/26/25 09:52 Height 5 ft 4 in 5 ft 4 in Weight: 256 lb 255 lb 2 oz BMI 43.9 43.7 BP 129/86 H 127/79 H Intake Visit Reasons: 6 wk med check Preservationist Required: No Is patient in pain?: No Allergies No Known Allergies Allergy (Verified 02/26/25 09:52) Medications ???Medication ???Instructions ???Recorded ???Confirmed ???Type cholecalciferol (vitamin D3) 50 50 mcg PO QDAY 02/26/25 02/26/25 H istory mcg (2,000 unit) capsule spironolactone 50 mg tablet 50 mg PO QDAY 30 days #30 tabs 05/1502/26/25 Rx (Aldactone) Is last menstrual period known: No Post menopausal: No Patient : No : No Control Method: [facility] Medical History Wears glasses History of steroid therapy Alcohol use Non-smoker Vaginal delivery Depression Sterilization Infertility Surgical History H/O cystoscopy History of repair of ACL Status post laparoscopic procedure History of surgery History of appendectomy ( 06/2022) Family History Grandmother Breast cancer Social History adopted: No household members: family housing: house number of children: 3 Smoking Status: Never smoker alcohol intake: never substance use type: does not use caffeine: Yes what type of physical activity do you participate in: walking seatbelt use: always do you feel safe at home: Yes additional social history: 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 She reports she is doing great on this; has noticed a difference in the hair growth on her face; in particularly above her lip. She denies side effects from this and would like to continue on it. History 3 Elective abortions Hx Para 3 Spontaneous abortions Hx # Term Pregnancies Ectopic pregnancies Hx # Pregnancies Multiple births # of living children 3 Past Pregnancies Del. Date Name GA/Weeks Outcome Route Bth Weight Gen Labor Lgth Anesthesia Del Locatn Provider FOB 09/13/15 Parag 39 live - full term 8 pounds 3oz Male 10 hours epidur al A[facility] Ashleykathleen Berumen 01/16/19 Thang 39 live - full term 7lbs 7oz Male 10 hours epidural WC BRADELY Berumen 12/10/21 Lavell 39 live - full term 8lbs 9oz Male [facility] [place] Delivery Date: 01/16/19 Last Updated by: Mariya Lugo pre term labor at 26 weeks Delivery Date: 12/10/21 Last Updated by: Corinna MCCARTHY ENT ENT: Reports system reviewed and no additional complaints, except as documented Cardio Card: Reports system reviewed and no additional complaints, except as documented Resp Resp: Denies cough, dyspnea or dyspnea on exertion Musc Musc: Reports system reviewed and no additional complaints, except as documented Skin Skin/Breast: Reports system reviewed and no additional complaints, except as documented Exam Const General: cooperative, healthy appearing, comfortable, no acute distress, well groomed and well hydrated Nutritional Appearance: well nourished Orientation: alert, awake and oriented x3 Eyes General: appearance normal, both eyes and all related structures Neck Neck: normal visual inspection and full ROM Resp Effort Inspection: normal respiratory effort, able to speak in complete sentences and symmetric chest movement Skin General: no rashes or lesions noted Neuro General: patient alert, patient awake, patient oriented x3 and moves all extremities Psych Appearance: grossly normal Mental Status: mental status grossly normal Affect: normal affect Speech and Movement: speech and movement normal Attitude: cooperative Coding Level of Care Code Established Pt Off vis,est,level 3 Patient Type Established Diagnoses PCOS (polycystic ovarian syndrome) E28.2 Assessment and Plan Assessment and Plan (1) PCOS (polycystic ovarian syndrome): Status: Chronic Comment: hair growth to chin/coarse. Plan: Continue medications; refills sent. Labs ordered to obtain today and then in 6 months to ensure stable kidney function. Orders: Orders Comprehensive Metabolic Profil Today E28.2 - Polycystic ova (more content not included)... Normal [facility] Potassium measurement (mass/ volume)Ordered By: Alla Gordillo on 02-26-2025 Potassium (Unsp spec) [Mass/Vol] 4.3 mmol/L 3.3-5.1 [facility] Comment on above: Hemolysis present, R esults could be affected. Screening total cholesterol/ high density lipoprotein (HDL) cholesterol ratioOrdered By: Alla Gordillo on 02-26-2025 Cholesterol.total/Choles terol in HDL [Mass ratio] 4.81 {ratio} [facility] Serum creatinine measurement (mass/volume)Ordered By: Alla Gordillo on 02-26-2025 Creatinine [Mass/Vol] 0.68 mg/dL Low 0.70-1.20 [facility] Serum globulin measurementOr dered By: Alla Gordillo on 02-26-2025 Globulin (S) [Mass/Vol] 3.0 g/dL 2.2-4.2 [facility] Serum glucose measurement (m ass/volume)Ordered By: Alla Gordillo on 02-26-2025 Glucose [Mass/Vol] 98 mg/dL 70-99 [facility] Serum or plasma alanine moy otransferase (ALT) measurementOrdered By: Alla Gordillo on 02-26-2025 ALT [Catalytic activity/Vol] 23 U/L <35 [facility] Serum or plasma albumin magno urement (mass/volume)Ordered By: Alla Gordillo on 02-26-2025 Albumin [Mass/Vol] 4.1 g/dL 3.5-5.0 [facility] Serum or plasma albumin/glob ulin mass ratioOrdered By: Alla Gordillo on 02-26-2025 Albumin/Globulin [Mass ratio] 1.4 {ratio} 0.9-2.4 [facility] Serum or plasma alkaline mnauel sphatase measurementOrdered By: Alla Gordillo on 02-26-2025 ALP [Catalytic activity/Vol] 81 U/L 35-104 [facility] Serum or plasma calcium magno urement (mass/volume)Ordered By: Alla Gordillo on 02-26-2025 Calcium [Mass/Vol] 9.0 mg/dL 7.6-11.0 [facility] Serum or plasma cholesterol in HDL measurement (mass/volume)Ordered By: Alla Gordillo on 02-26-2025 Cholesterol in HDL [Mass/Vol] 40 mg/dL >40 [facility] Comment on above: National Cholesterol Education Program (NCEP) guidelines:<40 mg/dL: Low HDL-cholesterol (major risk factor for CHD)>= 60 mg/dL: High HDL-cholesterol (negative risk factor for CHD)HDL-cholesterol is affected by a number of factors, e.g. smoking, exercise, hormones, sex and age. Serum or plasma cholesterol measurement (mass/volume)Ordered By: Alla Gordillo on 02-26-2025 Cholesterol [Mass/Vol] 192 mg/dL <201 [facility] Comment on above: Cholesterol level, D esirable <200 mg/dLBorderline high cholesterol 200-239 mg/dLHigh cholesterol >=240 mg/dLRecommendations of the NCEP Adult Treatment Panel for the following risk-cutoff thresholds for the [place] population. Serum or plasma urea nitroge n measurement (mass/volume)Ordered By: Alla Gordillo on 02-26-2025 Urea nitrogen [Mass/Vol] 12 mg/dL 4-19 [facility] Sodium levelOrdered By: Zulay Gordillo on 02-26-2025 Sodium [Moles/Vol] 138 mmol/L 133-145 [facility] Total proteinOrdered By: Tyerse Gordillo on 02-26-2025 Protein [Mass/Vol] 7.0 g/dL 5.9-8.4 [facility] Triglycerides measurementOrd ered By: Alla Gordillo on 02-26-2025 Triglyceride [Mass/Vol] 177 mg/dL <199 [facility] Comment on above: The drugs N-Acetylcy steine and Metamizole may falsely depress this assay. Normal range: <150 mg/dLBorderline High: 150-199 mg/dLHigh: 200-499 mg/dLVery High: >500 mg/dL DHEA Sulfateon 12-31-2024 DHEA SULFATE 216.0 ug/dL Normal 84.8-378.0 [facility] Comment on above: Order Comment: N Performed By: #### L 3300.1500, L506.0400, L500.4100, L100.0100, L506.1001, L500.4050, L3400.4800, L501.9520, L3100.5400 ####[facility] [address] [place], [place], [phone] PROLACTIN 4465on 12-31-2024 PROLACTIN 6.2 ng/mL Normal 4.8-33.4 [facility] Comment on above: Performed By: #### L 3300.1500, L506.0400, L500.4100, L100.0100, L506.1001, L500.4050, L3400.4800, L501.9520, L3100.5400 ####[facility] [address] [place], [address] Testosterone Freeon 01-01-20 25 TESTOSTER FREE 1.5 pg/mL Normal 0.0-4.2 [facility] Comment on above: Result Comment: Perf ormed at: - [facility] [id number] [employer]: Ej Ahmadi PhD, Phone: [phone] Performed at: [facility] [id number] [employer]: Amy Ortiz MD, Phone: [phone] Performed By: #### L 3300.1500, L506.0400, L500.4100, L100.0100, L506.1001, L500.4050, L3400.4800, L501.9520, L3100.5400 ####[facility] [address] [place], [place], [phone] Lipid Profileon 12-30-2024 CHOL:HDL 4.87 Normal [facility] Comment on above: Order Comment: DR CLARITZA MARTINEZ Performed By: #### L 3300.1500, L506.0400, L500.4100, L100.0100, L506.1001, L500.4050, L3400.4800, L501.9520, L3100.5400 ####[facility] [address] [place], [place], [phone] Cholesterol [Mass/Vol] 200 mg/dL Normal <=200 [facility] Comment on above: Order Comment: DR CLARITZA MARTINEZ Result Comment: Chol esterol level, Desirable <200 mg/dL Borderline high cholesterol 200-239 mg/dL High cholesterol >=240 mg/dL Recommendations of the NCEP Adult Treatment Panel for the following risk-cutoff thresholds for the [place] population. Performed By: #### L 3300.1500, L506.0400, L500.4100, L100.0100, L506.1001, L500.4050, L3400.4800, L501.9520, L3100.5400 ####[facility] [address] [place], [address] Cholesterol in HDL [Mass/Vol] 41 mg/dL Normal [facility] Comment on above: Order Comment: DR CLARITZA MARTINEZ Result Comment: Marielena onal Cholesterol Education Program (NCEP) guidelines: <40 mg/dL: Low HDL-cholesterol (major risk factor for CHD) >= 60 mg/dL: High HDL-cholesterol (negative risk factor for CHD) HDL-cholesterol is affected by a number of factors, e.g. smoking, exercise, hormones, sex and age. Performed By: #### L 3300.1500, L506.0400, L500.4100, L100.0100, L506.1001, L500.4050, L3400.4800, L501.9520, L3100.5400 ####[facility] [address] [place], [place], [phone] Cholesterol in LDL [Mass/Vol] 141 mg/dL Normal [facility] Comment on above: Order Comment: DR CLARITZA MARTINEZ Result Comment: Bord vwqpbf=688-904 mg/dL Higher Hiye=943 mg/dL or greater Performed By: #### L 3300.1500, L506.0400, L500.4100, L100.0100, L506.1001, L500.4050, L3400.4800, L501.9520, L3100.5400 ####[facility] [address] [place], [place], [phone] Cholesterol in VLDL [Mass/Vol] 18 mg/dL Normal 5-40 [facility] Comment on above: Order Comment: DR CLARITZA CARPIO LIPID. MICHELLE Performed By: #### L 3300.1500, L506.0400, L500.4100, L100.0100, L506.1001, L500.4050, L3400.4800, L501.9520, L3100.5400 ####[facility] [address] [place], [place], [phone] Triglyceride [Mass/Vol] 88 mg/dL Normal [facility] Comment on above: Order Comment: DR CLARITZA CARPIO LIPIDNneka MARTINEZ Result Comment: The drugs N-Acetylcysteine and Metamizole may falsely depress this assay. Normal range: <150 mg/dL Borderline High: 150-199 mg/dL High: 200-499 mg/dL Very High: >500 mg/dL Performed By: #### L 3300.1500, L506.0400, L500.4100, L100.0100, L506.1001, L500.4050, L3400.4800, L501.9520, L3100.5400 ####[facility] [address] [place], [place], [phone] Absolute lymphocyte countOrd ered By: Alla Gordillo on 12-27-2024 Lymphocytes Auto (Unsp spec) [#/Vol] 2.13 10*3/uL 0.83-4.51 [facility] Absolute neutrophil countOrd ered By: Alla Gordillo on 12-27-2024 Neutrophils (Bld) [#/Vol] 4.0 10*3/uL 2.0-7.7 [facility] Anion gap in Serum or Plasma Ordered By: Alla Gordillo on 12-27-2024 Anion gap [Moles/Vol] 11 mmol/L 5-15 [facility] Automated lymphocyte count a s percentage of total leukocytesOrdered By: Alla Gordillo on 12-27-2024 Lymphocytes/100 WBC Auto (Unsp spec) 31.6 % 19-41 [facility] BUN/creatinine ratioOrdered By: Alla Duy on 12-27-2024 Urea nitrogen/Creatinine [Mass ratio] 14.8 mg/mg 10- [facility] Basophil percentageOrdered B y: Alla Duy on 12-27-2024 Basophils/100 WBC (Bld) 1.0 % 0-1 [facility] Bilirubin, totalOrdered By: Alla Gordillo on 12-27-2024 Bilirubin [Mass/Vol] 0.61 mg/dL 0.00-1.30 [facility] CBC W/Diff, Automatedon Absolute Lymph 2.13 X10 3/uL Normal 0.83-4.51 [facility] Comment on above: Performed By: #### L 3300.1500, L506.0400, L500.4100, L100.0100, L506.1001, L500.4050, L3400.4800, L501.9520, L3100.5400 #### [facility] [address] [place], [address] ([phone] Absolute Neut 4.0 X10 3/uL Normal 2.0-7.7 [facility] Comment on above: Performed By: #### L 3300.1500, L506.0400, L500.4100, L100.0100, L506.1001, L500.4050, L3400.4800, L501.9520, L3100.5400 #### [facility] [address] [place], [address] Basophils/100 WBC (Bld) 1.0 % Normal 0-1 [facility] Comment on above: Performed By: #### L 3300.1500, L506.0400, L500.4100, L100.0100, L506.1001, L500.4050, L3400.4800, L501.9520, L3100.5400 #### [facility] [address] [place], [address] Eosinophils/100 WBC (Bld) 2.4 % Normal 0-5 [facility] Comment on above: Performed By: #### L 3300.1500, L506.0400, L500.4100, L100.0100, L506.1001, L500.4050, L3400.4800, L501.9520, L3100.5400 #### [facility] [address] [facility] [place], [place], [phone] Erythrocyte distribution width (RBC) [Ratio] 12.4 % Normal 11.6-14.6 [facility] Comment on above: Performed By: #### L 3300.1500, L506.0400, L500.4100, L100.0100, L506.1001, L500.4050, L3400.4800, L501.9520, L3100.5400 #### [facility] [address] [facility] [place], [address] ([phone]) Hematocrit (Bld) [Volume fraction] 40.1 % Normal 37-47 [facility] Comment on above: Performed By: #### L 3300.1500, L506.0400, L500.4100, L100.0100, L506.1001, L500.4050, L3400.4800, L501.9520, L3100.5400 #### [facility] [address] [facility] [place], [place], [phone] Hemoglobin (Bld) [Mass/Vol] 14.0 g/dL Normal 12.0-15.0 [facility] Comment on above: Performed By: #### L 3300.1500, L506.0400, L500.4100, L100.0100, L506.1001, L500.4050, L3400.4800, L501.9520, L3100.5400 #### [facility] [address] [facility] [place], [place], [phone] IG% 0.100 Normal 0.0-0.9 [facility] Comment on above: Result Comment: IG% - Immature Granulocytes (promyelocytes, myelocytes and metamyelocytes) > 1% indicates that a LEFT SHIFT is Present. Performed By: #### L 3300.1500, L506.0400, L500.4100, L100.0100, L506.1001, L500.4050, L3400.4800, L501.9520, L3100.5400 #### [facility] [address] [place], [address] Lymphocytes/100 WBC (Bld) 31.6 % Normal 19-41 [facility] Comment on above: Performed By: #### L 3300.1500, L506.0400, L500.4100, L100.0100, L506.1001, L500.4050, L3400.4800, L501.9520, L3100.5400 #### [facility] [address] [facility] [place], [address] MCH (RBC) [Entitic mass] 31.0 pg Normal 27.0-32.0 [facility] Comment on above: Performed By: #### L 3300.1500, L506.0400, L500.4100, L100.0100, L506.1001, L500.4050, L3400.4800, L501.9520, L3100.5400 #### [facility] [address] [place], [address] MCHC (RBC) [Mass/Vol] 34.9 g/dL Normal 32-36 [facility] Comment on above: Performed By: #### L 3300.1500, L506.0400, L500.4100, L100.0100, L506.1001, L500.4050, L3400.4800, L501.9520, L3100.5400 #### [facility] [facility] [address] [place], [address] MCV (RBC) [Entitic vol] 88.9 fL Normal 81-99 [facility] Comment on above: Performed By: #### L 3300.1500, L506.0400, L500.4100, L100.0100, L506.1001, L500.4050, L3400.4800, L501.9520, L3100.5400 #### [facility] [address] [place], [address] Monocytes/100 WBC (Bld) 5.5 % Normal 0-10 [facility] Comment on above: Performed By: #### L 3300.1500, L506.0400, L500.4100, L100.0100, L506.1001, L500.4050, L3400.4800, L501.9520, L3100.5400 #### [facility] [address] [place], [address] Neutrophils/100 WBC (Bld) 59.4 % Normal 47-70 [facility] Comment on above: Performed By: #### L 3300.1500, L506.0400, L500.4100, L100.0100, L506.1001, L500.4050, L3400.4800, L501.9520, L3100.5400 #### [facility] [address] [facility] [place], [address] Nucleated RBC (Bld) [#/Vol] 0 10*3/uL Normal 0-5 [facility] Comment on above: Performed By: #### L 3300.1500, L506.0400, L500.4100, L100.0100, L506.1001, L500.4050, L3400.4800, L501.9520, L3100.5400 #### [facility] [address] [facility] [place], [address] Platelet mean volume (Bld) [Entitic vol] 9.4 fL Normal 6.2-12.0 [facility] Comment on above: Performed By: #### L 3300.1500, L506.0400, L500.4100, L100.0100, L506.1001, L500.4050, L3400.4800, L501.9520, L3100.5400 #### [facility] [address] [place], [address] Platelets (Bld) [#/Vol] 282 10*3/uL Normal 150-450 [facility] Comment on above: Performed By: #### L 3300.1500, L506.0400, L500.4100, L100.0100, L506.1001, L500.4050, L3400.4800, L501.9520, L3100.5400 #### [facility] [address] [place], [address] RBC (Bld) [#/Vol] 4.51 10*6/uL Normal 4.2-5.4 [facility] Comment on above: Performed By: #### L 3300.1500, L506.0400, L500.4100, L100.0100, L506.1001, L500.4050, L3400.4800, L501.9520, L3100.5400 #### [facility] [address] [place], [address] RDW SD 40.2 fl Normal 35.1-43.9 [facility] Comment on above: Performed By: #### L 3300.1500, L506.0400, L500.4100, L100.0100, L506.1001, L500.4050, L3400.4800, L501.9520, L3100.5400 #### [facility] [address] [place], [address] WBC (Bld) [#/Vol] 6.7 10*3/uL Normal 4.4-11.0 [facility] Comment on above: Performed By: #### L 3300.1500, L506.0400, L500.4100, L100.0100, L506.1001, L500.4050, L3400.4800, L501.9520, L3100.5400 #### [facility] [address] [facility] [place], [place], [id number] Calculated very low density lipoprotein (VLDL) cholesterol measurementOrdered By: Alla Gordillo on 12-27-2024 Calculated very low density lipoprotein (VLDL) cholesterol measurement 18 mg/dL 5-40 [facility] Carbon dioxide, total [Moles /volume] in Central venous bloodOrdered By: Alla Gordillo on 12-27-2024 CO2 [Moles/Vol] 23.7 mmol/L 21.0-32.0 [facility] Chloride assayOrdered By: Emelia Gordillo on 12-27-2024 Chloride [Moles/Vol] 104 mmol/L 98-108 [facility] Comprehensive Metabolic Prof ilon 12-27-2024 Albumin [Mass/Vol] 4.2 g/dL Normal 3.5-5.0 [facility] Comment on above: Performed By: #### L 3300.1500, L506.0400, L500.4100, L100.0100, L506.1001, L500.4050, L3400.4800, L501.9520, L3100.5400 #### [facility] [address] [facility] [place], [address] Albumin/Globulin [Mass ratio] 1.4 {ratio} Normal 0.9-2.4 [facility] Comment on above: Performed By: #### L 3300.1500, L506.0400, L500.4100, L100.0100, L506.1001, L500.4050, L3400.4800, L501.9520, L3100.5400 #### [facility] [address] [facility] [place], [address] ALK PHOS 90 U/L Normal 35-104 [facility] Comment on above: Performed By: #### L 3300.1500, L506.0400, L500.4100, L100.0100, L506.1001, L500.4050, L3400.4800, L501.9520, L3100.5400 #### [facility] [address] [place], [address] ALT [Catalytic activity/Vol] 24 U/L Normal <=34 [facility] Comment on above: Performed By: #### L 3300.1500, L506.0400, L500.4100, L100.0100, L506.1001, L500.4050, L3400.4800, L501.9520, L3100.5400 #### [facility] [address] [place], [address] AST [Catalytic activity/Vol] 23 U/L Normal <=31 [facility] Comment on above: Performed By: #### L 3300.1500, L506.0400, L500.4100, L100.0100, L506.1001, L500.4050, L3400.4800, L501.9520, L3100.5400 #### [facility] [address] [place], [place], [id number] [phone] Bilirubin [Mass/Vol] 0.61 mg/dL Normal 0.00-1.30 [facility] Comment on above: Performed By: #### L 3300.1500, L506.0400, L500.4100, L100.0100, L506.1001, L500.4050, L3400.4800, L501.9520, L3100.5400 #### [facility] [address] [place], [place], [phone] BUN/CRE 14.8 RATIO Normal 10-20 [facility] Comment on above: Performed By: #### L 3300.1500, L506.0400, L500.4100, L100.0100, L506.1001, L500.4050, L3400.4800, L501.9520, L3100.5400 #### [facility] [address] [place], [address] Calcium [Mass/Vol] 9.1 mg/dL Normal 7.6-11.0 [facility] Comment on above: Performed By: #### L 3300.1500, L506.0400, L500.4100, L100.0100, L506.1001, L500.4050, L3400.4800, L501.9520, L3100.5400 #### [facility] [address] [place], [place], [phone] ([phone] Chloride [Moles/Vol] 104 mmol/L Normal 98-108 [facility] Comment on above: Performed By: #### L 3300.1500, L506.0400, L500.4100, L100.0100, L506.1001, L500.4050, L3400.4800, L501.9520, L3100.5400 #### [facility] [address] [place], [place], [id number] CO2 [Moles/Vol] 23.7 mmol/L Normal 21.0-32.0 [facility] Comment on above: Performed By: #### L 3300.1500, L506.0400, L500.4100, L100.0100, L506.1001, L500.4050, L3400.4800, L501.9520, L3100.5400 #### [facility] [address] [place], [place], [id number] Creatinine [Mass/Vol] 0.74 mg/dL Normal 0.70-1.20 [facility] Comment on above: Performed By: #### L 3300.1500, L506.0400, L500.4100, L100.0100, L506.1001, L500.4050, L3400.4800, L501.9520, L3100.5400 #### [facility] [address] [place], [address] GAP 11 Normal 5-15 [facility] Comment on above: Performed By: #### L 3300.1500, L506.0400, L500.4100, L100.0100, L506.1001, L500.4050, L3400.4800, L501.9520, L3100.5400 #### [facility] [address] [place], [address] GFR/1.73 sq M.predicted among non-blacks MDRD (S/P/Bld) [Vol rate/Area] 112 mL/min/{1.73_m2} Normal >60 [facility] Comment on above: Result Comment: mL/m in/1.73m2 CKD-EPI Creatinine Equation (2020) Performed By: #### L 3300.1500, L506.0400, L500.4100, L100.0100, L506.1001, L500.4050, L3400.4800, L501.9520, L3100.5400 #### [facility] [address] [place], [address] Globulin (S) [Mass/Vol] 3.1 g/dL Normal 2.2-4.2 [facility] Comment on above: Performed By: #### L 3300.1500, L506.0400, L500.4100, L100.0100, L506.1001, L500.4050, L3400.4800, L501.9520, L3100.5400 #### [facility] [address] [place], [address] Glucose [Mass/Vol] 92 mg/dL Normal 70-99 [facility] Comment on above: Performed By: #### L 3300.1500, L506.0400, L500.4100, L100.0100, L506.1001, L500.4050, L3400.4800, L501.9520, L3100.5400 #### [facility] [address] [place], [address] Potassium [Moles/Vol] 4.1 mmol/L Normal 3.3-5.1 [facility] Comment on above: Performed By: #### L 3300.1500, L506.0400, L500.4100, L100.0100, L506.1001, L500.4050, L3400.4800, L501.9520, L3100.5400 #### [facility] [address] [place], [address] Sodium [Moles/Vol] 138 mmol/L Normal 133-145 [facility] Comment on above: Performed By: #### L 3300.1500, L506.0400, L500.4100, L100.0100, L506.1001, L500.4050, L3400.4800, L501.9520, L3100.5400 #### [facility] [address] [place], [address] T PROT 7.3 g/dL Normal 5.9-8.4 [facility] Comment on above: Performed By: #### L 3300.1500, L506.0400, L500.4100, L100.0100, L506.1001, L500.4050, L3400.4800, L501.9520, L3100.5400 #### [facility] [address] [place], [address] Urea nitrogen [Mass/Vol] 11 mg/dL Normal 4-19 [facility] Comment on above: Performed By: #### L 3300.1500, L506.0400, L500.4100, L100.0100, L506.1001, L500.4050, L3400.4800, L501.9520, L3100.5400 #### [facility] [address] [place], [address] Eosinophil percentageOrdered By: Alla Gordillo on 12-27-2024 Eosinophils/100 WBC (Bld) 2.4 % 0-5 [facility] Erythrocyte distribution wid th ratioOrdered By: Alla Gordillo on 12-27-2024 Erythrocyte distribution width (RBC) [Ratio] 12.4 % 11.6-14.6 [facility] Erythrocyte distribution wid th standard deviationOrdered By: Alla Gordillo on 12-27-2024 Erythrocyte distribution width (RBC) [Ratio] 40.2 fl 35.1-43.9 [facility] Glomerular filtration rate ( GFR) estimation/1.73 sq m using serum, plasma, or whole bOrdered By: Alla Gordillo on 12-27-2024 GFR/1.73 sq M.predicted among non-blacks MDRD (S/P/Bld) [Vol rate/Area] 112 mL/min/{1.73_m2} >60 [facility] Comment on above: mL/min/1.73m2 CKD-EP I Creatinine Equation (2020) Hematocrit Auto (Bld) [Volum e fraction]Ordered By: Alla Gordillo on 12-27-2024 Hematocrit (Bld) [Volume fraction] 40.1 % 37-47 [facility] Hemoglobin measurementOrdere d By: Alla Gordillo on 12-27-2024 Hemoglobin (Bld) [Mass/Vol] 14.0 g/dL 12.0-15.0 [facility] Immature granulocytes/100 WB C Auto (Bld)Ordered By: Alla Gordillo on 12-27-2024 Immature granulocytes/100 WBC (Bld) 0.100 % 0.0-0.9 [facility] Comment on above: IG% - Immature Granu locytes (promyelocytes, myelocytes and metamyelocytes) > 1% indicates that a LEFT SHIFT is Present. LDL calc ser/plasOrdered By: Alla Gordillo on 12-27-2024 Cholesterol in LDL [Mass/Vol] 141 mg/dL [facility] Comment on above: Ktgonoevdy=147-627 m g/dL & Higher Malm=633 mg/dL or greater Laboratory - Chemistry and C hemistry - challengeOrdered By: Alla Gordillo on 12-27-2024 AST [Catalytic activity/Vol] 23 U/L <32 [facility] MCV (mean corpuscular volume ) determinationOrdered By: Alla Gordillo on 12-27-2024 MCV (RBC) [Entitic vol] 88.9 fL 81-99 [facility] Mean corpuscular hemoglobin (MCH) determinationOrdered By: Alla Gordillo on 12-27-2024 MCH (RBC) [Entitic mass] 31.0 pg 27.0-32.0 [facility] Mean corpuscular hemoglobin concentration (MCHC) determinationOrdered By: Alla Gordillo on 12-27-2024 MCHC (RBC) [Mass/Vol] 34.9 g/dL 32-36 [facility] Mean platelet volume determi nationOrdered By: Alla Gordillo on 12-27-2024 Platelet mean volume (Bld) [Entitic vol] 9.4 fL 6.2-12.0 [facility] Monocyte percentageOrdered B y: Alla Gordillo on 12-27-2024 Monocytes/100 WBC (Bld) 5.5 % 0-10 [facility] Neutrophil percentageOrdered By: Alla Gordillo on 12-27-2024 Neutrophils/100 WBC (Bld) 59.4 % 47-70 [facility] Nucleated red blood cell per centageOrdered By: Alla Gordillo on 12-27-2024 Nucleated RBC/100 WBC (Bld) [Ratio] 0 % 0-5 [facility] Platelet countOrdered By: Emelia Gordillo on 12-27-2024 Platelets (Bld) [#/Vol] 282 10*3/uL 150-450 [facility] Potassium measurement (mass/ volume)Ordered By: Alla Gordillo on 12-27-2024 Potassium (Unsp spec) [Mass/Vol] 4.1 mmol/L 3.3-5.1 [facility] RBC Auto (Bld) [#/Vol]Ordere d By: Alla Gordillo on 12-27-2024 RBC (Bld) [#/Vol] 4.51 10*6/uL 4.2-5.4 [facility] Screening total cholesterol/ high density lipoprotein (HDL) cholesterol ratioOrdered By: Alla Gordillo on 12-27-2024 Cholesterol.total/Choles terol in HDL [Mass ratio] 4.87 {ratio} [facility] Serum creatinine measurement (mass/volume)Ordered By: Alla Gordillo on 12-27-2024 Creatinine [Mass/Vol] 0.74 mg/dL 0.70-1.20 [facility] Serum globulin measurementOr dered By: Alla Gordillo on 12-27-2024 Globulin (S) [Mass/Vol] 3.1 g/dL 2.2-4.2 [facility] Serum glucose measurement (m ass/volume)Ordered By: Alla Gordillo on 12-27-2024 Glucose [Mass/Vol] 92 mg/dL 70-99 [facility] Serum or plasma alanine moy otransferase (ALT) measurementOrdered By: Alla Gordillo on 12-27-2024 ALT [Catalytic activity/Vol] 24 U/L <35 [facility] Serum or plasma albumin magno urement (mass/volume)Ordered By: Alla Gordillo on 12-27-2024 Albumin [Mass/Vol] 4.2 g/dL 3.5-5.0 [facility] Serum or plasma albumin/glob ulin mass ratioOrdered By: Alla Gordillo on 12-27-2024 Albumin/Globulin [Mass ratio] 1.4 {ratio} 0.9-2.4 [facility] Serum or plasma alkaline manuel sphatase measurementOrdered By: Alla Gordillo on 12-27-2024 ALP [Catalytic activity/Vol] 90 U/L 35-104 [facility] Serum or plasma calcium magno urement (mass/volume)Ordered By: Alla Gordillo on 12-27-2024 Calcium [Mass/Vol] 9.1 mg/dL 7.6-11.0 [facility] Serum or plasma cholesterol in HDL measurement (mass/volume)Ordered By: Alla Gordillo on 12-27-2024 Cholesterol in HDL [Mass/Vol] 41 mg/dL >40 [facility] Comment on above: National Cholesterol Education Program (NCEP) guidelines:<40 mg/dL: Low HDL-cholesterol (major risk factor for CHD)>= 60 mg/dL: High HDL-cholesterol (negative risk factor for CHD)HDL-cholesterol is affected by a number of factors, e.g. smoking, exercise, hormones, sex and age. Serum or plasma cholesterol measurement (mass/volume)Ordered By: Alla Gordillo on 12-27-2024 Cholesterol [Mass/Vol] 200 mg/dL <201 [facility] Comment on above: Cholesterol level, D esirable <200 mg/dLBorderline high cholesterol 200-239 mg/dLHigh cholesterol >=240 mg/dLRecommendations of the NCEP Adult Treatment Panel for the following risk-cutoff thresholds for the [place] population. Serum or plasma free testost erone measurement (mass/volume)Ordered By: Alla Gordillo on 12-27-2024 Testosterone Free [Mass/Vol] 1.5 pg/mL 0.0-4.2 [facility] Comment on above: Performed at: - [facility] [address] [id number] Director: Ej Ahmadi PhD, Phone: [phone] at: BN - [facility] [address] [id number] Director: Amy Ortiz MD, Phone: [phone] Serum or plasma prolactin me asurement (mass/volume)Ordered By: Alla Gordillo on 12-27-2024 Prolactin [Mass/Vol] 6.2 ng/mL 4.8-33.4 [facility] Serum or plasma urea nitroge n measurement (mass/volume)Ordered By: Alla Gordillo on 12-27-2024 Urea nitrogen [Mass/Vol] 11 mg/dL 4-19 [facility] Sodium levelOrdered By: Zulay Gordillo on 12-27-2024 Sodium [Moles/Vol] 138 mmol/L 133-145 [facility] T4 Free Directon 12-27-2024 T4 FREE DIRECT 1.00 ng/dL Normal 0.76-1.46 [facility] Comment on above: Performed By: #### L 3300.1500, L506.0400, L500.4100, L100.0100, L506.1001, L500.4050, L3400.4800, L501.9520, L3100.5400 #### [facility] [address] [place], [address] T4 freeOrdered By: Alla roy on 12-27-2024 Free T4 [Mass/Vol] 1.00 ng/dL 0.76-1.46 [facility] TSH DL <= 0.005 mIU/L QnOrde red By: Alla Gordillo on 12-27-2024 TSH Qn 2.150 uIU/mL 0.300-4.200 [facility] Thyroid Stim Hormone (TSH)on 12-27-2024 TSH 2.150 uIU/mL Normal 0.300-4.200 [facility] Comment on above: Performed By: #### L 3300.1500, L506.0400, L500.4100, L100.0100, L506.1001, L500.4050, L3400.4800, L501.9520, L3100.5400 #### [facility] [address] [place], [place], [id number] Total proteinOrdered By: Tyrese Gordillo on 12-27-2024 Protein [Mass/Vol] 7.3 g/dL 5.9-8.4 [facility] Triglycerides measurementOrd ered By: Alla Gordillo on 12-27-2024 Triglyceride [Mass/Vol] 88 mg/dL <199 [facility] Comment on above: The drugs N-Acetylcy steine and Metamizole may falsely depress this assay. Normal range: <150 mg/dLBorderline High: 150-199 mg/dLHigh: 200-499 mg/dLVery High: >500 mg/dL Vitamin D,25 Hydroxyon 12-27 Vitamin D 25-OH 28.1 ng/mL Low 30-100 [facility] Comment on above: Result Comment: Brianda min D Status Deficiency: <20 ng/mL (50nmol/L) Insufficiency: 20-30 ng/mL (50-75 nmol/L) Sufficiency: 30-100 ng/mL (75-250 nmol/L) Toxicity: >100 ng/mL (>250 nmol/L) Performed By: #### L 3300.1500, L506.0400, L500.4100, L100.0100, L506.1001, L500.4050, L3400.4800, L501.9520, L3100.5400 ####[facility] [id number] [place], [place], [id number] White blood cell (WBC) count Ordered By: Alla Gordillo on 12-27-2024 WBC (Bld) [#/Vol] 6.7 10*3/uL 4.4-11.0 [facility] Client Service Executive Office Visit Reporton 12-19-2024 Client Service Executive Office Visit Report [facility] [address], [address] [place] [address] OFFICE VISIT Date of Service: 12/19/24 MR#: [id number] Acct: [id number] Name: KRISTAN MCLEAN Rep #: [id number] 22 : 1995 Provider: RADHA Gupta Age/Sex: 29/F Location: [facility] [place] Status: Signed Intake Vital Signs 02/22/23 11:51 12/19/24 15:35 Height 5 ft 4 in 5 ft 4 in Weight: 256 lb BMI 43.9 BP 129/86 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: No Is patient in pain?: No Allergies No Known Allergies Allergy (Verified 12/19/24 15:33) Medications ???Medication ???Instructions ???Recorded ???Confirmed ???Type NK 12/19/24 12/19/24 History Is last menstrual period known: No Post menopausal: No Patient : No : No Control Method: total hyst PFSH Medical History Wears glasses History of steroid therapy Alcohol use Non-smoker Vaginal delivery Depression Sterilization Infertility Surgical History H/O cystoscopy History of repair of ACL Status post laparoscopic procedure History of surgery History of appendectomy ( 06/2022) Family History (Updated 12/19/24 @ 15:48 by RADHA Abraham) Grandmother Breast cancer Social History adopted: No household members: family housing: house number of children: 3 Smoking Status: Never smoker alcohol intake: never substance use type: does not use caffeine: Yes what type of physical activity do you participate in: walking seatbelt use: always do you feel safe at home: Yes additional 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 Date Name GA/Weeks Outcome Route Bth Weight Infant Gen Labor Lgth Anesthesia Del Locatn Provider FOB 09/13/15 Parag 39 live - full term 8 pounds 3oz Male 10 hours epidur al [facility] 01/16/19 Thang 39 live - full term 7lbs 7oz Male 10 hours epidural [facility] 12/10/21 Monte 39 live - full term 8lbs 9oz Male [facility] [place] Delivery Date: 01/16/19 Last Updated by: Mariya Lugo pre term labor at 26 weeks Delivery Date: 12/10/21 Last Updated by: Corinna [facility]L [facility] Encounter for routine gynecological examination Details: KRISTAN MCLEAN is a 29 year old who presents for annual exam. She would like to discuss more facial hair; course hair. She reports she has also noticed a hard time losing weight as well. Last PAP: prior to 2019; normal. History of abnormal PAP: no Last mammogram: age 39 History of abnormal mammogram: n/a Colon cancer screening: age 44 Other preventative health care screenings: Isidro Grimes--[facility]; PCP. Female Reproductive History Questions: metorrhagia: No, sexually active: Yes, dyspareunia: No and PCB: No ROS Const Constitutional: Denies chills, fatigue, fever(s), headache(s) or weight loss Eyes Eyes: Denies change in vision ENT ENT: Denies dizziness Resp Resp: Denies cough GI GI: Denies abdominal pain, constipation or nausea : Denies difficulty voiding, dysuria, hematuria, nipple discharge, pelvic pain, prolapse symptoms, urinary incontinence, vaginal discharge, vaginal dryness, vaginal odor or vaginal pruritus Skin Skin/Breast: Denies alopecia, rash, breast mass, breast pain, breast skin changes or nipple discharge Neuro Neuro: Denies dizziness Psych Psych: Denies anxiety or depression Endo Endo: Denies cold intolerance, excessive sweating or heat intolerance Exam Const General: cooperative, healthy appearing, comfortable, no acute distress, well groomed and well hydrated Nutritional Appearance: well nourished Orientation: alert, awake and oriented x3 HENMT Head: normal to inspection and normocephalic Ears: hearing grossly normal bilaterally and external ears normal Nose: external nose normal Face and sinus: normal facial exam Eyes General: appearance normal, both eyes and all related structures Neck Neck: normal visual inspection, full ROM and no lymphadenopathy Thyroid: thyroid normal Chest Chest palpation inspection: normal inspection of the chest Breast inspection: normal inspection of the breasts and normal inspection of the axillae Breast palpation: normal palpation of the breasts, normal palpation of the axillae and no axillary lymphadenopathy Resp Effort Inspection: normal respirato (more content not included)... Normal [facility] Absolute lymphocyte countOrd ered By: Dr. eRyes on 01-23-2023 Lymphocytes Auto (Unsp spec) [#/Vol] 1.70 10*3/uL 0.83-4.51 [facility] Amorphous sediment detection in urine sediment by light microscopyOrdered By: Dr. Reyes on 01-23-2023 Amorphous sediment LM Ql (Urine sed) 1+ [facility] Basophil percentageOrdered B y: Dr. Reyes on 01-23-2023 Basophil percentage 5-10 SEEN /hpf 0-5 [facility] Basophils/100 WBC (Bld) 0.5 % 0-1 [facility] Chloride [Moles/Vol] 107 mmol/L 98-107 [facility] Eosinophils/100 WBC (Bld) 2.1 % 0-5 [facility] Glucose [Mass/Vol] 105 mg/dL 74-106 [facility] Comment on above: Fasting Glucose resu lt from 100 to 125 mg/dL suggests IMPAIRED HOMEOSTASIS per A.D.A. criteria. Neutrophils (Bld) [#/Vol] 6.6 10*3/uL 2.0-7.7 [facility] Neutrophils/100 WBC (Bld) 71.6 % 47-70 [facility] Potassium [Moles/Vol] 3.5 mmol/L 3.5-5.1 [facility] Sodium [Moles/Vol] 140 mmol/L 136-145 [facility] WBC (Bld) [#/Vol] 9.2 10*3/uL 4.4-11.0 [facility] Bilirubin Test strip Ql (U)O rdered By: Dr. Reyes on 01-23-2023 Bilirubin Ql (U) Negative Negative [facility] Blood erythrocytes count (nu mber/volume)Ordered By: Dr. Reyes on 01-23-2023 RBC (Bld) [#/Vol] 4.35 10*6/uL 4.2-5.4 [facility] Blood hemoglobin measurement (mass/volume)Ordered By: Dr. Reyes on 01-23-2023 Hemoglobin (Bld) [Mass/Vol] 13.5 g/dL 12.0-15.0 [facility] Blood lymphocytes/100 leukoc ytesOrdered By: Dr. Reyes on 01-23-2023 Lymphocytes/100 WBC (Bld) 18.5 % 19-41 [facility] Blood monocytes/100 leukocyt esOrdered By: Dr. Reyes on 01-23-2023 Monocytes/100 WBC (Bld) 7.0 % 0-10 [facility] Blood platelet mean volumeOr dered By: Dr. Reyes on 01-23-2023 Platelet mean volume (Bld) [Entitic vol] 8.9 fL 6.2-12.0 [facility] Determination of erythrocyte mean corpuscular volume (MCV)Ordered By: Dr. Reyes on 01-23-2023 MCV (RBC) [Entitic vol] 89.0 fL 81-99 [facility] Hematocrit Auto (Bld) [Volum e fraction]Ordered By: Dr. Reyes on 01-23-2023 Hematocrit (Bld) [Volume fraction] 38.7 % 37-47 [facility] Ketones Test strip Ql (U)Ord ered By: Dr. Reyes on 01-23-2023 Ketones Ql (U) Negative Negative [facility] Laboratory - Chemistry and C hemistry - challengeOrdered By: Dr. Reyes on 01-23-2023 CO2 [Moles/Vol] 26.0 mmol/L 21.0-32.0 [facility] Urea nitrogen/Creatinine [Mass ratio] 12.6 mg/mg 10-20 [facility] Laboratory - Hematology and Cell countsOrdered By: Dr. Reyes on 01-23-2023 Erythrocyte distribution width (RBC) [Entitic vol] 42.0 fL 35.1-43.9 [facility] Erythrocyte distribution width (RBC) [Ratio] 13.0 % 11.6-14.6 [facility] Immature granulocytes/100 WBC (Bld) 0.300 % 0.0-0.9 [facility] Comment on above: IG% - Immature Granu locytes (promyelocytes, myelocytes and metamyelocytes) > 1% indicates that a LEFT SHIFT is Present. MCH (RBC) [Entitic mass] 31.0 pg 27.0-32.0 [facility] Nucleated RBC/100 WBC (Bld) [Ratio] 0 % 0-5 [facility] MCHC Auto (RBC) [Mass/Vol]Or dered By: Dr. Reyes on 01-23-2023 MCHC (RBC) [Mass/Vol] 34.9 g/dL 32-36 [facility] Mucus LM Ql (Urine sed)Order ed By: Dr. Reyes on 01-23-2023 Mucus Ql (Urine sed) 0 SEEN /hpf [facility] Nitrite Test strip Ql (U)Ord ered By: Dr. Reyes on 01-23-2023 Nitrite Ql (U) Negative Negative [facility] No Panel InformationOrdered By: Dr. Reyes on 01-23-2023 Estimated Creatinine Clearance Calc 100.45 ml/min [facility] Estimated GFR (MDRD) Amer 125 mL/min >60 [facility] Comment on above: GFR Calc Estimated GFR (MDRD) Non-Af Amer 103 mL/min >60 [facility] Comment on above: Non- GFR Calc Platelets bldOrdered By: Dr. Reyes on 01-23-2023 Platelets (Bld) [#/Vol] 256 10*3/uL 150-450 [facility] Protein Test strip Ql (U)Ord ered By: Dr. Reyes on 01-23-2023 Protein Ql (U) Negative Negative [facility] Serum or plasma calcium magno urement (mass/volume)Ordered By: Dr. Reyes on 01-23-2023 Calcium [Mass/Vol] 9.1 mg/dL 8.5-10.1 [facility] Serum or plasma creatinine m easurement (mass/volume)Ordered By: Dr. Reyes on 06-05-2023 Creatinine [Mass/Vol] 0.72 mg/dL 0.55-1.02 [facility] Comment on above: The validity of the calculated GFR & GFRAA in patients over 70 years has not been determined. Clinical correlation is essential. Serum or plasma urea nitroge n measurement (mass/volume)Ordered By: Dr. Reyes on 01-23-2023 Urea nitrogen [Mass/Vol] 9 mg/dL 7-18 [facility] Squamous epithelial cells de tection in urine sediment by light microscopyOrdered By: Dr. Reyes on 01-23-2023 Epithelial cells.squamous LM Ql (Urine sed) 0-5 SEEN /hpf 5-10 [facility] Thin prep Papanicolaou smear with manual screeningOrdered By: Dr. Reyes on 01-23-2023 Thin prep Papanicolaou smear with manual screening 7 5-15 [facility] Urine blood detectionOrdered By: Dr. Reyes on 01-23-2023 RBC Ql (U) 50 /ul Negative [facility] RBC Ql (U) 0 SEEN /hpf 0-5 [facility] Urine clarityOrdered By: Dr. Reyes on 01-23-2023 Clarity (U) Sl. Cloudy Clear [facility] Urine color determinationOrd ered By: Dr. Reyes on 01-23-2023 Color (U) Yellow Yellow [facility] Urine glucose detectionOrder ed By: Dr. Reyes on 01-23-2023 Glucose Ql (U) Normal mg/dl Normal [facility] Urine leukocyte esterase det ection by dipstickOrdered By: Dr. Reyes on 01-23-2023 Leukocyte esterase Test strip Ql (U) 500 /ul Negative [facility] Urine pHOrdered By: Dr. Kaila tran on 01-23-2023 pH (U) 7.0 [pH] 5.0 - 8.0 [facility] Urine sediment bacteria coun t by microscopy (number/high power field)Ordered By: Dr. Reyes on 01-23-2023 Bacteria LM.HPF (Urine sed) [#/Area] 1 /[HPF] None Seen [facility] Urine specific gravity measu rementOrdered By: Dr. Reyes on 01-23-2023 Specific gravity (U) [Rel density] 1.010 1.002-1.030 [facility] Urobilinogen Auto test strip Ql (U)Ordered By: Dr. Reyes on 01-23-2023 Urobilinogen Ql (U) Normal mg/dl Normal [facility] Glucose Glucometer (BldC) [M ass/Vol]Ordered By: Dr. Luque on 01-17-2023 Glucose [Mass/Vol] 68 mg/dL 74-106 [facility] Comment on above: MANAGEMENT OF PATIEN T CARE PER NURSING PROTOCOL Basophil percentageOrdered B y: Dr. Luque on 01-07-2023 WBC (Bld) [#/Vol] 6.6 10*3/uL 4.4-11.0 [facility] Blood erythrocytes count (nu mber/volume)Ordered By: Dr. Luque on 01-07-2023 RBC (Bld) [#/Vol] 4.17 10*6/uL 4.2-5.4 [facility] Blood hemoglobin measurement (mass/volume)Ordered By: Dr. Luque on 01-07-2023 Hemoglobin (Bld) [Mass/Vol] 12.8 g/dL 12.0-15.0 [facility] Blood platelet mean volumeOr dered By: Dr. Luque on 01-07-2023 Platelet mean volume (Bld) [Entitic vol] 9.4 fL 6.2-12.0 [facility] Determination of erythrocyte mean corpuscular volume (MCV)Ordered By: Dr. Luque on 01-07-2023 MCV (RBC) [Entitic vol] 89.7 fL 81-99 [facility] Hematocrit Auto (Bld) [Volum e fraction]Ordered By: Dr. Luque on 01-07-2023 Hematocrit (Bld) [Volume fraction] 37.4 % 37-47 [facility] Laboratory - Chemistry and C hemistry - challengeOrdered By: Dr. Roland on 01-07-2023 Magnesium [Mass/Vol] 1.9 mg/dL 1.6-2.6 [facility] Laboratory - Hematology and Cell countsOrdered By: Dr. Luque on 01-07-2023 Erythrocyte distribution width (RBC) [Entitic vol] 41.4 fL 35.1-43.9 [facility] Erythrocyte distribution width (RBC) [Ratio] 12.7 % 11.6-14.6 [facility] MCH (RBC) [Entitic mass] 30.7 pg 27.0-32.0 [facility] MCHC Auto (RBC) [Mass/Vol]Or dered By: Dr. Luque on 01-07-2023 MCHC (RBC) [Mass/Vol] 34.2 g/dL 32-36 [facility] Platelets bldOrdered By: Dr. Luque on 01-07-2023 Platelets (Bld) [#/Vol] 274 10*3/uL 150-450 [facility] CNOVon 06-14-2022 CNOV Office Visit (UCWSTR ) KRISTAN MCLEAN ([id number]) 1995 F Date Time Provider Department 06/14/22 9:00 AM DEMETRI VELASQUEZ [facility] During your visit today, we recorded the following information about you: Temperature Pulse Respiration Blood pressure 97.6 degrees 102/minute 16/minute 122/74 Weight 99.8 kg Demetri Velasquez APRN.SYSTEMS ENGINEER 06/14/2022 9:10 AM Signed Subjective HPI Nontoxic-appearing female presents urgent care chief complaint cough sore throat nasal congestion. Duration of symptoms 5 days. Associated symptoms cough sore throat nasal congestion left ear pain. States it has been in children has similar signs symptoms. Has not used any OTC medication use today. Most bothersome symptom is nasal congestion. Denies any recent COVID-19 exposures. Denies any fever productive cough chest pain shortness of breath pleuritic pain hemoptysis nausea vomiting abdominal pain or change in bowel or bladder meds. Past medical history prescription medication use allergies reviewed. .Patient presents with: Cough: started with congestion, sore throat x 5 days History reviewed. No pertinent past medical history. History reviewed. No pertinent surgical history. ALLERGIES Patient has no known allergies. MEDICATIONS multivitamin (ISACC ) 28 mg iron- 800 mcg tab Take 1 tablet by mouth once daily. History reviewed. No pertinent family history. Social History Tobacco Use Smoking status: Never Smokeless tobacco: Never BP 122/74 Pulse 102 Temp 36.4 ?C (97.6 ?F) Resp 16 Wt 99.8 kg (220 lb) LMP 06/29/2016 SpO2 98% Review of Systems Constitutional: Positive for malaise/fatigue. Negative for chills and fever. HENT: Positive for congestion, ear pain and sore throat. Negative for ear discharge and sinus pain. Eyes: Negative for blurred vision, pain, discharge and redness. Respiratory: Positive for cough. Negative for hemoptysis, sputum production, shortness of breath, wheezing and stridor. Cardiovascular: Negative for chest pain. Gastrointestinal: Negative for abdominal pain, diarrhea, nausea and vomiting. Musculoskeletal: Positive for myalgias. Skin: Negative for itching and rash. Neurological: Negative for dizziness and headaches. Objective Physical Exam Constitutional: General: She is not in acute distress. Appearance: She is not diaphoretic. HENT: Head: Normocephalic. Right Ear: Tympanic membrane, ear canal and external ear normal. No mastoid tenderness. Left Ear: Ear canal and external ear normal. No mastoid tenderness. Tympanic membrane is erythematous and bulging. Nose: Congestion present. Mouth/Throat: Lips: [place]. Mouth: Mucous membranes are moist. Pharynx: Oropharynx is clear. Uvula midline. Posterior oropharyngeal erythema present. No pharyngeal swelling, oropharyngeal exudate or uvula swelling. Eyes: Conjunctiva/sclera: Conjunctivae normal. Pupils: Pupils are equal, round, and reactive to light. Cardiovascular: Rate and Rhythm: Normal rate and regular rhythm. Heart sounds: Normal heart sounds. Pulmonary: Effort: Pulmonary effort is normal. No tachypnea, accessory muscle usage or respiratory distress. Breath sounds: Normal breath sounds. No stridor. No wheezing, rhonchi or rales. Abdominal: Palpations: Abdomen is soft. Tenderness: There is no abdominal tenderness. There is no guarding. Musculoskeletal: Cervical back: Normal range of motion and neck supple. No rigidity or tenderness. Lymphadenopathy: Cervical: No cervical adenopathy. Skin: General: Skin is warm and dry. Neurological: Mental Status: She is alert and oriented to person, place, and time. ASSESSMENT/PLAN: 1. Viral illness - ICD9: 079.99, ICD10: B34.9 - COVID WITH FLUA+B, ROUTINE Will obtain the COVID-19 swab. Left TM mildly bulging erythematous. Delayed prescribing amoxicillin. Patient was educated on supportive therapies. Patient will follow up with primary care provider as needed. Patient was instructed to immediately proceed to emergency room for any new, worsening, or symptoms lasting longer than anticipated. The patient's clinical presentation is otherwise unremarkable at this time. Based on exam and clinical finding, the patient is stable for discharge. Plan of care was discussed with patient. Patient verbalizes understanding and agrees to plan of care. This note was generated using [employer] software. It may contain errors in wording, punctuation, or spelling. Demetri Velasquez APRN.GENI Velasquez APRN.CNP 06/14/2022 8:53 AM Signed How to Manage Common Symptoms Associated with COVID for Adults Fever- Fever is a temperature over 100.4 F and can occur when the body is fighting an infection. To help treat a fever: Drink plenty of fluids and stay well hydrated. Eat small amounts of easy to digest food. Rest. Your body needs (more content not included)... Normal [facility] .GFRon 05-13-2022 GFR 93 ml/min/1.73sqm Normal [facility] ([place]) Comment on above: Result Comment: GFR Population mean for , Non- Americans Ages 20-29 = 116 mL/min/1.73 sq.m. Ages 30-39 = 107 mL/min/1.73 sq.m. Ages 40-49 = 99 mL/min/1.73 sq.m. Ages 50-59 = 93 mL/min/1.73 sq.m. Ages 60-69 = 85 mL/min/1.73 sq.m. Ages 70+ = 75 mL/min/1.73 sq.m. Chronic Kidney Disease: Less than 60 mL/min/1.73 square meters End Stage Renal Disease: Less than 15 mL/min/1.73 square meters Performed By: #### G , [facility] #### Saroj [address] [address] GFR Non- 77 ml/min/1.73sqm Normal [facility] ([place]) Comment on above: Result Comment: GFR Population mean for , Non- Americans Ages 20-29 = 116 mL/min/1.73 sq.m. Ages 30-39 = 107 mL/min/1.73 sq.m. Ages 40-49 = 99 mL/min/1.73 sq.m. Ages 50-59 = 93 mL/min/1.73 sq.m. Ages 60-69 = 85 mL/min/1.73 sq.m. Ages 70+ = 75 mL/min/1.73 sq.m. Chronic Kidney Disease: Less than 60 mL/min/1.73 square meters End Stage Renal Disease: Less than 15 mL/min/1.73 square meters Performed By: #### Aminah RIVERA, BMP #### [address] [address] BMPon 05-13-2022 BUN/Creatinine Ratio 12 ratio Normal 7-27 [facility] ([place]) Comment on above: Performed By: #### Aminah RIVERA, BMP #### [address] [address] Calcium [Mass/Vol] 8.9 mg/dL Normal 8.4-10.2 [facility] ([place]) Comment on above: Performed By: #### Aminah RIVERA, BMP #### [address] [address] Chloride [Moles/Vol] 102 mmol/L Normal 98-107 [facility] ([place]) Comment on above: Performed By: #### Aminah RIVERA, BMP #### [address] [address] CO2 [Moles/Vol] 29 mmol/L Normal 22-29 [facility] ([place]) Comment on above: Performed By: #### Aminah RIVERA, BMP #### [address] [address] Creatinine [Mass/Vol] 0.88 mg/dL Normal 0.55-1.02 [facility] ([place]) Comment on above: Performed By: #### Amianh RIVERA, BMP #### [address] [address] Electrolyte Balance 10.0 mEq/L Normal 4.0-15.0 [facility] ([place]) Comment on above: Performed By: #### G , BMP #### [address] [place], [place] [address] Glucose [Mass/Vol] 84 mg/dL Normal 70-105 [facility] ([place]) Comment on above: Performed By: #### G , BMP #### [address] [place], [place] [address] Potassium [Moles/Vol] 3.8 mmol/L Normal 3.5-5.1 [facility] ([place]) Comment on above: Performed By: #### G , BMP #### [address] [address] Sodium [Moles/Vol] 141 mmol/L Normal 136-145 [facility] ([place]) Comment on above: Performed By: #### Aminah RIVERA, BMP #### [address] [address] Urea nitrogen [Mass/Vol] 11 mg/dL Normal 7-18 [facility] ([place]) Comment on above: Performed By: #### Aminah RIVERA, BMP #### [address] [address] XR KNEE THREE VIEWS LEFTon 0 03-27-2022 XR KNEE THREE VIEWS LEFT ORIGINAL EXAMINATION: THREE XRAY VIEWS OF THE LEFT KNEE03/27/2022 8:16 pm COMPARISON: None HISTORY: ORDERING SYSTEM PROVIDED HISTORY: Reason for Exam: pain Twisted left knee today, posterior/inferior left knee pain FINDINGS: No acute fracture or dislocation. No periosteal reaction or suspicious osseous abnormality. No radiopaque foreign body. No significant knee joint effusion. IMPRESSION: No acute fracture. I have personally reviewed the images of this examination and agree with the resident's findings and interpretation. Interpreted by: Malcom Rose MD Preliminary Report By: Marta Seals Electronically signed By Malcom Rose MD Dictated Date: 03/27/2022 8:41:27 PM Prelim Date: 03/27/2022 8:44:09 PM Sign Date: 03/27/2022 8:47:52 PM Ordering Provider: ALYSSA Giordano [facility] ([place]) Basophil percentageon 2021 WBC (Bld) [#/Vol] 5.9 10*3/uL 4.4-11.0 [facility] Work Phone: Blood erythrocytes count (nu mber/volume)on 02-01-2022 RBC (Bld) [#/Vol] 4.27 10*6/uL 4.2-5.4 [facility] Work Phone: Blood hemoglobin measurement (mass/volume)on 02-01-2022 Hemoglobin (Bld) [Mass/Vol] 12.8 g/dL 12.0-15.0 [facility] Work Phone: Blood platelet mean volumeon 02-01-2022 Platelet mean volume (Bld) [Entitic vol] 9.1 fL 6.2-12.0 [facility] Work Phone: Determination of erythrocyte mean corpuscular volume (MCV)on 02-01-2022 MCV (RBC) [Entitic vol] 87.1 fL 81-99 [facility] Work Phone: Hematocrit Auto (Bld) [Volum e fraction]on 02-01-2022 Hematocrit (Bld) [Volume fraction] 37.2 % 37-47 [facility] Work Phone: Laboratory - Chemistry and C hemistry - challengeon 02-01-2022 HCG ( test) Ql (U) Negative [facility] Work Phone: Comment on above: Very dilute urine sp ecimens, as indicated by a low specificgravity, may not contain registration representative levels of hCG. If is still suspected, a first morning urinespecimen should be collected 48 hours later and tested. Laboratory - Hematology and Cell countson 02-01-2022 Erythrocyte distribution width (RBC) [Entitic vol] 40.7 fL 35.1-43.9 [facility] Work Phone: Erythrocyte distribution width (RBC) [Ratio] 12.9 % 11.6-14.6 [facility] Work Phone: MCH (RBC) [Entitic mass] 30.0 pg 27.0-32.0 [facility] Work Phone: MCHC Auto (RBC) [Mass/Vol]on 02-01-2022 MCHC (RBC) [Mass/Vol] 34.4 g/dL 32-36 [facility] Work Phone: Platelets bldon 02-01-2022 Platelets (Bld) [#/Vol] 241 10*3/uL 150-450 [facility] Work Phone: Absolute lymphocyte counton 12-10-2021 Lymphocytes Auto (Unsp spec) [#/Vol] 1.71 10*3/uL 0.83-4.51 [facility] Work Phone: Basophil percentageon 2021 Basophils/100 WBC (Bld) 0.3 % 0-1 [facility] Work Phone: Eosinophils/100 WBC (Bld) 0.8 % 0-5 [facility] Work Phone: Neutrophils (Bld) [#/Vol] 6.3 10*3/uL 2.0-7.7 [facility] Work Phone: Neutrophils/100 WBC (Bld) 72.4 % 47-70 [facility] Work Phone: WBC (Bld) [#/Vol] 8.7 10*3/uL 4.4-11.0 [facility] Work Phone: Blood erythrocytes count (nu mber/volume)on 12-10-2021 RBC (Bld) [#/Vol] 3.88 10*6/uL 4.2-5.4 [facility] Work Phone: Blood hemoglobin measurement (mass/volume)on 12-10-2021 Hemoglobin (Bld) [Mass/Vol] 12.1 g/dL 12.0-15.0 [facility] Work Phone: Blood lymphocytes/100 leukoc yteson 12-10-2021 Lymphocytes/100 WBC (Bld) 19.7 % 19-41 [facility] Work Phone: Blood monocytes/100 leukocyt eson 12-10-2021 Monocytes/100 WBC (Bld) 6.0 % 0-10 [facility] Work Phone: Blood platelet mean volumeon 12-10-2021 Platelet mean volume (Bld) [Entitic vol] 10.8 fL 6.2-12.0 [facility] Work Phone: [phone] Determination of erythrocyte mean corpuscular volume (MCV)on 12-10-2021 MCV (RBC) [Entitic vol] 89.4 fL 81-99 [facility] Work Phone: [phone] Hematocrit Auto (Bld) [Volum e fraction]on 12-10-2021 Hematocrit (Bld) [Volume fraction] 34.7 % 37-47 [facility] Work Phone: [phone] Laboratory - Hematology and Cell countson 12-10-2021 Erythrocyte distribution width (RBC) [Entitic vol] 46.1 fL 35.1-43.9 [facility] Work Phone: [phone] Erythrocyte distribution width (RBC) [Ratio] 14.5 % 11.6-14.6 [facility] Work Phone: [phone] Immature granulocytes/100 WBC (Bld) 0.800 % 0.0-0.9 [facility] Work Phone: Comment on above: IG% - Immature Granu locytes (promyelocytes, myelocytes and metamyelocytes) > 1% indicates that a LEFT SHIFT is Present. MCH (RBC) [Entitic mass] 31.2 pg 27.0-32.0 [facility] Work Phone: Nucleated RBC/100 WBC (Bld) [Ratio] 0 % 0-5 [facility] Work Phone: [phone] MCHC Auto (RBC) [Mass/Vol]on 12-10-2021 MCHC (RBC) [Mass/Vol] 34.9 g/dL 32-36 [facility] Work [facility]: Platelets bldon 12-10-2021 Platelets (Bld) [#/Vol] 174 10*3/uL 150-450 [facility] Work [phone] Laboratory - Chemistry and C hemistry - challengeon 12-08-2021 Glucose Ql (U) Negative [facility] Work Phone: Laboratory - Urinalysison Protein Ql (U) Negative [facility] Work Phone: Laboratory - Chemistry and C hemistry - challengeon 12-01-2021 Glucose Ql (U) Negative [facility] Work Phone: [phone] Laboratory - Urinalysison Protein Ql (U) Negative [facility] Work Phone: Absolute lymphocyte counton 11-16-2021 Lymphocytes Auto (Unsp spec) [#/Vol] 2.10 10*3/uL 0.83-4.51 [facility] Work Phone: Basophil percentageon 2021 Basophils/100 WBC (Bld) 0.5 % 0-1 [facility] Work Phone: Eosinophils/100 WBC (Bld) 1.0 % 0-5 [facility] Work Phone: Neutrophils (Bld) [#/Vol] 6.9 10*3/uL 2.0-7.7 [facility] Work Phone: Neutrophils/100 WBC (Bld) 69.0 % 47-70 [facility] Work Phone: WBC (Bld) [#/Vol] 10.0 10*3/uL 4.4-11.0 [facility] Work Phone: [phone] Blood erythrocytes count (nu mber/volume)on 11-16-2021 RBC (Bld) [#/Vol] 3.68 10*6/uL 4.2-5.4 [facility] Work Phone: Blood hemoglobin measurement (mass/volume)on 11-16-2021 Hemoglobin (Bld) [Mass/Vol] 11.6 g/dL 12.0-15.0 [facility] Work Phone: Blood lymphocytes/100 leukoc yteson 11-16-2021 Lymphocytes/100 WBC (Bld) 21.0 % 19-41 [facility] Work Phone: [phone] Blood monocytes/100 leukocyt eson 11-16-2021 Monocytes/100 WBC (Bld) 7.7 % 0-10 [facility] Work Phone: [phone] Blood platelet mean volumeon 11-16-2021 Platelet mean volume (Bld) [Entitic vol] 9.9 fL 6.2-12.0 [facility] Work Phone: [phone] Determination of erythrocyte mean corpuscular volume (MCV)on 11-16-2021 MCV (RBC) [Entitic vol] 89.4 fL 81-99 [facility] Work Phone: [phone] Hematocrit Auto (Bld) [Volum e fraction]on 11-16-2021 Hematocrit (Bld) [Volume fraction] 32.9 % 37-47 [facility] Work Phone: Laboratory - Chemistry and C hemistry - challengeon 11-16-2021 Glucose Ql (U) Negative [facility] Work Phone: [phone] Laboratory - Hematology and Cell countson 11-16-2021 Erythrocyte distribution width (RBC) [Entitic vol] 45.4 fL 35.1-43.9 [facility] Work Phone: [phone] Erythrocyte distribution width (RBC) [Ratio] 14.1 % 11.6-14.6 [facility] Work Phone: [phone] Immature granulocytes/100 WBC (Bld) 0.800 % 0.0-0.9 [facility] Work Phone: [phone] Comment on above: IG% - Immature Granu locytes (promyelocytes, myelocytes and metamyelocytes) > 1% indicates that a LEFT SHIFT is Present. MCH (RBC) [Entitic mass] 31.5 pg 27.0-32.0 [facility] Work Phone: [phone] Nucleated RBC/100 WBC (Bld) [Ratio] 0 % 0-5 [facility] Work Phone: Laboratory - Urinalysison Protein Ql (U) Negative [facility] Work Phone: MCHC Auto (RBC) [Mass/Vol]on 11-16-2021 MCHC (RBC) [Mass/Vol] 35.3 g/dL 32-36 [facility] Work Phone: Platelets bldon 11-16-2021 Platelets (Bld) [#/Vol] 177 10*3/uL 150-450 [facility] Work Phone: Laboratory - Chemistry and C hemistry - challengeon 11-15-2021 Glucose Ql (U) Negative [facility] Work Phone: Laboratory - Urinalysison Protein Ql (U) Negative [facility] Work Phone: Laboratory - Chemistry and C hemistry - challengeon 11-01-2021 Glucose Ql (U) Negative [facility] Work Phone: Laboratory - Urinalysison Protein Ql (U) Negative [facility] Work Phone: Laboratory - Chemistry and C hemistry - challengeon 10-18-2021 Glucose Ql (U) Negative [facility] Work Phone: Laboratory - Urinalysison Protein Ql (U) Negative [facility] Work Phone: Laboratory - Chemistry and C hemistry - challengeon 10-14-2021 Glucose Ql (U) Negative [facility] Work Phone: Laboratory - Urinalysison Protein Ql (U) Negative [facility] Work Phone: Gram stain for investigation of transfusion reactionon 09-22-2021 Microscopic observation Gram stain Nom (Unsp spec) [facility] Work Phone: Laboratory - Chemistry and C hemistry - challengeon 02-02-2022 Bilirubin Ql (U) Negative [facility] Work Phone: [phone] Glucose Ql (U) Negative [facility] Work Phone: Ketones Ql (U) Moderate (40+) [facility] Work Phone: pH (U) 6.5 [pH] [facility] Work Phone: Specific gravity (U) [Rel density] 1.020 [facility] Work Phone: Urobilinogen (U) [Mass/Vol] Negative [facility] Work Phone: Laboratory - Hematology and Cell countson 09-22-2021 Hemoglobin Ql (U) Negative [facility] Work Phone: Laboratory - Specimen inform ationon 09-22-2021 Clarity (U) Cloudy [facility] Work Phone: Color (U) Straw [facility] Work Phone: Laboratory - Urinalysison Nitrite Ql (U) Negative [facility] Work Phone: Protein Ql (U) Trace [facility] Work Phone: No Panel Informationon 09-22 Urine Leukocytes Positive [facility] Work Phone: Thin prep Papanicolaou smear with manual screeningon 09-22-2021 Cytopathology procedure, preparation of smear, genital source Normal genital guy isolated [facility] Work Phone: Absolute lymphocyte counton 09-20-2021 Lymphocytes Auto (Unsp spec) [#/Vol] 1.36 10*3/uL 0.83-4.51 [facility] Work Phone: Basophil percentageon 2021 Basophils/100 WBC (Bld) 0.4 % 0-1 [facility] Work Phone: Eosinophils/100 WBC (Bld) 1.0 % 0-5 [facility] Work Phone: Neutrophils (Bld) [#/Vol] 7.8 10*3/uL 2.0-7.7 [facility] Work Phone: Neutrophils/100 WBC (Bld) 79.7 % 47-70 [facility] Work Phone: WBC (Bld) [#/Vol] 9.8 10*3/uL 4.4-11.0 [facility] Work Phone: Blood erythrocytes count (nu mber/volume)on 09-20-2021 RBC (Bld) [#/Vol] 3.75 10*6/uL 4.2-5.4 [facility] Work Phone: Blood hemoglobin measurement (mass/volume)on 09-20-2021 Hemoglobin (Bld) [Mass/Vol] 11.6 g/dL 12.0-15.0 [facility] Work Phone: Blood lymphocytes/100 leukoc yteson 09-20-2021 Lymphocytes/100 WBC (Bld) 13.8 % 19-41 [facility] Work Phone: Blood monocytes/100 leukocyt eson 09-20-2021 Monocytes/100 WBC (Bld) 4.5 % 0-10 [facility] Work Phone: Blood platelet mean volumeon 09-20-2021 Platelet mean volume (Bld) [Entitic vol] 9.5 fL 6.2-12.0 [facility] Work Phone: Determination of erythrocyte mean corpuscular volume (MCV)on 09-20-2021 MCV (RBC) [Entitic vol] 91.2 fL 81-99 [facility] Work Phone: Gestational diabetes screen 1-hour screen with 50g oral glucose loadon 09-20-2021 Glucose 1 Hr post 50 g glucose PO [Mass/Vol] 112 mg/dL 70-140 [facility] Work Phone: Hematocrit Auto (Bld) [Volum e fraction]on 09-20-2021 Hematocrit (Bld) [Volume fraction] 34.2 % 37-47 [facility] Work Phone: Laboratory - Chemistry and C hemistry - challengeon 09-20-2021 Glucose Ql (U) Negative [facility] Work Phone: Laboratory - Hematology and Cell countson 09-20-2021 Erythrocyte distribution width (RBC) [Entitic vol] 46.9 fL 35.1-43.9 [facility] Work Phone: Erythrocyte distribution width (RBC) [Ratio] 14.1 % 11.6-14.6 [facility] Work Phone: [phone] Immature granulocytes/100 WBC (Bld) 0.600 % 0.0-0.9 [facility] Work Phone: Comment on above: IG% - Immature Granu locytes (promyelocytes, myelocytes and metamyelocytes) > 1% indicates that a LEFT SHIFT is Present. MCH (RBC) [Entitic mass] 30.9 pg 27.0-32.0 [facility] Work Phone: Nucleated RBC/100 WBC (Bld) [Ratio] 0 % 0-5 [facility] Work Phone: Laboratory - Urinalysison Protein Ql (U) Negative [facility] Work Phone: MCHC Auto (RBC) [Mass/Vol]on 09-20-2021 MCHC (RBC) [Mass/Vol] 33.9 g/dL 32-36 [facility] Work Phone: Platelets bldon 09-20-2021 Platelets (Bld) [#/Vol] 193 10*3/uL 150-450 [facility] Work Phone: Laboratory - Chemistry and C hemistry - challengeon 08-23-2021 Glucose Ql (U) Negative [facility] Work Phone: Laboratory - Urinalysison Protein Ql (U) Negative [facility] Work Phone: Laboratory - Chemistry and C hemistry - challengeon 07-30-2021 Glucose Ql (U) Negative [facility] Work Phone: Laboratory - Urinalysison Protein Ql (U) Negative [facility] Work Phone: RF Hysterosalpingography S/I on 05-02-2018 RF Hysterosalpingography S/I Patient Name: KRISTAN MCLEAN Fluoroscopy Exam Date/Time 05/02/2018 13:20:35 EDT Exam RF Hysterosalpingography S/I Ordering Physician JERONIMO FIELD Accession Number [id number] [facility] Codes 42246 () Reason For Exam dysmenorrhea Report HYSTEROSALPINGOGRAM CLINICAL INDICATION:Dysmenorrhea . Infertility. COMPARISON: None. FLUOROSCOPY TIME: 0.1 minutes. 2 fluoroscopic spot images were obtained. TECHNIQUE: Procedure was performed by Dr. Jeronimo Field. Fluoroscopic assistance was provided. Spot images were obtained during fluoroscopy. FINDINGS: The fallopian tubes are normal in appearance. There is bilateral peritoneal spilling of contrast. Uterine cavity is arcuate in shape, but otherwise unremarkable. IMPRESSION: Bilateral tubal patency. Arcuate appearing uterine cavity. Report Dictated on Final Dictated: 05/02/2018 1:26 pm Dictating Physician: MD QUIROGA JOHN Signed Date and Time: 05/02/2018 2:57 pm Signed by: MD QUIROGA JOHN Transcribed Date and Time: 05/02/2018 1:37 [facility] INFLUENZA AGon 11-01-2017 INFLUENZA AG A negative test is presumptive and it is recommended theseresults be confirmed by viral culture or an FDA-clearedinfluenza A and B molecular assay. Negative results do notpreclude influenza virus infections and should not be usedas the sole basis for treatment or other patient managementdecisions. If influenza is circulating in the community, a diagnosisshould be based on clinical presentation. RESULTS CALLED TO DR COLVIN 1422 11/01/17 BY ROSETTA GRIMESEIA RESULT PRESUMPTIVE NEGATIVE FOR INFLUENZA A AND B. [facility] Mcguffey Comment on above: Order Comment: Barbara s: Robat is the source? NOSTRIL MSCon 11-01-2017 [facility] REPORT This is a preliminary report only, as the practitioner review and authentication has not occurred. [facility] DATE OF SERVICE: 11/01/2017SUBJECTIVE: This is a 21-year-old woman with an approximately 4-day history ofcough, sore throat, and body aches.OBJECTIVE:Vital Signs: Blood pressure 129/74, pulse 100, respirations 18, temperature 99.8degrees Fahrenheit, pulse oximetry 97% on room air, weight 237 pounds.HEENT: Posterior pharynx erythematous. Tonsils swollen and erythematous. Anteriortonsillar pillar erythematous. A few palpable anterior cervical nodes, and rightsubmandibular gland also slightly swollen and tenderLungs: Clear to auscultation bilaterally.Heart: Slightly tachycardic. No clicks rubs or murmurs.Abdomen: Benign. Bowel sounds positive. No palpable mass or organomegaly.Extremitie s: Warm. Pulses palpable. No deformities.Neurologic: No focal deficits. Reflexes normal.Rapid strep testing in clinic was positive for group A beta hemolytic Streptococcus.Rapid influenza test was negative.ASSESSMENT AND PLAN: Pharyngitis, group A Streptococcus. Amoxicillin 500 mg, takeone p.o. t.i.d. for 10 days, number 30 prescribed, with no refills. Plenty of warmfluids and rest. Tylenol and/or Motrin as needed for temperature and discomfort.Return to clinic in 10 days if symptoms have not improved or worsen. LA Mackenzie/[id number]: 11/01/2017 22:23DT: 11/02/2017 12:11SSI File#: [id number] #: [id number] [facility] PATIENT NAME: LUCILLE MCLEANCI [address] [facility] [address] Pat MEDICAL REC #: [id number], [place] [address] [facility] Normal [facility] RAPID STREP Aon 11-01-2017 Rapid strep test Positive Normal [facility] Comment on above: Order Comment: Barbara mejia: GABRIELA [place] 06-08-2017 [facility] REPORT Normal [facility] DATE OF SERVICE: 06/08/2017REASON FOR VISIT: Bilateral ear pain.HISTORY OF PRESENT ILLNESS: This is a 21-year-old female presenting with bilateralear pain for the last 3 days. She also has been having coughing and congestion. Noshortness of breath.REVIEW OF SYSTEMS: Review of other systems normal.PAST MEDICAL HISTORY, FAMILY HISTORY, SOCIAL HISTORY: Reviewed.ALLERGIES: NKA.MEDICATIONS: Tylenol.PHYSICAL EXAMINATION:General: She is awake, alert, not in distress. No dyspnea.Vital Signs: Temperature 98.1, blood pressure 110/66, pulse 80, respirations 18,pulse oximetry 98% on room air. Pain score 5/10.HEENT: Examination reveals mild congestion. Throat not injected. Bilateral earexam reveals eardrums were red in both ears, more on the left side than the rightside.Chest: Clear to auscultate. No crackles, wheezing or rhonchi.Heart: Regular rate and rhythm.ASSESSMENT: Bilateral otitis media with upper respiratory infection.PLAN: Clinical findings were discussed with the patient in detail. I gave herAugmentin 875 mg twice a day for 10 days with no refill. She should use saline nasalspray, take a decongestant. Tylenol or Motrin as needed. Follow with primary carephysician for continuation of care. Patient understands and agrees. Her questionswere answered to her satisfaction. NAVA Knight/[id number]: 06/08/2017 13:32DT: 06/08/2017 14:07SSI File#: [id number] #: [id number]/Reviewed by09/13/[id number] PAWPR [facility] PATIENT NAME: KRISTAN RODRIGUEZ [address] [facility] [address] Pat MEDICAL REC #: [id number], [place] [address] [facility] Normal [facility] Mcguffey Vital Signs Date Time Vital Sign Value Performing Clinician Facility 05-08-2025 14:06-0400 Body height 162.[address] Isidro Grimes MD Work Phone: [facility] 05-08-2025 14:06-0400 Body mass index (BMI) [Ratio] 44.1 kg/m2 Dr. Isidro Grimes MD Work Phone: [facility] 05-08-2025 14:06-0400 Body weight 116.[address] Isidro Grimes MD Work Phone: [facility] 05-08-2025 14:06-0400 Diastolic blood pressure 82 mm[Hg] Dr. Isidro Grimes MD Work Phone: [facility] 05-08-2025 14:06-0400 Systolic blood pressure 131 mm[Hg] Dr. Isidro Grimes MD Work Phone: [facility] 03-19-2025 08:09-0400 Body height 162.[address] Isidro Grimes MD Work Phone: [facility] 03-19-2025 08:09-0400 Body mass index (BMI) [Ratio] 43.2 kg/m2 Dr. Isidro Grimes MD Work Phone: [facility] 03-19-2025 08:09-0400 Body weight 114.[address] Isidro Grimes MD Work Phone: [facility] 02-26-2025 09:52-0400 Body height 162.[address] Isidro Grimes MD Work Phone: [facility] 02-26-2025 09:52-0400 Body mass index (BMI) [Ratio] 43.7 kg/m2 Dr. Isidro Grimes MD Work Phone: [facility] 02-26-2025 09:52-0400 Body weight 115.[address] Isidro Grimes MD Work Phone: [facility] 02-26-2025 09:52-0400 Diastolic blood pressure 79 mm[Hg] Dr. Isidro Grimes MD Work Phone: [facility] 02-26-2025 09:52-0400 Systolic blood pressure 127 mm[Hg] Dr. Isidro Grimes MD Work Phone: [facility] 12-19-2024 15:35-0400 Body height 162.[address] Isidro Grimes MD Work Phone: [facility] 12-19-2024 15:35-0400 Body mass index (BMI) [Ratio] 43.9 kg/m2 Dr. sIidro Grimes MD Work Phone: [facility] 12-19-2024 15:35-0400 Body weight 116.[address] Isidro Grimes MD Work Phone: [facility] 12-19-2024 15:35-0400 Diastolic blood pressure 86 mm[Hg] Dr. Isidro Grimes MD Work Phone: [facility] 12-19-2024 15:35-0400 Systolic blood pressure 129 mm[Hg] Dr. Isidro Grimes MD Work Phone: [facility] 01-23-2023 16:03-0400 Body height 162.[address] Isidro Grimes Work Phone: [facility] 01-23-2023 16:03-0400 Body mass index (BMI) [Ratio] 40.4 kg/m2 Dr. Isidro Grimes Work Phone: [facility] 01-23-2023 16:03-0400 Body temperature 99 [degF] Dr. Isidro Grimes Work Phone: [facility] 01-23-2023 16:03-0400 Body weight 106.[address] Isidro Grimes Work Phone: [facility] 01-23-2023 16:03-0400 Diastolic blood pressure 95 mm[Hg] Dr. Isidro Grimes Work Phone: [facility] 01-23-2023 16:03-0400 Heart rate 103 /min Dr. Isidro Grimes Work Phone: [facility] 01-23-2023 16:03-0400 Respiratory rate 20 /min Dr. Isidro Grimes Work Phone: [facility] 01-23-2023 16:03-0400 SaO2% (BldA) [Mass fraction] 98 % Dr. Isidro Grimes Work Phone: [facility] 01-23-2023 16:03-0400 Systolic blood pressure 137 mm[Hg] Dr. Isidro Grimes Work Phone: [facility] 01-17-2023 15:20-0400 Diastolic blood pressure 73 mm[Hg] Dr. Isidro Grimes Work Phone: [facility] 01-17-2023 15:20-0400 Heart rate 92 /min Dr. Isidro Grimes Work Phone: [facility] 01-17-2023 15:20-0400 Respiratory rate 18 /min Dr. Isidro Grimes Work Phone: [facility] 01-17-2023 15:20-0400 SaO2% (BldA) [Mass fraction] 97 % Dr. Isidro Grimes Work Phone: [facility] 01-17-2023 15:20-0400 Systolic blood pressure 110 mm[Hg] Dr. Isidro Grimes Work Phone: [facility] 01-17-2023 13:30-0400 Body temperature 98.8 [degF] Dr. Isidro Grimes Work Phone: [facility] 01-17-2023 12:00-0400 Inhaled oxygen flow rate 4 L/min Dr. Isidro Grimes Work Phone: [facility] 01-17-2023 10:30-0400 Inhaled oxygen concentration 44 % Dr. Isidro Grimes Work Phone: [facility] 01-17-2023 07:05-0400 Body height 162.[address] Isidro Grimes Work Phone: [facility] 01-17-2023 07:05-0400 Body mass index (BMI) [Ratio] 40.7 kg/m2 Dr. Isidro Grimes Work Phone: [facility] 01-17-2023 07:05-0400 Body weight 107.[address] Isidro Grimes Work Phone: [facility] 11-16-2022 15:23-0400 Body height 162.[address] Isidro Grimes Work Phone: [facility] 11-16-2022 15:23-0400 Body mass index (BMI) [Ratio] 39.2 kg/m2 Dr. Isidro Grimes Work Phone: [facility] 11-16-2022 15:23-0400 Body weight 103.[address] Isidro Grimes Work Phone: [facility] 11-16-2022 15:23-0400 Diastolic blood pressure 75 mm[Hg] Dr. Isidro Grimes Work Phone: [facility] 11-16-2022 15:23-0400 Systolic blood pressure 122 mm[Hg] Dr. Isidro Grimes Work Phone: [facility] 06-14-2022 08:50-0400 Body temperature 97.59 [degF] Demetri Mezayale [facility] [employer] Work Phone: [facility] 06-14-2022 08:50-0400 Body weight 99.79 kg [facility] [employer] Work Phone: [facility] 06-14-2022 08:50-0400 Diastolic blood pressure 74 mm[Hg] Demetri Mezayale [facility] [employer] Work Phone: [facility] 06-14-2022 08:50-0400 Heart rate 102 /min Demetri Mezayale [facility] [employer] Work Phone: [facility] 06-14-2022 08:50-0400 Respiratory rate 16 /min Demetri Mezayale [facility] [employer] Work Phone: [facility] 06-14-2022 08:50-0400 SaO2% (BldA) [Mass fraction] 98 % Demetri Mezayale [facility] [employer] Work Phone: [facility] 06-14-2022 08:50-0400 Systolic blood pressure 122 mm[Hg] Demetri Mezayale [facility] [employer] Work Phone: [facility] 03-27-2022 19:56-0400 Body temperature 98.24 [degF] DR ALYSSA CAMARA MD [facility] 03-27-2022 19:56-0400 Diastolic blood pressure 83 mm[Hg] DR ALYSSA CAMARA MD [facility] 03-27-2022 19:56-0400 Heart rate 108 /min DR ALYSSA CAMARA MD [facility] 03-27-2022 19:56-0400 Respiratory rate 16 /min DR ALYSSA CAMARA MD [facility] 03-27-2022 19:56-0400 Systolic blood pressure 128 mm[Hg] DR ALYSSA CAMARA MD [facility] 02-01-2022 13:45-0400 Body temperature 97.4 [degF] Dr. Isidro Girmes Work Phone: [facility] Work Phone: 02-01-2022 13:45-0400 Diastolic blood pressure 83 mm[Hg] Dr. Isidro Grimes Work Phone: [facility] Work Phone: 02-01-2022 13:45-0400 Heart rate 58 /min Dr. Isidro Grimes Work Phone: [facility] Work Phone: 02-01-2022 13:45-0400 Respiratory rate 16 /min Dr. Isidro Grimes Work Phone: [facility] Work Phone: 02-01-2022 13:45-0400 SaO2% (BldA) [Mass fraction] 100 % Dr. Isidro Grimes Work Phone: [facility] Work Phone: 02-01-2022 13:45-0400 Systolic blood pressure 118 mm[Hg] Dr. Isidro Grimes Work Phone: [facility] Work Phone: 02-01-2022 11:24-0400 Body height 162.[address] Isidro Grimes Work Phone: [facility] Work Phone: 02-01-2022 11:24-0400 Body mass index (BMI) [Ratio] 38.4 kg/m2 Dr. Isidro Grimes Work Phone: [facility] Work Phone: 02-01-2022 11:24-0400 Body weight 101.[address] Isidro Grimes Work Phone: [facility] Work Phone: 01-18-2022 09:46-0400 Body mass index (BMI) [Ratio] 40.1 kg/m2 Dr. Isidro Grimes Work Phone: [facility] Work Phone: 01-18-2022 09:46-0400 Body weight 102.[address] Isidro Grimes Work Phone: [facility] Work Phone: 01-18-2022 09:46-0400 Diastolic blood pressure 90 mm[Hg] Dr. Isidro Grimes Work Phone: [facility] Work Phone: 01-18-2022 09:46-0400 Systolic blood pressure 118 mm[Hg] Dr. Isidro Grimes Work Phone: [facility] Work Phone: 12-11-2021 15:48-0400 Body temperature 97.9 [degF] Dr. Isidro Grimes Work Phone: [facility] Work Phone: 12-11-2021 15:48-0400 Diastolic blood pressure 69 mm[Hg] Dr. Isidro Grimes Work Phone: [facility] Work Phone: 12-11-2021 15:48-0400 Heart rate 83 /min Dr. Isidro Grimes Work Phone: [facility] Work Phone: 12-11-2021 15:48-0400 Respiratory rate 14 /min Dr. Isidro Grimes Work Phone: [facility] Work Phone: 12-11-2021 15:48-0400 Systolic blood pressure 122 mm[Hg] Dr. Isidro Grimes Work Phone: [facility] Work Phone: 12-10-2021 14:53-0400 SaO2% (BldA) [Mass fraction] 82 % Dr. Isidro Grimes Work Phone: [facility] Work Phone: 12-10-2021 07:53-0400 Body height 160.[address] Isidro Grimes Work Phone: [facility] Work Phone: 12-10-2021 07:53-0400 Body mass index (BMI) [Ratio] 43.9 kg/m2 Dr. Isidro Grimes Work Phone: [facility] Work Phone: 12-10-2021 07:53-0400 Body weight 112.[address] Isidro Grimes Work Phone: [facility] Work Phone: 12-08-2021 15:42-0400 Body mass index (BMI) [Ratio] 44.2 kg/m2 Dr. Isidro Grimes Work Phone: [facility] Work Phone: 12-08-2021 15:42-0400 Body weight 113.[address] Isidro Grimes Work Phone: [facility] Work Phone: 12-08-2021 15:42-0400 Diastolic blood pressure 82 mm[Hg] Dr. Isidro Grimes Work Phone: [facility] Work Phone: 12-08-2021 15:42-0400 Systolic blood pressure 128 mm[Hg] Dr. Isidro Grimes Work Phone: [facility] Work Phone: 12-01-2021 15:51-0400 Body mass index (BMI) [Ratio] 44.6 kg/m2 Dr. Isidro Grimes Work Phone: [facility] Work Phone: 12-01-2021 15:51-0400 Body weight 114.[address] Isidro Grimes Work Phone: [facility] Work Phone: 12-01-2021 15:51-0400 Diastolic blood pressure 80 mm[Hg] Dr. Isidro Grimes Work Phone: [facility] Work Phone: 12-01-2021 15:51-0400 Systolic blood pressure 118 mm[Hg] Dr. Isidro Grimes Work Phone: [facility] Work Phone: 11-22-2021 16:15-0400 Body height 160.[address] Isidro Grimes Work Phone: [facility] Work Phone: 11-22-2021 16:15-0400 Body mass index (BMI) [Ratio] 44.1 kg/m2 Dr. Isidro Grimes Work Phone: [facility] Work Phone: 11-22-2021 16:15-0400 Body weight 112.[address] Isidro Grimes Work Phone: [facility] Work Phone: 11-22-2021 16:15-0400 Diastolic blood pressure 82 mm[Hg] Dr. Isidro Grimes Work Phone: [facility] Work Phone: 11-22-2021 16:15-0400 Systolic blood pressure 120 mm[Hg] Dr. Isidro Grimes Work Phone: [facility] Work Phone: 11-17-2021 05:02-0400 Diastolic blood pressure 76 mm[Hg] Dr. Isidro Grimes Work Phone: [facility] Work Phone: 11-17-2021 05:02-0400 Heart rate 85 /min Dr. Isidro Grimes Work Phone: [facility] Work Phone: 11-17-2021 05:02-0400 Systolic blood pressure 129 mm[Hg] Dr. Isidro Grimes Work Phone: [facility] Work Phone: 11-17-2021 05:00-0400 Body temperature 98.1 [degF] Dr. Isidro Grimes Work Phone: [facility] Work Phone: 11-17-2021 05:00-0400 SaO2% (BldA) [Mass fraction] 98 % Dr. Isidro Grimes Work Phone: [facility] Work Phone: 11-16-2021 14:29-0400 Body height 162.[address] Isidro Grimes Work Phone: [facility] Work Phone: 11-16-2021 14:29-0400 Body mass index (BMI) [Ratio] 42.3 kg/m2 Dr. Isidro Grimes Work Phone: [facility] Work Phone: 11-16-2021 14:29-0400 Body weight 111.[address] Isidro Grimes Work Phone: [facility] Work Phone: 11-16-2021 14:22-0400 Heart rate 109 /min Dr. Isidro Grimes Work Phone: [facility] Work Phone: 11-16-2021 14:22-0400 SaO2% (BldA) [Mass fraction] 97 % Dr. Isidro Grimes Work Phone: [facility] Work Phone: 11-16-2021 14:21-0400 Body temperature 99 [degF] Dr. Isidro Grimes Work Phone: [facility] Work Phone: 11-16-2021 14:21-0400 Diastolic blood pressure 66 mm[Hg] Dr. Isidro Grimes Work Phone: [facility] Work Phone: 11-16-2021 14:21-0400 Systolic blood pressure 120 mm[Hg] Dr. Isidro Grimes Work Phone: [facility] Work Phone: 11-16-2021 13:25-0400 Body mass index (BMI) [Ratio] 42.4 kg/m2 Dr. Isidro Grimes Work Phone: [facility] Work Phone: 11-16-2021 13:25-0400 Body weight 112.[address] Isidro Grimes Work Phone: [facility] Work Phone: 11-16-2021 13:25-0400 Diastolic blood pressure 70 mm[Hg] Dr. Isidro Grimes Work Phone: [facility] Work Phone: 11-16-2021 13:25-0400 Systolic blood pressure 120 mm[Hg] Dr. Isidro Grimes Work Phone: [facility] Work Phone: 11-15-2021 08:45-0400 Body mass index (BMI) [Ratio] 42.2 kg/m2 Dr. Isidro Grimes Work Phone: [facility] Work Phone: 11-15-2021 08:45-0400 Body weight 111.[address] Isidro Grimes Work Phone: [facility] Work Phone: 11-15-2021 08:45-0400 Diastolic blood pressure 80 mm[Hg] Dr. Isidro Grimes Work Phone: [facility] Work Phone: 11-15-2021 08:45-0400 Systolic blood pressure 124 mm[Hg] Dr. Isidro Grimes Work Phone: [facility] Work Phone: 11-01-2021 15:08-0400 Body mass index (BMI) [Ratio] 42.5 kg/m2 Dr. Isidro Grimes Work Phone: [facility] Work Phone: 11-01-2021 15:08-0400 Body weight 112.[address] Isidro Grimes Work Phone: [facility] Work Phone: 11-01-2021 15:08-0400 Diastolic blood pressure 68 mm[Hg] Dr. Isidro Grimes Work Phone: [facility] Work Phone: 11-01-2021 15:08-0400 Systolic blood pressure 132 mm[Hg] Dr. Isidro Grimes Work Phone: [facility] Work Phone: 10-18-2021 14:47-0500 Body mass index (BMI) [Ratio] 42.7 kg/m2 Dr. Isidro Grimes Work Phone: [facility] Work Phone: 10-18-2021 14:47-0500 Body weight 112.[address] Isidro Grimes Work Phone: [facility] Work Phone: 10-18-2021 14:47-0500 Diastolic blood pressure 74 mm[Hg] Dr. Isidro Grimes Work Phone: [facility] Work Phone: 10-18-2021 14:47-0500 Systolic blood pressure 132 mm[Hg] Dr. Isidro Grimes Work Phone: [facility] Work Phone: 10-14-2021 10:10-0500 Body mass index (BMI) [Ratio] 42.2 kg/m2 Dr. Isidro Grimes Work Phone: [facility] Work Phone: 10-14-2021 10:10-0500 Body weight 111.[address] Isidro Grimes Work Phone: [facility] Work Phone: 10-14-2021 10:10-0500 Diastolic blood pressure 78 mm[Hg] Dr. Isidro Grimes Work Phone: [facility] Work Phone: 10-14-2021 10:10-0500 Systolic blood pressure 136 mm[Hg] Dr. Isidro Grimes Work Phone: [facility] Work Phone: 10-04-2021 15:06-0500 Body mass index (BMI) [Ratio] 42 kg/m2 Dr. Isidro Grimes Work Phone: [facility] Work Phone: 10-04-2021 15:06-0500 Body weight 111.[address] Isidro Grimes Work Phone: [facility] Work Phone: 10-04-2021 15:06-0500 Diastolic blood pressure 70 mm[Hg] Dr. Isidro Grimes Work Phone: [facility] Work Phone: 10-04-2021 15:06-0500 Systolic blood pressure 108 mm[Hg] Dr. Isidro Grimes Work Phone: [facility] Work Phone: 09-22-2021 13:02-0500 Body mass index (BMI) [Ratio] 41.4 kg/m2 Dr. Isidro Grimes Work Phone: [facility] Work Phone: 09-22-2021 13:02-0500 Body weight 109.[address] Isidro Grimes Work Phone: [facility] Work Phone: 09-22-2021 13:02-0500 Diastolic blood pressure 78 mm[Hg] Dr. Isidro Grimes Work Phone: [facility] Work Phone: 09-22-2021 13:02-0500 Systolic blood pressure 130 mm[Hg] Dr. Isidro Grimes Work Phone: [facility] Work Phone: 09-20-2021 14:43-0500 Body mass index (BMI) [Ratio] 41.5 kg/m2 Dr. Isidro Grimes Work Phone: [facility] Work Phone: 09-20-2021 14:43-0500 Body weight 109.[address] Isidro Grimes Work Phone: [facility] Work Phone: 09-20-2021 14:43-0500 Diastolic blood pressure 80 mm[Hg] Dr. Isidro Grimes Work Phone: [facility] Work Phone: 09-20-2021 14:43-0500 Systolic blood pressure 136 mm[Hg] Dr. Isidro Grimes Work Phone: [facility] Work Phone: 08-23-2021 14:57-0500 Body mass index (BMI) [Ratio] 41.5 kg/m2 Dr. Isidro Grimes Work Phone: [facility] Work Phone: 08-23-2021 14:57-0500 Body weight 109.[address] Isidro Grimes Work Phone: [facility] Work Phone: 08-23-2021 14:57-0500 Diastolic blood pressure 68 mm[Hg] Dr. Isidro Grimes Work Phone: [facility] Work Phone: 08-23-2021 14:57-0500 Systolic blood pressure 112 mm[Hg] Dr. Isidro Grimes Work Phone: [facility] Work Phone: 07-30-2021 07:51-0500 Body mass index (BMI) [Ratio] 40.8 kg/m2 Dr. Isidro Grimes Work Phone: [facility] Work Phone: 07-30-2021 07:51-0500 Body weight 108.[address] Isidro Grimes Work Phone: [facility] Work Phone: 07-30-2021 07:51-0500 Diastolic blood pressure 64 mm[Hg] Dr. Isidro Grimes Work Phone: [facility] Work Phone: 07-30-2021 07:51-0500 Systolic blood pressure 122 mm[Hg] Dr. Isidro Grimes Work Phone: [facility] Work Phone: Encounters Encounter Date Encounter Type Care Provider Facility Start: 06-06-2025 ambulatory Isidro Grimes Facility:[facility] Start: 05-08-2025 End: 05-08-2025 Patient encounter procedure Alla GARCIA -[facility] Work Phone: Start: 05-08-2025 End: 05-08-[address] Isidro Grimes MD Work Phone: -[facility] Start: 05-07-2025 End: 05-07-[address] Isidro Grimes MD Work Phone: -[facility] Start: 05-07-2025 End: 05-07-[address] Trudy Ware MD -[facility] Start: 05-07-2025 End: 05-07-2025 ambulatory Trudy Ware Facility:[facility] Start: 03-19-2025 End: 03-19-[address] Antwon Mayfield MD -[facility] Start: 03-19-2025 End: 03-19-[address] Isidro Grimes MD Work Phone: -[facility] Start: 03-03-2025 Encounter for gynecological examination (general) (routine) without abnormal findings Alla Gordillo [facility] Start: 02-26-2025 End: 02-26-2025 Patient encounter procedure Alla GARCIA -[facility] Work Phone: Start: 02-26-2025 End: 02-26-[address] Isidro Grimes MD Work Phone: [facility][1] Start: 02-26-2025 End: 02-26-2025 ambulatory Isidro Grimes Facility:[facility] Start: 12-27-2024 End: 12-27-[address] Isidro Grimes MD Work Phone: [facility] Work Phone: Start: 12-27-2024 End: 12-27-2024 Patient encounter procedure Dede Domingo CNM -Lab, [facility] Start: 12-27-2024 End: 12-27-2024 ambulatory Dede Domingo Facility:[facility] Start: 12-19-2024 End: 12-19-2024 Patient encounter procedure Alla GARCIA -[facility] Work Phone: Start: 12-19-2024 End: 12-19-2024 Patient encounter status Alla GARCIA [facility] Start: 12-19-2024 End: 12-19-2024 ambulatory Isidro Grimes Facility:[facility] Start: 01-23-2023 End: 01-23-2023 Emergency department patient visit Dr. Isidro Grimes Work Phone: [facility]-Emergency Department Start: 01-17-2023 Non-patient / Non-visit Dr. Ezra Grimes Work Phone: [facility] Start: 01-17-2023 End: 01-17-2023 Admission to same day surgery center Dr. Isidro Grimes Work Phone: [facility] Start: 01-17-2023 End: 01-17-[address] Isidro Grimes Work Phone: [facility] Work Phone: Start: 11-16-2022 End: 11-16-[address] Isidro Grimes Work Phone: [facility] Work Phone: Start: 11-16-2022 End: 11-16-[address] Isidro Grimes Work Phone: [facility]-Laboratory, Specimen Start: 11-16-2022 End: 11-16-[address] Isidro Grimes Work Phone: [facility] Start: 10-25-2022 End: 10-25-[address] Isidro Grimse Work Phone: [facility]-Ultrasound, [facility] Start: 06-14-2022 End: 06-14-2022 ambulatory ISIDRO GRIMES Facility:[facility] Start: 06-14-2022 End: 06-14-2022 Patient encounter procedure Demetri Velasquez APRN.CNP Work Phone: [facility] Comment on above: Viral illness (Prima ry Dx); Acute otitis media, left Start: 05-13-2022 End: 05-14-2022 ambulatory YOSVANY BENAVIDES MD Facility:[facility] Start: 03-27-2022 End: 03-27-2022 Emergency department patient visit ALYSSA CAMARA Facility:[facility] Start: 03-27-2022 End: 03-27-2022 Emergency department patient visit DR ALYSSA CAMARA MD [facility] Start: 02-01-2022 End: 02-01-2022 Admission to same day surgery center [facility] Start: 02-01-2022 Non-patient / Non-visit Dr. Ezra Grimes Work Phone: [facility] Start: 01-18-2022 End: 01-18-[address] Isidro Grimes Work Phone: [facility] Start: 12-11-2021 Non-patient / Non-visit Dr. Ezra Grimes Work Phone: [facility] Start: 12-10-2021 Non-patient / Non-visit Dr. Ezra Grimes Work Phone: [facility] Start: 12-10-2021 End: 12-11-2021 Evaluation and management of inpatient Dr. Isidro Grimes Work Phone: [facility] Start: 12-08-2021 End: 12-08-[address] Isidro Grimes Work Phone: [facility] Start: 12-01-2021 End: 12-01-[address] Isidro Grimes Work Phone: [facility] Start: 11-22-2021 End: 11-22-[address] Isidro Grimes Work Phone: [facility] Start: 11-16-2021 End: 11-17-2021 Evaluation and management of inpatient Dr. Isidro Grimes Work Phone: [facility] Start: 11-16-2021 End: 11-16-[address] Isidro Grimes Work Phone: [facility], Outpatients Start: 11-15-2021 End: 11-15-[address] Isidro Grimes Work Phone: [facility] Start: 11-01-2021 End: 11-01-[address] Isidro Grimes Work Phone: [facility] Start: 10-19-2021 End: 10-19-[address] Isidro Grimes Work Phone: [facility] Start: 10-18-2021 End: 10-18-[address] Isidro Grimes Work Phone: [facility] Start: 10-14-2021 End: 10-14-[address] Isidro Grimes Work Phone: [facility] Start: 10-04-2021 End: 10-04-[address] Isidro Grimes Work Phone: [facility] Start: 09-22-2021 End: 09-22-[address] [facility] Start: 09-22-2021 End: 09-22-[address] Isidro Grimes Work Phone: [facility] Start: 09-20-2021 End: 09-20-[address] Isidro Grimes Work Phone: [facility] Start: 09-20-2021 End: 09-20-[address] [facility] Start: 08-23-2021 End: 08-23-[address] Isidro Grimes Work Phone: [facility] Start: 07-30-2021 End: 07-30-[address] Isidro Grimes Work Phone: [facility] Start: 11-01-2018 Patient encounter procedure BERTHA DENNEY [facility] Start: 09-27-2018 End: 09-27-2018 Patient encounter procedure TRUDY WARE [facility] Start: 05-02-2018 Patient encounter Jeronimo Field [facility] Start: 11-01-2017 Ambulatory Lyndon Medrano ty:[facility] Start: 06-08-2017 Ambulatory Roro Sandoval Facility: [facility] Procedures Date Procedure Procedure Detail Performing Clinician Start: 03-19-2025 X-ray of knee, four or more views Dr. Isidro Grimes MD Work Phone: Start: 12-27-[address] Isidro Grimes MD Work Phone: Start: 12-27-2024 Vitamin D, 25-hydroxy measurement Dr. Isidro Grimes MD Work Phone: Comment on above: Vitamin D StatusDeficiency: <20 ng/mL (5 0nmol/L)Insufficiency: 20-30 ng/mL (50-75 nmol/L)Sufficiency: 30-100 ng/mL (75-250 nmol/L)Toxicity: >100 ng/mL (>250 nmol/L) Start: 01-23-2023 Computed tomography of abdomen and pelvis with intravenous contrast Dr. Isidro Grimes Work Phone: Start: 01-17-[address] Isidro dhaliwal Work Phone: Start: 10-25-[address] Isidro Grimes Work Phone: Start: 02-01-[address] sIidro Grimes Work Phone: Start: 12-10-2021 End: 12-10-[address] Isidro Grimes Work Phone: Start: 11-16-2021 End: 11-16-[address] Isidro Grimes Work Phone: Start: 11-15-2021 Ultrasound scan for growth Dr. Isidro Grimes Work Phone: Start: 10-19-2021 Ultrasound scan for growth Dr. Isidro Grimes Work Phone: Start: 09-22-2021 Cytopathology procedure, preparation of smear, genital source Dr. Isidro Grimes Work Phone: Start: 09-22-2021 Investigation of transfusion reaction Dr. Isidro Grimes Work Phone: Start: 08-21-2021 History of appendectomy History of appendectomy Dr. Isidro Grimes Work Phone: Start: 08-21-2013 Extraction of wisdom tooth DR ALYSSA Anne MD Appendectomy DR ALYSSA CAMARA MD H/O: hysterectomy Status post hysterectomy Dr. Isidro Grimes Work Phone: Comment on above: TRH 01/17/23- JV History of appendectomy History of appendectomy Dr. Isidro Grimes Work Phone: History of tonsillectomy History of tonsillectomy Dr. Isidro Grimes Work Phone: Plan of Treatment Date Care Activity Detail Author Start: 05-08-2025 Electrocardiographic procedure [facility] Start: 03-19-2025 X-ray of knee, four or more views Knee 4 or More Views [facility] Start: 03-19-2025 XR Knee GE 4 Views [facility] Start: 02-26-2025 Comprehensive metabolic 2000 panel - Serum or Plasma [facility] Start: 01-23-2023 [facility] Start: 01-17-2023 Ambulation without limitation [facility] Start: 01-17-2023 Medication education [facility] Start: 01-17-2023 Patient discharge [facility] Start: 01-17-2023 Planned voiding [facility] Start: 01-17-2023 Taking patient vital signs [facility] Start: 01-17-2023 Vital signs measurements [facility] Start: 01-17-2023 [facility] Start: 01-17-2023 Patient discharge [facility] Start: 01-17-2023 Admission procedure [facility] Start: 06-14-2022 End: 06-28-2022 Influenza virus A and B RNA and SARS-CoV-2 (COVID-19) N gene panel - Respiratory specimen by DEB with probe detection COVID WITH FLUA+B, ROUTINE Microbiology Routine Viral illness Expected: 06/14/2022, Expires: 06/28/2022 [facility] Work Phone: Comment on above: Expected: 06/14/2022, Expires: Start: 04-21-2022 Influenza vaccination INFLUENZA (#1) [facility] Start: 11-16-2021 Iv infusion therapy prophylaxis/dx ea hour THER/PROPH/DIAG IV INF ADDON [facility] Work Phone: Start: 11-16-2021 Iv infusion therapy/prophylaxis /dx 1st to 1 hr THER/PROPH/DIAG IV INF INIT [facility] Work Phone: Start: 09-18-2021 COVID-19 VACCINE (3 - Booster for Moderna series) COVID-19 VACCINE (3 - Booster for Moderna series) [facility] Start: 08-21-2021 DEPRESSION ASSESSMENT DEPRESSION ASSESSMENT [facility] Start: 12-01-2015 PAP TESTING PAP TESTING [facility] Start: 2013 Urine microalbumin profile DTAP,TDAP,TD (1 - Tdap) [facility] Start: 2012 HEPATITIS C SCREENING HEPATITIS C SCREENING [facility] Start: 2012 HIV SCREENING HIV SCREENING [facility] Start: 1994 HEPATITIS B (1 of 3 - 3-dose series) HEPATITIS B (1 of 3 - 3-dose series) [facility] Alanine aminotransfe rase [Enzymatic activity/volume] in Serum or Plasma [facility] Albumin [Mass/volume ] in Serum or Plasma [facility] Alkaline phosphatase [Enzymatic activity/volume] in Serum or Plasma [facility] Anion gap in Serum or Plasma [facility] Bilirubin, total measurement [facility] BUN/Creatinine ratio [facility] Calcium [Mass/volume ] in Serum or Plasma [facility] Carbon dioxide, tota l [Moles/volume] in Central venous blood [facility] Cholesterol [Mass/vo lume] in Serum or Plasma [facility] Cholesterol in HDL [Mass/volume] in Serum or Plasma [facility] Creatinine [Mass/vol ume] in Serum or Plasma [facility] Glucose [Mass/volume ] in Serum or Plasma [facility] Low density lipoprot ein cholesterol measurement [facility] Measurement of renal function [facility] Patient Education [facility] Work Phone: Patient referral [facility] Work Phone: Potassium measurement [facility] Serum chloride measurement [facility] Sodium measurement [facility] Total cholesterol:HD L ratio measurement [facility] Total protein measurement [facility] Triglycerides measurement [facility] Urea nitrogen [Mass/ volume] in Serum or Plasma [facility] VLDL cholesterol measurement [facility] Immunizations Immunization Date Immunization Notes [facility]-2021 diphtheria, tetanus toxoids and acellular pertussis vaccine, unspecified formulation Dr. Isidro Grimes Work Phone: [facility] Work Phone: 09-20-2021 tetanus toxoid, redu mago diphtheria toxoid, and acellular pertussis vaccine, adsorbed Dr. Isidro Grimes Work Phone: [facility] 07-23-2021 Covid (Moderna) Dr. Isidro boogie Work Phone: [facility] 06-25-2021 Covid (Moderna) Dr. Isidro boogie Work Phone: [facility] 06-25-2021 influenza, injectabl e, quadrivalent, preservative free Dr. Isidro Grimes MD Work Phone: [facility] 06-25-2021 influenza, seasonal, injectable Dr. Isidro Grimes Work Phone: [facility] 01-16-2019 measles, mumps and rubella virus vaccine Dr. Isidro Grimes Work Phone: [facility] 11-08-2018 tetanus toxoid, redu mago diphtheria toxoid, and acellular pertussis vaccine, adsorbed Dr. Isidro Grimes Work Phone: [facility] 11-08-2018 diphtheria, tetanus toxoids and acellular pertussis vaccine, unspecified formulation Dr. Isidro Grimes Work Phone: [facility] Work Phone: Payers Date Payer Category Payer Self-pay [id number] 2017 Unknown [id number] 2017 Unknown 2016 Unknown [id number] 1994 Unknown [id number] 2.16.8 [id number] 1994 Unknown [id number] 2.16.8 [id number] 1994 Unknown [id number] 2.16.8 [id number] 1994 Unknown [id number] 2.16.8 [id number] 1994 Unknown [id number] 2.16.8 [id number] Unknown [id number] 2.16.8 [id number] Unknown [id number] 2.16.8 [id number] Unknown [id number] 2.16.8 [id number] Unknown [id number] 2.16.8 [id number] Unknown [id number] 2.16.8 [id number] Unknown [id number] 2.16.8 [id number] Unknown [id number] 2.16.8 [id number] Unknown [id number] 2.16.8 [id number] Unknown [id number] 2.16.8 [id number] Social History Date Type Detail Facility Start: 11-16-2021 End: 01-23-2023 Tobacco smoking status NHIS Unknown if ever smoked [facility] Start: 01-15-2019 None [facility] Start: 1995 Sex Assigned At Female [facility] Start: 03-27-2022 End: 02-22-2023 Tobacco smoking status Never smoked tobacco (finding) [facility] Sex Assigned At Sex [facility] Start: 06-14-2022 Tobacco use and exposure Smokeless tobacco non-user [facility] Work Phone: Start: 06-14-2022 Alcohol intake Not Asked [facility] Start: 1995 Sex Assigned At Not on file [facility] Sex Female [facility] NEGATED: Highlighted row [facility] Goals Date Patient Goal Desired Activity /State Functional Status Date Assessment Result Facility 03-27-2022 Functional Status Standard Safet y ID band on, Call device within reach, Bed in low position, Wheels locked, Upper/Half-Length side-rails up, Bedside Cart Locked, Safety level maintained [facility] Mental Status Date Assessment Result Facility 01-23-2023 Cognitive function Level Of Cons ciousness Awake;Alert;Appropriate [facility] Work Phone: 01-17-2023 Cognitive function Light Pain [facility] Work Phone: 01-17-2023 Cognitive function Patient Orien tation Person;Place;Time [facility] Work Phone: 03-27-2022 Mental Status Oriented x 4 [facility] tiffanie Al 02-01-2022 Cognitive function Voice/Name [facility] Work Phone: Clinical Notes 03-27-2022 to 05-08-2025 Note Date & Type Note Facility 05-08-2025 Progress note [facility] 05-08-2025 Progress note Note Date/Time May 08, 2025 2:23pm [facility] [address], [address] [place] [address] OFFICE VISIT Date of Service: 05/08/25 MR#: [id number] Acct: [id number] Name: KRISTAN MCLEAN Rep #: [id number] : 1995 Provider: RADHA Gordillo Age/Sex: 29/F Location: [facility] Status: Signed Intake Vital Signs 03/19/25 08:09 05/08/25 14:06 Height 5 ft 4 in 5 ft 4 in Weight: 252 lb 2 oz 257 lb BMI 43.2 44.1 BP 131/82 H Intake Visit Reasons: Swelling on Spironolactone Preservationist Required: No Is patient in pain?: No Allergies molasses Adverse Reaction (Verified 05/08/25 14:08) Other Medications ?Medication ?Instructions ?Recorded ?Confirmed ?Type cholecalciferol (vitamin D3) 50 50 mcg PO QDAY 5 05/08/25 History mcg (2,000 unit) capsule Post menopausal: No Patient : No : No PFSH Medical History Wears glasses History of steroid therapy Alcohol use Non-smoker Vaginal delivery Depression Sterilization Infertility Surgical History H/O cystoscopy History of repair of ACL Status post laparoscopic procedure History of surgery History of appendectomy (~06/2022) Family History Grandmother Breast cancer Social History adopted: No household members: family housing: house number of children: 3 Smoking Status: Never smoker alcohol intake: never substance use type: does not use caffeine: Yes what type of physical activity do you participate in: walking seatbelt use: always do you feel safe at home: Yes additional social history: [employer]- 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 She steven her heart was racing, short of breath and experienced back pain. The heart palpitations were intermittent with the last time feeling them was on Monday. She stopped herspirolactone on Monday in case there was relation this this. Called in and had labs ordered as well. Reports she has not experienced heart palpitations since stopping medications; the swelling has improved and her back pain has nearly resolved. Denies currently symptoms of heart palpitation, chest pain, swelling, back pain. Labwork reviewed--CBC stable; kidney function and electrolytes stable. She has been trying to drink more water for hydration. History 3 Elective abortions Hx Para 3 Spontaneous abortions Hx # Term Pregnancies Ectopic pregnancies Hx # Pregnancies Multiple births # of living children 3 Past Pregnancies Del. Date Name GA/Weeks Outcome Route Bth Weight Gen Labor Lgth Anesthesia Del [facility] Provider FOB 09/13/15 [place] 39 live - full term 8 pounds 3oz Mal e 10 hours epidural AO Ashley Berumen 01/16/19 Th[place] 39 live - full term 7lbs 7oz Male 10 h ours epidural [facility] Berumen 12/10/21 [place] 39 live - full term 8lbs 9oz Male [facility] Dr. Frederick Delivery Date: 01/16/19 Last Updated by: Mariya Lugo pre term labor at 26 weeks Delivery Date: 12/10/21 Last Updated by: Corinna Goodwin Constitutional: Reports system reviewed and no additional complaints, except as documented; Denies body ache, fatigue or fever(s) Eyes Eyes: Reports system reviewed and no additional complaints, except as documented Cardio Card: Denies chest pain, chest pain at rest, leg edema or palpitations Resp Resp: Denies cough or dyspnea GI GI: Denies abdominal pain : Denies difficulty voiding, dysuria, hematuria, pelvic pain, vaginal discharge, vaginal dryness, vaginal odor or vaginal pruritus Musc Musc: Denies numbness Neuro Neuro: Denies numbness, sensory deficit or weakness Exam Const General: cooperative, healthy appearing, comfortable, no acute distress and welldeveloped Nutritional Appearance: well nourished Resp Effort & Inspection: normal respiratory effort, able to speak in complete sentences and symmetric chest movement Auscultation: clear to auscultation bilaterally Cardio Rate: regular rate Rhythm: regular rhythm Heart Sounds: S1 normal and S2 normal Skin General: no rashes or lesions noted Neuro General: patient alert, patient awake, patient oriented x3, gait normal, moves all extremities and no focal motor deficits Cognition: normal cognition Extrem General: normal to inspection, no pedal edema and no calf tenderness Psych Appearance: grossly normal Mood: congruent mood Speech and Movement: speech and movement normal Coding Level of Care Code Established Pt Off vis,est,level 3 Patient Type Established Diagnoses PCOS (polycystic ovarian syndrome) E28.2 Heart palpitations R00.2 Assessment and Plan Assessment and Plan (1) PCOS (polycystic ovarian syndrome): Status: Chronic Comment: hair growth to chin/coarse. Plan: Continue to NOT take spirolactone and monitor symptoms. Has resolved without this on board. Lab work reviewed and stable. If returns evaluation with PCP or ER is recommended with concern of other etiology creating her symptoms. Otherwise exam today without acute concern. Call with update in 1 week. (2) Heart palpitations: Status: Acute Plan: resolved symptomatically--will order EKG to ensure stability. Orders: Orders 12 Lead EKG Today R00.2 - Palpitations 05/08/25 1106 <Electronically signed by Alla GARCIA> Date _ Alla GARCIA Cosigner Signature: Date (if applicable) CC: ~ [facility] [employer] Work Phone: 1(759) 947-751407-30-2025 [facility] [address] [facility] [address] [place] [address] OFFICE VISIT Date of Service: 03/19/25 MR#: [id number] Acct: [id number] Name: KRISTAN MCLEAN Rep #: [id number] : 1995 Provider: Dr. Sidney Gruber, Age/Sex: 29/F Location: [facility] Status: Signed Intake Vital Signs 02/26/25 09:52 03/19/25 08:09 Height 5 ft 4 in 5 ft 4 in Weight: 255 lb 2 oz 252 lb 2 oz BMI 43.7 43.2 BP 127/79 H Intake Visit Reasons: RIGHT KNEE Chief Complaint: Right Knee Pain Accompanied by: Self Is patient in pain?: Yes Pain scale (1-10): 3 Allergies molasses Adverse Reaction (Verified 03/19/25 08:10) Other Medications ?Medication ?Instructions ?Recorded ?Confirmed ?Type cholecalciferol (vitamin D3) 50 50 mcg PO QDAY 5 03/19/25 History mcg (2,000 unit) capsule spironolactone 50 mg tablet 50 mg PO QDAY 30 days #30 tabs 02/26/25 03/19/25 Rx (Aldactone) PFSH Medical History Wears glasses History of steroid therapy Alcohol use Non-smoker Vaginal delivery Depression Sterilization Infertility Surgical History H/O cystoscopy History of repair of ACL Status post laparoscopic procedure History of surgery History of appendectomy (~06/2022) Family History Grandmother Breast cancer Social History adopted: No household members: family housing: house number of children: 3 Smoking Status: Never smoker alcohol intake: never substance use type: does not use caffeine: Yes what type of physical activity do you participate in: walking seatbelt use: always do you feel safe at home: Yes additional social history: 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 Lyndon Gruber, DO 03/19/25 0712. Part of today?s visit was documented by Laina Boogie ATC, acting as scribe. KRISTAN MCLEAN is a 29 year old obese F (BMI 43.2) here today for right knee pain. Patient states theknee has been bothering her for over a year. She stateswhen it first started it was her first year back playing softball after she toreher ACL on the left knee. She had her left ACL fixed in June2022 and she went back to playing softball about 1.5 years later. There was no injury to theright knee. She states a year ago she went to [facility] because she wasn'thappy with the surgeon who did her surgery and did not want to go back. She was told she had a strained patellar tendon and did physical therapy and it did not make it worse or any better. She describes the pain over the anterior aspect of the knee. She does admit to clicking and poppingbut is not painful . It does not give way. She denies anyrecent injections or physical therapy. Shedenies any surgery on the knee. She states she was taking pain medication last week as tylenol/ibuprofen was not helping. Ortho Exam General General: Yes no acute distress and Yes well groomed Neurologic: Yes alert and Yes oriented x3 Psychologic: Yes reasonable and appropriate Right Knee Skin/Wound: Yes CDI, No erythema, No ecchymosis and No swelling Knee ROM: Yes ROM-Extension -20 to 0 and Yes ROM-Flexion 0-140 (112) Examination: No Med jt line tenderness, Yes Lat jt line tenderness, Yes Crepitus, No Pain with flexion, No Pain with extention, No Trevin's Test, Yes Herring's, No TTP Pes Anserine and No Illiotibial band tenderness Stability: NML: Anterior Drawer, NML: Posterior Drawer, NML: Valgus 0, NML: Valgus 30, NML: Varus 0and NML: Varus 30 Patella Translation: 1 Apprehension with Lateral Translation: No Patella Grind: Yes KNEE: no joint effusion mild crepitation with patellar grind Left Knee Patella Translation: 1 Supplemental Info 2024 x-ray right knee: Preserved joint space there is faint spurring of the medial trochlea Coding Level of Care Code Off vis,new,level 3 Diagnoses 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 X-rays do demonstrate some mild spurring of her trochlea. Clinical exam does not show any meniscal signs cruciate or collateral ligament instability, but does show patellofemoral crepitation and discomfort with stress. Her clinical history is significant with chondromalacia patella. her options at this point Iwould recommend , anti-inflammatory medication for about 2-3 weeks to decrease inflammation in the knee, steroid injections, weight loss, avoid squatting and lunges or any exercises where she is putting the knee indeep flexion, short arcexercises are recommended, physical therapy specific for patellar femoral syn drome, we discussed concentrated simmons juice or turmeric can be used as other supplements. Patientwould like to hold off on any treatment at this time.If she changes her mind and decides she would like a physical therapy referral or medication, she can just call into the office. Follow up in an as needed basis or sooner if pain, swelling, numbness or associated symptoms, or concerns develop. All questions answered. Patient in agreement of plan. 03/19/25 0904 o DO> Date _ Lyndon Gruber DO Cosigner Signature: Date (if applicable) CC: ~ [facility]07-30-2025 Progress note Author Lyndon Gruber [facility] Note Date/Time March 19, 2025 9:04 am [facility] [address] [place] [id number] OFFICE VISIT Date of Service: 03/19/25 MR#: [id number] Acct: [id number] Name: KRISTAN MCLEAN Rep #: [id number] : 1995 Provider: Dr. Sidney Gruber, Age/Sex: 29/F Location: [facility] Status: Signed Intake Vital Signs 02/26/25 09:52 03/19/25 08:09 Height 5 ft 4 in 5 ft 4 in Weight: 255 lb 2 oz 252 lb 2 oz BMI 43.7 43.2 BP 127/79 H Intake Visit Reasons: RIGHT KNEE Chief Complaint: Right Knee Pain Accompanied by: Self Is patient in pain?: Yes Pain scale (1-10): 3 Allergies molasses Adverse Reaction (Verified 03/19/25 08:10) Other Medications ?Medication ?Instructions ?Recorded ?Confirmed ?Type cholecalciferol (vitamin D3) 50 50 mcg PO QDAY 5 03/19/25 History mcg (2,000 unit) capsule spironolactone 50 mg tablet 50 mg PO QDAY 30 days #30 tabs 02/26/25 03/19/25 Rx (Aldactone) PFSH Medical History Wears glasses History of steroid therapy Alcohol use Non-smoker Vaginal delivery Depression Sterilization Infertility Surgical History H/O cystoscopy History of repair of ACL Status post laparoscopic procedure History of surgery History of appendectomy (~06/2022) Family History Grandmother Breast cancer Social History adopted: No household members: family housing: house number of children: 3 Smoking Status: Never smoker alcohol intake: never substance use type: does not use caffeine: Yes what type of physical activity do you participate in: walking seatbelt use: always do you feel safe at home: Yes additional social history: 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 Lyndon Gruber, DO 03/19/25 0741. Part of today?s visit was documented by Laina Boogie ATC, acting as scribe. KRISTAN MCLEAN is a 29 year old obese F (BMI 43.2) here today for right knee pain. Patient states the knee has been bothering her for over a year. She stateswhen it first started it was her first year back playing softball after she toreher ACL on the left knee. She had her left ACL fixed in June 2022 and she went back to playing softball about 1.5 years later. There was no injury to theright knee. She states a year ago she went to [facility] because she wasn'thappy with the surgeon who did her surgery and did not want to go back. She was told she had a strained patellar tendon and did physical therapy and it did not make it worse or any better. She describes the pain over the anterior aspect of the knee. She does admit to clicking and popping but is not painful . It does not give way. She denies anyrecent injections or physical therapy. She denies any surgery on the knee. She states she was taking pain medication last week as tylenol/ibuprofen was not helping. Ortho Exam General General: Yes no acute distress and Yes well groomed Neurologic: Yes alert and Yes oriented x3 Psychologic: Yes reasonable and appropriate Right Knee Skin/Wound: Yes CDI, No erythema, No ecchymosis and No swelling Knee ROM: Yes ROM-Extension -20 to 0 and Yes ROM-Flexion 0-140 (112) Examination: No Med jt line tenderness, Yes Lat jt line tenderness, Yes Crepitus, No Pain with flexion, No Pain with extention, No Trevin's Test, Yes Herring's, No TTP Pes Anserine and No Illiotibial band tenderness Stability: NML: Anterior Drawer, NML: Posterior Drawer, NML: Valgus 0, NML: Valgus 30, NML: Varus 0 and NML: Varus 30 Patella Translation: 1 Apprehension with Lateral Translation: No Patella Grind: Yes KNEE: no joint effusion mild crepitation with patellar grind Left Knee Patella Translation: 1 Supplemental Info 2024 x-ray right knee: Preserved joint space there is faint spurring of the medial trochlea Coding Level of Care Code Off vis,new,level 3 Diagnoses 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 X-rays do demonstrate some mild spurring of her trochlea. Clinical exam does not show any meniscal signs cruciate or collateral ligament instability, but does show patellofemoral crepitation and discomfort with stress. Her clinical history is significant with chondromalacia patella. her options at this point Iwould recommend , anti-inflammatory medication for about 2-3 weeks to decrease inflammation in the knee, steroid injections, weight loss, avoid squatting and lunges or any exercises where she is putting the knee in deep flexion, short arcexercises are recommended, physical therapy specific for patellar femoral syndrome, we discussed concentrated simmons juice or turmeric can be used as other supplements. Patient would like to hold off on any treatment at this time.If she changes her mind and decides she would like a physical therapy referral or medication, she can just call into the office. Follow up in an as needed basis or sooner if pain, swelling, numbness or associated symptoms, or concerns develop. All questions answered. Patient in agreement of plan. 03/19/25 0904 <Electronically signed by Lyndon vázquez DO> Date _ Lyndon Gruber DO Cosigner Signature: Date (if applicable) CC: ~ [facility] Work Phone: 1(875) 370-824507-09-2025 Evaluation note* Diagnosis Onset Date Resolution Status Admit Date PCOS (polycystic ovarian syndrome) chronic February 26, 2025 9 :49am Chondromalacia patellae of right knee acute March 19, 2025 7:56am Heart palpitations acute Sept2024 2:03pm PCOS (polycystic ovarian syndrome) chronic May 08, 2025 2:03pm [facility] Work Phone: 1(264) 973-665007-09-2025 [facility] [address] [place] [address], [address] [place] [address] OFFICE VISIT Date of Service: 02/26/25 MR#: [id number] Acct: [id number] Name: KRISTAN MCLEAN Rep #: [id number] : 1995 Provider: RADHA Gordillo Age/Sex: 29/F Location: [facility] Status: Signed Intake Vital Signs 12/19/24 15:35 02/26/25 09:52 Height 5 ft 4 in 5 ft 4 in Weight: 256 lb 255 lb 2 oz BMI 43.9 43.7 BP 129/86 H 127/79 H Intake Visit Reasons: 6 wk med check Preservationist Required: No Is patient in pain?: No Allergies No Known Allergies Allergy (Verified 02/26/25 09:52) Medications ?Medication ?Instructions ?Recorded ?Confirmed ?Type cholecalciferol (vitamin D3) 50 50 mcg PO QDAY 5 02/26/25 History mcg (2,000 unit) capsule spironolactone 50 mg tablet 50 mg PO QDAY 30 days #30 tabs 02/26/25 02/26/25 Rx (Aldactone) Is last menstrual period known: No Post menopausal: No Patient : No : No Control Method: [facility] Medical History Wears glasses History of steroid therapy Alcohol use Non-smoker Vaginal delivery Depression Sterilization Infertility Surgical History H/O cystoscopy History of repair of ACL Status post laparoscopic procedure History of surgery History of appendectomy (~06/2022) Family History Grandmother Breast cancer Social History adopted: No household members: family housing: house number of children: 3 Smoking Status: Never smoker alcohol intake: never substance use type: does not use caffeine: Yes what type of physical activity do you participate in: walking seatbelt use: always do you feel safe at home: Yes additional social history: 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 She reports she is doing great on this; has noticed a difference in the hair growth on her face; in particularly above her lip. She denies side effects from this and would like to continue on it. History 3 Elective abortions Hx Para 3 Spontaneous abortions Hx # Term Pregnancies Ectopic pregnancies Hx # Pregnancies Multiple births # of living children 3 Past Pregnancies Del. Date Name GA/Weeks Outcome Route Bth Weight Gen Labor Lgth Anesthesia Del Locat Provider FOB 09/13/15 [place] 39 live - full term 8 pounds 3oz Mal e 10 hours epidural [facility] Ashley Berumen 01/16/19 [place] 39 live - full term 7lbs 7oz Male 10 h ours epidural [facility] Dilan 12/10/21 [place] 39 live - full term 8lbs 9oz Male [facility] Dr. Frederick Delivery Date: 01/16/19 Last Updated by: Mariya Lugo pre term labor at 26 weeks Delivery Date: 12/10/21 Last Updated by: Corinna MCCARTHY ENT ENT: Reports system reviewed and no additional complaints, except as documented Cardio Card: Reports system reviewed and no additional complaints, except as documented Resp Resp: Denies cough, dyspnea or dyspnea on exertion Musc Musc: Reports system reviewed and no additional complaints, except as documented Skin Skin/Breast: Reports system reviewed and no additional complaints, except as documented Exam Const General: cooperative, healthy appearing, comfortable, no acute distress, well groomed and well hydrated Nutritional Appearance: well nourished Orientation: alert, awake and oriented x3 Eyes General: appearance normal, both eyes and all related structures Neck Neck: normal visual inspection and full ROM Resp Effort & Inspection: normal respiratory effort, able to speak in complete sentences and symmetric chest movement Skin General: no rashes or lesions noted Neuro General: patient alert, patient awake, patient oriented x3 and moves all extremities Psych Appearance: grossly normal Mental Status: mental status grossly normal Affect: normal affect Speech and Movement: speech and movement normal Attitude: cooperative Coding Level of Care Code Established Pt Off vis,est,level 3 Patient Type Established Diagnoses PCOS (polycystic ovarian syndrome) E28.2 Assessment and Plan Assessment and Plan (1) PCOS (polycystic ovarian syndrome): Status: Chronic Comment: hair growth to chin/coarse. Plan: Continue medications; refills sent. Labs ordered to obtain today and then in 6 months to ensure stable kidney function. Orders: Orders Comprehensive Metabolic Profil Today E28.2 - Polycystic ovarian syndrome Medications: Refilled spironolactone (Aldactone) 50 mg PO QDAY 30 days 30 tabs 11RF 02/26/25 1019 n MECHANIC FOREMAN-C> Date _ Alla Gordillo MECHANIC FOREMAN-C Cosigner Signature: Date (if applicable) CC: ~ [facility]05-01-2025 Evaluation note* Diagnosis Onset Date Resolution Status Admit Date PCOS (polycystic ovarian syndrome) chronic December 19, 2024 3: 31pm Encounter for routine gynecological examination noneactive December 3:31pm [facility] Work Phone: 1([phone]) [phone] Evaluation note* Diagnosis Onset Date Resolution Status Admit Date PCOS (polycystic ovarian syndrome) chronic December 19, 2024 3: 31pm Encounter for routine gynecological examination noneactive December 3:31pm PCOS (polycystic ovarian syndrome) chronic February 26, 2025 9 :49am [facility] Work Phone: 1(882) 291-812605-01-2025 Evaluation note* Diagnosis Onset Date Resolution Status Admit Date PCOS (polycystic ovarian syndrome) chronic December 19, 2024 3: 31pm Encounter for routine gynecological examination noneactive December 3:31pm PCOS (polycystic ovarian syndrome) chronic February 26, 2025 9 :49am Chondromalacia patellae of right knee acute March 19, 2025 7:[address]am [facility] Work Phone: [phone]) 175-986406-05-[address] Reyes [facility] January 23, 2023 5:47pm Note Date/Time January 23, 2023 4:30p m [facility] Medical Records Department [address] [place] [address] Emergency Department Summary 01/23/23 MR#: [id number] Acct: [id number] Name: KRISTAN MCLEAN Rep #:[id number] : 1995 27 From: Vamsi Reyes MD PCP: ISIDRO GRIMES Status:REG ER Location: ED HPI History of Present Illness Chief Complaint: Fever Informant: patient Narrative Narrative: Patient presents with fever about 1 week post hysterectomy. Patient states she had a hysterectomy on the . Went home same day. She hasbeen taking 1 Percocet at night and then she will take Motrin during the day. She states the pain has more changed. It feels like there is a "bowling ball stuck in her lower pelvis area. No contents visible. No notable discharge. Noproblems urinating at all. No pain or trouble starting or stopping urination. No issues with bowel habits. She has been a little tired and her appetite is down but she is able to eat and drink. Last night she had a temperature 100.3. Today it was 100.5. She called the office and they referred her into the emergency department. She has no other complaints of congestion cough or symptoms that would be likely to cause a fever. [facility] Medical History Alcohol use Depression History of steroid therapy Infertility Non-smoker Sterilization Vaginal delivery Wears glasses Home Medications multivitamin no.47-iron fum 27 mg-folate no.1 1 mg-dha 300 mg capsule (PNV-DHA)1 cap PO DAILY 05/28/21 [History Last Taken 12/09/21] sertraline 50 mg tablet 50 mg PO DAILY #90 tabs 10/10/22 [Rx Last Taken 01/17/23] ibuprofen 800 mg tablet 800 mg PO Q8H PRN pain #30 tabs 01/17/23 [Rx Last Taken Unknown] oxycodone-acetaminophen 5 mg-325 mg tablet (Percocet) 1 tab PO Q4H PRN pain 7 days #30 tabs 01/17/23 [Rx Last Taken Unknown] norethindrone (contraceptive) 0.35 mg tablet (Jencycla) 0.35 mg PO DAILY 01/23/23 [History Last Taken Unknown] Allergy/AdvReac Type Severity Reaction Status Date / Time No Known Allergies Allergy Verified 01/23/23 16:03 Surgical History History of appendectomy (~06/2022) History of repair of ACL History of surgery Status post laparoscopic procedure Social History adopted: No household members: family housing: house number of children: 3 Smoking Status: Never smoker alcohol intake: never substance use type: does not use caffeine: Yes what type of physical activity do you participate in: walking seatbelt use: always do you feel safe at home: Yes 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 Some specific details below. Constitutional: Fevers as in history of present illness but no chills. No real malaise. ENT: No difficulty swallowing. No swelling. No pain. No congestion or sore throat. CV: No chest pain or palpitations. Respiratory: No dyspnea. No hemoptysis. No difficulty taking breaths. GI: Mild decreased appetite but no nausea vomiting diarrhea or constipation. She is taking a stool softener. : No frequency dysuria or hematuria. See history of present illness also. Musculoskeletal: No recent trauma. No pains. Skin: No rash. Nondiaphoretic. Neuro: No weakness or numbness. Endocrine: No polyuria or polydipsia. EXAM Physical Exam Narrative Exam Narrative: CONSTITUTIONAL: Patient is nontoxic in appearance. The patient looks comfortable. HEENT: No notable trauma. Mucous membranes moist. EYES: No conjunctival injection. No proptosis. CARDIOVASCULAR: Regular rate. Regular rhythm. RESPIRATORY: No respiratory distress. Breathing is unlabored. No wheezes. GASTROINTESTINAL: Not distended. Bowel sounds are normal. No tenderness. No guarding. No rebound. No palpable mass. No bruit. All 4 of her port sites are healing well and are nontender and noninflamed. There is mild suprapubic pressure but no mass felt. GENITOURINARY: Mild tenderness over the region of the bladder. No CVA tenderness. MUSCULOSKELETAL: Atraumatic. No peripheral edema. No cord. No tenderness along the deep venous system. No asymmetry. NEUROLOGICAL: Patient is alert and appropriate. No focal deficit noted. SKIN: No noted rashes. No diaphoresis. PSYCHIATRIC: Patient is calm. Mood is appropriate. Const Vital Signs: 01/23/23 16:03 01/23/23 16:25 Temperature 99 F Temperature Source Temporal Pulse Rate 103 H Respiratory Rate 20 H Respiratory Effort Normal Respiratory Pattern Normal Blood Pressure 137/95 H Blood Pressure Mean 109 Pulse Ox 98 Oxygen Delivery Method Room Air MDM MDM MDM Narrative Medical decision making narrative: Independent interpretation the patient's CT of the abdomen of IV contrast shows no abnormalities. I see no fluid collection or abscess or significant stranding. Final reading shows no acute findings in the abdomen or pelvis. CBC is normal including white count. Electrolytes are normal. Urine is slightly cloudy. There are 5-10 white cells but negative nitrites. Bryson send this for culture but since she is not having dysuria we will not treatthis acutely. I discussed the case with Dr. Ware who is on-call for the patient's surgeon. They will follow her up in the office. Lab Data Labs: Laboratory Results - last 24 hr 01/23/23 01/23/23 01/23/23 16:20 16:20 16:30 WBC 9.2 RBC 4.35 Hgb 13.5 Hct 38.7 MCV 89.0 MCH 31.0 MCHC 34.9 RDW Std Deviation 42.0 RDW Coeff of Leanna 13.0 Plt Count 256 MPV 8.9 Immature Gran % (Auto) 0.300 Neut % (Auto) 71.6 H Lymph % (Auto) 18.5 L [place] % (Auto) 7.0 Eos % (Auto) 2.1 Baso % (Auto) 0.5 Absolute Neuts (auto) 6.6 Absolute Lymphs (auto) 1.70 Nucleated RBC % 0 Sodium 140 Potassium 3.5 Chloride 107 Carbon Dioxide 26.0 Anion Gap 7 BUN 9 Creatinine 0.72 Estim Creat Clear Calc 100.45 Est GFR (MDRD) Af Amer 125 Est GFR (MDRD) Non-Af 103 BUN/Creatinine Ratio 12.6 Glucose 105 Calcium 9.1 Urine Color Yellow Urine Clarity Sl. Cloudy Urine pH 7.0 Ur Specific [place] 1.010 Urine Protein Negative Urine Glucose (UA) Normal Urine Ketones Negative Urine Occult Blood 50 H Urine Nitrite Negative Urine Bilirubin Negative Urine Urobilinogen Normal Ur Leukocyte Esterase 500 H Urine RBC 0 SEEN Urine WBC 5-10 SEEN Ur Squamous Epith Cells 0-5 SEEN Amorphous Sediment 1+ Urine Bacteria 1+ Urine Mucus 0 SEEN Radiography Diagnostic Testing: Clinical Impression(s) from Imaging Studies Abdomen/Pelvis CT 01/23/23 16:32 IMPRESSION: No acute findings in the abdomen or pelvis. Electronically Signed: Fred Rosenberg MD at 16:54 EDT , Management Discussion w/another healthcare provider: PCP Discharge Plan Triage Chief Complaint: Fever ED Provider: Vamsi Reyes Dx/Rx/DC Orders Clinical Impression: Status post hysterectomy, History of fever Instructions: ED FUO Adult Prescriptions: No Action PNV-DHA 27 mg iron-1 mg -300 mg capsule 1 cap PO DAILY oxycodone-acetaminophen [Percocet] 5-325 mg tablet 1 tab PO Q4H PRN (Reason: pain) 7 Days Qty: 30 0RF Rx Instructions: 1-2 tabs q 4 hrs as needed for pain ibuprofen 800 mg tablet 800 mg PO Q8H PRN (Reason: pain) Qty: 30 0RF norethindrone (contraceptive) [Jencycla] 0.35 mg tablet 0.35 mg PO DAILY Label Comments: take 1 tablet by mouth once daily sertraline 50 mg tablet 50 mg PO DAILY Qty: 90 1RF Primary Care Provider: Isidro Grimes Referrals: Isidro Grimes MD [Primary Care Provider] - Meliza Casillas DO [Med Staff - Active Staff] - Keep Elsa appointment Disposition Disposition: Home, Self Care What to do if you have Problems For any increased pain, shortness of breath, bleeding, nausea or vomiting, chestpain, or any unexpected problems, contact your Primary Care Provider. Call [facility] ([phone]) or report to the closest Emergency Room. Call 911 if necessary. 01/23/231746 <Electronically signed by Vamsi Reyes MD> Cosigner Signature (if applicable): CC: ISIDRO GRIMES ~ Signed [facility] Work Phone: 1(386) 877-353905-30-2023 History and physical note Author Dr. Luque [facility] January 17, 2023 8:08am Note Date/Time January 17, 2023 8:08a m [facility] Medical Records Department [address] [place] [address] History & Physical Exam 01/17/23805 MR#: [id number] Acct: [id number] Name: KRISTAN MCLEAN Rep #:[id number] : 1995 27 From: Meliza Casillas DO PCP: ISIDRO GRIMES Status:[facility] Location: [place] [address] History and Physical Date of Admission: 01/17/23 Intake Vital Signs ? 11/16/2314:20 11/16/2314:23 Height 5 ft 4 in 5 ft 4 in Weight: ? 228 lb 4 oz BMI ? 39.2 BP ? 122/75 H Intake Visit Reasons:?FU enlarged uterus Preservationist Required: No Is patient in pain?: No Allergies No Known Allergies Allergy (Verified 11/16/22 15:24) Medications multivitamin no.47-iron fum 27 mg-folate no.1? 1 mg-dha 300 mg capsule (PNV- DHA)1 cap PO DAILY 05/28/21 [History Confirmed 11/16/22] sertraline 50 mg tablet 50 mg PO DAILY #90 tabs 10/10/22 [Rx Confirmed 11/16/22] mecobalamin (vitamin B12) 1,000 mcg chewable tablet 1,000 mcg PO DAILY 11/16/22 [History Confirmed 11/16/22] Post menopausal: No Patient : No : No PFSH Medical History? Alcohol use Depression Infertility Non-smoker Sterilization Vaginal delivery Surgical History? History of appendectomy History of surgery Status post laparoscopic procedure Social History? adopted:? No household members:? family housing:? house number of children:? 3 Smoking Status:? Never smoker alcohol intake:? never substance use type:? does not use caffeine:? Yes what type of physical activity do you participate in:? walking seatbelt use:? always do you feel safe at home:? Yes additional social history:? 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 ultrasound showed an 11 cm uterus, arcuate shape. We have gone over the risks, benefits, and alternatives to the procedure.She has tried other options without success. EMB was benign History ? ? ? 3 ? Elective abortions ? Hx Para ? ? ? 3 ? Spontaneous abortions ? Hx # Term Pregnancies ? Ectopic pregnancies ? Hx # Pregnancies ? Multiple births ? # of living children ? ? ? 3 Past Pregnancies Del. Date Name GA/Weeks Outcome Route Bth Weight Infant Gen Labor Lgth Anesthesia Del Locatn Provider FOB 09/13/15 [place] 39 live - full term 8 pounds 3oz Mal e 10 hours epidural [facility] Ashley Berumen 01/16/19 [place] 39 live - full term 7lbs 7oz Male 1 0 hours epidural [facility] Berumen 12/10/21 [place] 39 live - full term 8lbs 9oz Male ? ? [facility] Dr. Frederick Delivery Date: 01/16/19? Last Updated by: Mariya Lugo ? ? ? pre term labor at 26 weeks Delivery Date: 12/10/21? Last Updated by: Corinna Prado ? ? ? COVID ROS Const ROS Unobtainable: All systems reviewed & are unremarkable except as noted in H Resp Resp: Reports system reviewed and no additional complaints, except as documented; Denies cough GI GI: Reports as per HPI Psych Psych: Reports system reviewed and no additional complaints, except as documented Exam Const General: cooperative, healthy appearing, comfortable and no acute distress Resp Effort & Inspection: normal respiratory effort General: bimanual renal exam normal bilaterally External Female Exam: normal appearance of the urethra Urethra: normal appearance of the urethra Speculum Exam - Vagina: normal appearance of the vagina Speculum Exam - Cervix: normal appearance of the cervix Bimanual Exam- Adnexa, other: normal adnexae and normal Pelvic Support: normal Skin General: no rashes or lesions noted Psych Appearance: grossly normal Speech and Movement: speech and movement normal Office Procedures Endometrial Biopsy Endometrial Biopsy Test: Yes Negative and Yes declined Time out checklist: patient tenaculum used: Yes dilator used: No Details: Cervix prepped with betadine and pipelle inserted into uterus without complication. Specimen obtained and sent to lab for analysis. All instruments removed from vagina without complications. Excellent hemostasis noted. Coding Level of Care Code Off vis,est,level 4 Diagnoses Abnormal uterine bleeding? N93.9 CPT Codes Endometrial Biopsy (73107) Assessment and Plan Assessment and Plan (1) Abnormal uterine bleeding: ?Status:?Acute ?Comment: pelvic US ? ? ? Orders: Orders Endometrial Biopsy Today N93.9 - Abnormal uterine and vaginal bleeding, unspecified ? Plan will call with results and start low dose progesterone in the meantime. we discussed surgical options vs medication options including continuing progesterone vs TXA. She had scant blood on exam today and reports that there are days of the month she has spotting and days of the month she has gushes of blood. After discussing the patient's diagnosis and treatment plan options, patient wishes to proceed with surgical management. I have discussed with the patient the risks, benefits, and alternatives of the procedure which include but are notlimited to risks of anesthesia, bleeding, infection, possible damage to bowel, bladder, or surrounding vasculature which could lead to additional surgery to evaluate any complications. Patient agrees to procedure and wishes to proceed. ACOG/uptodate references given for additional information regarding procedure. Plan for total robotic hysterectomy, bilateral salpingectomy, and cystoscopy 01/17/23 0808 <Electronically signed by Meliza Casillas DO> Cosigner Signature (if applicable): CC: ISIDRO GRIMES; Dr. Meliza Casillas, ~ Signed [facility] Work Phone: 1(362) 545-198105-30-2023 Procedure [facility] 06-14-2022 Influenza virus A and B RNA and SARS-CoV-2 (COVID-19) N gene panel DEB+probe (Resp)COVID 19 RESULT: SARS-CoV-2 (Agent of COVID-19) Not Detected by RT-PCR or equivalent method. [place] [id number] (ISMAEL)_EUA This test was developed and its performance characteristics determined by [facility] [place]. This test has been authorized by FDA under an Emergency Use Authorization (EUA). This test has been validated in accordance with the FDA's Guidance Document Policy for DiagnosticsTesting in Laboratories Certified to Perform High Complexity Testing under CLIA prior to Emergency use Authorization for Coronavirus Disease 2019 during the Public Health Emergency" issued on October 19, 2019. Test performed by [facility], [facility] [place], [address] [place] [address]. INFLUENZA A PCR: Negative for Influenza A by RT-PCR INFLUENZA B PCR: Negative for Influenza B by RT-PCRGood Samaritan HospitalComment on above: Performed By: #### [id number] #### [facility] CLIA [id number] [address] [place] [address] [place] [id number] NoteHNO ID: [id number] Author: Demetri Velasquez APRN.SYSTEMS ENGINEER Service: ? Author Type: Nurse Practitioner Type: Progress Notes Filed: 06/14/2022 9:10 AM Note Text: Subjective HPI Nontoxic-appearing female presents urgent care chief complaint cough sore throat nasal congestion. Duration of symptoms 5 days. Associated symptoms cough sore throat nasal congestion left ear pain. States it has been in children has similar signs symptoms. Has not used any OTC medication use today. Most bothersome symptom is nasal congestion. Denies any recent COVID-19 exposures. Denies any fever productive cough chest pain shortness of breath pleuritic pain hemoptysis nausea vomiting abdominal pain or change in bowel or bladder meds. Past medical history prescription medication use allergies reviewed. .Patient presents with: Cough: started with congestion, sore throat x 5 days History reviewed. No pertinent past medical history. History reviewed. No pertinent surgical history. ALLERGIES Patient has no known allergies. MEDICATIONS multivitamin (ISACC ) 28 mg iron- 800 mcg tab Take 1 tablet by mouth once daily. History reviewed. No pertinent family history. Social History Tobacco Use Smoking status: Never Smokeless tobacco: Never BP 122/74 Pulse 102 Temp 36.4 ?C (97.6 ?F) Resp 16 Wt 99.8 kg (220 lb) LMP 06/29/2016 SpO2 98% Review of Systems Constitutional: Positive for malaise/fatigue. Negative for chills and fever. HENT: Positive for congestion, ear pain and sore throat. Negative for ear discharge and sinus pain. Eyes: Negative for blurred vision, pain, discharge and redness. Respiratory: Positive for cough. Negative for hemoptysis, sputum production, shortness of breath, wheezing and stridor. Cardiovascular: Negative for chest pain. Gastrointestinal: Negative for abdominal pain, diarrhea, nausea and vomiting. Musculoskeletal: Positive for myalgias. Skin: Negative for itching and rash. Neurological: Negative for dizziness and headaches. Objective Physical Exam Constitutional: General: She is not in acute distress. Appearance: She is not diaphoretic. HENT: Head: Normocephalic. Right Ear: Tympanic membrane, ear canal and external ear normal. No mastoid tenderness. Left Ear: Ear canal and external ear normal. No mastoid tenderness. Tympanic membrane is erythematous and bulging. Nose: Congestion present. Mouth/Throat: Lips: [place]. Mouth: Mucous membranes are moist. Pharynx: Oropharynx is clear. Uvula midline. Posterior oropharyngeal erythema present. No pharyngeal swelling, oropharyngeal exudate or uvula swelling. Eyes: Conjunctiva/sclera: Conjunctivae normal. Pupils: Pupils are equal, round, and reactive to light. Cardiovascular: Rate and Rhythm: Normal rate and regular rhythm. Heart sounds: Normal heart sounds. Pulmonary: Effort: Pulmonary effort is normal. No tachypnea, accessory muscle usage or respiratory distress. Breath sounds: Normal breath sounds. No stridor. No wheezing, rhonchi or rales. Abdominal: Palpations: Abdomen is soft. Tenderness: There is no abdominal tenderness. There is no guarding. Musculoskeletal: Cervical back: Normal range of motion and neck supple. No rigidity or tenderness. Lymphadenopathy: Cervical: No cervical adenopathy. Skin: General: Skin is warm and dry. Neurological: Mental Status: She is alert and oriented to person, place, and time. ASSESSMENT/PLAN: 1. Viral illness - ICD9: 079.99, ICD10: B34.9 - COVID WITH FLUA+B, ROUTINE Will obtain the COVID-19 swab. Left TM mildly bulging erythematous. Delayed prescribing amoxicillin. Patient was educated on supportive therapies. Patient will follow up with primary care provider as needed. Patient was instructed to immediately proceed to emergency room for any new, worsening, or symptoms lasting longer than anticipated. The patient's clinical presentation is otherwise unremarkable at this time. Based on exam and clinical finding, the patient is stable for discharge. Plan of care was discussed with patient. Patient verbalizes understanding and agrees to plan of care. This note was generated using [employer] software. It may contain errors in wording, punctuation, or spelling. Demetri Velasquez APRN.[facility]10-25-2022 History of Present illness Narrative* Demetri Velasquez APRN.[facility] - 06/14/2022 8:53 AM EDT Subjective HPI Nontoxic-appearing female presents urgent care chief complaint cough sore throat nasal congestion. Duration of symptoms 5 days. Associated symptoms cough sore throat nasal congestion left ear pain. States it has been in children has similar signs symptoms. Has not used any OTC medication use today.Most bothersome symptom is nasal congestion. Denies any recent COVID-19 exposures. Denies any feverproductive cough chest pain shortness of breath pleuritic pain hemoptysis nausea vomiting abdominalpain or change in bowel or bladder meds. Past medical history prescription medication use allergiesreviewed. .Patient presents with: Cough: started with congestion, sore throat x 5 days History reviewed. No pertinent past medical history. History reviewed. No pertinent surgical history. ALLERGIES Patient has no known allergies. MEDICATIONS multivitamin (ISACC ) 28 mg iron- 800 mcg tab Take 1 tablet by mouth once daily. History reviewed. No pertinent family history. Social History Tobacco Use Smoking status: Never Smokeless tobacco: Never BP 122/74 Pulse 102 Temp 36.4 C (97.6 F) Resp 16 Wt 99.8 kg (220 lb) LMP 06/29/2016 SpO2 98% Review of Systems Constitutional: Positive for malaise/fatigue. Negative for chills and fever. HENT: Positive for congestion, ear pain and sore throat. Negative for ear discharge and sinus pain. Eyes: Negative for blurred vision, pain, discharge and redness. Respiratory: Positive for cough. Negative for hemoptysis, sputum production, shortness of breath, wheezing and stridor. Cardiovascular: Negative for chest pain. Gastrointestinal: Negative for abdominal pain, diarrhea, nausea and vomiting. Musculoskeletal: Positive for myalgias. Skin: Negative for itching and rash. Neurological: Negative for dizziness and headaches. Objective Physical Exam Constitutional: General: She is not in acute distress. Appearance: She is not diaphoretic. HENT: Head: Normocephalic. Right Ear: Tympanic membrane, ear canal and external ear normal. No mastoid tenderness. Left Ear: Ear canal and external ear normal. No mastoid tenderness. Tympanic membrane is erythematous and bulging. Nose: Congestion present. Mouth/Throat: Lips: [place]. Mouth: Mucous membranes are moist. Pharynx: Oropharynx is clear. Uvula midline. Posterior oropharyngeal erythema present. No pharyngeal swelling, oropharyngeal exudate or uvula swelling. Eyes: Conjunctiva/sclera: Conjunctivae normal. Pupils: Pupils are equal, round, and reactive to light. Cardiovascular: Rate and Rhythm: Normal rate and regular rhythm. Heart sounds: Normal heart sounds. Pulmonary: Effort: Pulmonary effort is normal. No tachypnea, accessory muscle usage or respiratory distress. Breath sounds: Normal breath sounds. No stridor. No wheezing, rhonchi or rales. Abdominal: Palpations: Abdomen is soft. Tenderness: There is no abdominal tenderness. There is no guarding. Musculoskeletal: Cervical back: Normal range of motion and neck supple. No rigidity or tenderness. Lymphadenopathy: Cervical: No cervical adenopathy. Skin: General: Skin is warm and dry. Neurological: Mental Status: She is alert and oriented to person, place, and time. ASSESSMENT/PLAN: 1. Viral illness - ICD9: 079.99, ICD10: B34.9 - COVID WITH FLUA+B, ROUTINE Will obtain the COVID-19 swab. Left TM mildly bulging erythematous. Delayed prescribing amoxicillin. Patient was educated on supportive therapies. Patient will follow up with primary care provider as needed. Patient was instructed to immediately proceed to emergency room for any new, worsening, or symptoms lasting longer than anticipated. The patient's clinical presentation is otherwise unremarkable at this time. Based on exam and clinical finding, the patient is stable for discharge. Plan of care was discussed with patient. Patient verbalizes understanding and agrees to plan of care. This note was generated using [employer] software. It may contain errors in wording, punctuation, or spelling. Demetri Velasquez APRN.GENI documented in this encounterWay[facility]10-[facility]-2022 Instructions* Patient Instructions* Demetri Velasquez APRN.CNP - 06/14/2022 8:53 AM EDT How to Manage Common Symptoms Associated with COVID for Adults Fever- Fever is a temperature over 100.4 F and can occur when the body is fighting an infection. Tohelp treat a fever: Drink plenty of fluids and stay well hydrated. Eat small amounts of easy to digest food. Rest. Your body needs rest to recover, but getting up and moving around the house frequently is a good idea. You should try to continue doing your normal daily activities (bathing, toileting, grooming, cooking), though you will probably feel tired, and need to rest often. Avoid any heavy activity or exercise, as this will increase your body temperature. Dress in light clothing and stay covered in a light sheet. Keep the room temperature cool. Take a slightly warm (not cold or cool) bath, or apply damp washcloths to the forehead and wrists. Cough- Cough is a common symptom associated with COVID and can be bothersome. To help treat a cough: Stay well hydrated. Try warm water or tea with lemon and/or honey to help soothe the cough. Use a humidifier to add moisture to the air. Try a product with menthol, like a cough drop or a rub for your chest such as Vicks, which can helpreduce cough. Try cough drops. Avoid smoking and other strong odors or perfumes. Try breathing exercises to keep your lungs open and clear. Take a big deep breath through your noseand hold for 5 seconds before slowly releasing. Repeat frequently, while you are awake. Congestion- Runny nose or nasal congestion can occur with COVID. Treatment can help relieve symptoms: Try OTC nasal saline spray, or nasal saline rinse to relieve mucus congestion. Nasal strips can help keep nasal passages open, to increase airflow. Elevating your head with an extra pillow in bed can help reduce congestion. Using a humidifier can increase moisture in the air, and make breathing easier. Sore Throat- Another common symptom with COVID, can be managed at home by: Stay well hydrated. Gargle with salt water - mix teaspoon salt with 1 cup of warm water and gargle. This helps to loosen mucus in the back of the throat and may reduce discomfort. Try ice chips, popsicles or lozenges to soothe the throat. Nausea/Vomiting/Diarrhea- These are common symptoms, and staying hydrated is most important. If you are nauseous or vomiting, start with small sips of water every 10-15 minutes and increase astolerated. You can try sucking an ice cube too. If tolerating, you can try pedialyte or Gatorade, or flat sprite or radha-dipak. Start slowly and increase as you are able to. Instead of meals, try smaller, more frequent snacks. Try eating bland foods like crackers, toast, rice, and applesauce. Avoid spicy, greasy or fried foods and dairy containing foods. Even if you aren't feeling hungry due to lack of smell or taste, it is important to try to take in some food when you are able. After drinking and eating, rest in an upright position for up to two hours as needed to help decrease nauseous feelings. Try closing your eyes, avoid moving and watching TV. Avoid strong odors that can make you feel more nauseated. When to seek emergency medical attention Look for emergency warning signs for COVID-19. If having any of these symptoms, seek emergency medical care immediately: Trouble breathing Persistent pain or pressure in the chest New confusion Inability to wake or stay awake Bluish lips or face *This list is not all possible symptoms. Please call your medical provider for any other symptoms that are severe or concerning to you. documented in this encounterWay[facility]08-07-2022 Hospital Discharge instructions Patient Education 03/27/2022 20:35:46 R.I.C.E. RICE RICE stands for rest, ice, compression, and elevation. Doing these things helps limit pain and swelling after an injury. RICE also helps injuries heal faster. Use RICE for sprains, strains, and severe bruises or bumps. Follow the tips on this handout and begin RICE as soon as possible after an injury. Rest Pain is your body s way of telling you to rest an injured area. Whether you have hurt an elbow, hand, foot, or knee, limiting its use will prevent further injury and help you heal. Ice Applying ice right after an injury helps prevent swelling and reduce pain. Don t place ice directlyon your skin. Wrap a cold pack or bag of ice in a thin cloth. Place it over the injured area. Ice for 10 minutes every 3 hours. Don t ice for more than 20 minutes at a time. Compression Putting pressure (compression) on an injury helps prevent swelling and provides support. Wrap the injured area firmly with an elastic bandage. If your hand or foot tingles, becomes discolored, or feels cold to the touch, the bandage may be too tight. Rewrap it more loosely. If your bandage becomes too loose, rewrap it. Do not wear an elastic bandage overnight. Elevation Keeping an injury elevated helps reduce swelling, pain, and throbbing. Elevation is most effective when the injury is kept elevated higher than the heart. Call your healthcare provider if you notice any of the following: Fingers or toes feel numb, are cold to the touch, or change color. Skin looks shiny or tight. Pain, swelling, or bruising worsens and is not improved with elevation. [id number] [employer]. [address] [place] [address], [place] [address]. All rights reserved. This information is not intended as a substitute for professional medical care. Always follow yourhealthcare professional's instructions. 03/27/2022 20:35:41 Knee Sprain Knee Sprain A sprain is an injury to the ligaments or capsule that holds a joint together. There are no broken bones. Most sprains take 3 to 6 weeks to heal. If it a severe sprain where the ligament is completely torn, it can take months to recover. Most knee sprains are treated with a splint, knee immobilizer brace, or elastic wrap for support. Severe sprains may rarely require surgery. Home care Stay off the injured leg as much as possible until you can walk on it without pain. If you have a lot of pain with walking, crutches or a walker may be prescribed. (These can be rented or purchased at many pharmacies and surgical or orthopedic supply stores). Follow your healthcare provider's advice about when to begin putting weight on that leg. Keep your leg elevated to reduce pain and swelling. When sleeping, place a pillow under the injuredleg. When sitting, support the injured leg so it is above heart level. This is very important during the first 48 hours. Apply an ice pack over the injured area for 15 to 20 minutes every 3 to 6 hours. You should do thisfor the first 24 to 48 hours. You can make an ice pack by filling a plastic bag that seals at the top with ice cubes and then wrapping it with a thin towel. Continue to use ice packs for relief of pain and swelling as needed. As the ice melts, be careful to avoid getting your wrap, splint, or cast wet. After 48 hours, apply heat (warm shower or warm bath) for 15 to 20 minutes several times a day,or alternate ice and heat. You can place the ice pack directly over the splint. If you have to weara sevg-ahz-jyel knee brace, you can open it to apply the ice pack, or heat, directly to the knee. Never put ice directly on the skin. Always wrap the ice in a towel or other type of cloth. You may use vfns-nrs-auaqdsj pain medicine to control pain, unless another pain medicine was prescribed. If you have chronic liver or kidney disease or ever had a stomach ulcer or gastrointestinal bleeding, talk with your healthcare provider before using these medicines. If you were given a splint, keep it completely dry at all times. Bathe with your splint out of the water, protected with 2 large plastic bags, sealed with rubber bands or tape at the top end. If a fiberglass splint gets wet, you can dry it with a family medicine chair set to cool. If you have a vhpy-xex-kmym knee brace, you can remove this to bathe, unless told otherwise. Follow-up care Follow up with your doctor as advised. Any X-rays you had today don t show any broken bones, breaks, or fractures. Sometimes fractures don t show up on the first X-ray. Bruises and sprains can sometimes hurt as much as a fracture. These injuries can take time to heal completely. If your symptoms don t improve or they get worse, talk with your doctor. You may need a repeat X-ray. If X-rays were taken, you will be told of any new findings that may affect your care. Call 911 Call 911 if you have: Shortness of breath Chest pain When to seek medical advice Call your healthcare provider right away if any of these occur: The splint or knee immobilizer brace becomes wet or soft The fiberglass cast or splint remains wet for more than 24 hours Pain or swelling increases The injured leg or toes become cold, blue, numb, or tingly [phone] [employer]. [address] [place] [address]. All rights reserved. This information is not intended as a substitute for professional medical care. Always follow yourhealthcare professional's instructions. Follow Up Care 03/27/2022 19:52:36 With:TRENT GREEN MD Address: [address] [place] [address] [address] [facility] [place] [phone] When:5 to 7 days only if needed [facility] 08-07-2022 Note ORIGINAL EXAMINATION: THREE XRAY VIEWS OF THE LEFT KNEE03/27/2022 8:16 pm COMPARISON: None HISTORY: ORDERING SYSTEM PROVIDED HISTORY: Reason for Exam: pain Twisted left knee today, posterior/inferior left knee pain FINDINGS: No acute fracture or dislocation. No periosteal reaction or suspicious osseous abnormality. No radiopaque foreign body. No significant knee joint effusion. IMPRESSION: No acute fracture. I have personally reviewed the images of this examination and agree with the resident's findings and interpretation. Interpreted by: Malcom Rose MD Preliminary Report By: Marta Seals Electronically signed By Malcom Rose MD Dictated Date: 03/27/2022 8:41:27 PM Prelim Date: 03/27/2022 8:44:09 PM Sign Date: 03/27/2022 8:47:52 PM Ordering Provider: ALYSSA CAMARA [facility] [id number] Note Discharge Instructions Thank you for allowing [facility] to assist you with your healthcare needs. The following is importantdischarge information regarding your hospital visit. Diagnosis from Today's Visit Knee pain-swelling What to Do Next Instructions from Your Care Team No qualifying data available. Post Acute Orders No qualifying data available. You Need to Schedule the Following Appointments Follow Up with TRENT GREEN MD When Within 5 to 7 days, only if needed Where: [address] [place] [address] [phone] Allergies Molasses (non-codified) (Rash) radha (Rash) Medications Please ask your primary doctor or pharmacist before taking any other medication not listed, including over the counter drugs, herbal medications, vitamins and or supplements as they may interact withyour home medications. What How Much When Instructions Last Dose Unchanged docusate (Colace 100 mg oral capsule) 1 cap by mouth Two (2) times a day Unchanged hydrocortisone-pramoxine topical (Epifoam 1%-1% rectal foam) 1 application to perineal area Every hour as needed for hemorrhoidal or perineal discomfort Unchanged ibuprofen (Motrin 600 mg oral tablet) 1 tab(s) by mouth Every 6 hours Unchanged lanolin topical (Lansinoh for Breast Feeding Mothers) 7 gram(s) Topical As Directed as needed for Other (see order comments) Please take this list to your next doctor s visit. Bring all medications you take, including over the counter medications, herbals and other supplements with you to your doctor s visit. Patients and families are reminded to discard old lists and to update any records with all medication providers or retail pharmacies. Education Materials RICE RICE stands for rest, ice, compression, and elevation. Doing these things helps limit pain and swelling after an injury. RICE also helps injuries heal faster. Use RICE for sprains, strains, and severe bruises or bumps. Follow the tips on this handout and begin RICE as soon as possible after an injury. Rest Pain is your body s way of telling you to rest an injured area. Whether you have hurt an elbow, hand, foot, or knee, limiting its use will prevent further injury and help you heal. Ice Applying ice right after an injury helps prevent swelling and reduce pain. Don t place ice directlyon your skin. Wrap a cold pack or bag of ice in a thin cloth. Place it over the injured area. Ice for 10 minutes every 3 hours. Don t ice for more than 20 minutes at a time. Compression Putting pressure (compression) on an injury helps prevent swelling and provides support. Wrap the injured area firmly with an elastic bandage. If your hand or foot tingles, becomes discolored, or feels cold to the touch, the bandage may be too tight. Rewrap it more loosely. If your bandage becomes too loose, rewrap it. Do not wear an elastic bandage overnight. Elevation Keeping an injury elevated helps reduce swelling, pain, and throbbing. Elevation is most effective when the injury is kept elevated higher than the heart. Call your healthcare provider if you notice any of the following: Fingers or toes feel numb, are cold to the touch, or change color. Skin looks shiny or tight. Pain, swelling, or bruising worsens and is not improved with elevation. [phone] [employer]. [address] [place] [address]. All rights reserved. This information is not intended as a substitute for professional medical care. Always follow yourhealthcare professional's instructions. Knee Sprain A sprain is an injury to the ligaments or capsule that holds a joint together. There are no broken bones. Most sprains take 3 to 6 weeks to heal. If it a severe sprain where the ligament is completely torn, it can take months to recover. Most knee sprains are treated with a splint, knee immobilizer brace, or elastic wrap for support. Severe sprains may rarely require surgery. Home care Stay off the injured leg as much as possible until you can walk on it without pain. If you have a lot of pain with walking, crutches or a walker may be prescribed. (These can be rented or purchased at many pharmacies and surgical or orthopedic supply stores). Follow your healthcare provider's advice about when to begin putting weight on that leg. Keep your leg elevated to reduce pain and swelling. When sleeping, place a pillow under the injuredleg. When sitting, support the injured leg so it is above heart level. This is very important during the first 48 hours. Apply an ice pack over the injured area for 15 to 20 minutes every 3 to 6 hours. You should do thisfor the first 24 to 48 hours. You can make an ice pack by filling a plastic bag that seals at the top with ice cubes and then wrapping it with a thin towel. Continue to use ice packs for relief of pain and swelling as needed. As the ice melts, be careful to avoid getting your wrap, splint, or cast wet. After 48 hours, apply heat (warm shower or warm bath) for 15 to 20 minutes several times a day,or alternate ice and heat. You can place the ice pack directly over the splint. If you have to weara bbik-jyz-pujr knee brace, you can open it to apply the ice pack, or heat, directly to the knee. Never put ice directly on the skin. Always wrap the ice in a towel or other type of cloth. You may use tllm-vcn-krogppx pain medicine to control pain, unless another pain medicine was prescribed. If you have chronic liver or kidney disease or ever had a stomach ulcer or gastrointestinal bleeding, talk with your healthcare provider before using these medicines. If you were given a splint, keep it completely dry at all times. Bathe with your splint out of the water, protected with 2 large plastic bags, sealed with rubber bands or tape at the top end. If a fiberglass splint gets wet, you can dry it with a family medicine chair set to cool. If you have a szkx-mkv-yvnj knee brace, you can remove this to bathe, unless told otherwise. Follow-up care Follow up with your doctor as advised. Any X-rays you had today don t show any broken bones, breaks, or fractures. Sometimes fractures don t show up on the first X-ray. Bruises and sprains can sometimes hurt as much as a fracture. These injuries can take time to heal completely. If your symptoms don t improve or they get worse, talk with your doctor. You may need a repeat X-ray. If X-rays were taken, you will be told of any new findings that may affect your care. Call 911 Call 911 if you have: Shortness of breath Chest pain When to seek medical advice Call your healthcare provider right away if any of these occur: The splint or knee immobilizer brace becomes wet or soft The fiberglass cast or splint remains wet for more than 24 hours Pain or swelling increases The injured leg or toes become cold, blue, numb, or tingly [phone] [employer]. [address] [place] [address]. All rights reserved. This information is not intended as a substitute for professional medical care. Always follow yourhealthcare professional's instructions. Additional Information VACCINATE! IT SAVES LIVES! Members of the community who have not yet received the COVID-19 vaccine and would like to receive it can visit one of [facility] vaccine clinics. There are many vaccine clinic locations within the [facility]. For locations and available times, please visit [email or web address]. It is important to note that some COVID mobile vaccine clinics are held outdoors and may be canceled in rainy orstormy conditions. To learn more about pediatric vaccinations (ages 5-11), we invite you to visit the [employer] [facility] webpage. [email or web address] learn more about the COVID-19 vaccine, we invite you to visit the [facility] website for a list of frequently asked questions. [email or web address] [facility] Patient Portal Access Instructions: Stay connected with your healthcare team and access your personal medical information anytime with the [facility] Patient Portal. If you would like a full copy of your medical records please contact the [facility] Medical Records Department Monday through Monday between 8a.m. and 4:30p.m. Please follow the directions below to access the portal: 1.Access the email account you provided upon registration to the hospital.2.Look for an invitation email from [facility].3.Open the email and access the invitation link: Accept Invitation to [facility]4.Fill in the required napier to create your account. Sign into [email or web address] with your username and password that you created in the above steps to stay up to date. You can then view a summary of results, a summary of your visits, and the ability to download your summaries to your computer or send the information securely to a physician. Remember that your healthcare information is confidential, so carefully consider who you will allow to register on the [facility] Patient Portal for access to your information. You can also access the [facility] Patient Portal on the [employer] mary. Simply click on "Health Records" under "HealthDaMeetyl" and then click on the [employer] logo. HOW TO SAFELY DISPOSE OF PRESCRIPTION MEDICATIONS Please use one of the following methods to safely dispose of your unused medications. 1.Use a drug disposal kit: the drug disposal pouch allows you to safely discard your old and unuseddrugs. Ask your nurse to give you one when you are discharged.2.Visit a local take-back location: Many local pharmacies and police departments have programs that collect old and unwanted prescriptiondrugs. Call your local pharmacy or go to http://VANDOLAY.[employer]/8I7Dj8c to find one close to you.3.Make use of household items: Use cat litter or old coffee grounds to dispose medications if other options arenot available. Mix your drugs with these household products, seal them in an airtight container andthrow it into the garbage. Call [facility]: [phone] to be sure your drugs can be disposed of in this way. Some medicines may require a different approach.4.Never flush your medications down the toilet. IF YOU HAVE BEEN PRESCRIBED AN OPIOIDS FOR PAIN If you have been prescribed an opioid (such as hydrocodone, oxycodone or morphine), it is critical to understand the possible side effects and risks of opioid pain medications. Even when taken as directed, opioids can have several side effects including: Tolerance, meaning you might need to take more of a medication for the same pain relief. Nausea, vomiting and/or constipation. Sleepiness, dizziness, dry mouth, confusion, depression or itching. Physical dependence, meaning you have withdrawal symptoms when a medication is stopped ? this can develop within a few days. KNOW YOUR RESPONSIBILITIES It is important to know exactly how much and how often to take the opioid pain medications you are prescribed. Never take opioids in higher amounts or more often than prescribed. Do not combine opioids with alcohol or other drugs that cause drowsiness, such as benzodiazepines, also known as benzos,including diazepam and alprazolam, muscle relaxants or sleep aids. Never sell or share prescriptionopioids. This is illegal. Store opioids in a secure place and out of reach of others (including children, family, friends and visitors). The last page(s) of this document has been signed and retained as a CHART COPY Signatures Patient Education Materials [employer] Knee Sprain Medication Leaflets My discharge plan and instructions have been reviewed and explained to me and I,KRISTAN MCLEAN understand my current condition and have read and understand these discharge instructions. I have received a written copy of the plan/instructions. If I have questions, I am aware that I should contact my doctor. 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 No periosteal reaction or suspicious osseous abnormality. No radiopaque foreign body. No significant knee joint effusion. IMPRESSION: No acute fracture. I have personally reviewed the images of this examination and agree with the resident's findings and interpretation. Interpreted by: Malcom Rose MD Preliminary Report By: Marta Seals Electronically signed By Malcom Rose MD Dictated Date: 03/27/2022 8:41:27 PM Prelim Date: 03/27/2022 8:44:09 PM Sign Date: 03/27/2022 8:47:52 PM [facility]ing [facility] No data available for this section [facility] Evaluation note* Diagnosis Onset Date Resolution Status GBS (group B streptococcus) UTI complicating acute Obesity affecting acute acute Rh negative status during acute Supervision of other normal acute COVID-19 affecting , antepartum acute acute Rh negative status during acute Supervision of other normal acute COVID-19 affecting , antepartum acute GBS (group B streptococcus) UTI complicating acute Obesity affecting acute acute Rh negative status during acute Sterilization acute Supervision of other normal acute COVID-19 affecting , antepartum acute GBS (group B streptococcus) UTI complicating acute Obesity affecting acute acute Rh negative status during acute Sterilization acute Supervision of other normal acute COVID-19 affecting , antepartum acute GBS (group B streptococcus) UTI complicating acute Obesity affecting acute acute Rh negative status during acute Sterilization acute Supervision of other normal acute Obesity affecting acute acute Rh negative status during acute Supervision of other normal acute COVID-19 affecting , antepartum acute GBS (group B streptococcus) UTI complicating acute Obesity affecting acute acute Rh negative status during acute Sterilization acute Supervision of other normal acute COVID-19 affecting , antepartum acute GBS (group B streptococcus) UTI complicating acute Obesity affecting acute acute Rh negative status during acute Sterilization acute Supervision of other normal acute COVID-19 affecting , antepartum acute GBS (group B streptococcus) UTI complicating acute Obesity affecting acute acute Rh negative status during acute Sterilization acute Supervision of other normal acute COVID-19 affecting , antepartum acute GBS (group B streptococcus) UTI complicating acute Obesity affecting acute acute Rh negative status during acute Sterilization acute Supervision of other normal acute [facility] Work Phone: Evaluation note* Diagnosis Onset Date Resolution Status GBS (group B streptococcus) UTI complicating acute Obesity affecting acute acute Rh negative status during acute Supervision of other normal acute COVID-19 affecting , antepartum acute acute Rh negative status during acute Supervision of other normal acute COVID-19 affecting , antepartum acute GBS (group B streptococcus) UTI complicating acute Obesity affecting acute acute Rh negative status during acute Sterilization acute Supervision of other normal acute COVID-19 affecting , antepartum acute GBS (group B streptococcus) UTI complicating acute Obesity affecting acute acute Rh negative status during acute Sterilization acute Supervision of other normal acute COVID-19 affecting , antepartum acute GBS (group B streptococcus) UTI complicating acute Obesity affecting acute acute Rh negative status during acute Sterilization acute Supervision of other normal acute Obesity affecting acute acute Rh negative status during acute Supervision of other normal acute COVID-19 affecting , antepartum acute GBS (group B streptococcus) UTI complicating acute Obesity affecting acute acute Rh negative status during acute Sterilization acute Supervision of other normal acute COVID-19 affecting , antepartum acute GBS (group B streptococcus) UTI complicating acute Obesity affecting acute acute Rh negative status during acute Sterilization acute Supervision of other normal acute COVID-19 affecting , antepartum acute GBS (group B streptococcus) UTI complicating acute Obesity affecting acute acute Rh negative status during acute Sterilization acute Supervision of other normal acute COVID-19 affecting , antepartum acute GBS (group B streptococcus) UTI complicating acute Obesity affecting acute acute Rh negative status during acute Sterilization acute Supervision of other normal acute False labor acute COVID-19 affecting , antepartum acute False labor acute GBS (group B streptococcus) UTI complicating acute Obesity affecting acute acute Rh negative status during acute Sterilization acute Supervision of other normal acute [facility] Work Phone: Evaluation note* Diagnosis Onset Date Resolution Status COVID-19 affecting , antepartum resolved resolved Rh negative status during resolved Supervision of other normal resolved COVID-19 affecting , antepartum resolved GBS (group B streptococcus) UTI complicating resolved Obesity affecting resolved resolved Rh negative status during resolved Sterilization resolved Supervision of other normal resolved COVID-19 affecting , antepartum resolved GBS (group B streptococcus) UTI complicating resolved Obesity affecting resolved resolved Rh negative status during resolved Sterilization resolved Supervision of other normal resolved COVID-19 affecting , antepartum resolved GBS (group B streptococcus) UTI complicating resolved Obesity affecting resolved resolved Rh negative status during resolved Sterilization resolved Supervision of other normal resolved Obesity affecting resolved resolved Rh negative status during resolved Supervision of other normal resolved COVID-19 affecting , antepartum resolved GBS (group B streptococcus) UTI complicating resolved Obesity affecting resolved resolved Rh negative status during resolved Sterilization resolved Supervision of other normal resolved COVID-19 affecting , antepartum resolved GBS (group B streptococcus) UTI complicating resolved Obesity affecting resolved resolved Rh negative status during resolved Sterilization resolved Supervision of other normal resolved COVID-19 affecting , antepartum resolved GBS (group B streptococcus) UTI complicating resolved Obesity affecting resolved resolved Rh negative status during resolved Sterilization resolved Supervision of other normal resolved COVID-19 affecting , antepartum resolved GBS (group B streptococcus) UTI complicating resolved Obesity affecting resolved resolved Rh negative status during resolved Sterilization resolved Supervision of other normal resolved False labor resolved COVID-19 affecting , antepartum resolved False labor resolved GBS (group B streptococcus) UTI complicating resolved Obesity affecting resolved resolved Rh negative status during resolved Sterilization resolved Supervision of other normal resolved COVID-19 affecting , antepartum resolved False labor resolved GBS (group B streptococcus) UTI complicating resolved Obesity affecting resolved resolved Rh negative status during resolved Sterilization resolved Supervision of other normal resolved COVID-19 affecting , antepartum resolved False labor resolved GBS (group B streptococcus) UTI complicating resolved Obesity affecting resolved resolved Rh negative status during resolved Sterilization resolved Supervision of other normal resolved Vaginal delivery acute COVID-19 affecting , antepartum resolved False labor resolved GBS (group B streptococcus) UTI complicating resolved Obesity affecting resolved resolved Rh negative status during resolved Sterilization resolved Supervision of other normal resolved [facility] Work Phone: Evaluation note* Diagnosis Onset Date Resolution Status COVID-19 affecting , antepartum resolved GBS (group B streptococcus) UTI complicating resolved Obesity affecting resolved resolved Rh negative status during resolved Sterilization resolved Supervision of other normal resolved Obesity affecting resolved resolved Rh negative status during resolved Supervision of other normal resolved COVID-19 affecting , antepartum resolved GBS (group B streptococcus) UTI complicating resolved Obesity affecting resolved resolved Rh negative status during resolved Sterilization resolved Supervision of other normal resolved COVID-19 affecting , antepartum resolved GBS (group B streptococcus) UTI complicating resolved Obesity affecting resolved resolved Rh negative status during resolved Sterilization resolved Supervision of other normal resolved COVID-19 affecting , antepartum resolved GBS (group B streptococcus) UTI complicating resolved Obesity affecting resolved resolved Rh negative status during resolved Sterilization resolved Supervision of other normal resolved COVID-19 affecting , antepartum resolved GBS (group B streptococcus) UTI complicating resolved Obesity affecting resolved resolved Rh negative status during resolved Sterilization resolved Supervision of other normal resolved False labor resolved COVID-19 affecting , antepartum resolved False labor resolved GBS (group B streptococcus) UTI complicating resolved Obesity affecting resolved resolved Rh negative status during resolved Sterilization resolved Supervision of other normal resolved COVID-19 affecting , antepartum resolved False labor resolved GBS (group B streptococcus) UTI complicating resolved Obesity affecting resolved resolved Rh negative status during resolved Sterilization resolved Supervision of other normal resolved COVID-19 affecting , antepartum resolved False labor resolved GBS (group B streptococcus) UTI complicating resolved Obesity affecting resolved resolved Rh negative status during resolved Sterilization resolved Supervision of other normal resolved Vaginal delivery acute COVID-19 affecting , antepartum resolved False labor resolved GBS (group B streptococcus) UTI complicating resolved Obesity affecting resolved resolved Rh negative status during resolved Sterilization resolved Supervision of other normal resolved Vaginal delivery acute [facility] Work Phone: Evaluation note* Diagnosis Viral illness- Primary Unspecified viral infection, in conditions classified elsewhere and of unspecified site Acute otitis media, left Unspecified otitis media [facility] Diagnosis Onset Date Resolution Status Abnormal uterine bleeding ac [facility] Work Phone: Evaluation note* Diagnosis Onset Date Resolution Status Abnormal uterine bleeding ac carlene Abnormal uterine bleeding ac [facility] Work Phone: Progress note Author Alla Gordillo [facility] Note Date/Time February 26, 2025 10:19 am [facility] Women[facility] [address], [address] [place] [address] OFFICE VISIT Date of Service: 02/26/25 MR#: [id number] Acct: [id number] Name: KRISTAN MCLEAN Rep #: [id number] : 1995 Provider: RADHA Gordillo Age/Sex: 29/F Location: [facility] [place] Status: Signed Intake Vital Signs 12/19/24 15:35 02/26/25 09:52 Height 5 ft 4 in 5 ft 4 in Weight: 256 lb 255 lb 2 oz BMI 43.9 43.7 BP 129/86 H 127/79 H Intake Visit Reasons: 6 wk med check Preservationist Required: No Is patient in pain?: No Allergies No Known Allergies Allergy (Verified 02/26/25 09:52) Medications ?Medication ?Instructions ?Recorded ?Confirmed ?Type cholecalciferol (vitamin D3) 50 50 mcg PO QDAY 5 02/26/25 History mcg (2,000 unit) capsule spironolactone 50 mg tablet 50 mg PO QDAY 30 days #30 tabs 02/26/25 02/26/25 Rx (Aldactone) Is last menstrual period known: No Post menopausal: No Patient : No : No Control Method: hyst [facility] Medical History Wears glasses History of steroid therapy Alcohol use Non-smoker Vaginal delivery Depression Sterilization Infertility Surgical History H/O cystoscopy History of repair of ACL Status post laparoscopic procedure History of surgery History of appendectomy (~06/2022) Family History Grandmother Breast cancer Social History adopted: No household members: family housing: house number of children: 3 Smoking Status: Never smoker alcohol intake: never substance use type: does not use caffeine: Yes what type of physical activity do you participate in: walking seatbelt use: always do you feel safe at home: Yes additional social history: 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 She reports she is doing great on this; has noticed a difference in the hair growth on her face; in particularly above her lip. She denies side effects from this and would like to continue on it. History 3 Elective abortions Hx Para 3 Spontaneous abortions Hx # Term Pregnancies Ectopic pregnancies Hx # Pregnancies Multiple births # of living children 3 Past Pregnancies Del. Date Name GA/Weeks Outcome Route Bth Weight Infant Gen Labor Lgth Anesthesia Del Locatn Provider FOB 09/13/15 [place] 39 live - full term 8 pounds 3oz Mal e 10 hours epidural AOH Ashley Berumen 01/16/19 [place] 39 live - full term 7lbs 7oz Male 10 h ours epidural WC BRADLEY Berumen 12/10/21 [place] 39 live - full term 8lbs 9oz Male [facility] Dr[facility] [place] Delivery Date: 01/16/19 Last Updated by: Mariya Lugo pre term labor at 26 weeks Delivery Date: 12/10/21 Last Updated by: Corinna MCCARTHY ENT ENT: Reports system reviewed and no additional complaints, except as documented Cardio Card: Reports system reviewed and no additional complaints, except as documented Resp Resp: Denies cough, dyspnea or dyspnea on exertion Musc Musc: Reports system reviewed and no additional complaints, except as documented Skin Skin/Breast: Reports system reviewed and no additional complaints, except as documented Exam Const General: cooperative, healthy appearing, comfortable, no acute distress, well groomed and well hydrated Nutritional Appearance: well nourished Orientation: alert, awake and oriented x3 Eyes General: appearance normal, both eyes and all related structures Neck Neck: normal visual inspection and full ROM Resp Effort & Inspection: normal respiratory effort, able to speak in complete sentences and symmetric chest movement Skin General: no rashes or lesions noted Neuro General: patient alert, patient awake, patient oriented x3 and moves all extremities Psych Appearance: grossly normal Mental Status: mental status grossly normal Affect: normal affect Speech and Movement: speech and movement normal Attitude: cooperative Coding Level of Care Code Established Pt Off vis,est,level 3 Patient Type Established Diagnoses PCOS (polycystic ovarian syndrome) E28.2 Assessment and Plan Assessment and Plan (1) PCOS (polycystic ovarian syndrome): Status: Chronic Comment: hair growth to chin/coarse. Plan: Continue medications; refills sent. Labs ordered to obtain today and then in 6 months to ensure stable kidney function. Orders: Orders Comprehensive Metabolic Profil Today E28.2 - Polycystic ovarian syndrome Medications: Refilled spironolactone (Aldactone) 50 mg PO QDAY 30 days 30 tabs 11RF 02/26/25 1019 <Electronically signed by Alla GARCIA> Date _ Alla TAFOYAC Cosigner Signature: Date (if applicable) CC: ~ [facility] Work Phone: Reason for referral (narrative)No reason for referral information [facility] Work Phone: Summary Purpose Family History No Family History Records Found Relationship Condition Age at Onset Recorded Date/T alexandra grandmother Malignant neoplasm of breast Unknown Advance Directives No Advanced Directives Records Found Advance Directive Response Recorded Date/ Time Living Will No October 14 12:10pm Power of Safety Investigator/Cause Analyst No October 14, 2021 12:10pm Advance Directive Response Recorded Date/ Time Living Will No November 16, 2021 11:26pm Power of Safety Investigator/Cause Analyst No November 16 11:26pm Advance Directive Response Recorded Date/ Time Living Will No December 10, 2021 7:17am Power of Safety Investigator/Cause Analyst No December 10 7:17am Advance Directive Response Recorded Date/ Time Living Will No January 03, 2023 1 0:45am Power of Safety Investigator/Cause Analyst No January 03, 2023 10:45am Advance Directive Response Recorded Date/ Time Living Will No January 23, 2023 4 :27pm Power of Safety Investigator/Cause Analyst No January 23, 2023 4:27pm Chief Complaint and Reason for Visit Chief Complaint 20 WK OB 24 WK OB 28 WK OB/GLUCOSE pressure and mucous discharge 30 WK OB decreased movement 32 WK OB GROWTH 32 WEEKS 34 WK OB lvm to r/s GROWTH 36 WEEKS 36 WK OB *us first rule out labor EXTENDED MONITORING Reason for Visit GBS (group B strepto coccus) UTI complicating Obesity affecting Rh negative status during Supervision of other normal COVID-19 affecting , antepartum Rh negative status during Supervision of other normal COVID-19 affecting , antepartum GBS (group B streptococcus) UTI complicating Obesity affecting Rh negative status during Sterilization Supervision of other normal COVID-19 affecting , antepartum GBS (group B streptococcus) UTI complicating Obesity affecting Rh negative status during Sterilization Supervision of other normal COVID-19 affecting , antepartum GBS (group B streptococcus) UTI complicating Obesity affecting Rh negative status during Sterilization Supervision of other normal Obesity affecting Rh negative status during Supervision of other normal COVID-19 affecting , antepartum GBS (group B streptococcus) UTI complicating Obesity affecting Rh negative status during Sterilization Supervision of other normal COVID-19 affecting , antepartum GBS (group B streptococcus) UTI complicating Obesity affecting Rh negative status during Sterilization Supervision of other normal COVID-19 affecting , antepartum GBS (group B streptococcus) UTI complicating Obesity affecting Rh negative status during Sterilization Supervision of other normal COVID-19 affecting , antepartum GBS (group B streptococcus) UTI complicating Obesity affecting Rh negative status during Sterilization Supervision of other normal Chief Complaint 20 WK OB 24 WK OB 28 WK OB/GLUCOSE pressure and mucous discharge 30 WK OB decreased movement 32 WK OB GROWTH 32 WEEKS 34 WK OB lvm to r/s GROWTH 36 WEEKS 36 WK OB *us first rule out labor R/O LABOR 37WK OB Reason for Visit GBS (group B strepto coccus) UTI complicating Obesity affecting Rh negative status during Supervision of other normal COVID-19 affecting , antepartum Rh negative status during Supervision of other normal COVID-19 affecting , antepartum GBS (group B streptococcus) UTI complicating Obesity affecting Rh negative status during Sterilization Supervision of other normal COVID-19 affecting , antepartum GBS (group B streptococcus) UTI complicating Obesity affecting Rh negative status during Sterilization Supervision of other normal COVID-19 affecting , antepartum GBS (group B streptococcus) UTI complicating Obesity affecting Rh negative status during Sterilization Supervision of other normal Obesity affecting Rh negative status during Supervision of other normal COVID-19 affecting , antepartum GBS (group B streptococcus) UTI complicating Obesity affecting Rh negative status during Sterilization Supervision of other normal COVID-19 affecting , antepartum GBS (group B streptococcus) UTI complicating Obesity affecting Rh negative status during Sterilization Supervision of other normal COVID-19 affecting , antepartum GBS (group B streptococcus) UTI complicating Obesity affecting Rh negative status during Sterilization Supervision of other normal COVID-19 affecting , antepartum GBS (group B streptococcus) UTI complicating Obesity affecting Rh negative status during Sterilization Supervision of other normal False labor COVID-19 affecting , antepartum False labor GBS (group B streptococcus) UTI complicating Obesity affecting Rh negative status during Sterilization Supervision of other normal Chief Complaint 24 WK OB 28 WK OB/GLUCOSE pressure and mucous discharge 30 WK OB decreased movement 32 WK OB GROWTH 32 WEEKS 34 WK OB lvm to r/s GROWTH 36 WEEKS 36 WK OB *us first rule out labor R/O LABOR 37WK OB 37WK OB 39WK OB VAG DELIVERY INDUCTION VAG DELIVERY Reason for Visit COVID-19 affecting p regnancy, antepartum Rh negative status during Supervision of other normal COVID-19 affecting , antepartum GBS (group B streptococcus) UTI complicating Obesity affecting Rh negative status during Sterilization Supervision of other normal COVID-19 affecting , antepartum GBS (group B streptococcus) UTI complicating Obesity affecting Rh negative status during Sterilization Supervision of other normal COVID-19 affecting , antepartum GBS (group B streptococcus) UTI complicating Obesity affecting Rh negative status during Sterilization Supervision of other normal Obesity affecting Rh negative status during Supervision of other normal COVID-19 affecting , antepartum GBS (group B streptococcus) UTI complicating Obesity affecting Rh negative status during Sterilization Supervision of other normal COVID-19 affecting , antepartum GBS (group B streptococcus) UTI complicating Obesity affecting Rh negative status during Sterilization Supervision of other normal COVID-19 affecting , antepartum GBS (group B streptococcus) UTI complicating Obesity affecting Rh negative status during Sterilization Supervision of other normal COVID-19 affecting , antepartum GBS (group B streptococcus) UTI complicating Obesity affecting Rh negative status during Sterilization Supervision of other normal False labor COVID-19 affecting , antepartum False labor GBS (group B streptococcus) UTI complicating Obesity affecting Rh negative status during Sterilization Supervision of other normal COVID-19 affecting , antepartum False labor GBS (group B streptococcus) UTI complicating Obesity affecting Rh negative status during Sterilization Supervision of other normal COVID-19 affecting , antepartum False labor GBS (group B streptococcus) UTI complicating Obesity affecting Rh negative status during Sterilization Supervision of other normal Vaginal delivery COVID-19 affecting , antepartum False labor GBS (group B streptococcus) UTI complicating Obesity affecting Rh negative status during Sterilization Supervision of other normal Chief Complaint 30 WK OB decreased movement 32 WK OB GROWTH 32 WEEKS 34 WK OB lvm to r/s GROWTH 36 WEEKS 36 WK OB *us first rule out labor R/O LABOR 37WK OB 37WK OB 39WK OB VAG DELIVERY INDUCTION VAG DELIVERY 6 wk PP LAP BILAT SALPING LAP BILAT SALPING Reason for Visit COVID-19 affecting p regnancy, antepartum GBS (group B streptococcus) UTI complicating Obesity affecting Rh negative status during Sterilization Supervision of other normal Obesity affecting Rh negative status during Supervision of other normal COVID-19 affecting , antepartum GBS (group B streptococcus) UTI complicating Obesity affecting Rh negative status during Sterilization Supervision of other normal COVID-19 affecting , antepartum GBS (group B streptococcus) UTI complicating Obesity affecting Rh negative status during Sterilization Supervision of other normal COVID-19 affecting , antepartum GBS (group B streptococcus) UTI complicating Obesity affecting Rh negative status during Sterilization Supervision of other normal COVID-19 affecting , antepartum GBS (group B streptococcus) UTI complicating Obesity affecting Rh negative status during Sterilization Supervision of other normal False labor COVID-19 affecting , antepartum False labor GBS (group B streptococcus) UTI complicating Obesity affecting Rh negative status during Sterilization Supervision of other normal COVID-19 affecting , antepartum False labor GBS (group B streptococcus) UTI complicating Obesity affecting Rh negative status during Sterilization Supervision of other normal COVID-19 affecting , antepartum False labor GBS (group B streptococcus) UTI complicating Obesity affecting Rh negative status during Sterilization Supervision of other normal Vaginal delivery COVID-19 affecting , antepartum False labor GBS (group B streptococcus) UTI complicating Obesity affecting Rh negative status during Sterilization Supervision of other normal Vaginal delivery Chief Complaint AUB FU enlarged uterus Reason for Visit Abnormal uterine ble eding Chief Complaint AUB FU enlarged uterus LAP ROBOTIC HYSTERECTOMY LAP ROBOTIC HYSTERECTOMY Reason for Visit Abnormal uterine ble eding Abnormal uterine bleeding Chief Complaint AUB FU enlarged uterus LAP ROBOTIC HYSTERECTOMY LAP ROBOTIC HYSTERECTOMY FEVER Reason for Visit Abnormal uterine ble eding Abnormal uterine bleeding Chief Complaint Admit Date Annual (HOPPER OPERATOR) December 19, 2024 3:31pm Reason for Visit Admit Date PCOS (polycystic ovarian syndrome) December 192024 3:31pm Encounter for routine gynecological exam ination December 19, 2024 3:31pm Chief Complaint Admit Date Annual (HOPPER OPERATOR) December 19, 2024 3:31pm 6 wk med check February 26, 2025 9:49a m Reason for Visit Admit Date PCOS (polycystic ovarian syndrome) December 192024 3:31pm Encounter for routine gynecological exam ination December 19, 2024 3:31pm PCOS (polycystic ovarian syndrome) February 26, 2025 9:49am Chief Complaint Admit Date Annual (HOPPER OPERATOR) December 19, 2024 3:31pm 6 wk med check February 26, 2025 9:49a m RIGHT KNEE March 19, 2025 7:56 am Room 2 March 19, 2025 8:17 am Reason for Visit Admit Date PCOS (polycystic ovarian syndrome) December 192024 3:31pm Encounter for routine gynecological exam ination December 19, 2024 3:31pm PCOS (polycystic ovarian syndrome) February 26, 2025 9:49am Chondromalacia patellae of right knee Ju ly 2024 7:56am Chief Complaint Admit Date 6 wk med check February 26, 2025 9:49a m RIGHT KNEE March 19, 2025 7:56 am Room 2 March 19, 2025 8:17 am Swelling on Spironolactone April 2:03pm Reason for Visit Admit Date PCOS (polycystic ovarian syndrome) February 26, 2025 9:49am Chondromalacia patellae of right knee Ju ly 2024 7:56am Heart palpitations May 08, 2025 2:03pm PCOS (polycystic ovarian syndrome) Septe mber 2024 2:03pm Health Concerns Infection Onset Date Last Indicated Resolved Time COVID-19 Rule-Out 06/14/2022 06/14/2022 Additional Source Comments INFORMATION SOURCE (unrecogn ized section and content) DATE CREATED AUTHOR 02/09/2018 [facility] DATE CREATED AUTHOR AUTHOR'S ORGANIZ ATION 06/20/2018 [facility] DATE CREATED AUTHOR AUTHOR'S ORGANIZ ATION 11/02/2018 [facility] DATE CREATED AUTHOR AUTHOR'S ORGANIZ ATION 05/23/2022 [facility] ([place]) DATE CREATED AUTHOR AUTHOR'S ORGANIZ ATION 06/16/2022 [facility] DATE CREATED AUTHOR AUTHOR'S ORGANIZ ATION 06/02/2025 [facility] Goals (unrecognized section and content) Type Care Experience Care Experience Labor Preference s-CB/BF classes: labor support person: Norma intervention preferences: []pain management options preferred: epiduralcut cord/dad catch: nobreastfeeding: yesPP control planned: discussed-vasectomy planneddiscussed possible routes of delivery and associated risks: []special requests: [] Care Team (unrecognized sect ion and content) Care Team Personnel Name: ISIDRO GRIMES MD Member Role: Primary Care Physician Address: Address: [address] [id number]- Care Team Related Persons Name: KEYON RODRIGUEZ Name: PARAG MCLEAN Address: [facility] MAIN Address: [address] [place] [address] [place] Name: DILAN MCLEAN Name: DILAN MCLEAN Source Comments (unrecognize d section and content) In the event this informatio n is protected by the Federal Confidentiality of Alcohol and Drug Abuse Patient Records regulations: The Federal rules restrict any use of the information to criminally investigate or prosecute any alcohol or drug abuse patient.[facility] Reason for Visit (unrecogniz ed section and content) Reason Comments Cough started with congest ion, sore throat x 5 days Care Teams (unrecognized sec tion and content) 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 Isidro Grimes MD Primary Care Provider Active Team Status: Inactive Member Role Status Dates Dr. Isidro Grimes MD Primary Care Provider, Referring Pr ovider Active Dr. Meliza Casillas DO Attending Provider Activ e Team Status: Inactive Member Role Status Dates Dr. Isidro Grimes MD Primary Care Provider Active Dr. Meliza Casillas DO Attending Provider Activ e Team Status: Active Member Role Status Dates Dr. Isidro Grimes MD Primary Care Provider Active Dr. Meliza Casillas DO Attending Provider, Referring Provider, Other Provider Active Team Status: Inactive Member Role Status Dates Dr. Isidro Grimes MD Primary Care Provider Active Dr. Meliza Casillas DO Attending Provider, Refe rring Provider Active Team Status: Inactive Member Role Status Dates Dr. Isidro Grimes MD Primary Care Provider Active Dr. Vamsi Reyes MD Emergency Provider Active Team Status: Inactive Member Role Status Dates Dr. Isidro Grimes MD Primary Care Provider Active Start: December 19, 2024 End: December 19, 2024 Dr. Isidro Grimes MD Referring Provider Active Sta rt: December 19, 2024 End: December 19, 2024 RADHA Abraham Attending Provider Active Start: December 19, 2024 End: December 19, 2024 Team Status: Inactive Member Role Status Dates Dr. Isidro Grimes MD Primary Care Provider Active Start: December 27, 2024 End: December 27, 2024 Dede Domingo CNM Attending Provider Active S tart: December 27, 2024 End: December 27, 2024 Dede Domingo CNM Referring Provider Active S tart: December 27, 2024 End: December 27, 2024 Team Status: Active Member Role/Relationship Status Dates No Primary Care Physician Family Provider Active Dr. Isidro Grimes MD Primary Care Provider Active Team Status: Inactive Member Role/Relationship Status Dates Dr. Isidro Grimes MD Primary Care Provider Active Start: December 19, 2024 End: December 19, 2024 Dr. Isidro Grimes MD Referring Provider Active Sta rt: December 19, 2024 End: December 19, 2024 RADHA Abraham Attending Provider Active Start: December 19, 2024 End: December 19, 2024 Team Status: Inactive Member Role/Relationship Status Dates Dr. Isidro Grimes MD Primary Care Provider Active Start: December 27, 2024 End: December 27, 2024 Dede Domingo CNM Attending Provider Active S tart: December 27, 2024 End: December 27, 2024 Dede Domingo CNM Referring Provider Active S tart: December 27, 2024 End: December 27, 2024 Team Status: Inactive Member Role/Relationship Status Dates Dr. Isidro Grimes MD Primary Care Provider Active Start: February 26, 2025 End: February 26, 2025 Dr. Isidro Grimes MD Referring Provider Active Sta rt: February 26, 2025 End: February 26, 2025 RADHA Abraham Attending Provider Active Start: February 26, 2025 End: February 26, 2025 Team Status: Active Member Role/Relationship Status Dates Dr. Isidro Grimes MD Primary Care Provider Active Start: February 26, 2025 RADHA Abraham Attending Provider Active Start: February 26, 2025 RADHA Abraham Referring Provider Active Start: February 26, 2025 Team Status: Inactive Member Role/Relationship Status Dates Dr. Isidro Grimes MD Primary Care Provider Active Start: February 26, 2025 End: February 26, 2025 RADHA Abraham Attending Provider Active Start: February 26, 2025 End: February 26, 2025 RADHA Abraham Referring Provider Active Start: February 26, 2025 End: February 26, 2025 Team Status: Active Member Role/Relationship Status Dates Dr. Isidro Grimes MD Primary Care Provider Active Start: March 19, 2025 Dr. Isidro Grimes MD Referring Provider Active Sta rt: March 19, 2025 Dr. Lyndon Gruber DO Attending Provider Active Start: March 19, 2025 Team Status: Inactive Member Role/Relationship Status Dates Dr. Isidro Grimes MD Primary Care Provider Active Start: March 19, 2025 End: March 19, 2025 Dr. Antwon Mayfield MD Attending Provider Active S tart: March 19, 2025 End: March 19, 2025 Team Status: Inactive Member Role/Relationship Status Dates Dr. Isidro Grimes MD Primary Care Provider Active Start: March 19, 2025 End: March 19, 2025 Dr. Isidro Grimes MD Referring Provider Active Sta rt: March 19, 2025 End: March 19, 2025 Dr. Lyndon Gruber DO Attending Provider Active Start: March 19, 2025 End: March 19, 2025 Team Status: Active Member Role/Relationship Status Dates No Primary Care Physician Primary care physician Activ e Dr. Isidro Grimes MD Primary care physician Active Team Status: Inactive Member Role/Relationship Status Dates Dr. Isidro Grimes MD Primary care physician Active Start: February 26, 2025 End: February 26, 2025 Dr. Isidro Grimes MD Referring Provider Active Sta rt: February 26, 2025 End: February 26, 2025 RADHA Abraham Attending physician Active Start: February 26, 2025 End: February 26, 2025 Team Status: Inactive Member Role/Relationship Status Dates Dr. Isidro Grimes MD Primary care physician Active Start: February 26, 2025 End: February 26, 2025 RADHA Abraham Attending physician Active Start: February 26, 2025 End: February 26, 2025 RADHA Abraham Referring Provider Active Start: February 26, 2025 End: February 26, 2025 Team Status: Inactive Member Role/Relationship Status Dates Dr. Isidro Grimes MD Primary care physician Active Start: March 19, 2025 End: March 19, 2025 Dr. Isidro Grimes MD Referring Provider Active Sta rt: March 19, 2025 End: March 19, 2025 Dr. Lyndon Gruber DO Attending physician Active Start: March 19, 2025 End: March 19, 2025 Team Status: Inactive Member Role/Relationship Status Dates Dr. Isidro Grimes MD Primary care physician Active Start: March 19, 2025 End: March 19, 2025 Dr. Antwon Mayfield MD Attending physician Active Start: March 19, 2025 End: March 19, 2025 Team Status: Active Member Role/Relationship Status Dates Dr. Isidro Grimes MD Primary care physician Active Start: May 07, 2025 Dr. Trudy Ware MD Attending physician Active Start: May 07, 2025 Dr. Trudy Ware MD Referring Provider Active Start: May 07, 2025 Team Status: Inactive Member Role/Relationship Status Dates Dr. Isidro Grimes MD Primary care physician Active Start: May 08, 2025 End: May 08, 2025 Dr. Isidro Grimes MD Referring Provider Active Sta rt: May 08, 2025 End: May 08, 2025 RAHDA Abraham Attending physician Active Start: May 08, 2025 End: May 08, 2025 Team Status: Inactive Member Role/Relationship Status Dates Dr. Isidro Grimes MD Primary care physician Active Start: May 07, 2025 End: May 07, 2025 Dr. Trudy Ware MD Attending physician Active Start: May 07, 2025 End: May 07, 2025 Dr. Trudy Ware MD Referring Provider Active Start: May 07, 2025 End: May 07, 2025 FOR RECORDS PERTAINING TO PATIENTS WHO ARE OR HAVE BEEN ENROLLED IN A CHEMICAL DEPENDENCY/SUBSTANCEABUSE PROGRAM, SOME INFORMATION MAY BE OMITTED. This clinical summary was aggregated from multiple sources. Caution should be exercised in using it in the provision of clinical care. This summary normalizes information from multiple sources, and as a consequence, information in this document may materially change the coding, format and clinical context of patient data. In addition, data may be omitted in some cases. CLINICAL DECISIONS SHOULD BE BASED ON THE PRIMARY CLINICAL RECORDS. [facility]. provides no warranty or guarantee of the accuracy or completeness of information in this document.
== END | disposition home or self-care (01) ==
PROVIDERS: PCP Family Medicine; Referring Provider Nurse Practitioner Family; Visit Provider Nurse Practitioner Family
DX: R00.2 Palpitations (principal)
CPT/HCPCS: 93005